=== PATIENT | female | born 1940 | race Caucasian/White ===

== ENCOUNTER 2022-10-11 21:13 | Emergency (ER) | payer MEDICARE, SELFPAY ==
[2022-10-11] VITALS (21 sets, daily range): BP systolic 150–190; BP diastolic 70–135; PULSE 79–97; RESP 13–37; TEMP 37.1; O2SAT 88–96; BMI 20.1
--- NOTE | 2022-10-11 21:24 | ECG_ITS ---
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
--- NOTE | 2022-10-11 21:36 | ED_ITS ---
HPI - Chest Pain General Chief Complaint: Chest Pain Stated Complaint: PALPITATIONS Time Seen by Provider: 10/11/22 21:24 History of Present Illness HPI narrative: 82-year-old female who has a pacemaker and sees Dr. Kapoor and Dr. Gomez (cardiology) presents for evaluation stating that she thinks she had a spell with her pacemaker. She states she felt some fluttering in her chest. She denies any rudolph chest pain. She denies any dizziness or syncope. She has no lower extremity swelling. The patient has had a cough since last Saturday. She was seen by Dr. Kapoor and started on Zithromax and given a shot of something in her left arm. She is not having any productive sputum. She does not smoke but has a history of smoking in the past. She denies any abdominal pain. She denies any nausea or vomiting. She does not think that she has had a fever. She has not been vaccinated against Covid 19. She did have a Covid [address] Kapoor's office that was negative. She is on Eliquis 2.5mg BID Related Data Home Medications Medication Instructions Recorded Confirmed apixaban 2.5 mg tablet (Eliquis) mg 10/11/22 carvedilol 25 mg tablet mg 10/11/22 colesevelam 625 mg tablet mg 10/11/22 diltiazem HCl 120 mg mg PO 10/11/22 capsule,extended release 24 hr memantine 10 mg tablet mg 10/11/22 montelukast 10 mg tablet mg 10/11/22 Allergies Allergy/AdvReac Type Severity Reaction Status Date / Time No Known Drug Allergies Allergy Verified 10/11/22 21:29 Review of Systems ROS Status of ROS 10 or more systems reviewed and unremarkable except as noted in history and below PFSH PFS Social History Smoking status: Former smoker Exam Narrative Exam Narrative: Nurses note and vital signs reviewed and patient is mildly hypoxic with pulse ox of 93 percent on room air General: The patient appears well and in no apparent distress. Patient is resting comfortably on cart. She has episodes of coughing. No rudolph respiratory distress Skin: Warm, dry, no pallor noted. There is no rash noted. Head: Normocephalic, atraumatic Eye: Normal conjunctiva, no drainage, EOMI. PERRL Ears, Nose, Mouth, and Throat: oral mucosa is sticky, Posterior pharynx is normal. Cardiovascular: Regular Rate and Rhythm, paced rhythm in the 70s and 80s. Respiratory: Patient is in no distress, no accessory muscle use, LLL rhonchi are appreciated, no wheezing or rales noted Back: non-tender, no CVA tenderness bilaterally to percussion. GI: Normal bowel sounds, no tenderness to palpation, no masses appreciated. No rebound, guarding, or rigidity noted. Musculoskeletal: The patient has no evidence of calf tenderness, no pitting edema, symmetrical pulses noted bilaterally Neurological: A&O x4, normal speech Psychiatric: Cooperative Constitutional Vital Signs, click to edit/add: Last Vital Signs Temp 98.7 F 10/11/22 21:17 Pulse 90 10/11/22 21:17 Resp 16 10/11/22 21:17 BP 150/70 H 10/11/22 21:17 Pulse Ox 94 L 10/11/22 23:05 O2 Del Method Room Air 10/11/22 23:05 O2 Flow Rate 2 10/11/22 21:50 Course Vital Signs Vital signs: Vital Signs Temperature 98.7 F 10/11/22 21:17 Pulse Rate 90 10/11/22 21:17 Respiratory Rate 16 10/11/22 21:17 Blood Pressure 150/70 H 10/11/22 21:17 Pulse Oximetry 93 L 10/11/22 21:17 Oxygen Delivery Method Room Air 10/11/22 21:17 Temperature 98.7 F 10/11/22 21:17 Pulse Rate 90 10/11/22 21:17 Respiratory Rate 16 10/11/22 21:17 Blood Pressure 150/70 H 10/11/22 21:17 Pulse Oximetry 94 L 10/11/22 23:05 Oxygen Delivery Method Room Air 10/11/22 23:05 Oxygen Delivery Flow Rate 2 10/11/22 21:50 MDM - Chest Pain MDM Narrative Medical decision making narrative: This 82-year-old female presents for evaluation of cough with clear sputum when she does have productive sputum and feeling like her pacemaker may not have been working. She presented stating she thought she was having a spell with her pacemaker . She was recently seen by her family physician and had a negative [address] test and given a shot and a prescription for Zithromax which she is currently taking. She denies any nausea or vomiting. She has not been vaccinated against Covid 19. On arrival she was noted to have a mildly decreased pulse ox at 93 percent. Her lungs were clear with some mild left lower lobe rhonchi. She is otherwise well appearing. An EKG done upon arrival was a paced rhythm at 86 bpm. Routine labs including troponin, respiratory panel and BNP as well as lactic acid, CBC and comprehensive metabolic profile was ordered. The patient tested positive for rhinorrhea enterovirus. She has a normal troponin. She has a normal white count and hemoglobin. Electrolytes are normal with the exception of a glucose of 150. Lactic acid is minimally elevated at 2.1. To have an elevated BNP but her chest x-ray is negative for peripheral vascular congestion or pleural effusion. She was medicated with gentle hydration and Tylenol. While being monitored it was noted that at times her pulse ox high 80s and low 90s and she was given a DuoNeb treatment. She is Comfortable after the DuoNeb treatment and states she can take deeper breaths and is feeling better and will be discharged home with a prescription for Bromfed-DM and albuterol MDI. Lab Data Labs: Lab Results 10/11/22 Range/Units 21:50 WBC 10.9 (4.0-11.0) 10^3/uL RBC 4.43 (4.20-5.40) 10^6/uL Hgb 14.4 (12.0-16.0) g/dL Hct 43.0 (36.0-48.0) % MCV 97.1 (81.0-99.0) fL MCH 32.5 (26.7-34.0) pg MCHC 33.5 (29.9-35.2) g/dL RDW 13.0 (11.0-15.0) % Plt Count 294 (150-450) 10^3/uL MPV 9.8 (9.5-13.5) fL Neut % (Auto) 89.0 H (43.0-75.0) % Lymph % (Auto) 7.2 L (20.5-60.0) % [place] % (Auto) 3.0 (1.7-12.0) % Eos % (Auto) 0.0 L (0.9-7.0) % Baso % (Auto) 0.1 L (0.2-2.0) % Neut # (Auto) 9.7 H (1.4-6.5) 10^3/uL Lymph # (Auto) 0.8 L (1.2-3.8) 10^3/uL [place] # (Auto) 0.3 (0.3-0.8) 10^3/uL Eos # (Auto) 0.0 (0.0-0.7) 10^3/uL Baso # (Auto) 0.0 (0.0-0.1) 10^3/uL Abs Immat Gran (auto) 0.08 H (0.00-0.03) 10^3/uL Imm/Tot Granulo (auto) 0.7 H (0.0-0.5) % Sodium 137 (136-145) mmol/L Potassium 4.4 (3.5-5.1) mmol/L Chloride 102 (98-107) mmol/L Carbon Dioxide 21.5 (21.0-32.0) mmol/L Anion Gap 17.9 BUN 20.0 H (7.0-18.0) mg/dL Creatinine 0.88 (0.55-1.02) mg/dL Est GFR ( Amer) >60 (>=60) Est GFR (Non-Af Amer) >60 (>=60) BUN/Creatinine Ratio 22.7 Glucose 150 H (74-106) mg/dL Lactate 2.1 H (0.4-2.0) mmol/L Calcium 9.5 (8.5-10.1) mg/dL Total Bilirubin 0.3 (0.2-1.0) mg/dL AST 14 L (15-37) U/L ALT 23 (14-59) U/L Alkaline Phosphatase 94 (46-116) U/L Troponin I High Sens 6.7 (4.0-51.3) pg/mL NT-Pro-B Natriuret Pep 2562.0 H* (<=1800.0) pg/mL Total Protein 8.0 (6.4-8.2) g/dL Albumin 4.3 (3.4-5.0) g/dL Globulin 3.7 g/dL Albumin/Globulin Ratio 1.2 Adenovirus (PCR) Not detected (NOT DETECTE) C. pneumoniae DNA (PCR) Not detected (NOT DETECTE) Coronavirus Type OC43 Not detected (NOT DETECTE) Coronavirus Type HKU1 Not detected (NOT DETECTE) Coronavirus Type 229E Not detected (NOT DETECTE) Coronavirus Type NL63 Not detected (NOT DETECTE) Human Metapneumovir PCR Not detected (NOT DETECTE) M. pneumoniae (PCR) Not detected (NOT DETECTE) Parainfluenza PCR Not detected (NOT DETECTE) Parainfluenza 2 (PCR) Not detected (NOT DETECTE) Parainfluenza 3 (PCR) Not detected (NOT DETECTE) Parainfluenza 4 (PCR) Not detected (NOT DETECTE) RSV (RT-PCR) Not detected (NOT DETECTE) Entero/Rhino (PCR) Detected A (NOT DETECTE) SARS-CoV-2 (PCR) Not detected (NOT DETECTE) Bordetella pertussis (PCR) Not detected (NOT DETECTE) B parapertussis DNA PCR Not detected (NOT DETECTE) Influenza Type A (PCR) Not detected (NOT DETECTE) Influenza Type B (PCR) Not detected (NOT DETECTE) ECG Data Attestation: I personally reviewed and interpreted this ECG as follows: (Paced rhythm at 86 beats for minute, otherwise normal EKG) Discharge Plan Discharge Chief Complaint: Chest Pain Clinical Impression: Viral upper respiratory tract infection with cough, Rhinovirus infection Prescriptions / Home Meds: No Action carvedilol 25 mg tablet colesevelam 625 mg tablet diltiazem HCl 120 mg capsule,extended release 24hr PO montelukast 10 mg tablet memantine 10 mg tablet Eliquis 2.5 mg tablet Referrals: [facility] [Other] - 1 week
--- NOTE | 2022-10-11 21:38 | XR_ITS ---
The [address] [address] Patient Name: ALAN SANCHEZ MRN: [id number] date: 1940 Sex: F Assigned Patient Location: ED.MAIN Current Patient Location: ER Accession/Order Number: [id number] Exam Date: 10/11/2022 22:05 Report Date: 10/11/2022 22:40 At the request of: BERTA MARKER Procedure: XR chest 2V EXAMINATION: XR chest 2V HISTORY: Shortness of breath COMPARISON: None. TECHNIQUE: PA and lateral chest x-rays FINDINGS: The lung parenchyma is free of consolidation or infiltrate. No pneumothorax or pleural effusion. Left-sided cardiac pacemaker The cardiac, mediastinal and hilar contours are normal. The visualized osseous structures exhibit no gross abnormality. XR/XR chest 2V IMPRESSION: No acute cardiopulmonary abnormality. Electronically authenticated by: RADHA CARDENAS Date: 10/11/2022 22:40
[2022-10-11 22:03] LABS: Adenovirus NOT DETECTED (NOT DETECTE); Bordetella parapertussis NOT DETECTED (NOT DETECTE); Coronavirus 229E NOT DETECTED (NOT DETECTE); Coronavirus HKU1 NOT DETECTED (NOT DETECTE); Coronavirus NL63 NOT DETECTED (NOT DETECTE); Coronavirus OC43 NOT DETECTED (NOT DETECTE); Human Metapneumovirus NOT DETECTED (NOT DETECTE); Influenza A NOT DETECTED (NOT DETECTE); Influenza B NOT DETECTED (NOT DETECTE); Mycoplasma pneumoniae NOT DETECTED (NOT DETECTE); Parainfluenza Virus 1 NOT DETECTED (NOT DETECTE); Parainfluenza Virus 2 NOT DETECTED (NOT DETECTE); Parainfluenza Virus 3 NOT DETECTED (NOT DETECTE); Parainfluenza Virus 4 NOT DETECTED (NOT DETECTE); Respiratory Syncytial Virus NOT DETECTED (NOT DETECTE); SARS-CoV-2 NOT DETECTED (NOT DETECTE)
[2022-10-11 22:09] LABS: Basophils Percent Auto 0.1 % (0.2-2.0); Hemoglobin 14.4 g/dL (12.0-16.0); Immature Granulocytes Abs Auto 0.08 10^3/uL (0.00-0.03); Immature Granulocytes Pct Auto 0.7 % (0.0-0.5); Lymphocytes Absolute Auto 0.8 10^3/uL (1.2-3.8); Lymphocytes Percent Auto 7.2 % (20.5-60.0); Mean Corpuscular HGB Conc 33.5 g/dL (29.9-35.2); Mean Corpuscular Hemoglobin 32.5 pg (26.7-34.0); Mean Corpuscular Volume 97.1 fL (81.0-99.0); Mean Platelet Volume 9.8 fL (9.5-13.5); Monocytes Absolute Auto 0.3 10^3/uL (0.3-0.8); Neutrophils Absolute Auto 9.7 10^3/uL (1.4-6.5); Platelet Count 294 10^3/uL (150-450); Red Blood Count 4.43 10^6/uL (4.20-5.40); White Blood Count 10.9 10^3/uL (4.0-11.0)
[2022-10-11] MEDS: 0.9 % SODIUM CHLORIDE 500 ML IV (22:27)
[2022-10-11] MEDS: ACETAMINOPHEN 325 MG TABLET 650 MG PO (22:27)
[2022-10-11 22:43] LABS: Lactate/Lactic Acid 2.1 mmol/L (0.4-2.0)
--- NOTE | 2022-10-11 22:48 | PC.NURSE ---
Patient states that she just doesn't feel well . states she was watching tv around 830 when she started to experience a weird feeling in her head and chest. states she was not having any pain but just felt off. unable to elaborate further. patient states she has a pacemaker that is supposed to have a lead replaced in october and was worried. patient saw dr. zurita on saturday for cold symptoms. she has had an ongoing productive cough. had negative chest xray, was tested for covid which was negative. and diagnosed with uti and given zpak. patient states she has been under increased stress with loss of her sun last month. ekg obtained and given to phsycian. respiratory and blood work taken to lab. 20g iv in left arm
[2022-10-11 23:04] LABS: Human Rhinovirus/Enterovirus DETECTED (NOT DETECTE)
[2022-10-11 23:08] LABS: Alanine Aminotransferase 23 U/L (14-59); Albumin Globulin Ratio 1.2; Albumin Level 4.3 g/dL (3.4-5.0); Alkaline Phosphatase 94 U/L (46-116); Anion Gap 17.9; Aspartate Amino Transferase 14 U/L (15-37); BUN Creatinine Ratio 22.7; Bilirubin Total 0.3 mg/dL (0.2-1.0); Calcium 9.5 mg/dL (8.5-10.1); Carbon Dioxide 21.5 mmol/L (21.0-32.0); Chloride 102 mmol/L (98-107); Estimated GFR (African America >60 (>=60); Estimated GFR (Non-African Ame >60 (>=60); Globulin 3.7 g/dL; Glucose 150 mg/dL (74-106); Potassium 4.4 mmol/L (3.5-5.1); Sodium 137 mmol/L (136-145); Troponin I High Sensitivity 6.7 pg/mL (4.0-51.3)
[2022-10-11] MEDS: IPRATROPIUM/ALBUTEROL SULFATE 3 ML AMPUL.NEB IH (23:47)
[2022-10-12 00:02] VITALS: PULSE 90; RESP 20; O2SAT 92
== END 2022-10-12 00:20 | disposition home or self-care (01) ==
PROVIDERS: Emergency Provider Emergency Medicine; PCP Internal Medicine
DX: J06.9 Acute upper respiratory infection, unspecified (principal); R05.9 Cough, unspecified; B97.89 Other viral agents as the cause of diseases classified elsewhere; Z20.822 Contact with and (suspected) exposure to COVID-19; R79.89 Other specified abnormal findings of blood chemistry; Z79.01 Long term (current) use of anticoagulants; Z95.0 Presence of cardiac pacemaker; Z79.899 Other long term (current) drug therapy; Z87.891 Personal history of nicotine dependence; Z28.310 Unvaccinated for COVID-19
CPT/HCPCS: 0202U; 36415; 71046; 80053; 83605; 83880; 84484; 85025; 93005; 94640; 99285

== ENCOUNTER 2022-10-27 15:36 | Emergency (ER) | payer MEDICARE, SELFPAY ==
[2022-10-27] VITALS (12 sets, daily range): BP systolic 172–180; BP diastolic 92–109; PULSE 80–97; RESP 13–27; TEMP 36.4; O2SAT 97–99; BMI 41.9
--- NOTE | 2022-10-27 15:38 | CT_ITS ---
The [address] [address] Patient Name: ALAN SANCHEZ MRN: [id number] date: 1940 Sex: F Assigned Patient Location: ER Current Patient Location: ER Accession/Order Number: [id number] Exam Date: 10/27/2022 15:40 Report Date: 10/27/2022 16:11 At the request of: MAHOGANY JENKINS Procedure: CT head/brain wo con EXAMINATION: CT head/brain wo con TECHNIQUE: Axial CT images were obtained through the brain. Sagittal and coronal reformatted images were also obtained. Dose reduction techniques were achieved by using automated exposure control and/or adjustment of mA and/or kV according to patient size and/or use of iterative reconstruction technique. HISTORY: fall COMPARISON: None. FINDINGS: Intracranial Bleed: No evidence for acute intracranial bleed. Intracranial Mass: No evidence for mass lesion. No mass effect or midline shift. Extra-axial spaces: There is mild cerebral atrophy and proportional ventricular enlargement. White/Ferrara Matter: No acute cortical infarct. Moderate patchy white matter chronic small vessel ischemic change. Skull/Scalp: No skull fracture. Moderate-sized scalp hematoma over the left parietal convexity. Orbits and sinuses: The orbits appear unremarkable. The visualized paranasal sinuses are clear. CT/CT head/brain wo con IMPRESSION: No acute intracranial pathology. Electronically authenticated by: MONICA CM Date: 10/27/2022 16:11
--- NOTE | 2022-10-27 15:45 | CT_ITS ---
[address] [address] Patient Name: ALAN SANCHEZ MRN: [id number] date: 1940 Sex: F Assigned Patient Location: ER Current Patient Location: [facility] Accession/Order Number: [id number] Exam Date: 10/27/2022 15:40 Report Date: 10/27/2022 16:05 At the request of: MAHOGANY JENKINS Procedure: CT cervical spine wo con EXAMINATION: CT cervical spine wo con TECHNIQUE: Axial CT images were obtained through the cervical spine. Sagittal and coronal reformatted images were also obtained. Dose reduction techniques were achieved by using automated exposure control and/or adjustment of mA and/or kV according to patient size and/or use of iterative reconstruction technique. HISTORY: trauma. COMPARISON: None. FINDINGS: Bones: No fracture Alignment: The alignment is anatomic. No acute subluxation. Arthritic changes: Mild spondylosis in the mid and lower cervical spine. Degenerative facet changes are most significant on the right at C2-C3 and C3-C4. Disc spaces: No gross disc herniation given limitation of CT scan. Soft tissues: No soft tissue mass or large hematoma. CT/CT cervical spine wo con IMPRESSION: No acute fracture or subluxation. Electronically authenticated by: MONICA CM Date: 10/27/2022 16:05
--- NOTE | 2022-10-27 15:56 | ECG_ITS ---
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
[2022-10-27 17:06] LABS: Bilirubin Urine NEGATIVE (NEGATIVE); Blood Urine NEGATIVE (NEGATIVE); Clarity Urine CLEAR (CLEAR); Color Urine LT. YELLOW (YELLOW); Glucose Urine UA NEGATIVE (NEGATIVE); Ketones Urine NEGATIVE (NEGATIVE); Leukocyte Esterase Urine SMALL (NEGATIVE); Nitrite Urine NEGATIVE (NEGATIVE); Protein Urine NEGATIVE (NEG/TRACE); Specific Gravity Urine 1.025 (1.005-1.025); Urobilinogen Urine 0.2 EU/dL (0.2-1.0); pH Urine 5.5 (5.0-9.0)
[2022-10-27 17:08] LABS: Urine Microscopic Indicated YES
[2022-10-27 17:19] LABS: Bacteria Urine SMALL #/HPF (NONE SEEN); Cast Seen? SEEN #/LPF (NONE SEEN); Crystals Seen? None Seen #/HPF (None Seen); Hyaline Casts Urine RARE; Mucus Urine NONE SEEN (NONE SEEN); RBC Urine 0-2 #/HPF (0-2); Squamous Epithelial Cell Urine MODERATE #/LPF (NONE/RARE); Urine Culture Indicated YES
[2022-10-27] MEDS: ACETAMINOPHEN 325 MG TABLET 650 MG PO (17:28)
--- NOTE | 2022-10-27 18:52 | ED_ITS ---
HPI - Head Injury General Chief complaint: Head Injury Stated complaint: fall Time Seen by Provider: 10/27/22 15:45 Source: patient Mode of arrival: ambulance Limitations: no limitations History of Present Illness HPI Narrative: The patient was standing trying to grab something in the upper shelf at home when she fell backward and hit the back of her head, there was no loss of consciousness she presented to us by the EMS She denies any dizziness Related Data Home Medications Medication Instructions Recorded Confirmed apixaban 2.5 mg tablet (Eliquis) mg 10/11/22 carvedilol 25 mg tablet mg 10/11/22 colesevelam 625 mg tablet mg 10/11/22 diltiazem HCl 120 mg mg PO 10/11/22 capsule,extended release 24 hr memantine 10 mg tablet mg 10/11/22 montelukast 10 mg tablet mg 10/11/22 Allergies Allergy/AdvReac Type Severity Reaction Status Date / Time No Known Drug Allergies Allergy Verified 10/11/22 21:29 Review of Systems ROS Status of ROS 10 or more systems reviewed and unremarkable except as noted in history and below [facility] Social History Smoking status: Former smoker Exam Narrative Exam Narrative: Nurses notes and vital signs reviewed and patient is not hypoxic. General: Well-appearing and in no apparent distress. Skin: Warm, dry, no pallor noted. No rash. Head: Normocephalic, 2 x 3 cm hematoma in the left occipital area no open wounds Neck: Supple, non-tender. Eye: Pupils are equal, round and EOMI. No scleral icterus. Ears, Nose, Mouth, and Throat: TM are clear, no nasal mucosal hypertrophy. Oral mucosa is moist, no posterior oropharynx erythema, uvula is mid-line Cardiovascular: Regular Rate and Rhythm without murmur, gallop or rub. Respiratory: No accessory muscle use or respiratory distress. Lungs are clear to auscultation, no wheezing, rales or rhonchi Chest Wall: no tenderness Back: No midline thoracic or lumbar vertebral tenderness. No CVA tenderness Musculoskeletal: normal ROM, no calf or popliteal tenderness, no lower extremity edema/swelling GI: Abdomen is soft, non-distended. Normal bowel sounds. No masses appreciated. No tenderness to palpation. No rebound, guarding, or rigidity noted. Neurological: A&O x4. No cranial nerve dysfunction observed. No truncal ataxia. Moves all extremities. Sensation intact. Psychiatric: Cooperative and interactive. Normal mood and affect. Constitutional Vital Signs, click to edit/add: Last Vital Signs Temp 97.6 F 10/27/22 15:37 Pulse 84 10/27/22 17:20 Resp 17 10/27/22 17:20 BP 172/92 H 10/27/22 17:10 Pulse Ox 97 10/27/22 16:40 O2 Del Method Room Air 10/27/22 15:37 Course Vital Signs Vital signs: Vital Signs Temperature 97.6 F 10/27/22 15:37 Pulse Rate 82 10/27/22 15:37 Respiratory Rate 16 10/27/22 15:37 Blood Pressure 180/109 H 10/27/22 15:37 Pulse Oximetry 97 10/27/22 15:37 Oxygen Delivery Method Room Air 10/27/22 15:37 Temperature 97.6 F 10/27/22 15:37 Pulse Rate 84 10/27/22 17:20 Respiratory Rate 17 10/27/22 17:20 Blood Pressure 172/92 H 10/27/22 17:10 Pulse Oximetry 97 10/27/22 16:40 Oxygen Delivery Method Room Air 10/27/22 15:37 MDM - Head Injury MDM Narrative Medical decision making narrative: CT of the head as well as CT of cervical spine showed no acute pathology except for the subcutaneous hematoma The patient also had a urinalysis because her daughter was worried about her history of UTI The patient had no urinary symptoms and her urine was normal The patient discharged home with her daughter and she was instructed about the monitoring for the next 10 to 12 hours at least for any nausea vomiting or any headache or any decrease level of consciousness she is to report back to the ER I did explain to the daughter multiple times that the fact that she take anticoagulation is the concern for this monitoring even for the next few days The patient is to follow up with primary care physician in next 2-3 days or to return to the emergency department should any of the signs or symptoms worsen or new symptoms develop. The patient agrees with the following Diagnosis and Treatment plan and the patient will be discharged home. Lab Data Labs: Lab Results 10/27/22 Range/Units 14:45 Urine Color Lt. yellow (YELLOW) Urine Clarity Clear (CLEAR) Urine pH 5.5 (5.0-9.0) Ur Specific [place] 1.025 (1.005-1.025) Urine Protein Negative (NEG/TRACE) mg/dL Urine Glucose (UA) Negative (NEGATIVE) mg/dL Urine Ketones Negative (NEGATIVE) mg/dL Urine Occult Blood Negative (NEGATIVE) Urine Nitrite Negative (NEGATIVE) Urine Bilirubin Negative (NEGATIVE) Urine Urobilinogen 0.2 (0.2-1.0) EU/dL Ur Leukocyte Esterase Small A (NEGATIVE) Urine RBC 0-2 (0-2) #/HPF Urine WBC 5-10 A (NONE SEEN) #/HPF Ur Squamous Epith Cells Moderate A (NONE/RARE) #/LPF Urine Crystals None seen (None Seen) #/HPF Urine Bacteria Small A (NONE SEEN) #/HPF Urine Casts Seen A (NONE SEEN) #/LPF Hyaline Casts Rare Urine Mucus None seen (NONE SEEN) Ur Culture Indicated? Yes Discharge Plan Discharge Chief Complaint: Head Injury Clinical Impression: Closed head injury Patient Disposition: Home, Self-Care Time of Disposition Decision: 17:19 Condition: Good Mode of Transportation: Private Vehicle Prescriptions / Home Meds: No Action carvedilol 25 mg tablet colesevelam 625 mg tablet diltiazem HCl 120 mg capsule,extended release 24hr PO montelukast 10 mg tablet memantine 10 mg tablet Eliquis 2.5 mg tablet Instructions: Head Injury (ED) Stand Alone Forms: Portal Instructions Referrals: [facility] [Other] - 1 week Discharge Date/Time: 10/27/22 17:38
== END 2022-10-27 17:38 | disposition home or self-care (01) ==
PROVIDERS: Emergency Provider Emergency Medicine; PCP Internal Medicine
DX: S09.8XXA Other specified injuries of head, initial encounter (principal); W19.XXXA Unspecified fall, initial encounter; Z79.899 Other long term (current) drug therapy; Z79.01 Long term (current) use of anticoagulants; Z87.891 Personal history of nicotine dependence; Z87.440 Personal history of urinary (tract) infections
CPT/HCPCS: 70450; 72125; 81001; 87086; 93005; 99284

== ENCOUNTER 2022-10-29 11:10 | Emergency (ER) | payer MEDICARE, SELFPAY ==
[2022-10-29 11:17] VITALS: BP 112/64; PULSE 87; RESP 18; TEMP 36.3; O2SAT 98; BMI 18.1
--- NOTE | 2022-10-29 11:56 | XR_ITS ---
The [place] [id number] Patient Name: ALAN SANCHEZ MRN: [id number] date: 1940 Sex: F Assigned Patient Location: ER Current Patient Location: ER Accession/Order Number: [id number] Exam Date: 10/29/2022 11:50 Report Date: 10/29/2022 12:23 At the request of: FAIZAN MARROQUIN Procedure: XR hip LT 2V w/ pelvis STUDY: XR hip LT 2V w/ pelvis, [id number] HISTORY: fall saturday COMPARISON: CT head 01/23/2022 FINDINGS: No acute fracture, dislocation, or suspicious osseous lesion. Bilateral hip arthroplasties are present. The left hip arthroplasty is intact and similar alignment. No evidence of loosening or infection. XR/XR hip LT 2V w/ pelvis IMPRESSION: No acute osseous abnormality. Electronically authenticated by: HOLGER CROWELL Date: 10/29/2022 12:23
--- NOTE | 2022-10-29 13:25 | XR_ITS ---
The [address] [address] Patient Name: ALAN SANCHEZ MRN: [id number] date: 1940 Sex: F Assigned Patient Location: ER Current Patient Location: ER Accession/Order Number: [id number] Exam Date: 10/29/2022 13:45 Report Date: 10/29/2022 14:18 At the request of: LAISHA BIRD Procedure: XR sacrum coccyx min 2V IMAGES REVIEWED: XR sacrum coccyx min 2V COMPARISON: 02/06/2021. CLINICAL INDICATION: Fall FINDINGS/IMPRESSION: 1. Due to patient's severe osteopenia and suboptimal 2 lateral views provided this is a very limited exam. No obvious fracture. Recommend follow-up MRI for more accurate evaluation. 2. Bilateral hip arthroplasties without evidence of acute complication. 3. Severe lower lumbar facet arthropathy with degenerative grade 1 anterolisthesis of L4 on L5 and L5 and S1. Electronically authenticated by: TERESA DE LA O Date: 10/29/2022 14:18
--- NOTE | 2022-10-29 13:25 | ED_ITS ---
Documented by User: SANGEETHA Pires 10/29/22 14:27 HPI - General Adult General Chief complaint: Extremity Injury, Lower Stated complaint: TAILBONE PAIN Time Seen by Provider: 10/29/22 13:21 Source: patient Mode of arrival: walk-in Limitations: no limitations History of Present Illness HPI narrative: patient is an 82-year-old female who returns to the emergency department after a fall two days ago. Patient states she tripped and fell 2 days ago, was seen in this emergency Department and had CT scans done for closed head injury. She states she is not sure if she landed on her bottom but no she fell backward and hit the back of her head. She states she is otherwise feeling okay but in the last two days has had an increase in pain to the tailbone. She is able to ambulate with her cane. She took Tylenol three hours ago with some improvement. She reports pain in the tailbone without significant radiation to the legs. No urinary or stool changes. she states she hhad minimal pain in the tailbone when she was seen here two days ago but has had an increase over the last two days. Related Data Home Medications Medication Instructions Recorded Confirmed apixaban 2.5 mg tablet (Eliquis) mg 10/11/22 carvedilol 25 mg tablet mg 10/11/22 colesevelam 625 mg tablet mg 10/11/22 diltiazem HCl 120 mg mg PO 10/11/22 capsule,extended release 24 hr memantine 10 mg tablet mg 10/11/22 montelukast 10 mg tablet mg 10/11/22 Previous Rx's Medication Instructions Recorded tramadol 50 mg tablet 50 mg PO Q6H PRN pain #12 tabs 10/29/22 Allergies Allergy/AdvReac Type Severity Reaction Status Date / Time No Known Drug Allergies Allergy Verified 10/11/22 21:29 Review of Systems ROS Constitutional Denies: fever or chills Cardiovascular Denies: chest pain Respiratory Denies: shortness of breath or cough Gastrointestinal Denies: nausea or vomiting Genitourinary Denies: painful urination Musculoskeletal Reports: back pain; Denies: neck pain or extremity pain Integumentary/Breast Denies: rash Hematologic/Lymphatic Denies: easy bruising PFSH PFSH Social History Smoking status: Former smoker Exam Narrative Exam Narrative: Gen.: Awake, alert, in no distress Head: Normocephalic, atraumatic ENT: Moist mucous membranes Respiratory: No respiratory distress Back: no bony point tenderness of the L-spine or coccyx, no obvious deformity or step-off Extremities: Moves extremities equally, no bony tenderness of the pelvis or hips, no bony tenderness of the lower extremities. Normal hip flexion bilaterally. Psych: Normal mood and affect Neuro: No focal neuro deficit Skin: Warm, dry, intact Constitutional Vital Signs, click to edit/add: Last Vital Signs Temp 97.4 F L 10/29/22 11:17 Pulse 87 10/29/22 11:17 Resp 18 10/29/22 11:17 BP 112/64 10/29/22 11:17 Pulse Ox 98 10/29/22 11:17 O2 Del Method Room Air 10/29/22 11:17 Course Vital Signs Vital signs: Vital Signs Temperature 97.4 F L 10/29/22 11:17 Pulse Rate 87 10/29/22 11:17 Respiratory Rate 18 10/29/22 11:17 Blood Pressure 112/64 10/29/22 11:17 Pulse Oximetry 98 10/29/22 11:17 Oxygen Delivery Method Room Air 10/29/22 11:17 Temperature 97.4 F L 10/29/22 11:17 Pulse Rate 87 10/29/22 11:17 Respiratory Rate 18 10/29/22 11:17 Blood Pressure 112/64 10/29/22 11:17 Pulse Oximetry 98 10/29/22 11:17 Oxygen Delivery Method Room Air 10/29/22 11:17 Medical Decision Making [facility] Narrative Medical decision making narrative: Patient initially was sent for hip and pelvis x-rays, these were unremarkable but after my examination and location of patient's pain, she was sent back for x-rays of the sacrum and coccyx which show osteopenia and degenerative changes but no evidence of fracture or dislocation. Patient discharged home with a short course of analgesics. She is given education and reassurance to apply ice to the area of injury and return to the Emergency Room if symptoms change or worsen. Follow-up with PCP for further evaluation and treatment. Medical Records Medical records reviewed: Yes I reviewed the patient's medical records Imaging Data XR hip/pelvis: Attestation: I have reviewed the pertinent imaging results. Radiologist's impression: Procedure: XR hip LT 2V w/ pelvis STUDY: XR hip LT 2V w/ pelvis, [id number] HISTORY: fall saturday COMPARISON: CT head 01/23/2022 FINDINGS: No acute fracture, dislocation, or suspicious osseous lesion. Bilateral hip arthroplasties are present. The left hip arthroplasty is intact and similar alignment. No evidence of loosening or infection. IMPRESSION: No acute osseous abnormality. Electronically authenticated by: HOLGER CROWELL Date: 10/29/2022 12:23 XR sacrum/coccyx: Attestation: I have reviewed the pertinent imaging results. Radiologist's impression: Procedure: XR sacrum coccyx min 2V IMAGES REVIEWED: XR sacrum coccyx min 2V COMPARISON: 02/06/2021. CLINICAL INDICATION: Fall FINDINGS/IMPRESSION: 1. Due to patient's severe osteopenia and suboptimal 2 lateral views provided this is a very limited exam. No obvious fracture. Recommend follow-up MRI for more accurate evaluation. 2. Bilateral hip arthroplasties without evidence of acute complication. 3. Severe lower lumbar facet arthropathy with degenerative grade 1 anterolisthesis of L4 on L5 and L5 and S1. Electronically authenticated by: TERESA DE LA O Date: 10/29/2022 14:18 Discharge Plan Discharge Chief Complaint: Extremity Injury, Lower Clinical Impression: Coccyx contusion Patient Disposition: Home, Self-Care Time of Disposition Decision: 14:22 Condition: Good Prescriptions / Home Meds: New tramadol 50 mg tablet 50 mg PO Q6H PRN (Reason: pain) Qty: 12 0RF Rx Instructions: DX: M54.5 No Action carvedilol 25 mg tablet colesevelam 625 mg tablet diltiazem HCl 120 mg capsule,extended release 24hr PO montelukast 10 mg tablet memantine 10 mg tablet Eliquis 2.5 mg tablet Instructions: Coccyx Injury (ED), Contusion in Adults (ED) Stand Alone Forms: Portal Instructions Referrals: Physician,Non-Staff, MD [Primary Care Provider] - 1 week Discharge Date/Time: 10/29/22 14:37 Documented by User: Pavan Mathew MD 10/29/22 19:35 HPI - General Adult General Chief complaint: Extremity Injury, Lower Stated complaint: TAILBONE PAIN Time Seen by Provider: 10/29/22 13:21 Related Data Home Medications Medication Instructions Recorded Confirmed apixaban 2.5 mg tablet (Eliquis) mg 10/11/22 carvedilol 25 mg tablet mg 10/11/22 colesevelam 625 mg tablet mg 10/11/22 diltiazem HCl 120 mg mg PO 10/11/22 capsule,extended release 24 hr memantine 10 mg tablet mg 10/11/22 montelukast 10 mg tablet mg 10/11/22 Previous Rx's Medication Instructions Recorded tramadol 50 mg tablet 50 mg PO Q6H PRN pain #12 tabs 10/29/22 Allergies Allergy/AdvReac Type Severity Reaction Status Date / Time No Known Drug Allergies Allergy Verified 10/11/22 21:29 PFSH PFS Social History Smoking status: Former smoker Exam Constitutional Vital Signs, click to edit/add: Last Vital Signs Temp 97.4 F L 10/29/22 11:17 Pulse 87 10/29/22 11:17 Resp 18 10/29/22 11:17 BP 112/64 10/29/22 11:17 Pulse Ox 98 10/29/22 11:17 O2 Del Method Room Air 10/29/22 11:17 Course Vital Signs Vital signs: Vital Signs Temperature 97.4 F L 10/29/22 11:17 Pulse Rate 87 10/29/22 11:17 Respiratory Rate 18 10/29/22 11:17 Blood Pressure 112/64 10/29/22 11:17 Pulse Oximetry 98 10/29/22 11:17 Oxygen Delivery Method Room Air 10/29/22 11:17 Temperature 97.4 F L 10/29/22 11:17 Pulse Rate 87 10/29/22 11:17 Respiratory Rate 18 10/29/22 11:17 Blood Pressure 112/64 10/29/22 11:17 Pulse Oximetry 98 10/29/22 11:17 Oxygen Delivery Method Room Air 10/29/22 11:17 Medical Decision Making [facility] Narrative Medical decision making narrative: Patient initially was sent for hip and pelvis x-rays, these were unremarkable but after my examination and location of patient's pain, she was sent back for x-rays of the sacrum and coccyx which show osteopenia and degenerative changes but no evidence of fracture or dislocation. Patient discharged home with a short course of analgesics. She is given education and reassurance to apply ice to the area of injury and return to the Emergency Room if symptoms change or worsen. Follow-up with PCP for further evaluation and treatment. I, Dr Mathew, have reviewed the above progress note and course of action in the ER; agree with the above. I have personally seen and evaluated this patient, gone over history and physical, and discussed disposition and treatment plan with the patient. Discharge Plan Discharge Chief Complaint: Extremity Injury, Lower Clinical Impression: Coccyx contusion Patient Disposition: Home, Self-Care Time of Disposition Decision: 14:22 Condition: Good Prescriptions / Home Meds: New tramadol 50 mg tablet 50 mg PO Q6H PRN (Reason: pain) Qty: 12 0RF Rx Instructions: DX: M54.5 No Action carvedilol 25 mg tablet colesevelam 625 mg tablet diltiazem HCl 120 mg capsule,extended release 24hr PO montelukast 10 mg tablet memantine 10 mg tablet Eliquis 2.5 mg tablet Instructions: Coccyx Injury (ED), Contusion in Adults (ED) Stand Alone Forms: Portal Instructions Referrals: Physician,Non-Staff, MD [Primary Care Provider] - 1 week Discharge Date/Time: 10/29/22 14:37
[2022-10-29] MEDS: TRAMADOL HCL 50 MG TABLET PO (13:31)
== END 2022-10-29 14:37 | disposition home or self-care (01) ==
PROVIDERS: Emergency Provider Emergency Medicine
DX: S30.0XXA Contusion of lower back and pelvis, initial encounter (principal); W19.XXXA Unspecified fall, initial encounter; M85.88 Other specified disorders of bone density and structure, other site; Z79.01 Long term (current) use of anticoagulants; Z79.899 Other long term (current) drug therapy; Z87.891 Personal history of nicotine dependence
CPT/HCPCS: 72220; 73502; 99284

== ENCOUNTER 2022-11-16 15:24 | Outpatient (OUT) | payer MEDICARE, SELFPAY ==
[2022-11-16 15:47] LABS: Basophils Percent Auto 0.2 % (0.2-2.0); Eosinophils Percent Auto 0.4 % (0.9-7.0); Hematocrit 45.6 % (36.0-48.0); Hemoglobin 15.1 g/dL (12.0-16.0); Immature Granulocytes Abs Auto 0.07 10^3/uL (0.00-0.03); Immature Granulocytes Pct Auto 0.9 % (0.0-0.5); Lymphocytes Absolute Auto 1.2 10^3/uL (1.2-3.8); Lymphocytes Percent Auto 14.6 % (20.5-60.0); Mean Corpuscular HGB Conc 33.1 g/dL (29.9-35.2); Mean Corpuscular Hemoglobin 33.6 pg (26.7-34.0); Mean Corpuscular Volume 101.3 fL (81.0-99.0); Mean Platelet Volume 9.7 fL (9.5-13.5); Monocytes Absolute Auto 0.8 10^3/uL (0.3-0.8); Monocytes Percent Auto 9.7 % (1.7-12.0); Neutrophils Percent Auto 74.2 % (43.0-75.0); Platelet Count 241 10^3/uL (150-450); Red Cell Distribution Width 13.7 % (11.0-15.0); White Blood Count 8.1 10^3/uL (4.0-11.0)
[2022-11-16 16:02] LABS: Anion Gap 12.9; BUN Creatinine Ratio 32.8; Calcium 9.3 mg/dL (8.5-10.1); Carbon Dioxide 24.5 mmol/L (21.0-32.0); Chloride 102 mmol/L (98-107); Estimated GFR (African America >60 (>=60); Estimated GFR (Non-African Ame >60 (>=60); Glucose 92 mg/dL (74-106); Potassium 4.4 mmol/L (3.5-5.1); Sodium 135 mmol/L (136-145)
== END 2022-11-16 15:25 | disposition home or self-care (01) ==
LOC: LAB 15:28
PROVIDERS: Visit Provider Internal Medicine Cardiovascular Disease
DX: T82.110A Breakdown (mechanical) of cardiac electrode, initial encounter (principal)
CPT/HCPCS: 36415; 80048; 85025

== ENCOUNTER 2023-07-22 14:51 | Outpatient (OUT) | payer MEDICARE, SELFPAY ==
--- NOTE | 2023-07-22 15:00 | CA_ITS ---
Patient Name: ALAN SANCHEZ MR#: [id number] : 1940 Exam Date: 07/22/2023 Ordering Doctor: HUSSEIN PARKER ECHOCARDIOGRAM REPORT PROCEDURE: CA ECHO DOPPLER COMPLETE INDICATIONS: Atrial fibrillation, pacemaker COMPARISON: None. DESCRIPTION: COMPLETE ECHOCARDIOGRAM Real-time transthoracic echocardiography with 2D, M-mode, spectral and color flow Doppler performed. QUALITY: Technical quality was good. 62 , 109#, BP 132/64 LEFT VENTRICLE: Normal chamber size. Proximal septal hypertrophy (sigmoid septum). LV EF: Global left ventricular systolic function is difficult to assess but appears low normal limits; visually estimated ejection fraction is 50 to 55%. Unable to assess regional wall motion abnormalities; consider contrast study for better delineation of endocardial borders. DIASTOLIC: Unable to assess diastolic function due to underlying rhythm. ATRIAL SEPTUM: Visually appears intact. LEFT ATRIUM: Severe dilatation. RIGHT ATRIUM: Moderate dilatation. RIGHT VENTRICLE: Mild dilatation. Systolic function appears reduced. Pacer wire present. TRICUSPID VALVE: Normal mobility and thickness. Mild regurgitation. No evidence of pulmonary hypertension. RVSP 21 mmHg MITRAL VALVE: Normal mobility and thickness. There is no mitral annular calcification. Trivial mitral regurgitation. AORTIC VALVE: Normal trileaflet appearance. Thickened aortic valve. Normal leaflet mobility. No evidence of aortic valve stenosis. Mild aortic regurgitation. AORTIC ROOT: Normal diameter and appearance. PULMONIC VALVE: Normal thickness and mobility. No stenosis. Trivial regurgitation. PERICARDIUM: Anterior free space; trivial effusion versus fat pad. IVC: Collapses with inspirations. CONCLUSION: 1. Global left ventricular systolic function is difficult to assess but appears lower normal limits; visually estimated ejection fraction is 50 to 55% 2. The right ventricle appears dilated with reduced systolic function 3. Biatrial enlargement 4. Mild tricuspid regurgitation 5. Mild aortic valve regurgitation 6. Anterior free space; trivial effusion versus fat pad Adult Echocardiography Procedure Report Left Ventricle LVEDD (3.7 - 5.6 cm): 4.47 cm LVESD (2.2 - 4.0 cm): 2.78 cm LVIVS thickness (0.6 - 1.2 cm): 1.40 cm LVPW thickness (0.5 - 1.0 cm): 0.64 cm e': 0.10 m/s E - e': 7.67 LVOT Max Gradient: 2.80 mm[Hg] LVOT Area (cm2): 0.84 m/s Peak Velocity (LVOT): 0.84 m/s Mean Velocity (LVOT): 0.53 m/s LVOT Diameter 1.82 cm Left Atrium LA Volume Index (2D A2C): 79.24 ml/m2 Left Atrium Systolic Dimension: 4.83 cm Mitral Valve MV E to A Ratio: 3.01, 3.76 Mitral Valve A-Wave Peak Velocity: 0.22 m/s Mitral Valve E-Wave Peak Velocity: 0.73 m/s Right Ventricle Aorta AO Root Diam: 3.38 cm Ascending Ao Diam: 3.34 cm Aortic Valve AoV Area (Peak Low): 2.31 cm2, 2.31 cm2 AoV Area (VTI): 2.55 cm2, 2.55 cm2 Peak Velocity(Antegrade Flow): 0.94 m/s Peak Gradient(Antegrade Flow): 3.54 mm[Hg] Mean Velocity(Antegrade Flow): 0.59 m/s Mean Gradient(Antegrade Flow): 1.63 mm[Hg] Velocity Time Integral: 17.75 cm Tricuspid Valve Peak Velocity (Regurgitant Flow): 2.49 m/s, 2.11 m/s Pulmonic Valve Peak Velocity: 0.87 m/s Peak Gradient: 3.03 mm[Hg], 3.03 mm[Hg] Right Atrium Right Atrium Systolic Pressure: 94.44 ml, 94.44 ml Dictated by: Man Hernandez M.D. on 07/24/2023 at 14:34 Approved by: Man Hernandez M.D. on 07/24/2023 at 14:39
== END 2023-07-22 14:52 | disposition home or self-care (01) ==
LOC: CARD 14:52
PROVIDERS: Visit Provider Nurse Practitioner
DX: I48.11 Longstanding persistent atrial fibrillation (principal)
CPT/HCPCS: 93306

== ENCOUNTER 2023-12-29 21:40 | Inpatient (IN) | payer MEDICARE, SELFPAY ==
[2023-12-29] VITALS (21 sets, daily range): BP systolic 84–106; BP diastolic 41–68; PULSE 70–85; TEMP 36.4; O2SAT 84–99; BMI 21.8
[2023-12-29] MEDS: NALOXONE HCL 2 MG/2 ML SYRINGE IV (21:43)
--- NOTE | 2023-12-29 21:43 | XR_ITS ---
The [address] [address] Patient Name: ALAN SANCHEZ MRN: [id number] date: 1940 Sex: F Assigned Patient Location: ER Current Patient Location: ER Accession/Order Number: [id number] Exam Date: 12/29/2023 22:15 Report Date: 12/29/2023 23:27 At the request of: GREY PAREDES Procedure: XR chest 1V PORTABLE CHEST X-RAY. INDICATION: Altered mental status. COMPARISON: None. TECHNIQUE: Single AP portable chest radiograph. FINDINGS: TUBES AND LINES: Intact cardiac leads. LUNGS: There are mild bilateral interstitial opacities. PLEURA: No effusions or pneumothorax. HEART AND MEDIASTINUM: Cardiomegaly. OSSEOUS STRUCTURES: No acute abnormality. XR/XR chest 1V IMPRESSION: Mild bilateral interstitial opacities which may represent interstitial edema. Electronically authenticated by: EULALIA MESSINA Date: 12/29/2023 23:27
--- NOTE | 2023-12-29 21:43 | ECG_ITS ---
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
--- NOTE | 2023-12-29 21:44 | CT_ITS ---
The [address] [address] Patient Name: ALAN SANCHEZ MRN: [id number] date: 1940 Sex: F Assigned Patient Location: ER Current Patient Location: ED.MAIN Accession/Order Number: [id number] Exam Date: 12/29/2023 22:15 Report Date: 12/29/2023 22:52 At the request of: GREY PAREDES Procedure: CT head/brain wo con EXAM: CT head/brain wo con INDICATION: 83 years old; Female. Change in mental status. TECHNIQUE: CT Head (ax/cor/sag reformats). Ionizing radiation dose reduced via iterative reconstruction/FBP blend and body size kV/mA adjustment. Comparison: Head CT dated 10/27/2022. FINDINGS: POSTOPERATIVE CHANGES: None. BRAIN PARENCHYMA: No intraparenchymal or extra-axial hemorrhage. No mass effect. No midline shift or herniation. Patchy low-density in the white matter without mass effect. VENTRICLES/EXTRA-AXIAL SPACES: Enlarged, consistent with atrophy. SINUSES/MASTOIDS: The visualized sinuses are clear although the maxillary sinuses are not completely included. Khalida bullosa bilaterally. Mastoids and middle ears are clear. MSK: No displaced or depressed calvarial fracture. OTHER: No hyperdense intraluminal thrombus. Vascular calcifications are present. CT/CT head/brain wo con IMPRESSION: 1. No acute intracranial abnormality. No hemorrhage or mass effect. 2. Nonspecific white matter changes. 3. Atrophy. 4. Vascular calcifications. Electronically authenticated by: MERCEDEZ ANTHONY Date: 12/29/2023 22:52
--- NOTE | 2023-12-29 21:50 | ED_ITS ---
HPI HPI - General Adult General Chief complaint: Weakness Stated complaint: GENERAL WEAKNESS Time Seen by Provider: 12/29/23 21:42 History of Present Illness HPI narrative: 83-year-old female who has DNR CCA status presents to the emergency department for altered mental status. Initially all of the history is obtained from the paramedics. They reported that the daughter with whom the patient lives is a poor historian. They reported that the patient was at an emergency department earlier today for back pain. Initially they were told that hospital was this 1 but this is not the case. They reported that she had altered mental status and they gave her Narcan but there was no change. They had not checked her blood sugar. They placed her on oxygen and had given her atropine because her heart rate was low. She has a pacemaker. Initially no further history is obtainable. Related Data Home Medications ?Medication ?Instructions ?Recorded ?Confirmed apixaban 2.5 mg tablet (Eliquis) mg 10/11/22 carvedilol 25 mg tablet mg 10/11/22 colesevelam 625 mg tablet mg 10/11/22 diltiazem HCl 120 mg mg PO 10/11/22 capsule,extended release 24 hr memantine 10 mg tablet mg 10/11/22 montelukast 10 mg tablet mg 10/11/22 Previous Rx's ?Medication ?Instructions ?Recorded tramadol 50 mg tablet 50 mg PO Q6H PRN pain #12 tabs 10/29/22 Allergies Allergy/AdvReac Type Severity Reaction Status Date / Time No Known Drug Allergies Allergy Verified 10/11/22 21:29 Opioid HPI Opioid Management Most Recent Opioid Data: Last Pain Scale 4 10/29/22 13:31 10/29/22 Ur Phencyclidine Scrn Negative (NEGATIVE) 12/29/23 22:05 12/19 Review of Systems ROS Narrative Not obtainable, nonverbal PFSH PFSH Social History Smoking status: Former smoker Exam Narrative Exam Narrative: Nurses note and vital signs reviewed and patient is not hypoxic. General: The patient is in need to have. She is on oxygen upon arrival and her eyes are open. Skin: Warm, dry, no pallor noted. There is no rash noted. Head: Normocephalic, atraumatic Eye: Normal conjunctiva, no drainage Ears, Nose, Mouth, and Throat: oral mucosa is moist. Nares patent. Cardiovascular: Regular Rate and Rhythm, not tachycardic Respiratory: Breath sounds are equal and she is moving air well GI: Soft and not apparently tender Musculoskeletal: No extremity palpable tenderness. No obvious deformities Neurological: Her eyes are open but she is nonverbal. She does wiggle her toes when asked to do so. Psychiatric: Cannot be assessed Constitutional Vital Signs, click to edit/add: Last Vital Signs Temp 97.6 F 12/29/23 21:47 Pulse 75 12/29/23 23:45 Resp 34 H 12/29/23 23:45 BP 95/66 12/29/23 23:45 Pulse Ox 97 12/29/23 23:45 O2 Del Method Nasal Cannula 12/29/23 22:07 O2 Flow Rate 4 12/29/23 22:07 Course Vital Signs Vital signs: Vital Signs Pulse Rate 70 12/29/23 21:42 Respiratory Rate 20 12/29/23 21:42 Pulse Oximetry 99 12/29/23 21:42 Temperature 97.6 F 12/29/23 21:47 Pulse Rate 75 12/29/23 23:45 Respiratory Rate 34 H 12/29/23 23:45 Blood Pressure 95/66 12/29/23 23:45 Pulse Oximetry 97 12/29/23 23:45 Oxygen Delivery Method Nasal Cannula 12/29/23 22:07 Oxygen Delivery Flow Rate 4 12/29/23 22:07 Medical Decision Making MDM Narrative Medical decision making narrative: The patient presented with altered mental status. During her stay here she seems to have improved. Family states that she is saying some words and she is moving her hands purposefully. She has had no localizing symptoms to suggest CVA that would result in motor deficit. She may need an MRI tomorrow. Blood work and urinalysis are negative, drug screen and alcohol level are negative as well. She has DNR CCA status. Findings are discussed thoroughly with the patient and she is being admitted for further care and workup. She had been seen earlier today at another emergency department for nonspecific symptoms which included chest pain. Her workup there was reportedly negative and she was discharged home with no new prescriptions. Differential Diagnosis Differential Diagnosis: Stroke, intracranial hemorrhage, UTI Lab Data Lab results reviewed: Yes I reviewed the patient's lab results Labs: Lab Results 12/29/23 12/29/23 12/29/23 Range/Units 21:42 21:50 22:05 WBC 2.1 L (4.0-11.0) 10^3/uL RBC 4.69 (4.20-5.40) 10^6/uL Hgb 14.4 (12.0-16.0) g/dL Hct 42.8 (36.0-48.0) % MCV 91.3 (81.0-99.0) fL MCH 30.7 (26.7-34.0) pg MCHC 33.6 (29.9-35.2) g/dL RDW 15.7 H (11.0-15.0) % Plt Count 174 (150-450) 10^3/uL MPV 12.9 (9.5-13.5) fL Seg Neuts % (Manual) 61.0 (43.0-75.0) Band Neutrophils % 10.0 H (0-5) % Lymphocytes % (Manual) 20.0 L (20.5-60.0) % Monocytes % (Manual) 8.0 (1.7-12.0) % Eosinophils % (Manual) 0.0 L (0.9-7.0) % Basophils % (Manual) 1.0 (0.2-2.0) % Neutrophils # (Manual) 1.28 L (1.4-6.5) 10^3/uL Band Neutrophils # 0.2 (0.0-0.3) 10^3/uL Lymphocytes # (Manual) 0.42 L (1.20-3.80) 10^3/uL Monocytes # (Manual) 0.16 L (0.30-0.80) 10^3/uL Eosinophils # (Manual) 0.00 (0.00-0.70) 10^3/uL Basophils # (Manual) 0.02 (0.00-0.10) 10^3/uL Sodium 141 (136-145) mmol/L Potassium 4.2 (3.5-5.1) mmol/L Chloride 108 H (98-107) mmol/L Carbon Dioxide 19.9 L (21.0-32.0) mmol/L Anion Gap 17.3 BUN 12.0 (7.0-18.0) mg/dL Creatinine 0.96 (0.55-1.02) mg/dL Est GFR ( Amer) >60 (>=60 mL/min/1.73m^2) Est GFR (Non-Af Amer) 55 L (>=60 mL/min/1.73m^2) BUN/Creatinine Ratio 12.5 Glucose 127 H (74-106) mg/dL Calcium 7.9 L (8.5-10.1) mg/dL Troponin I High Sens 9.0 (4.0-51.3) pg/mL Urine Color Yellow (YELLOW) Urine Clarity Clear (CLEAR) Urine pH 6.0 (5.0-9.0) Ur Specific [place] 1.020 (1.005-1.025) Urine Protein Negative (NEG/TRACE) mg/dL Urine Glucose (UA) Negative (NEGATIVE) mg/dL Urine Ketones Negative (NEGATIVE) mg/dL Urine Occult Blood Moderate A (NEGATIVE) Urine Nitrite Negative (NEGATIVE) Urine Bilirubin Negative (NEGATIVE) Urine Urobilinogen 0.2 (0.2-1.0) EU/dL Ur Leukocyte Esterase Negative (NEGATIVE) Urine RBC 10-20 A (0-2) #/HPF Urine WBC 2-5 A (NONE SEEN) #/HPF Ur Squamous Epith Cells Moderate A (NONE/RARE) #/LPF Urine Crystals None seen (None Seen) #/HPF Urine Bacteria Small A (NONE SEEN) #/HPF Urine Casts Seen A (NONE SEEN) #/LPF Hyaline Casts Few Urine Mucus Small A (NONE SEEN) Ur Culture Indicated? Yes Salicylates <2.8 (<=19.9) mg/dL Urine Opiates Screen Negative (NEGATIVE) Ur Buprenorphine Scrn Negative (NEGATIVE) Ur Oxycodone Screen Negative (NEGATIVE) Urine Methadone Screen Negative (NEGATIVE) Acetaminophen <2.0 L (10.0-30.0) ug/mL Ur Barbiturates Screen Negative (NEGATIVE) U Tricyclic Antidepress Negative (NEGATIVE) Ur Phencyclidine Scrn Negative (NEGATIVE) Ur Amphetamines Screen Negative (NEGATIVE) U Methamphetamines Scrn Negative (NEGATIVE) U Benzodiazepines Scrn Negative (NEGATIVE) Urine Cocaine Screen Negative (NEGATIVE) U Cannabinoids Screen Negative (NEGATIVE) Ethanol Quant <3 mg/dL POC Glucose 119 H (74-106) mg/dL Imaging Data CT scan - head: Radiologist's impression: ITS Impressions Chest X-Ray 12/29/23 21:43 IMPRESSION: Mild bilateral interstitial opacities which may represent interstitial edema. Electronically authenticated by: EULALIA MESSINA Date: 12/29/2023 23:[address] 12/29/23 21:44 IMPRESSION: 1. No acute intracranial abnormality. No hemorrhage or mass effect. 2. Nonspecific white matter changes. 3. Atrophy. 4. Vascular calcifications. Electronically authenticated by: MERCEDEZ ANTHONY Date: 12/29/2023 22:52 ECG Data Attestation: I personally reviewed and interpreted this ECG as follows: (EKG on my interpretation shows paced rhythm) Discharge Plan Discharge Chief Complaint: Weakness Clinical Impression: Altered mental status Patient Disposition: Admitted As Inpatient Time of Disposition Decision: 23:51 Condition: Fair
[2023-12-29 21:52] LABS: Glucometer 119 mg/dL (74-106)
--- OUTSIDE RECORDS SUMMARY | 2023-12-29 21:53 | XMS_ITS | CCD ---
Author Organization [facility] Care Team Providers Care Ultrasound Supervisor Name Role Phone NOBLE MONTGOMERY Admitting Unavailable NOBLE MONTGOMERY Attending Unavailable VALONE, ELIUD Referring Unavailable VALONE, ELIUD Primary Care Unavailable VALONE, DR FREEMAN Primary Care Unavailable SOHA LEDEZMA Attending Unavailable LISOHA Pat Admitting Unavailable VALONE, DR FREEMAN Primary Care Unavailable PAY ., DR GLORIA Attending Unavailable PAY ., DR GLORIA Admitting Unavailable PAY ., DR GLORIA Consulting Unavailable NICOLASMERCEDEZ HARPER Consulting Unavailable VALONE, DR FREEMAN Primary Care Unavailable HAY ., DR HINDS Attending Unavailable HAY ., DR HINDS Admitting Unavailable ZIEBER, DR CRUZITO Carrera Consulting Unavailable HAY ., DR HINDS Consulting Unavailable SOHA LEDEZMA Attending Unavailable LISOHA Pat Admitting Unavailable LI, SOHA Consulting Unavailable VALONE, DR FREEMAN Primary Care Unavailable CHARLY ESPINO Attending Unavailable SRINIVASCHARLY LI Admitting Unavailable WEST, DR RADHA Rader Consulting Unavailable VALONE, DR FREEMAN Primary Care Unavailable CHARLY ESPINO Consulting Unavailable VALONE, DR FREEMAN Primary Care Unavailable CHARLY ESPINO Attending Unavailable CHARLY ESPINO Admitting Unavailable ZIEBER, DR CRUZITO Carrera Consulting Unavailable CHARLY ESPINO Consulting Unavailable VALONE, DR FREEMAN Primary Care Unavailable CHARLY ESPINO Attending Unavailable CHARLY ESPINO Admitting Unavailable WEST, DR RADHA Rader Consulting Unavailable CHARLY ESPINO Consulting Unavailable VALONE, DR FREEMAN Primary Care Unavailable CHARLY ESPINO Attending Unavailable CHARLY ESPINO Admitting Unavailable WEST, DR RADHA Rader Consulting Unavailable CHARLY ESPINO Consulting Unavailable SOHA LEDEZMA Admitting Unavailable LISOHA Pat Consulting Unavailable SOHA LEDEZMA Attending Unavailable VALONE, DR FREEMAN Primary Care Unavailable VALONE, DR FREEMAN Attending Unavailable VALONE, DR FREEMAN Admitting Unavailable VALONE, DR FREEMAN Primary Care Unavailable VALONE, DR FREEMAN Primary Care Unavailable ROMMEL Saeed, REMI Admitting Unavailable ROMMEL Saeed, REMI Attending Unavailable Maile Smith Unavailable ROMMEL ., REMI Consulting Unavailable Valcamilla Milian, Eliud MARTINEZ Primary Care Provider Jaquelineone, Eliud L Primary Care Unavailable Hardy Leon Attending Unavailable Hardy Leon Admitting Unavailable RODRIGO SAMS Attending Unavailable BRANDEN REARDON, ELIUD Trujillo Referring Unavailable VALONE JR, ELIUD Cassandra Primary Care Unavailable MERCEDEZ LEO Attending Unavailable VALONE JR, ELIUD L Referring Unavailable VALONE JR, ELIUD L Primary Care Unavailable RODRIGO SAMS Attending Unavailable VALONE JR, ELIUD Cassandra Referring Unavailable VALONE JR, ELIUD Cassandra Primary Care Unavailable PALAK DUMONT Attending Unavailable VALONE JR, ELIUD L Referring Unavailable VALONE JR, ELIUD L Primary Care Unavailable MERCEDEZ LEO Referring Unavailable VALONE JR, ELIUD Casasndra Primary Care Unavailable VALONE JR, ELIUD Cassandra Primary Care Unavailable SIXTO PHELPS Attending Unavailable GENNARO BENNETT Attending Unavailable GENNARO BENNETT Referring Unavailable VALONE JR, ELIUD Cassandra Primary Care Unavailable GENNARO BENNETT Attending Unavailable GENNARO BENNETT Referring Unavailable VALONE JR, ELIUD Cassandra Primary Care Unavailable GENNARO BENNETT Attending Unavailable GENNARO BENNETT Referring Unavailable VALONE JR, ELIUD L Primary Care Unavailable ADRIA NAILS Attending Unavailable VALONEELIUD Referring Unavailable ROSANNA WHITTAKER Attending Unavailable VALONEELIUD Referring Unavailable ROSANNA WHITTAKER Attending Unavailable VALONEELIUD Referring Unavailable ROSANNA WHITTAKER Attending Unavailable VALONEELIUD Referring Unavailable DHARA HART Attending Unavailable VALONEELIUD Referring Unavailable APLINGXIOMARA Attending Unavailable APLING, XIOMARA Wheat Attending Unavailable APLINGXIOMARA Referring Unavailable APLING, XIOMARA Wheat Attending Unavailable APLINGXIOMARA Referring Unavailable SOHA LEDEZMA Referring Unavailable HUSSEIN PARKER Attending Unavailable FRANKIE CODY Attending Unavailable SOHA LEDEZMA Referring Unavailable VALONEELIUD Referring Unavailable Mercedez MAZARIEGOS Attending Unavailable Medications Current Medications Medication Drug Class(es) Dates Sig (Normalized) Sig (Original) acetaminophen 500 mg oral tablet (2 sources) Start: 08-10-2019 take 1 tablet by mouth every six hours as needed for pain acetaminophen (TYLENOL EXTRA STRENGTH) 500 mg tablet Take 1 tablet (500 mg total) by mouth every 6 (six) hours as needed for pain. 30 tablet 08/10/2019 Active apixaban 2.5 mg oral tablet (2 sources) Factor Xa Inhibitor apixaban (ELIQUIS) 2.5 mg tablet Take by mouth 2 (two) times a day. Active C,E,zinc,copper 11/sntsc1p/lut (OCUVITE ADULT 50 PLUS ORAL) (2 sources) take 1 tablet by mouth once daily C,E,zinc,copper 11/cvbii0h/lut (OCUVITE ADULT 50 PLUS ORAL) Take 1 tablet by mouth daily. Active take 1 tablet by mouth once stella y C,E,zinc,copper 11/giknd2c/lut (OCUVITE ADULT 50 PLUS ORAL) Take 1 tablet by mouth daily. 0 Active carvedilol 12.5 mg oral tablet (2 sources) alpha-Adrenergic Moises, beta-Adrenergic Moises take 1 tablet by mouth in the morning, then take 1 tablet by mouth at mealtime carvediloL (COREG) 12.5 mg tablet Take 1 tablet (12.5 mg total) by mouth in the morning and 1 tablet (12.5 mg total) in the evening. Take with meals. Active cholecalciferol 0.125 mg oral tablet (2 sources) Vitamin D take 1 tablet by mouth in the morning cholecalciferol, vitamin D3, 5,000 units tablet Take 1 tablet (5,000 Units total) by mouth in the morning. Active colesevelam hydrochloride 625 mg oral tablet (2 sources) Bile Acid Sequestrant take 3 tablets by mouth in the morning colesevelam (WELCHOL) 625 mg tablet Take 3 tablets (1,875 mg total) by mouth in the morning. Active memantine hydrochloride 10 mg oral tablet (2 sources) I-astxmh-N-aspartate Receptor Antagonist take 1 tablet by mouth in the morning memantine (NAMENDA) 10 mg tablet Take 1 tablet (10 mg total) by mouth in the morning. Active montelukast 10 mg oral tablet (2 sources) Leukotriene Receptor Antagonist take 1 tablet by mouth once daily montelukast (SINGULAIR) 10 mg tablet Take 1 tablet (10 mg total) by mouth nightly. Active karbyxfl-reqy-XR-calcium &mins (THERAGRAN-M) 9 mg iron-400 mcg tablet (2 sources) take 1 tablet by mouth once in the morning cewlocjj-ktvr-RV-ca lcium &mins (THERAGRAN-M) 9 mg iron-400 mcg tablet Take 1 tablet by mouth in the morning and 1 tablet before bedtime. Active take 1 tablet by jeevan th once in the morning rlyxntuq-ksya-SC-calcium &mins (THERAGRA N-M) 9 mg iron-400 mcg tablet Take 1 tablet by mouth in the morning and 1 tablet before bedtime. 0 Active omeprazole 20 mg delayed release oral capsule (2 sources) Proton Pump Inhibitor take 1 capsule by mouth in the morning omeprazole (PriLOSEC) 20 mg capsule Take 1 capsule (20 mg total) by mouth in the morning. Active UNABLE TO FIND (1 source) take 1 tablet by mouth once daily UNABLE TO FIND Take 1 tablet by mouth nightly. Unisom- sleep aid 0 Active Problems Active Problems Problem Classification Problem Date Documented Date Episodic/Chronic Blindness and vision defects (2 sources) Visual impairment; Translations: [Unspecified visual loss] Onset: 06-22-2022 06-22-2022 Chronic Cardiac dysrhythmias (3 sources) Unspecified atrial fibrillation; Translations: [Atrial fibrillation] Onset: 11-27-2021 06-22-2022 Chronic Conduction disorders (5 sources) Presence of cardiac pacemaker; Translations: [Cardiac pacemaker in situ] Onset: 02-18-2005 06-22-2022 Chronic Disorders of lipid metabolism (2 sources) Hyperlipidemia; Translations: [Hyperlipidemia, unspecified] Onset: 06-22-2022 06-22-2022 Chronic E Codes: Fall (2 sources) Fall Onset: 08-24-2023 Esophageal disorders (2 sources) Gastroesophageal reflux disease; Translations: [Gastro-esophageal reflux disease without esophagitis] Onset: 06-22-2022 06-22-2022 Chronic Essential hypertension (3 sources) Hypertensive disorder; Translations: [Essential (primary) hypertension] Onset: 06-22-2022 06-22-2022 Chronic Fracture of lower limb (11 sources) Fracture of unspecified metatarsal bone(s), left foot, initial encounter for closed fracture; Translations: [Fracture of unspecified metatarsal bone(s), left foot, subsequent encounter for fracture with routine healing] Onset: 12-07-2021 Episodic Hypertension with complications and secondary hypertension (2 sources) Hypertensive heart disease without heart failure; Translations: [Hypertensive heart disease without heart failure] Onset: 09-09-2022 Chronic Osteoarthritis (8 sources) Osteoarthritis of right hip joint; Translations: [Unilateral primary osteoarthritis, right hip] Onset: 07-17-2017 07-17-2017 Chronic Other connective tissue disease (1 source) Presence of artificial hip joint, bilateral; Translations: [PRESENCE ARTIFICIAL HIP JOINT BILAT] Onset: 01-25-2022 Chronic Other fractures (1 source) Unspecified fracture of right ischium, initial encounter for closed fracture; Translations: [Unspecified fracture of right ischium, initial encounter for closed fracture] Onset: 08-24-2023 Episodic Other nervous system disorders (4 sources) Ataxia, unspecified; Translations: [ATAXIA UNSPECIFIED] Onset: 03-12-2022 Episodic Other skin disorders (2 sources) Disorder of the skin and subcutaneous tissue, unspecified; Translations: [Disorder of the skin and subcutaneous tissue, unspecified] Onset: 07-17-2023 Episodic Unclassified (1 source) LOW BACK PAIN, UNSPECIFIED; Translations: [LOW BACK PAIN, UNSPECIFIED] Onset: 09-29-2021 Unclassified (1 source) Post-op Onset: 07-25-2023 Unclassified (1 source) Suspicious Skin Lesion Onset: 06-28-2023 Unclassified (1 source) Groin Pain Onset: 08-24-2023 Unclassified (2 sources) Longstanding persistent atrial fibrillation; Translations: [Longstanding persistent atrial fibrillation] Onset: 09-09-2022 Past or Other Problems Problem Classification Problem Date Documented Date Episodic/Chronic Complications of surgical procedures or medical care (2 sources) Delayed recovery from general anesthesia; Translations: [Other complications of anesthesia, initial encounter] Onset: 06-22-2022 06-22-2022 Episodic Disorders of teeth and jaw (2 sources) Tooth disorder; Translations: [Disorder of teeth and supporting structures, unspecified] Onset: 06-22-2022 06-22-2022 Episodic E Codes: Fall (2 sources) Unspecified fall, initial encounter; Translations: [Other fall on same level, initial encounter] Onset: 09-29-2021 Episodic Fracture of neck of femur (hip) (1 source) Fracture of unspecified part of neck of right femur, initial encounter for closed fracture; Translations: [FX UNS PRT NCK RT FEM INIT CLOS] Onset: 01-25-2022 Episodic Genitourinary symptoms and ill-defined conditions (1 source) Hematuria, unspecified; Translations: [HEMATURIA UNSPECIFIED] Onset: 01-25-2022 Episodic Immunizations and screening for infectious disease (1 source) Encounter for immunization; Translations: [ENCOUNTER FOR IMMUNIZATION] Onset: 09-29-2021 Episodic Nausea and vomiting (2 sources) Postoperative nausea and vomiting; Translations: [Nausea with vomiting, unspecified] Onset: 06-22-2022 06-22-2022 Episodic Open wounds of extremities (4 sources) Laceration without foreign body of left forearm, initial encounter; Translations: [LACERATION W/O FB LT FOREARM INIT] Onset: 09-27-2021 Episodic Other aftercare (1 source) shelter (current) use of aspirin; Translations: [SENIOR CARE CURRENT USE OF ASPIRIN] Onset: 01-25-2022 Episodic Other aftercare (1 source) Other intermission coordinator (current) drug therapy; Translations: [OTH SENIOR CARE CURRENT DRUG THERAPY] Onset: 01-25-2022 Episodic Other aftercare (1 source) terminal superintendent (current) use of anticoagulants; Translations: [SENIOR CARE CURRNT USE ANTICOAGULANTS] Onset: 09-29-2021 Episodic Other connective tissue disease (3 sources) Pain in left foot; Translations: [PAIN IN LEFT FOOT] Onset: 11-26-2021 Episodic Other connective tissue disease (2 sources) Recurrent falls ; Translations: [Repeated falls] Onset: 06-22-2022 06-22-2022 Episodic Other non-traumatic joint disorders (3 sources) Pain in right hip; Translations: [PAIN IN RIGHT HIP] Onset: 01-23-2022 Episodic Other skin disorders (1 source) Localized swelling, mass and lump, right upper limb; Translations: [LOC SWELL MASS LUMP RT UPPER LIMB] Onset: 09-29-2021 Episodic Screening and history of mental health and substance abuse codes (1 source) Personal history of nicotine dependence; Translations: [PERSONAL HISTORY OF NICOTINE DEPEND] Onset: 09-29-2021 Episodic Spondylosis; intervertebral disc disorders; other back problems (3 sources) Muscle spasm of back; Translations: [Pain in thoracic spine] Onset: 09-29-2021 Episodic Urinary tract infections (1 source) Urinary tract infection, site not specified; Translations: [UTI SITE NOT SPECIFIED] Onset: 01-25-2022 Episodic Results Test Name Value Interpretation Reference Range Facility 36on 12-11-2023 36 Please follow-up if patient had stress test done. Thanks! [facility] Telephoneon 10-28-2023 Telephone [id number] Susan Douglass 1940 F Date Provider Department Center 10/28/2023 FRANKIE MILLER [facility] No family history on file [facility] Office Visiton 09-04-2023 Follow-up visit [id number] Susan Douglass 1940 F Date Provider Department Center 09/04/2023 FRANKIE MILLER [facility] No family history on file Level of Service:63771 OK OFFICE/OUTPATIENT ESTABLISHED MOD MDM 30 MIN Reason for Visit and Comments: Follow-up [888912] - 6 month follow up [facility] CT BRAIN WO CONTon CT BRAIN WO CONT CT BRAIN WO CONT STUDY: CT BRAIN WO CONT INDICATION: Head trauma, moderate-severe; fall from standing struck head on eliquis. TECHNIQUE: * CT head was performed without intravenous contrast using the standard protocol. Automated exposure control was utilized. * All CT scans at this facility use dose modulation, iterative reconstruction, and/or weight based dosing when appropriate to reduce radiation dose to as low as reasonably achievable. FINDINGS: No evidence of acute intracranial hemorrhage, territorial infarct, mass effect, midline shift, or extra-axial fluid collection. Moderate diffuse parenchymal atrophy. Ventricles, sulci and cisterns are otherwise unremarkable. A few non-specific hypodense foci in the periventricular and subcortical white matter are non-specific but may represent chronic microangiopathic changes. Bilateral pseudophakia. Soft tissues are unremarkable. Intracranial atherosclerosis. Paranasal sinuses are broadly clear. Mastoid air cells are broadly clear. No evidence of acute fracture. IMPRESSION: * No acute intracranial abnormality, by CT. Finalized by Rinku León on 08/24/2023 1:24 PM Normal [facility] CT CERVICAL SPINE WO CONTon 08-24-2023 CT CERVICAL SPINE WO CONT CT CERVICAL SPINE WO CONT STUDY: CT CERVICAL SPINE WO CONT INDICATION: Neck trauma (Age >= 65y); fall from standing struck head on eliquis. TECHNIQUE: * CT of the cervical spine, was performed without intravenous contrast. Coronal & sagittal MPR images were generated and reviewed. * All CT scans at this facility use dose modulation, iterative reconstruction, and/or weight based dosing when appropriate to reduce radiation dose to as low as reasonably achievable. FINDINGS: No acute fracture or traumatic malalignment. Xkls-tm-dgpmkcii degenerative spondylotic changes, not significantly disproportionate for age. There is left greater than right bony neuroforaminal narrowing. No high-grade bony spinal canal narrowing. Prevertebral, epidural and paraspinal soft tissues are unremarkable. IMPRESSION: * No evidence of acute fracture or traumatic malalignment. Finalized by Rinku León on 08/24/2023 1:29 PM Normal [facility] CT HIP RT WO CONTon 08-24-19 CT HIP RT WO CONT CT HIP RT WO CONT History: [History of trauma. Fracture suspected. Negative x-ray. Needs CT. ] Procedure: Standard CT of the [hip without contrast] was performed. Automatic exposure control was utilized for dosage reduction technique. Appropriate two-dimensional reconstructions were obtained. All CT scans at this facility use dose modulation, iterative reconstruction, and/or weight based dosing when appropriate to reduce radiation dose to as low as reasonably achievable.All CT scans at this facility use dose modulation, iterative reconstruction, and/or weight based dosing when appropriate to reduce radiation dose to as low as reasonably achievable. Findings: [The patient has bilateral hip prostheses. The dense metal greatly limits evaluation of the bony structures, especially of the proximal femur and acetabulum. Nevertheless, there appears to be a fracture of the ischio with a few millimeter offset of the cortex and associated intramuscular hematoma.] There is minimal cortical irregularity of the right pubic bone and significant degenerative changes at the symphysis pubis. A minimally displaced fracture of this bone cannot be excluded. The acetabulum and proximal femur appear unremarkable. Heterotopic bone is again noted superior to the greater trochanter. Impression: [Minimally displaced fracture of osteopenic right ischium as described above. Minimal fracture of the right pubis cannot be excluded. Extensive artifact from the bilateral hip prostheses and osteopenia limit evaluation of the bones of the pelvis.] Finalized by Gerard Ken MD on 08/24/2023 3:26 PM Normal [facility] XR HIP RT 2-3 VIEWS W OR WO PELVISon 08-24-2023 XR HIP RT 2-3 VIEWS W OR WO PELVIS XR HIP RT 2-3 VIEWS W OR WO PELVIS XR HIP RT 2-3 VIEWS W OR WO PELVIS Clinical history:fall hip pain, prosthetic hip right hip pain Comparison: 06/25/2018 Findings: Degenerative changes of lumbar spine.] Device in place. Near anatomic alignment. No immediate hardware complication. Osteopenia. Left renal calculus is noted. If the patient is unable to bear weight or if there is concern for nondisplaced hip fracture, consider correlation with MRI. Impression: No evidence of acute ossific abnormality. Finalized by Mercedez Leblanc MD on 08/24/2023 1:42 PM Normal [facility] XR SPINE THORACIC 3 VWSon XR SPINE THORACIC 3 VWS XR SPINE THORACIC 3 VWS History: [Fall. Back pain] [Thoracic radiographs demonstrate pacemaker. The heart mediastinum cordelia are unremarkable other than for possible cardiomegaly. The thoracic vertebra are osteopenic. Multiple compression deformities of the thoracic spine were likely present on the 04/26/2019 lateral chest radiograph. The upper thoracic spine is not optimally evaluated on these radiographs. There is no definite new compression fracture or obvious malalignment. Degenerative changes of the shoulders, especially in the left, are present.] Impression: [Multiple mild compression deformities may have been present on the 04/26/2019 lateral chest radiographs. If there is still a high index of clinical suspicion of new compression fracture, recommend MR on an elective basis.] Finalized by Gerard Ken MD on 08/24/2023 1:30 PM Normal [facility] 36on 08-12-2023 36 Regarding echo performed on 07/22/2023: ZACK Funes MA Please let her know her ECHO showed some changes with her heart function on the right side that are different than her last ECHO. Would like to get a lexiscan stress test if she is agreeable or we can move up her appt and further discuss. Thanks Spoke with patient and she would like to see Lianet in the office to discuss her echo result and need for stress test. Scheduled apt for 09/04/2023. [facility] Surgical Pathologyon 024 Surgical Pathology Normal [facility] Comment on above: Result Comment: [facility] [address] [place] [address] Surgical Pathology Consultation Patient Name:SUSAN DOUGLASS:1940 (Age: 82)Gender:FTaken:4Reported:07/26/2023hysician(s):Mercedez Leo D.O. ([phone])Copy To: Rec. #:[id number]: #[id number] Final Pathologic Diagnosis Left forearm: Invasive well-differentiated squamous cell carcinoma, keratoacanthoma-type and adjacent scar. The deep and lateral margins appear free of involvement in the plane of sections examined. NOTE: The above diagnosis is from [facility]. The slides on this case were not reviewed by the signing pathologist. Please see the complete text of the report in the patient???s electronic medical record. Report Electronically Signed Out clf/07/26/2023Gene MD Albino Interpretation performed at [facility], [address] [place] [address], License number: [id number]. Clinical History Skin lesion of left arm L98.9. Abnormal skin lesion x3 months left upper extremity rule out skin cancer. Gross Description Received in formalin labeled LAURA left forearm lesion is an unoriented light harvey wrinkled ellipse of skin, one 3.4 x 1.9 cm excised to a depth of 0.6 cm. A centrally located pale smooth and crusted raised area is identified. The resection margin is inked green. The polar tips are amputated and entirely submitted in cassette A. The remainder of the specimen is serially sectioned and sequentially submitted in cassettes B-G. (7, ns, [id number]) DM. dm/07/18/2023EAK Specimen(s) Received Left forearm Fee Codes(s): 1; [address] CT cervical spine wo conon 0 04-25-2023 CT cervical spine wo con [facility] [place] [address] [place], [place] [id number] CT Scan Report Signed Patient: Susan Douglass MR#: [id number] : 1940 Acct:[id number] Age/Sex: 82 / F ADM Date: 04/25/23 Loc: ER Room: Type: [facility] ER Attending Dr: Copies to: Hardy Leon PA-C Ordering Provider: Hardy Leon PA-C Date of Service: 04/25/23 CT/CT cervical spine wo con: Fall ([id number]) CT/CT head/brain wo con: Fall on blood thinners CLINICAL DATA: Patient fell and hit head on sink. Blood thinners. CT BRAIN WITHOUT CONTRAST: COMPARISON: None TECHNIQUE: Contiguous axial unenhanced images were obtained through the brain. This CT exam was performed using one or more following dose reduction techniques: Automated exposure control, adjustment of the mA and/or kV according to patient size, or use of iterative reconstruction technique. FINDINGS: There is generalized atrophy. The ventricles are upper limits of normal for size and midline in position. Microvascular changes are noted. There are no additional areas of abnormal attenuation. There is no hemorrhage, mass effect or extra-axial collections. The calvarium is intact. The imaged paranasal sinuses and mastoid air cells are clear. There is carotid siphon plaque. CT/CT head/brain wo con IMPRESSION: ATROPHY AND SMALL VESSEL ISCHEMIC CHANGES. NO ACUTE INTRACRANIAL TRAUMA. CT CERVICAL SPINE WITHOUT CONTRAST WITH 3D RECONSTRUCTIONS: COMPARISON: None TECHNIQUE: Spiral axial unenhanced images were obtained through the cervical spine. Sagittal, coronal and 3D volume-rendered reconstructions were also reviewed. This CT exam was performed using one or more following dose reduction techniques: Automated exposure control, adjustment of the mA and/or kV according to patient size, or use of iterative reconstruction technique. FINDINGS: There is osteopenia. There is minor retrolisthesis of C5 on C6 and anterolisthesis of C6 on C7 and C7 on T1. No acute cervical compression fractures our seen. There is minimal wedge deformity at T2 and T3 which is probably chronic. No disproportionate disc space narrowing is noted. There is endplate spurring and facet disease. Mild thecal sac effacement is visualized. There is foraminal impingement, greatest on the left at C4-5 and C5-6 and on the right at C5-6. The atlantoaxial relationship is maintained. No prevertebral soft tissue swelling is seen. Carotid artery plaque is seen, greater on the left. The upper imaged lungs show apical scarring. IMPRESSION: OSTEOPENIA AND DEGENERATIVE CHANGES. NO ACUTE BONY INJURY. Impression dictated by: Brittany Garcia M.D.04/25/2023 4:23 PM Dictation Location: [place] [address] Transcribed By: LEONOR 04/25/23 1623 Dictated By: Brittany Garcia MD 04/25/23 1615 Signed By: 04/25/23 1623 Normal [facility] Comprehensive Metabolic Pane eunice 04-25-2023 Albumin [Mass/Vol] 4.4 g/dL Normal 3.5-5.7 [facility] Comment on above: Performed By: #### S CAN CBC, HS TROP, CMP, PTT, CK, PT #### [facility] [address] [place] [address] [place] Albumin/Globulin [Mass ratio] 1.5 {ratio} Normal [facility] Comment on above: Performed By: #### S CAN CBC, HS TROP, CMP, PTT, CK, PT #### [facility] [address] [place] [id number] [place] ALP [Catalytic activity/Vol] 84 U/L Normal 34-104 [facility] Comment on above: Performed By: #### S CAN CBC, HS TROP, CMP, PTT, CK, PT #### [facility] [address] [place] [address] [place] ALT [Catalytic activity/Vol] 22 U/L Normal 7-52 [facility] Comment on above: Performed By: #### S CAN CBC, HS TROP, CMP, PTT, CK, PT #### [facility] [address] [place] [id number] [place] Anion gap [Moles/Vol] 12.0 mmol/L Normal 6.0-15.0 [facility] Comment on above: Performed By: #### S CAN CBC, HS TROP, CMP, PTT, CK, PT #### [facility] [address] [place] [address] AST [Catalytic activity/Vol] 23 U/L Normal 13-39 [facility] Comment on above: Performed By: #### S CAN CBC, HS TROP, CMP, PTT, CK, PT #### [facility] [address] [place] [address] Bilirubin [Mass/Vol] 0.9 mg/dL Normal 0.3-1.0 [facility] Comment on above: Performed By: #### S CAN CBC, HS TROP, CMP, PTT, CK, PT #### [facility] [address] [place] [address] Calcium [Mass/Vol] 9.1 mg/dL Normal 8.6-10.3 [facility] Comment on above: Performed By: #### S CAN CBC, HS TROP, CMP, PTT, CK, PT #### [facility] [address] [place] [address] Chloride [Moles/Vol] 104 mmol/L Normal 98-107 [facility] Comment on above: Performed By: #### S CAN CBC, HS TROP, CMP, PTT, CK, PT #### [facility] [address] [place] [address] CO2 [Moles/Vol] 24.8 mmol/L Normal 21.0-31.0 [facility] Comment on above: Performed By: #### S CAN CBC, HS TROP, CMP, PTT, CK, PT #### [facility] [address] [place] [address] Creatinine [Mass/Vol] 0.79 mg/dL Normal 0.60-1.20 [facility] Comment on above: Performed By: #### S CAN CBC, HS TROP, CMP, PTT, CK, PT #### [facility] [address] [place] [address] Creatinine Clr Calc Pharmacy 41.40 Normal [facility] Comment on above: Result Comment: PERF ORMED BY: [place] [address] PATHOLOGIST IRRIGATION PUMP INSTALLER LOLLY MCDONNELL M.D. Performed By: #### S CAN CBC, HS TROP, CMP, PTT, CK, PT #### [address] GFR/1.73 sq M.predicted MDRD (S/P/Bld) [Vol rate/Area] mL/min/{1.73_m2} Normal [facility] Comment on above: Performed By: #### S CAN CBC, HS TROP, CMP, PTT, CK, PT #### [facility] [address] Globulin (S) [Mass/Vol] 3.0 g/dL Normal [facility] Comment on above: Performed By: #### S CAN CBC, HS TROP, CMP, PTT, CK, PT #### [address] Glucose [Mass/Vol] 104 mg/dL High 70-100 [facility] Comment on above: Result Comment: [facility] Glucose Reference Range is dependent on time and content of last meal. Glucose of more than 200 mg/dL in a nonstressed, ambulatory subject supports the diagnosis of Diabetes Mellitus. ADA recommended reference range Performed By: #### S CAN CBC, HS TROP, CMP, PTT, CK, PT #### [address] Potassium [Moles/Vol] 3.8 mmol/L Normal 3.5-5.1 [facility] Comment on above: Performed By: #### S CAN CBC, HS TROP, CMP, PTT, CK, PT #### [place] [address] [place] Protein [Mass/Vol] 7.4 g/dL Normal 6.4-8.9 [facility] Comment on above: Performed By: #### S CAN CBC, HS TROP, CMP, PTT, CK, PT #### [place] [address] [place] Sodium [Moles/Vol] 137 mmol/L Normal 136-145 [facility] Comment on above: Performed By: #### S CAN CBC, HS TROP, CMP, PTT, CK, PT #### [facility] [address] [place] [address] [place] Urea nitrogen [Mass/Vol] 14 mg/dL Normal 7-25 [facility] Comment on above: Performed By: #### S CAN CBC, HS TROP, CMP, PTT, CK, PT #### [facility] [address] [place] [id number] [place] Creatine Kinaseon 04-25-2023 CK [Catalytic activity/Vol] 135 U/L Normal 30-223 [facility] Comment on above: Performed By: #### S CAN CBC, HS TROP, CMP, PTT, CK, PT #### [facility] [address] [place] [address] [place] Dipstick and Microscopicon 0 04-25-2023 Appearance (U) Clear Normal Clear [facility] Comment on above: Order Comment: Name Collection Type:: Clean-Voided Midstream Performed By: #### C UU, ADDONUAPLUS #### [place] [address] [place] Bacteria,Urine 1+ High None Seen [facility] Comment on above: Order Comment: Name Collection Type:: Clean-Voided Midstream Performed By: #### C UU, ADDONUAPLUS #### [place] [address] [place] Bilirubin,Urine Negative Normal Negative [facility] Comment on above: Order Comment: Name Collection Type:: Clean-Voided Midstream Performed By: #### C UU, ADDONUAPLUS #### [facility] [address] [place] [address] [place] Color (U) Yellow Normal Yellow [facility] Comment on above: Order Comment: Name Collection Type:: Clean-Voided Midstream Performed By: #### C UU, ADDONUAPLUS #### [place] [address] [place] Glucose Ql (U) Normal Normal Normal [facility] Comment on above: Order Comment: Name Collection Type:: Clean-Voided Midstream Performed By: #### C UU, ADDONUAPLUS #### [facility] [address] [place] [address] Hyaline Casts,Urine 0-8 Normal 0-8 [facility] Comment on above: Order Comment: Name Collection Type:: Clean-Voided Midstream Result Comment: PERF ORMED BY: [place] [address] PATHOLOGIST IRR[employer]ATION PUMP INSTALLER LOLLY MCDONNELL M.D. Performed By: #### C UU, ADDONUAPLUS #### [facility] [address] [place] [address] Ketones Ql (U) Negative Normal Negative [facility] Comment on above: Order Comment: Name Collection Type:: Clean-Voided Midstream Performed By: #### C UU, ADDONUAPLUS #### [address] Leukocyte esterase Test strip Ql (U) 3+ High Negative [facility] Comment on above: Order Comment: Name Collection Type:: Clean-Voided Midstream Performed By: #### C UU, ADDONUAPLUS #### [facility] [address] [place] [address] Nitrite,Urine Negative Normal Negative [facility] Comment on above: Order Comment: Name Collection Type:: Clean-Voided Midstream Performed By: #### C UU, ADDONUAPLUS #### [address] Occult Blood,Urine Negative Normal Negative [facility] Comment on above: Order Comment: Name Collection Type:: Clean-Voided Midstream Result Comment: PERF ORMED BY: [place] [address] PATHOLOGIST IRRIGATION PUMP INSTALLER LOLLY MCDONNELL M.D. Performed By: #### C UU, ADDONUAPLUS #### [facility] [address] [place] [address] pH (U) 5.5 [pH] Normal 5.0-9.0 [facility] Comment on above: Order Comment: Name Collection Type:: Clean-Voided Midstream Performed By: #### C UU, ADDONUAPLUS #### [facility] [address] [place] [address] [place] Protein,Urine Trace High Negative [facility] Comment on above: Order Comment: Name Collection Type:: Clean-Voided Midstream Performed By: #### C UU, ADDONUAPLUS #### [facility] [address] [place] [address] [place] RBC,Urine 3-4 Normal 0-4 [facility] Comment on above: Order Comment: Name Collection Type:: Clean-Voided Midstream Performed By: #### C UU, ADDONUAPLUS #### [address] Specificy [place],Urine 1.013 Normal 1.001-1.030 [facility] Comment on above: Order Comment: Name Collection Type:: Clean-Voided Midstream Performed By: #### C UU, ADDONUAPLUS #### [place] [address] [place] Squamous Epithelial Cell,Urine 1-2 Normal 0-2 [facility] Comment on above: Order Comment: Name Collection Type:: Clean-Voided Midstream Performed By: #### C UU, ADDONUAPLUS #### [place] [address] [place] Urobilinogen,Urine Normal Normal Normal [facility] Comment on above: Order Comment: Name Collection Type:: Clean-Voided Midstream Performed By: #### C UU, ADDONUAPLUS #### [facility] [address] [place] [address] [place] WBC,Urine 50-100 High 0-4 [facility] Comment on above: Order Comment: Name Collection Type:: Clean-Voided Midstream Performed By: #### C UU, ADDONUAPLUS #### [place] [address] [place] ECG 12 lead ECGon 04-25-2023 ECG 12 lead ECG [facility] [address] [place] [address] Electrocardiograph Report Signed Patient: Susan Douglass MR#: [id number] 231 : 1940 Acct:[id number] Age/Sex: 82 / F ADM Date: 04/25/23 Loc: ER Room: Type: [facility] ER Attending Dr: Ordering Provider: Hardy Leon PA-C Date of Service: 04/25/2309/10/1534 ECG/ECG 12 lead ECG: Fall Copies to: Test Reason : Blood Pressure : 201/088 mmHG Vent. Rate : 072 BPM Atrial Rate : 069 BPM P-R Int : 000 ms QRS Dur : 152 ms QT Int : 436 ms P-R-T Axes : 000 033 170 degrees QTc Int : 477 ms Wide QRS rhythm Left bundle branch block Abnormal ECG No previous ECGs available Confirmed by MOISES DAWKINS DO ([id number]) on 04/25/2023 8:08:43 PM Referred By: Electronically Signed By:MOISES DAWKINS DO Transcribed By: MUS Signed By Moises Dawkins DO 04/24 Normal [facility] Partial Thromboplastin Timeo n 04-25-2023 aPTT Coag (Bld) [Time] 19.6 s Low 25.1-36.5 [facility] Comment on above: Result Comment: A he matocrit value greater than 55% may lead to inaccurate results in coagulation testing. Patients having hematocrit values >55% require a special collection tube for coagulation studies. Please contact the laboratory at [phone] for redraw instructions. PERFORMED BY: [place] [address] PATHOLOGIST IRRIGATION PUMP INSTALLER LOLLY MCDONNELL M.D. Performed By: #### S CAN CBC, HS TROP, CMP, PTT, CK, PT #### [facility] [address] [place] [address] [place] Prothrombin Time INRon 04-24 INR Coag (PPP) [Relative time] 1.0 {INR} Normal [facility] Comment on above: Result Comment: INR Therapeutic Range A) Pre- and Peroperative OAT started two weeks before surgery. NOT HIP SURGERY: 1.5 - 2.5 HIP SURGERY: 2 - 3 B) Primary and secondary prevention of venous THROMBOSIS: 2 - 3 C) Active venous thrombosis, pulmonary embolism and prevention of recurrent venous thrombosis: 2 - 3 D) Prevention of arterial thromboembolism including patients with mechanical heart valves: 3 - 4.5 Performed By: #### S CAN CBC, HS TROP, CMP, PTT, CK, PT #### [address] PT Coag (PPP) [Time] 11.6 s Normal 9.0-12.9 [facility] Comment on above: Result Comment: A he matocrit value greater than 55% may lead to inaccurate results in coagulation testing. Patients having hematocrit values >55% require a special collection tube for coagulation studies. Please contact the laboratory at [phone] for redraw instructions. Performed By: #### S CAN CBC, HS TROP, CMP, PTT, CK, PT #### [address] Scan and CBCon 04-25-2023 Basophils (Bld) [#/Vol] 0.0 10*3/uL Normal 0.0-0.2 [facility] Comment on above: Performed By: #### S CAN CBC, HS TROP, CMP, PTT, CK, PT #### [address] Basophils/100 WBC (Bld) 0.3 % Normal . [facility] Comment on above: Performed By: #### S CAN CBC, HS TROP, CMP, PTT, CK, PT #### [address] Eosinophils (Bld) [#/Vol] 0.0 10*3/uL Normal 0.0-0.45 [facility] Comment on above: Performed By: #### S CAN CBC, HS TROP, CMP, PTT, CK, PT #### [address] Eosinophils/100 WBC (Bld) 0.2 % Normal . [facility] Comment on above: Performed By: #### S CAN CBC, HS TROP, CMP, PTT, CK, PT #### [address] [address] [place] Erythrocyte distribution width (RBC) [Ratio] 13.9 % Normal 11.9-15.3 [facility] Comment on above: Performed By: #### S CAN CBC, HS TROP, CMP, PTT, CK, PT #### [address] Hematocrit (Bld) [Volume fraction] 53.1 % High 34.0-46.4 [facility] Comment on above: Performed By: #### S CAN CBC, HS TROP, CMP, PTT, CK, PT #### [address] Hemoglobin (Bld) [Mass/Vol] 17.9 g/dL High 11.8-15.4 [facility] Comment on above: Performed By: #### S CAN CBC, HS TROP, CMP, PTT, CK, PT #### [facility] [address] [place] [address] Lymphocytes (Bld) [#/Vol] 1.1 10*3/uL Normal 1.00-4.8 [facility] Comment on above: Performed By: #### S CAN CBC, HS TROP, CMP, PTT, CK, PT #### [address] Lymphocytes/100 WBC (Bld) 9.4 % Normal . [facility] Comment on above: Performed By: #### S CAN CBC, HS TROP, CMP, PTT, CK, PT #### [facility] [address] [place] [address] MCH (RBC) [Entitic mass] 33.1 pg Normal 24.7-34.3 [facility] Comment on above: Performed By: #### S CAN CBC, HS TROP, CMP, PTT, CK, PT #### [address] MCV (RBC) [Entitic vol] 98.3 fL Normal 80-100 [facility] Comment on above: Performed By: #### S CAN CBC, HS TROP, CMP, PTT, CK, PT #### [address] [place] [address] [place] Mean Corpuscular HGB Conc 33.7 g/dL Normal 32.0-35.0 [facility] Comment on above: Performed By: #### S CAN CBC, HS TROP, CMP, PTT, CK, PT #### [address] Monocytes (Bld) [#/Vol] 1.5 10*3/uL High 0.0-0.8 [facility] Comment on above: Performed By: #### S CAN CBC, HS TROP, CMP, PTT, CK, PT #### [address] Monocytes/100 WBC (Bld) 18.90 % Normal 0.00-20.00 [facility] Comment on above: Performed By: #### S CAN CBC, HS TROP, CMP, PTT, CK, PT #### [address] Monocytes/100 WBC (Bld) 12.0 % Normal . [facility] Comment on above: Performed By: #### S CAN CBC, HS TROP, CMP, PTT, CK, PT #### [facility] [address] [place] [address] Neutrophils (Bld) [#/Vol] 9.5 10*3/uL High 1.8-7.7 [facility] Comment on above: Performed By: #### S CAN CBC, HS TROP, CMP, PTT, CK, PT #### [address] Neutrophils/100 WBC (Bld) 78.1 % Normal . [facility] Comment on above: Performed By: #### S CAN CBC, HS TROP, CMP, PTT, CK, PT #### [address] NRBC% 0.2 /100{WBC} Normal 0-0.5 [facility] Comment on above: Performed By: #### S CAN CBC, HS TROP, CMP, PTT, CK, PT #### [address] Platelet Estimate Normal Normal Normal [facility] Comment on above: Performed By: #### S CAN CBC, HS TROP, CMP, PTT, CK, PT #### [address] Platelet mean volume (Bld) [Entitic vol] 9.2 fL Normal 6.3-10.7 [facility] Comment on above: Performed By: #### S CAN CBC, HS TROP, CMP, PTT, CK, PT #### [address] Platelet Morphology Normal Normal Normal [facility] Comment on above: Result Comment: PERF ORMED BY: [place] [address] PATHOLOGIST IRRIGATION PUMP INSTALLER LOLLY MCDONNELL M.D. Performed By: #### S CAN CBC, HS TROP, CMP, PTT, CK, PT #### [address] Platelets (Bld) [#/Vol] 248 10*3/uL Normal 150-450 [facility] Comment on above: Performed By: #### S CAN CBC, HS TROP, CMP, PTT, CK, PT #### [address] RBC (Bld) [#/Vol] 5.40 10*6/uL High 3.60-5.00 [facility] Comment on above: Performed By: #### S CAN CBC, HS TROP, CMP, PTT, CK, PT #### [address] RBC morphology finding Nom (Bld) Normal Normal Normal [facility] Comment on above: Performed By: #### S CAN CBC, HS TROP, CMP, PTT, CK, PT #### [address] WBC (Bld) [#/Vol] 12.1 10*3/uL High 3.8-11.6 [facility] Comment on above: Performed By: #### S CAN CBC, HS TROP, CMP, PTT, CK, PT #### [facility] [address] [place] [address] [place] Troponin I High Sensitivityo n 04-25-2023 Troponin I High Sensitivity 9.1 pg/mL Normal 0.0-15.0 [facility] Comment on above: Result Comment: PERF ORMED BY: [place] [address] PATHOLOGIST IRRIGATION PUMP INSTALLER LOLLY MCDONNELL M.D. Performed By: #### S CAN CBC, HS TROP, CMP, PTT, CK, PT #### [facility] [address] [place] [address] [facility] Urine Cultureon 04-25-2023 Bacteria identified Cx Nom (U) ORGANISM: Staphylococcus lugdunensis (O:STALUG) [place] Count >100,000 Organism Comments Pure Growth Aerobic CONNIE Charge (PCMIC38) ---- SUSCEPTIBILITY --- ORGANISM: O:STALUG ANTIBIOTIC INTERPRETATION CONNIE Ciprofloxacin S <1 Daptomycin S <0.5 Levofloxacin S <1 Linezolid S <1 Nitrofurantoin S <32 Oxacillin S 0.5 Penicillin JACKY >2 Tetracycline S <4 Trimethoprim/Sulfamet hoxazole S <0.5 Vancomycin S 1 S = SUSCEPTIBLE I = INTERMEDIATE R = RESISTANT BLANK = DATA NOT AVAILABLE, OR DRUG NOT ADVISABLE OR TESTED R* = RESISTANCE DUE TO EXTENDED SPECTRUM BETA-LACTAMASES ESBL = EXTENDED SPECTRUM BETA-LACTAMASE TFG = THYMIDINE-DEPENDENT STRAIN JACKY = BETA-LACTAMASE POSITIVE IB = INDUCIBLE BETA-LACTAMASE. APPEARS IN PLACE OF 'S' WITH SPECIES KNOWN TO POSSESS INDUCIBLE BETA-LACTAMASES. POTENTIALLY THEY MAY BECOME RESISTANT TO ALL B-LACTAM DRUGS. PERFORMED BY: [place] [address] PATHOLOGIST IRRIGATION PUMP INSTALLER LOLLY MCDONNELL M.D. Normal [facility] Comment on above: Performed By: #### S CAN CBC, HS TROP, CMP, PTT, CK, PT #### [facility] [address] [place] [address] [place] [address] [facility] XR lumbar spine 2-3V*on XR lumbar spine 2-3V* [facility] [address] [place] [address] XRay Report Signed Patient: Susan Douglass MR#: [id number] 231 : 1940 Acct:[id number] Age/Sex: 82 / F ADM Date: 04/25/23 Loc: ER Room: Type: [facility] ER Attending Dr: Copies to: Hardy Leon PA-C Ordering Provider: Hardy Leon PA-C Date of Service: 04/25/23 XR/XR chest 2V*: Fall ([id number]) XR/XR lumbar spine 2-3V*: Fall CLINICAL DATA: Patient fell today and has back pain radiating down the legs. Confusion. PA AND LATERAL CHEST: COMPARISON: None There is a left-sided pacemaker. There is no focal parenchymal consolidation, effusion or pneumothorax. The heart is slightly prominent. The hilar and mediastinal contours are within normal limits.. There is no vascular congestion. The bony structures are osteopenic. There is moderate degenerative change at the shoulders. There is endplate spurring at the spine. There are minor wedge deformities and endplate concavities, probably chronic. XR/XR chest 2V* IMPRESSION: NO ACUTE CARDIOPULMONARY ABNORMALITY. LUMBAR SPINE - 2 views COMPARISON: 09/21/2008 AP and lateral views were obtained. There is osteopenia. There is slight levoscoliotic curvature. There is minor wedge deformity at L1 and also at T11. T11 was seen previously though L1 is new since 2009. There is no significant displacement. There is disc space narrowing at L3-4 toward the right as well as at L4-5 and the lumbosacral junction. There is endplate spurring. Endplate sclerosis is seen at the inferior aspect of L3. There is diffuse facet disease. The SI joints are intact. There are bilateral hip prostheses. There is a potential chronic 12th rib fracture on the lateral view though not well demonstrated on the frontal image. There is atherosclerotic plaque at the aorta and its branches. IMPRESSION: OSTEOPENIA, SCOLIOSIS AND DEGENERATIVE CHANGES. T11 AND L1 COMPRESSION DEFORMITIES. T11 IS OLD HOWEVER L1 IS AGE INDETERMINATE. Impression dictated by: Brittany Garcia M.D.04/25/2023 5:59 PM Dictation Location: [place] [address] Transcribed By: [facility] 04/25/231758 Dictated By: Brittany Garcia MD 04/25/231751 Signed By: 04/25/231758 Normal [facility] Office Visiton 02-27-2023 Follow-up visit [id number] Susan Douglass 1940 F Date Provider Department Center 02/27/2023 Kathryn6-HUSSEIN P[facility]ER C[facility] No family history on file Level of Service:51893 OK OFFICE/OUTPATIENT ESTABLISHED MOD MDM 30 MIN Normal [facility] ECHOCARDIO M/2D COMPLETEon 0 06-01-2022 ECHOCARDIO M/2D COMPLETE Patient: SUSAN DOUGLASS Exam Date: 06/01/2022 : 1940 Gender:F Ordering : SOHA LEDEZMA Admission #: [id number] Family : DR ELIUD PATEL D.O. Order #: [id number] CLICK HERE TO VIEW EXAM ECHOCARDIOGRAM REPORT PROCEDURE: CARDIO PULMONARY ECHOCARDIO M/2D COMP INDICATIONS: Coronery artery disease, pacemaker COMPARISON: None. DESCRIPTION: COMPLETE ECHOCARDIOGRAM Real-time transthoracic echocardiography with 2D, M-mode, spectral and color flow Doppler performed. QUALITY: Technical quality was good. LEFT VENTRICLE: Normal chamber size. Proximal septal hypertrophy (sigmoid septum). Systolic function is normal. Abnormal septal motion, likely due to bundle branch block/pacing. LV EF: Normal left ventricular ejection fraction, (55%). DIASTOLIC: ATRIAL SEPTUM: Visually appears intact. LEFT ATRIUM: Severe dilatation. RIGHT ATRIUM: Severe dilatation. Pacer wire present. RIGHT VENTRICLE: Normal chamber size, normal systolic function. Pacer wire present. TRICUSPID VALVE: Normal mobility and thickness. No stenosis with moderate regurgitation. Doppler studies reveal normal right sided pressures. RVSP is 33 mmHg MITRAL VALVE: Mildly thickened with normal mobility. No evidence of mitral valve stenosis. Mild mitral annular calcification. Mild mitral regurgitation. AORTIC VALVE: Normal trileaflet appearance. No visible sclerosis. Normal leaflet mobility. No evidence of aortic valve stenosis. Mild aortic regurgitation. AORTIC ROOT: Normal diameter and appearance. PULMONIC VALVE: Normal thickness and mobility. No stenosis. Trivial regurgitation. PERICARDIUM: No evidence of pericardial effusion. IVC: Collapses with inspirations. Normal in size. PLEURA: CONCLUSION: 1. Left ventricular systolic function is normal. LVEF is 55%. 2. Right ventricle is normal in size with normal systolic function. 3. Severe biatrial dilatation. 4. Moderate tricuspid regurgitation. 5. Mild mitral regurgitation. 6. Mild aortic regurgitation. 7. Normal right-sided pressures. Adult Echocardiography Procedure Report Left Ventricle LVEDD (3.7 - 5.6 cm): 3.63 cm LVESD (2.2 - 4.0 cm): 2.32 cm LVIVS thickness (0.6 - 1.2 cm): 1.33 cm LVPW thickness (0.5 - 1.0 cm): 0.83 cm e': 0.11 m/s E - e': 7.04 LVOT Max Gradient: 2.24 mm[Hg] Peak Velocity (LVOT): 0.75 m/s LVOT Diameter 2.00 cm Left Ventricular Ejection Fraction: 55 % Left Atrium LA Volume Index (2D A2C): 74.14 ml, 74.14 ml Left Atrium Systolic Dimension: 3.51 cm Mitral Valve MV E to A Ratio: 2.65 Mitral Valve A-Wave Peak Velocity: 0.30 m/s Mitral Valve E-Wave Peak Velocity: 0.80 m/s Right Ventricle Aorta AO Root Diam: 3.09 cm Aortic Valve AoV Area (Peak Low): 2.91 cm2, 2.91 cm2 Peak Velocity(Antegrade Flow): 0.81 m/s Peak Gradient(Antegrade Flow): 2.62 mm[Hg] Tricuspid Valve Peak Velocity (Regurgitant Flow): 2.75 m/s, 2.69 m/s Peak Velocity: 0.49 m/s Pulmonic Valve Peak Velocity: 0.83 m/s, 0.89 m/s Peak Gradient: 2.73 mm[Hg], 3.20 mm[Hg] Right Atrium Dictated by: Jacinto Gregg M.D. on 06/01/2022 at 19:56 Approved by: Jacinto Gregg M.D. on 06/01/2022 at 20:03 Normal [facility] CBC AUTO DIFFon 01-23-2022 BASO # 0.0 103/ul Normal 0.0-0.1 [facility] Comment on above: Performed By: #### C BC ####[facility] S[address] [place], [place] [address]Dr. Arti Bryce Basophils/100 WBC (Bld) 0.4 % Normal 0.2-2.0 [facility] Comment on above: Performed By: #### C BC ####[facility] Vutsyvhml[address] [place], [place] [address]Dr. Arti Wu EO # 0.1 103/ul Normal 0.0-0.7 [facility] Comment on above: Performed By: #### C BC ####[facility] Jiqeyzyinb[address] [place], [place] [address]Dr. Slimejacinto Wu Eosinophils/100 WBC (Bld) 0.9 % Normal 0.9-7.0 [facility] Comment on above: Performed By: #### C BC ####[facility] Dqdmwthyfx[address] [place], [place] [address]Dr. Slimejacinto Wu Erythrocyte distribution width (RBC) [Ratio] 13.4 % Normal 11.0-15.0 [facility] Comment on above: Performed By: #### C BC ####[facility] Bjhcuirz[address] [place], [place] [address]Dr. Arti Bryce Hematocrit (Bld) [Volume fraction] 41.8 % Normal 36.0-48.0 [facility] Comment on above: Performed By: #### C BC ####[facility] Oewetvccni[address] [place], [place] [address]Dr. Arti Bryce Hemoglobin (Bld) [Mass/Vol] 14.4 g/dL Normal 12.0-16.0 [facility] Comment on above: Performed By: #### C BC ####[facility] Czpnvwzynx[address] [place], [place] [address]Dr. Arti Wu IG # 0.05 10e3/ul Critically high 0.00-0.03 [facility] Comment on above: Performed By: #### C BC ####[facility] Xx[address] [place], [place] [address]DrChristophe Wu IG % 0.5 % Normal 0.0-0.5 [facility] Comment on above: Performed By: #### C BC ####[facility] [address] [address]DrChristophe Wu LYMPH # 0.7 103/ul Critically low 1.2-3.8 [facility] Comment on above: Performed By: #### C BC ####[facility] [address] [address]DrChristophe Wu Lymphocytes/100 WBC (Bld) 6.6 % Critically low 20.5-60.0 [facility] Comment on above: Performed By: #### C BC ####[facility] E[address] [place], [place] [address]DrChristophe Wu MANUAL DIFF REQ NO Normal [facility] Comment on above: Performed By: #### C BC ####[facility] Obmb[address] [place], [place] [address]DrChristophe Wu MCH (RBC) [Entitic mass] 33.2 pg Normal 26.7-34.0 [facility] Comment on above: Performed By: #### C BC ####[facility] V[address]ks[address]qu[address] [place], [place] [address]DrChristophe Wu MCHC (RBC) [Mass/Vol] 34.4 g/dL Normal 29.9-35.2 [facility] Comment on above: Performed By: #### C BC ####[facility] Ebplts[address]is[address] [place], [place] [id number] Wu MCV (RBC) [Entitic vol] 96.3 fL Normal 81.0-99.0 [facility] Comment on above: Performed By: #### C BC ####[facility] Frtef[address] [place], [place] [id number] Wu MONO # 1.0 103/ul Critically high 0.3-0.8 [facility] Comment on above: Performed By: #### C BC ####[facility] Vasqmmcimb4[address] [place], [place] [id number] Wu Monocytes/100 WBC (Bld) 9.8 % Normal 1.7-12.0 [facility] Comment on above: Performed By: #### C BC ####[facility] [address] [address]Dr. Arti Wu NEUT # 8.7 103/ul Critically high 1.4-6.5 [facility] Comment on above: Performed By: #### C BC ####[facility] [address] [address]Dr. Arti Wu Neutrophils/100 WBC (Bld) 81.8 % Critically high 43.0-75.0 [facility] Comment on above: Performed By: #### C BC ####[facility] [address] [address]Dr. Arti Wu Platelet mean volume (Bld) [Entitic vol] 9.5 fL Normal 9.5-13.5 [facility] Comment on above: Performed By: #### C BC ####[facility] R[address]wt[address] [place], [place] [address]Dr. Arti Wu PLT 219 103/ul Normal 150-450 [facility] Comment on above: Performed By: #### C BC ####[facility] Xhuvrplxr[address] [place], [place] [address]Dr. Arti Wu RBC 4.34 106/ul Normal 4.20-5.40 [facility] Comment on above: Performed By: #### C BC ####[facility] Aw[address]fw[address] [place], [place] [address]Dr. Arti Wu WBC 10.6 103/ul Normal 4.0-11.0 [facility] Comment on above: Performed By: #### C BC ####[facility] F[address] [place], [place] [address]Dr. Arti Wu CT HIP RT WO CONon 2 CT HIP RT WO CON EXAMINATION: CT HIP RT WO CON HISTORY: PAIN IN RIGHT HIP after falling COMPARISON: No relevant comparison available. TECHNIQUE: Multi-planar CT images were created without IV contrast. Dose reduction techniques were achieved by using automated exposure control and/or adjustment of mA and/or kV according to patient size and/or use of iterative reconstruction technique. FINDINGS: BONES: Nondisplaced fracture along posterior margin at base of femoral neck; acute versus sequela of prior hip replacement. The prosthetic femoral component and acetabular cup appear intact. SOFT TISSUES: Negative. No visible soft tissue swelling. EFFUSION: None visible. OTHER: Negative. IMPRESSION: 1. Right hip replacement without evidence of hardware failure or hardware fracture. 2. Suspect small nondisplaced fracture at posterior medial margin of residual femoral neck, cephalad to a lesser trochanter. Electronically authenticated by: CRUZITO BRIDGES Date: 2022-01-23 13:34 Normal [facility] CULTURE URINEon 01-23-2022 CULTURE URINE Culture Observations : MODERATE GROWTH OF MIXED GENITAL BRIEN. NO POTENTIAL PATHOGENS SEEN. Normal [facility] Comment on above: Performed By: #### U RCX #### [facility] [address] [address] [address] Arti Wu ER URINE PROFILEon 2 Bilirubin Ql (U) SMALL Abnormal NEGATIVE [facility] Comment on above: Performed By: #### DELMY CHIN ####[facility] [address] [address]Dr. Arti Wu Clarity (U) SL CLOUDY Abnormal CLEAR [facility] Comment on above: Performed By: #### HONG CHINRO ####[facility] [address] [address]Dr. Arti Wu Color (U) YELLOW Normal YELLOW [facility] Comment on above: Performed By: #### DELMY CHIN ####[facility] [address] [address]Dr. Arti Wu ERUAHD A micrscopic examination will be performed if indicated. Normal [facility] Comment on above: Performed By: #### DELMY CHIN ####[facility] [address] [address]Dr. Arti Wu Glucose Ql (U) Negative Normal NEGATIVE [facility] Comment on above: Performed By: #### HONG CHINRO ####[facility] [address] [address]Dr. Arti Wu Hemoglobin Ql (U) LARGE Abnormal NEGATIVE [facility] Comment on above: Performed By: #### HONG CHINRO ####[facility] [address] [address]Dr. Arti Wu Ketones Ql (U) Negative Normal NEGATIVE [facility] Comment on above: Performed By: #### HONG CHINRO ####[facility] Iexdpuveso[address] [place], [place] [address]Dr. Arti Wu LEUKOCYTES MODERATE Abnormal NEGATIVE [facility] Comment on above: Performed By: #### HONG CHINRO ####[facility] Lfzrdxsijj[address] [place], [place] [address]Dr. Arti Wu Nitrite Ql (U) Positive Abnormal NEGATIVE [facility] Comment on above: Performed By: #### HONG CHINRO ####[facility] R[address]im[address] [place], [place] [address]Dr. Arti Wu pH (U) 6.5 [pH] Normal 5-9 [facility] Comment on above: Performed By: #### DELMY CHIN ####[facility] Ztshevd[address] [place], [place] [address]Dr. Arti Wu Protein (U) [Mass/Vol] 100 mg/dL Abnormal NEGATIVE/ TRACE [facility] Comment on above: Performed By: #### HONG CHINRO ####[facility] G[address]ix[address] [place], [place] [address]Dr. Arti Wu SPEC GRAVITY 1.025 Normal 1.005-<=1.025 [facility] Comment on above: Performed By: #### HONG CHINRO ####[facility] Ktny[address]oj[address] [place], [place] [address]Dr. Arti Wu UR MICRO IND INDICATED Normal [facility] Comment on above: Performed By: #### HONG CHINRO ####[facility] [address] [address]Dr. Arti Wu Urobilinogen Qn (U) 1.0 {Uriel'U}/dL Normal 0.2 - 1. 0 [facility] Comment on above: Performed By: #### E DELMY HENDRICKSON ####[facility] [address] [address]Dr. Arti Wu PROF CHEM 8 (BAS METB)on Anion gap [Moles/Vol] 11.7 mmol/L Normal [facility] Comment on above: Performed By: #### B MP #### [facility] [address] [address] [address] Arti Wu Calcium [Mass/Vol] 9.2 mg/dL Normal 8.5-10.1 [facility] Comment on above: Performed By: #### B MP #### [facility] [address] [address] [address] Arti Wu Chloride [Moles/Vol] 103 mmol/L Normal 98-107 [facility] Comment on above: Performed By: #### B MP #### [facility] [address] [address] [address] Arti Wu CO2 [Moles/Vol] 28.1 mmol/L Normal 21.0-32.0 [facility] Comment on above: Performed By: #### B MP #### [facility] [address] [address] [address] Arti Wu Creatinine [Mass/Vol] 0.73 mg/dL Normal 0.55-1.02 [facility] Comment on above: Performed By: #### B MP #### [facility] [address] [address] [address] Arti Wu EGFR-AF SWISS >60 Normal >=60 [facility] Comment on above: Performed By: #### B MP #### [facility] [address] [address] [address] Arti Wu EGFR-NON AF SWISS >60 Normal >=60 [facility] Comment on above: Performed By: #### B MP #### [facility] [address] [address] [address] Arti Wu Glucose [Mass/Vol] 111 mg/dL Critically high 74-106 [facility] Comment on above: Performed By: #### B MP #### [facility] [address] [address] [address] Arti uW Potassium [Moles/Vol] 3.8 mmol/L Normal 3.5-5.1 [facility] Comment on above: Performed By: #### B MP #### [facility] [address] [address] [address] Arti Wu Sodium [Moles/Vol] 139 mmol/L Normal 136-145 [facility] Comment on above: Performed By: #### B MP #### [facility] [address] [address] [address] Arti Wu Urea nitrogen [Mass/Vol] 12.0 mg/dL Normal 7.0-18.0 [facility] Comment on above: Performed By: #### B MP #### [facility] [address] [address] [address] Arti Wu Urea nitrogen/Creatinine [Mass ratio] 16.4 mg/mg Normal [facility] Comment on above: Performed By: #### B MP #### [facility] [address] [place] [address] Dr. Arti Wu URINE MICROSCOPIC ONLYon BACTERIA MODERATE Abnormal NONE SEEN [facility] Comment on above: Performed By: #### Susi HENDRICKSON UMICRO ####[facility] [address] [address]DrChristophe Wu Bacteria identified Cx Nom (U) INDICATED Normal [facility] Comment on above: Performed By: #### Susi HENDRICKSON UMICRO ####[facility] [address] [id number] Wu CAST NONE SEEN Normal NONE SEEN [facility] Comment on above: Performed By: #### Susi HENDRICKSON UMICRO ####[facility] [address] [id number] Wu Crystals LM Nom (Urine sed) NONE SEEN Normal NONE SEEN [facility] Comment on above: Performed By: #### E MADHAVI, HONGRO ####[facility] [address] [id number]. Arti Wu Epithelial cells LM Ql (Urine sed) RARE Normal NONE SEEN /RARE [facility] Comment on above: Performed By: #### HONG CHINRO ####[facility] [address] [place] [id number]. Arti Wu MUCOUS NONE SEEN Normal NONE SEEN [facility] Comment on above: Performed By: #### Susi HENDRICKSON UMICRO ####[facility] [address] [place] [id number]. Arti Wu RBC 75-100 Abnormal 0-2 [facility] Comment on above: Performed By: #### HONG CHINRO ####[facility] [address] [place] [id number]. Arti Wu WBC 20-50 Abnormal NONE SEEN [facility] Comment on above: Performed By: #### HONG CHINRO ####[facility] [address] [place] [id number]. Arti Wu CT FOOT LT WO CONon 12-08-[address] FOOT LT WO CON EXAMINATION: CT FOOT LT WO CON HISTORY: Closed fracture of metatarsal bone of left foot COMPARISON: 11/26/2021 TECHNIQUE: Multi-planar CT images were created without IV contrast. Dose reduction techniques were achieved by using automated exposure control and/or adjustment of mA and/or kV according to patient size and/or use of iterative reconstruction technique. FINDINGS: BONES: Again demonstrated are fractures involving the neck of the second third and fourth metatarsals with no significant displacement. Suspected fracture medial metatarsal sesamoid best seen on sagittal image 86. No dislocation. Mild degenerative changes with marginal osteophyte formation. Mild enthesopathic spurring of the calcaneus. SOFT TISSUES: Extensive soft tissue swelling and vascular calcifications EFFUSION: None visible. OTHER: Negative. IMPRESSION: Stable fractures neck of the second third and fourth metatarsals Suspected fracture medial sesamoid of the first metatarsal Electronically authenticated by: RADHA RAJPUT Date: 2021-12-07 17:38 Normal [facility] XR FOOT LT MIN 3 VIEWSon XR FOOT LT MIN 3 VIEWS EXAM: XR FOOT LT MIN 3 VIEWS 11/26/2021. FINDINGS: Frontal, oblique and lateral views for 3 views obtained. HISTORY: Unspecified fall COMPARISON: None. IMPRESSION: 1. Generalized osteopenia. 2. Acute mildly angulated extra articular fracture deformities associated with the necks of the second through fourth metacarpals with slight apex medial angulation. There is no dislocation. Overlapping soft tissue swelling noted. 3. 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 Mild arthritic changes involving articulations of the forefoot and midfoot, noted for example involving first MTP, multiple TMT and talonavicular articulations. 4. Atherosclerosis with peripheral vascular arterial disease. Electronically authenticated by: MAILE SMITH Date: 2021-11-26 16:39 Normal [facility] XR LSPINE 2_3 VIEWSon 2021 XR LSPINE 2_3 VIEWS EXAM: L-spine HISTORY: Acute back pain from a fall this morning. Comparison studies: None TECHNIQUE: 2 views of the lumbar spine were obtained. FINDINGS: There is no evidence of acute fracture or subluxation. No suspicious bone lesions are seen. Moderate degenerative changes are seen. The rest of the visualized structures are unremarkable. IMPRESSION: No acute findings. Electronically authenticated by: MERCEDEZ VALENZUELA Date: 2021-09-27 11:08 Normal [facility] XR TSPINE 2 VIEWSon 09-28-19 22 XR TSPINE 2 VIEWS EXAM: C-spine HISTORY: [Pain from a fall this morning. Comparison studies: None TECHNIQUE: 2 views of the thoracic spine were obtained. FINDINGS: There is no evidence of acute fracture or subluxation. No suspicious bone lesions are seen. At least moderate degenerative changes are seen. The heart is enlarged. There is a left-sided dual-lead pacemaker. The rest of the visualized structures are unremarkable. IMPRESSION: No acute findings. Electronically authenticated by: MERCEDEZ VALENZUELA Date: 2021-09-27 11:08 Normal [facility] Q - CULTURE,URINE,ROUTINEon 01-25-2021 CULTURE, URINE, ROUTINE SEE NOTE Normal [facility] Comment on above: Order Comment: [facility] [employer] [facility] performed at: QPT, [facility], [address] [place] [address], [address] [place] [address], [phone], Manager Physical: Bryan Kurtz MD [facility] Date/Time: [facility] Results Received Date/Time: [facility] Reported Date/Time: Result Comment: CULT URE, URINE, ROUTINE Micro Number: [id number] Test Status: Final Specimen Source: Urine Specimen Quality: Adequate Result: Growth of mixed brien was isolated, suggesting probable contamination. No further testing will be performed. If clinically indicated, recollection using a method to minimize contamination, with prompt transfer to Urine Culture Transport Tube, is recommended. Performed By: #### 3 020X, %SBCULI, 6304R #### [facility] Default [address] [place] [address] Q - UR CULT [id number] 2020 REFLEXIVE URINE CULTURE SEE NOTE Normal [facility] Comment on above: Order Comment: [facility] performed at: [facility], [facility], [address] [place] [address], [address] [place] [address], Manager Physical: Bryan Kurtz MD [facility] Date/Time: [facility] Results Received Date/Time: [facility] Reported Date/Time: Result Comment: CULT URE INDICATED - RESULTS TO FOLLOW Performed By: #### 3 020X, %SBCULI, 6304R #### [facility] Default [address] [place] [address] Q - URINALYSIS,COMPLETE,WITH REFLEX TO CULTUREon 01-25-2021 Appearance (U) CLOUDY Abnormal CLEAR [facility] Comment on above: Order Comment: [facility] performed at: [employer], [address], [address] [place] [address], [phone], Manager Physical: Bryan Kurtz MD [facility] Date/Time: [facility] Results Received Date/Time: [facility] Reported Date/Time: Performed By: #### 3 020X, %SBCULI, 6304R #### [facility] [address] [place] [address] BACTERIA FEW Abnormal NONE SEEN [facility] Comment on above: Order Comment: [facility] performed at: [employer], [facility], [address] , [address] [place] [address], [address] [place] [address], Manager Physical: Bryan Kurtz MD [facility] Date/Time: [facility] Results Received Date/Time: [facility] Reported Date/Time: Performed By: #### 3 020X, %SBCULI, 6304R #### [facility] [address] [place] [address] Bilirubin Ql (U) Negative Normal NEGATIVE [facility] Comment on above: Order Comment: [facility] performed at: [employer], [address] , [address] [place] [address], [address] [place] [address], Manager Physical: Bryan Kurtz MD [facility] Date/Time: [facility] Results Received Date/Time: [facility] Reported Date/Time: Performed By: #### 3 020X, %SBCULI, 6304R #### [facility] [address] [place] [address] CALCIUM OXALATE CRYSTALS MANY Abnormal NONE OR FEW [facility] Comment on above: Order Comment: [facility] performed at: [employer], [facility], [address] , [address] [place] [address], [address] [place] [address], Manager Physical: Bryan Kurtz MD [facility] Date/Time: [facility] Results Received Date/Time: [facility] Reported Date/Time: Performed By: #### 3 020X, %SBCULI, 6304R #### [facility] [address] [place] [address] Color (U) YELLOW Normal YELLOW [facility] Comment on above: Order Comment: [facility] performed at: [employer], [facility], [address] , [address] [place] [address], [address] [place] [address], Manager Physical: Bryan Kurtz MD [facility] Date/Time: [facility] Results Received Date/Time: [facility] Reported Date/Time: Performed By: #### 3 020X, %SBCULI, 6304R #### [facility] Default [address] [place] [address] Glucose Ql (U) Negative Normal NEGATIVE [facility] Comment on above: Order Comment: [facility] performed at: [employer], [facility], [address] , [address] [place] [address], [address] [place] [address], Manager Physical: Bryan Kurtz MD [facility] Date/Time: [facility] Results Received Date/Time: [facility] Reported Date/Time: Performed By: #### 3 020X, %SBCULI, 6304R #### [facility] [address] [place] [address] HYALINE CAST NONE SEEN Normal NONE SEEN [facility] Comment on above: Order Comment: [facility] performed at: [employer], [facility], [address] , [address] [place] [address], [address] [place] [address], Manager Physical: Bryan Kurtz MD [facility] Date/Time: [facility] Results Received Date/Time: [facility] Reported Date/Time: Performed By: #### 3 020X, %SBCULI, 6304R #### [facility] [address] [place] [address] Ketones Ql (U) Negative Normal NEGATIVE [facility] Comment on above: Order Comment: [facility] performed at: [employer], [address] , [address] [place] [address], [address] [place] [address], Manager Physical: Bryan Kurtz MD [facility] Date/Time: [facility] Results Received Date/Time: [facility] Reported Date/Time: Performed By: #### 3 020X, %SBCULI, 6304R #### [facility] Default [address] [place] [address] Leukocyte esterase Test strip Ql (U) 1+ Abnormal NEGATIVE [place] [facility] Comment on above: Order Comment: [facility] performed at: [facility], [facility], [address], [address] [place] [address], [address] [place] [address], Manager Physical: Bryan Kurtz MD [facility] Collection Date/Time: [facility] Results Received Date/Time: [facility] Reported Date/Time: Performed By: #### 3 020X, %SBCULI, 6304R #### [facility] Default [address] [place] [address] Nitrite Ql (U) Negative Normal NEGATIVE [facility] Mud Jack Nozzleman Comment on above: Order Comment: [facility] Testing performed at: [employer], [facility], [address] , [address] [place] [address], [address] [place] [address], Manager Physical: Bryan Kurtz MD [facility] Collection Date/Time: [facility] Results Received Date/Time: [facility] Reported Date/Time: Performed By: #### 3 020X, %SBCULI, 6304R #### [facility] Default [address] [place] [address] OCCULT BLOOD Negative Normal NEGATIVE [facility] Mud Jack Nozzleman Comment on above: Order Comment: [facility] Testing performed at: [employer], [facility], [address], [address] [place] [address], [address] [place] [address], Manager Physical: Bryan Kurtz MD [facility] Date/Time: [facility] Results Received Date/Time: [facility] Reported Date/Time: Performed By: #### 3 020X, %SBCULI, 6304R #### [facility] Default [address] [place] [address] pH (U) 5.5 [pH] Normal 5.0-8.0 [facility] Mud Jack Nozzleman Comment on above: Order Comment: [facility] Testing performed at: [employer], [facility], [address], [address] [place] [address], [id number], Manager Physical: Bryan Kurtz MD [facility] Collection Date/Time: [facility] Results Received Date/Time: [facility] Reported Date/Time: Performed By: #### 3 020X, %SBCULI, 6304R #### [facility] Default [address] [place] [address] Protein Ql (U) Negative Normal NEGATIVE [facility] Specialist Comment on above: Order Comment: [facility] Testing performed at: [employer], [facility], [address] [facility], [address] [place] [address], [address] [place] [address], Manager Physical: Bryan Kurtz MD [facility] Collection Date/Time: [facility] Results Received Date/Time: [facility] Reported Date/Time: Performed By: #### 3 020X, %SBCULI, 6304R #### [facility] Default [address] [place] [address] RBC 0-2 Normal < OR = 2 [facility] Mud Jack Nozzleman Comment on above: Order Comment: [facility] Testing performed at: [employer], [facility], [address] [place] [address], [address] [place] [address], [address] [place] [address], Manager Physical: Bryan Kurtz MD [facility] Collection Date/Time: [facility] Results Received Date/Time: [facility] Reported Date/Time: Performed By: #### 3 020X, %SBCULI, 6304R #### [facility] Default [address] [place] [address] Specific gravity (U) [Rel density] 1.018 Normal 1.001-1.035 [facility] Mud Jack Nozzleman Comment on above: Order Comment: [facility] Testing performed at: [employer], [facility], [address] [place] [address], [address] [place] [address], [address] [place] [address], Manager Physical: Bryan Kurtz MD [facility] Collection Date/Time: [facility] Results Received Date/Time: [facility] Reported Date/Time: Performed By: #### 3 020X, %SBCULI, 6304R #### [facility] Default [address] [place] [address] SQUAMOUS EPITHELIAL CELLS 20-40 Abnormal < OR = 5 [facility] Mud Jack Nozzleman Comment on above: Order Comment: [facility] Testing performed at: [facility], [facility], [address] [facility], [address] [place] [place], [address] [place] [address], Manager Physical: Bryan Kurtz MD [facility] Collection Date/Time: [facility] Results Received Date/Time: [facility] Reported Date/Time: Performed By: #### 3 020X, %SBCULI, 6304R #### [facility] Default [address] [place] [address] WBC 6-10 Abnormal < OR = 5 [facility] Specialist Comment on above: Order Comment: [facility] Testing performed at: [facility], [facility], [address] [facility], [address] [place], [address] [place] [address], Manager Physical: Bryan Kurtz MD [facility] Collection Date/Time: [facility] Results Received Date/Time: [facility] Reported Date/Time: Performed By: #### 3 020X, %SBCULI, 6304R #### [facility] Default [address] [place] [address] Cardiovascular Lab Reporton 10-08-2017 Cardiovascular Lab Report [facility] Patient Name: Susan Douglass [facility] MR #: [id number] Physician: Noble Balbuena Department of Andreea Montgomery Medicine Service Date: 10/07/2017 Division of Birthdate: 1940 Cardiology Room #: 3CD [id number] Adult Cardiovascular Services [place] [address] Cardiovascular Laboratory Report The patient is a patient of mine from [place]. She has chronic atrial fibrillation. She has a dual-chamber pacemaker that is set VVI. She has had very sujcahplq-qs-myqecby atrial fibrillation despite high doses of beta-moises and calcium channel moises. Her pacemaker was functioning fine. She has a normal ejection fraction. I spoke to her about AV node ablation. She is on Xarelto, which was held for 2 doses. She was consented, brought to the EP suite, sterile prepped and draped, given conscious sedation. Local anesthesia provided by lidocaine. Pacemaker was interrogated, was functioning satisfactory. The right groin was anesthetized with lidocaine. 8-Vietnamese and 6-Vietnamese introducer sheaths were placed in the right common femoral vein. Catheter was placed at the His position. The Carto system was used for noncontact mapping. The His bundle area and atrial septum were mapped thoroughly with Carto and satisfactory position was determined. Three lesions were delivered, which resulted in complete heart block. The patient was allowed a period of time to be observed. Complete heart block persisted. Pacemaker was reinterrogated. It was reprogrammed. The pacemaker was set to VVIR at 90 beats per minute. Threshold was 0.9 V at 0.5 milliseconds in the ventricle, so she was set at 3 V and 0.5 milliseconds. Sensitivity was set at 2.5. At the termination of procedure, sheaths and wires were pulled, pressure was held, and hemostasis was achieved. She left the lab in stable condition. There was no blood loss. Fluoroscopy time was 11 minutes. There was no contrast utilized. ASSESSMENT: 1. Catheter mapping. 2. Three dimensional non-contact mapping. 3. His bundle recording. 4. Conscious sedation. 5. Ablation of the AV node. Electronically Signed by: Noble Montgomery M.D. 10/08/2017 08:31 A Noble Montgomery M.D. Date Dict: 10/07/2017/03:11 P/Noble Montgomery M.D. Date Trans: 10/08/2017 04:44 A/panda [id number] cc: Eliud Patel D.O. [address] [place] [address] [place] [address] [facility] Encounters Encounter Date Encounter Type Care Provider Facility Start: 01-07-2024 ambulatory ELIUD PATEL Facility :[facility] Start: 12-17-2023 End: 12-19-2023 Telephone encounter Mercedez Leo DO Work Phone: [facility] General Surgery Start: 12-13-2023 ambulatory ELIUD PATEL Facility :[facility] Start: 10-23-2023 End: 10-23-2023 ambulatory XIOMARA Wheat [facility]PLING Not Available Start: 10-01-2023 End: 10-01-2023 ambulatory [facility] Start: 09-25-2023 End: 09-25-2023 ambulatory XIOMARA [facility] [employer] Not Available Start: 09-04-2023 End: 09-04-2023 ambulatory FRANKIE [facility] Start: 08-28-2023 End: 08-28-2023 ambulatory XIOMARA [facility] [employer] Not Available Start: 08-24-2023 End: 08-25-2023 Emergency department patient visit BLANDING Aye [facility] Start: 08-24-2023 End: 08-25-2023 Emergency department patient visit BLANDING Aye [facility] Start: 07-25-2023 End: 07-25-2023 ambulatory [facility] Start: 07-17-2023 End: 07-17-2023 ambulatory [facility] Start: 07-17-2023 End: 07-17-2023 ambulatory [facility] Start: 06-28-2023 End: 06-28-2023 ambulatory [facility] Start: 06-13-2023 End: 06-13-2023 ambulatory DHARA HART Not Available Start: 06-06-2023 End: 06-06-2023 ambulatory ROSANNA TATTERSALL Not Available Start: 05-28-2023 End: 05-28-2023 ambulatory ROSANNA TATTERSALL Not Available Start: 05-23-2023 End: 05-23-2023 ambulatory ROSANNA TATTERSALL Not Available Start: 05-20-2023 End: 05-20-2023 ambulatory ADRIA NAILS Not Available Start: 05-08-2023 Telephone encounter Suzanne Zamorano [facility] Start: 05-08-2023 End: 05-20-2023 ambulatory PALAK DUMONT [facility] Start: 04-25-2023 End: 04-25-2023 Emergency department patient visit Eliud Patel Facility:[facility] Start: 02-27-2023 End: 02-27-2023 ambulatory HUSSEIN PARKER [facility] Start: 01-22-2023 End: 01-22-2023 ambulatory SOHA LEDEZMA [facility] Start: 06-01-2022 End: 06-02-2022 ambulatory SOHA LEDEZMA Facility:[facility] Start: 05-08-2022 End: 05-09-2022 ambulatory CHARLY ESPINO Facility:[facility] Start: 03-12-2022 End: 03-24-[address] ELIUD PATEL Facility:[facility] Start: 02-08-2022 End: 02-09-[address] ELIUD PATEL Facility:[facility] Start: 01-23-2022 End: 01-23-[address] ELIUD PATEL Facility:[facility] Start: 01-02-2022 End: 01-03-[address] ELIUD PATEL Facility:[facility] Start: 12-07-2021 End: 12-08-[address] ELIUD PATEL Facility:[facility] Start: 11-26-2021 End: 11-26-[address] ELIUD PATEL Facility:[facility] Start: 09-27-2021 End: 09-27-[address] ELIUD PATEL Facility:[facility] Start: 07-26-2021 ambulatory SOHA LEDEZMA Facility:[facility] Start: 10-07-2017 End: 10-08-2017 Patient encounter procedure NOBLE MONTGOMERY Facility:[facility] Procedures Date Procedure Procedure Detail Performing Clinician Start: 09-04-2023 Follow-up visit Follow-up FRANKIE CODY Start: 09-21-2021 Colonoscopy Suzanne Medrano Plan of Treatment Date Care Activity Detail Author Start: 09-28-2031 DTaP,Tdap and Td Vaccines (2 - Tdap) DTaP,Tdap and Td Vaccines (2 - Tdap) [facility] Start: 09-21-2026 Screening for malignant neoplasm of colon Colonoscopy [facility] Start: 08-23-2024 Adult BMI Screening Adult BMI Screening [facility] Start: 08-23-2024 Tobacco Screening Tobacco Screening [facility] Start: 12-25-2023 End: 12-25-2023 Patient encounter procedure 12/25/2023 2:15 PM EST Office Visit [facility] [address] [place] [id number] Mercedez Leo DO [address] [place] [address] [facility] Start: 10-20-2023 Influenza vaccination Influenza Vaccine [facility] Start: 06-23-2023 Adult BMI Screening Adult BMI Screening [facility] Start: 06-23-2023 Tobacco Screening Tobacco Screening [facility] Start: 10-19-2022 Influenza vaccination Influenza Vaccine [facility] Start: 08-04-2003 Fall Risk Screening Fall Risk Screening [facility] Start: 1988 Administration of varicella zoster vaccine Zoster (Shingles) Vaccine (1 of 2) [facility] Start: 1950 Depression Screening Depression Screening [facility] Start: 1940 Medicare Annual Wellness Visit Medicare Annual Wellness Visit [facility] Immunizations Immunization Date Immunization Notes Care Provider Fa cililucy 12-12-2016 influenza virus vacc ine, unspecified formulation Suzanne Zamorano [facility] Payers Date Payer Category Payer Medicare HMO [facility] MEDICARE [id number] 2023 [facility] [id number] 2021 Medicare AETNA MEDICARE A ETNA MEDICARE PLAN (PPO) [id number] 2021-Present [phone] [address] [place] [address] [id number] 1959 Medicare [id number] 1959 Self-pay 1940 Unknown [id number] 2.16.840.1.425594.3.579.2. 647 1940 Unknown [id number] 2.16.840.1.686483.3.579.2. 593 1938 Unknown [id number] 2.16.840.1.228349.3.579.2. 593 1938 Unknown [id number] 2.16.840.1.500579.3.579.2. 593 1938 Unknown [id number] 2.16.840.1.680579.3.579.2. 593 1938 Unknown [id number] 2.16.840.1.917572.3.579.2. 593 1938 Unknown [id number] 2.16.840.1.102911.3.579.2. 593 1938 Unknown [id number] 2.16.840.1.231568.3.579.2. 593 1938 Unknown [id number] 2.16.840.1.218281.3.579.2. 593 1938 Unknown [id number] 2.16.840.1.898368.3.579.2. 593 1938 Unknown [id number] 2.16.840.1.454657.3.579.2. 593 1938 Unknown [id number] 2.16.840.1.081810.3.579.2. 593 1938 Unknown [id number] 2.16.840.1.551038.3.579.2. 1285 1938 Unknown [id number] 2.16.840.1.033808.3.579.2. 1285 1938 Unknown [id number] 2.16.840.1.644111.3.579.2. 1285 1938 Unknown [id number] 2.16.840.1.542440.3.579.2. 1285 1938 Unknown [id number] 2..840.1.455721.3.579.2. 1285 1938 Unknown [id number] 2.840.1.382750.3.579.2. 1285 1938 Unknown [id number] 2.840.1.049042.3.579.2. 1285 1938 Unknown [id number] 2.840.1.564115.3.579.2. 1285 1938 Unknown [id number] 2.840.1.034304.3.579.2. 1285 1938 Unknown [id number] 2.840.1.713056.3.579.2. 1285 1938 Unknown [id number] 2.840.1.022574.3.579.2. 1285 1938 Unknown [id number] 2.840.1.160346.3.579.2. 1258 1938 Unknown [id number] 2.840.1.506362.3.579.2. 1258 1938 Unknown [id number] 2.840.1.467974.3.579.2. 1258 1938 Unknown [id number] 2.840.1.092506.3.579.2. 1258 1938 Unknown [id number] 2.840.1.607854.3.579.2. 1259 1938 Unknown [id number] 2.16.840.1.637512.3.579.2. 1258 1938 Unknown [id number] 2.16.840.1.859159.3.579.2. 1258 1938 Unknown [id number] 2.16.840.1.912504.3.579.2. 1258 1938 Unknown [id number] 2.16.840.1.022989.3.579.2. 1258 1938 Unknown [id number] 2.16.840.1.204949.3.579.2. 1258 1938 Unknown [id number] 2.16.840.1.026106.3.579.2. 727 Unknown [id number] 2.16.840.1.054845.3.579.2. 531 Social History Date Type Detail Facility Start: 05-28-2022 End: 06-28-2023 Tobacco smoking status NHIS Ex-smoker [facility] Start: 02-19-1952 End: 02-18-1989 History of tobacco use Current smoker [facility] Start: 02-19-1952 End: 02-18-1989 History of tobacco use Cigarette Smoker [facility] Start: 03-31-2020 End: 05-28-2022 Cigarettes smoked current (pack per day) - Reported 1 [facility] Start: 05-28-2022 End: 06-28-2023 Tobacco use and exposure Smokeless tobacco non-user [facility] Start: 06-22-2022 Alcohol intake Current drinke r of alcohol (finding) [facility] Start: 03-31-2020 End: 06-22-2022 Tobacco use panel [facility] Childcare Unknown [facility] Start: 05-28-2022 Alcohol Comment SOCIALLY [facility] Start: 1940 Sex Assigned At Not on file P [facility] Start: 08-24-2023 Alcoholic beverage intake Ex-drinker (finding) [facility] Start: 09-23-2014 Sex Female (finding) [facility] Medical Equipment Procedure Code Equipment Code Equipment Origin al Text Equipment Identifier Dates Stm Fem 137d 5 39mm 12/14 B - Sna - [id number]$$ [id number] , [id number] FDA Start: 07-17-2017 Hd Fem 36mm +0mm 12/14 Vrsy Rpl [id number] - Sna - [id number] Start: 06-25-[address] Hip [address] 25mm 6.5mm Rpl [id number] + [id number] + 828325 - [id number]/$ $[id number], [id number] FDA Start: 07-17-2017 Scr Bn Anshul 20mm 6.5mm Hip St Rpl 385038 + [id number] + [id number] - Sna - [id number] Start: 06-25-2018 Pacemaker- 17 113685_[facility] Start: 12-05-2016 Comment on above: Description: info in media Hd Fem 32mm -3.5 mm 12/14 Vrsy Rpl [id number] + [id number] - [id number]/$ $[id number], [id number] FDA Start: 07-17-2017 Shl Actb 48mm Hi p Prm Mdlr Ch Rpl [id number] - Sna - [id number] Start: 07-17-2017 Linr Actb 48mm 32mm Std Ntrl Rpl [id number] - Sna - [id number]/$ $[id number]/S NA, [id number] FDA Start: 07-17-2017 Shl Actb 50mm Hi p Prm Mdlr Ch Rpl [id number] - Sna - [id number] Start: 06-25-2018 Linr Actb 50/52/54mm 36mm Std Rpl [id number] - Sna - [id number] Start: 06-25-2018 Stm Fem 137d 8 40.88mm 12/14 B - Sna - [id number] Start: 06-25-[address] Hip [address] 25mm 6.5mm Rpl [id number] + [id number] + [id number] - [id number]/$ $[id number], [id number] [facility] Start: 07-17-2017 Scr Bn Anshul 20mm 6.5mm Hip St Rpl [id number] + [id number] + [id number] - [facility] - [id number]_[facility] Start: 06-25-2018 Clinical Notes 01-02-2022 to 12-17-2023 Telephone Encounter - Lashae Jarquin - 12/17/2023 1:45 PM EDTTelephone Encounter - Lashae Jarquin - 12/17/2023 1:45 PM EDTTelephone Encounter - Lashae Jarquin - 12/17/2023 1:45 PM EDT Note Date & Type Note Facility 12-17-2023 Miscellaneous Notes Called Jacqueline regarding the acute cholecystitis referral that our office received from Dr Patel on her mother/Judr, I left a message for her to call the office back to schedule an appointment. Arlene called the office back and we scheduled her an appointment on 12/25/2023. documented in this encounter [facility] 12-17-2023 Telephone encounter Note Called Jacqueline regarding the acute cholecystitis referral that our office received from Dr Patel on her mother/Judr, I left a message for her to call the office back to schedule an appointment. [facility] 12-17-2023 Telephone encounter Note Arlene called the office back and we scheduled her an appointment on 12/25/2023. [facility] 09-04-2023 Note [facility] Progress Note Reason for visit: s/p lead revision 11/21/2022 HPI: Susan Douglass is a 83 y.o. year old with past medical history of hypertension, chronic atrial fibrillations/p AVN ablation done by Dr. Montgomery on 10/07/2017 for A. fib with rapid ventricular rate. She also has a dual-chamber pacemaker who had undergone a generator replacement on 12/05/[address] Montgomery. She had underwent dual-chamber pacemaker for sick sinus syndrome by Dr. Barcenas on 02/20/2005 she has a history of CAD with a chronically occluded RCA. 09/04/2023 She feel about 1 month ago. She felt something pop in her hip. She had a CT scan. She was found to have a fractured pelvis. She will be seeing ortho soon. She has been having a lot of falls as of recent. Currently walking with a walker. Denies c/o CP, dyspnea, orthopnea, PND, LE edema, dizziness/LH, palpitations, syncope. Per dr. Loya 06/2021 c; Afib HPI: 79-year-old female with past medical history of hypertension, chronic atrial fibrillations/p AVN ablation done by Dr. Montgomery on 10/07/2017 for A. fib with rapid ventricular rate. She also has a dual-chamber pacemaker who had undergone a generator replacement on 12/05/[address] Montgmoery. She had underwent dual-chamber pacemaker for sick sinus syndrome by Dr. Barcenas on 02/20/2005 she has a history of CAD with a chronic clinic occluded RCA. Denies lightheadedness, dizziness, syncope. Overall states she feels well. Denies chest pain, fever chills, nausea vomiting diarrhea. She does have very limited functional capacity and that she states that she gets up from the bed and walks around a little bit. No regular exercise due to her underlying hip pain following prior hip surgeries. Test Echocardiogram at [place] on 09/09/2017 shows EF of 65% with normal RV function the RV was mildly enlarged with a left atrium that is severely enlarged and the right atrium is moderately enlarged with mild MR mild AR and mild TR Device check that was performed on 04/17/2021 shows the presence of dual-chamber pacemaker with the patient in what appeared to be atrial fibrillation with a VVIR mode being programmed at the low rate limit of 80 bpm based on the study the ventricular rate is reasonably well controlled and she is paced on the percent of the time. Her last threshold shows 1.6 V 8.4 ms pulse width -------- Allergies: No Known Allergies Weight: 49.4kg Visit Vitals BP 120/70 (BP Location: Left arm, Patient Position: Sitting, BP Cuff Size: Adult) Pulse 81 Resp 12 Ht 1.6 m (5' 3 ) Wt 49.4 kg (109 lb) SpO2 94% BMI 19.31 kg/m??? OB Status Postmenopausal Smoking Status Never BSA 1.48 m??? Meds: Current Outpatient Medications on File Prior to Visit Medication Sig Dispense Refill apixaban (Eliquis) 2.5 mg tablet Take 1 tablet (2.5 mg) by mouth in the morning and at bedtime. 180 tablet 2 atorvastatin (Lipitor) 40 mg tablet Take 1 tablet by mouth at bedtime. carvedilol (Coreg) 25 mg tablet Take 0.5 tablets twice a day by oral route for 90 days. cholecalciferol (D3-5) 5,000 Units tablet Take 5,000 Units by mouth in the morning. colesevelam (Welchol) 625 mg tablet Take 2 tablets by mouth in the morning. dilTIAZem CD (Cardizem CD) 120 mg 24 hr capsule Take 1 capsule by mouth in the morning 90 capsule 3 famotidine (Pepcid) 20 mg tablet Take by mouth in the morning and at bedtime. memantine (Namenda) 10 mg tablet Take 1 tablet by mouth in the morning and at bedtime. montelukast (Singulair) 10 mg tablet Take 10 mg by mouth in the morning. omeprazole (PriLOSEC) [address] capsule Take 20 mg by mouth in the morning. [DISCONTINUED] mirtazapine (Remeron) 15 mg tablet Take 15 mg by mouth at bedtime. [DISCONTINUED] budesonide-formoteroL (Symbicort) 160-4.5 mcg/actuation inhaler No current facility-administered medications on file prior to visit. ROS: Cardio Basic Cardiovascular Symptoms: no lightheadedness, no leg edema, no syncope, no orthopnea, no PND, no claudication, +falls Constitutional Constitutional: no fever, no night sweats, no significant weight gain, no significant weight loss, no exercise intolerance Eyes Eyes: no dry eyes, no irritation, no vision change ENMT Ears: no difficulty hearing, no ear pain Nose: no frequent nosebleeds, Mouth/Throat: no sore throat, no bleeding gums, no snoring, no dry mouth, no mouth ulcers, no oral abnormalities, no teeth problems Respiratory Respiratory: no cough, no wheezing, no coughing up blood, no sleep apnea Musculoskeletal Musculoskeletal: no muscle aches, no muscle weakness, joint pain+, no back pain, no swelling in the extremities Integumentary Skin no rash, no ulcer, no varicosities, no discoloration, no pruritus Neurologic Neurologic: no loss of consciousness, no weakness, no numbness, no seizures, no dizziness, no headaches Psychiatric Ps (more content not included)... [facility] 05-08-2023 Miscellaneous Notes Engineering Project Designer called preferred patient number in chart and one stated it was out of service and the other one said that the voicemail box was not set up. documented in this encounter [facility] 05-08-2023 Telephone encounter Note Engineering Project Designer called preferred patient number in chart and one stated it was out of service and the other one said that the voicemail box was not set up. [facility] 02-27-2023 Note Patient here for 3 m o follow up SSS, persistent afib, and CAD. He daughter recently. She denies chest pain, palpitations, lightheadedness/syncope, and bleeding on Eliquis. Says she stopped her atorvastatin because she thought it was making her nauseous. This did not help the nausea she says. Her device was interrogated in the office last month s/p ventricular lead revision in Nov 2022. Review of Systems Cardiovascular: Positive for leg swelling. Respiratory: Positive for cough. Musculoskeletal: Positive for arthritis, back pain, joint pain and muscle weakness. Gastrointestinal: Positive for nausea. All other systems reviewed and are negative. [facility] 02-27-2023 Note [place] Electrophysiology Consult Note Reason for visit: s/p RV lead revision 11/2022 HPI: Susan Douglass is a 82 y.o. year old with past medical history of hypertension, chronic atrial fibrillations/p AVN ablation done by Dr. Montgomery on 10/07/2017 for A. fib with rapid ventricular rate. She also had undergone a generator replacement on 12/05/[address] Montgomery and RV lead revision with gen change 11/21/[address] Ledezma . She had underwent dual-chamber pacemaker for sick sinus syndrome by Dr. Barcenas on 02/20/2005 she has a history of CAD with a chronic clinic occluded RCA. She has been doing without complaints of CP, SOB, SUAREZ, le edema She has URI and is being treated currently Per dr. Loya 06/2021 c; Afib HPI: 79-year-old female with past medical history of hypertension, chronic atrial fibrillations/p AVN ablation done by Dr. Montgomery on 10/07/2017 for A. fib with rapid ventricular rate. She also has a dual-chamber pacemaker who had undergone a generator replacement on 12/05/[address] Montgomery. She had underwent dual-chamber pacemaker for sick sinus syndrome by Dr. Barcenas on 02/20/2005 she has a history of CAD with a chronic clinic occluded RCA. Denies lightheadedness, dizziness, syncope. Overall states she feels well. Denies chest pain, fever chills, nausea vomiting diarrhea. She does have very limited functional capacity and that she states that she gets up from the bed and walks around a little bit. No regular exercise due to her underlying hip pain following prior hip surgeries. Test Echocardiogram at [place] [facility] on 09/09/2017 shows EF of 65% with normal RV function the RV was mildly enlarged with a left atrium that is severely enlarged and the right atrium is moderately enlarged with mild MR mild AR and mild TR Device check that was performed on 04/17/2021 shows the presence of dual-chamber pacemaker with the patient in what appeared to be atrial fibrillation with a VVIR mode being programmed at the low rate limit of 80 bpm based on the study the ventricular rate is reasonably well controlled and she is paced on the percent of the time. Her last threshold shows 1.6 V 8.4 ms pulse width PMH: No past medical history on file. PSH: No past surgical history on file. SH: Social Determinants of Health Tobacco Use: Not on file Alcohol Use: Not on file Financial Resource Strain: Not on file Food Insecurity: Not on file Transportation Needs: Not on file Physical Activity: Not on file Stress: Not on file Social Connections: Not on file Intimate Partner Violence: Not on file Depression: Not on file Housing Stability: Not on file Utilities: Not on file Allergies: No Known Allergies Weight: 49.4kg Visit Vitals BP 157/83 (BP Location: Left arm, Patient Position: Sitting) Pulse 84 Ht 1.6 m (5' 3 ) Wt 49.4 kg (109 lb) SpO2 95% BMI 19.31 kg/m??? OB Status Postmenopausal BSA 1.48 m??? Meds: Current Outpatient Medications on File Prior to Visit Medication Sig Dispense Refill apixaban (Eliquis) 2.5 mg tablet Take 1 tablet (2.5 mg) by mouth in the morning and at bedtime. 180 tablet 2 budesonide-formoteroL (Symbicort) 160-4.5 mcg/actuation inhaler carvedilol (Coreg) 25 mg tablet Take 0.5 tablets twice a day by oral route for 90 days. cholecalciferol (D3-5) 5,000 Units tablet Take 5,000 Units by mouth in the morning. colesevelam (Welchol) 625 mg tablet Take 2 tablets by mouth in the morning. dilTIAZem CD (Cardizem CD) 120 mg 24 hr capsule Take 1 capsule by mouth once daily 90 capsule 0 famotidine (Pepcid) 20 mg tablet Take by mouth in the morning and at bedtime. memantine (Namenda) 10 mg tablet Take 1 tablet by mouth in the morning and at bedtime. montelukast (Singulair) 10 mg tablet Take 10 mg by mouth in the morning. omeprazole (PriLOSEC) [address] capsule Take 20 mg by mouth in the morning. atorvastatin (Lipitor) 40 mg tablet Take 1 tablet by mouth at bedtime. No current facility-administered medications on file prior to visit. ROS: Cardio Basic Cardiovascular Symptoms: no lightheadedness, no leg edema, no syncope, no orthopnea, no PND, no claudication, Constitutional Constitutional: no fever, no night sweats, no significant weight gain, no significant weight loss, no exercise intolerance Eyes Eyes: no dry eyes, no irritation, no vision change ENMT Ears: no difficulty hearing, no ear pain Nose: no frequent nosebleeds, Mouth/Throat: no sore throat, no bleeding gums, no snoring, no dry mouth, no mouth ulcers, no oral abnormalities, no teeth problems Respiratory Respiratory: no cough, no wheezing, no coughing up blood, no sleep apnea Musculoskeletal Musculoskeletal: no muscle aches, no muscle weakness, joint pain+, no back pain, no swelling in the extremities Integumentary Skin no rash, no ulcer, no varicosities, no (more content not included)... [facility] 05-08-2022 Note PROCEDURE: XR FOOT L T MIN 3 VIEWS COMPARISON: 02/08/2022 HISTORY: Pain in left foot FINDINGS: BONES:Stable healing angulated fractures involving the second third and fourth metatarsal head/neck. No new fracture or dislocation. Mild stable degenerative changes SOFT TISSUES:Negative. No visible soft tissue swelling. EFFUSION:None visible. OTHER: Intensive vascular calcifications IMPRESSION: Stable healing fractures of the second third and fourth metatarsals Electronically authenticated by: RADHA RAJPUT Date: 2022-05-08 14:40 [facility] 02-09-2022 Note PROCEDURE: XR FOOT L T MIN 3 VIEWS HISTORY: Pain in left foot ; follow-up left forefoot fractures COMPARISON: XR foot left 01/02/2022 FINDINGS: BONES:Slightly angulated fractures at the neck of the second, third, and fourth metatarsals with increasing sclerosis. SOFT TISSUES:Mild distal dorsal soft tissue swelling. Marked atherosclerotic disease. EFFUSION:None visible. OTHER: Negative. IMPRESSION: 1. Ongoing bone healing of the moderately angulated fractures of the distal second, third, and fourth metatarsals. Electronically authenticated by: CRUZITO BRIDGES Date: 2022-02-09 10:42 [facility] 01-02-2022 Note PROCEDURE: XR FOOT L T MIN 3 VIEWS COMPARISON: 11/22/2021 HISTORY: Pain in left foot FINDINGS: BONES:Stable healing angulated fractures involving the neck of the second third and fourth metatarsals. Interval callus formation. SOFT TISSUES:Negative. No visible soft tissue swelling. EFFUSION:None visible. OTHER: Negative. IMPRESSION: Stable healing angulated fractures neck of the second, third and fourth metatarsals Electronically authenticated by: RADHA RAJPUT Date: 2022-01-02 15:52 [facility] Instructions Not on filedocumente d in this encounter [facility] Summary Purpose Family History No Family History Records FoundNo Family History Records FoundNo Family History Records FoundNo Family History Records FoundNo Family History Records FoundNo Family History Records FoundNo Family History Records FoundNo Family History Records FoundNo Family History Records Found Advance Directives Latest Code Status on File Code Status Date Activated Date Inactivated Comments Full Code 06/25/2018 2:42 PM 06/27/2018 3:14 PM Code Status History Code Status Date Activated Date Inactivated Comments Full Code 07/17/2017 10:46 AM 07/19/2017 7:43 PM Date Activated Date Inactivated Comments 06/25/2018 2:42 PM 06/27/2018 3:14 PM Date Activated Date Inactivated Comments 07/17/2017 10:46 AM 07/19/2017 7:43 PM Additional Source Comments INFORMATION SOURCE (unrecogn ized section and content) DATE CREATED AUTHOR 10/04/2018 [facility] DATE CREATED AUTHOR AUTHOR'S ORGANIZ ATION 01/28/2021 [facility] DATE CREATED AUTHOR AUTHOR'S ORGANIZ ATION 06/02/2022 [facility] DATE CREATED AUTHOR AUTHOR'S ORGANIZ ATION 05/14/2023 [facility] DATE CREATED AUTHOR AUTHOR'S ORGANIZ ATION 07/27/2023 [facility] DATE CREATED AUTHOR AUTHOR'S ORGANIZ ATION 08/25/2023 [facility] DATE CREATED AUTHOR AUTHOR'S ORGANIZ ATION 10/28/2023 [facility] DATE CREATED AUTHOR AUTHOR'S ORGANIZ ATION 12/13/2023 [facility] DATE CREATED AUTHOR AUTHOR'S ORGANIZ ATION 12/14/2023 Trae Castellano [facility] Care Teams (unrecognized sec tion and content) Ultrasound Supervisor Relationship Specialty Start Date End Date JaquelinecamillaEliud Jr., DO [address] [place] [address] PCP - General Internal Medicine 03/28/17 FOR RECORDS PERTAINING TO PATIENTS WHO ARE OR HAVE BEEN ENROLLED IN A CHEMICAL DEPENDENCY/SUBSTANCEABUSE PROGRAM, SOME INFORMATION MAY BE OMITTED. This clinical summary was aggregated from multiple sources. Caution should be exercised in using it in the provision of clinical care. This summary normalizes information from multiple sources, and as a consequence, information in this document may materially change the coding, format and clinical context of patient data. In addition, data may be omitted in some cases. CLINICAL DECISIONS SHOULD BE BASED ON THE PRIMARY CLINICAL RECORDS. [employer] provides no warranty or guarantee of the accuracy or completeness of information in this document.
[2023-12-29] MEDS: 0.9 % SODIUM CHLORIDE 1,000 ML 1000 ML IV (22:04)
[2023-12-29 22:08] LABS: Hematocrit 42.8 % (36.0-48.0); Hemoglobin 14.4 g/dL (12.0-16.0); Mean Corpuscular HGB Conc 33.6 g/dL (29.9-35.2); Mean Corpuscular Hemoglobin 30.7 pg (26.7-34.0); Mean Corpuscular Volume 91.3 fL (81.0-99.0); Mean Platelet Volume 12.9 fL (9.5-13.5); Platelet Count 174 10^3/uL (150-450); Red Blood Count 4.69 10^6/uL (4.20-5.40); Red Cell Distribution Width 15.7 % (11.0-15.0); White Blood Count 2.1 10^3/uL (4.0-11.0)
[2023-12-29 22:19] LABS: Anion Gap 17.3; BUN Creatinine Ratio 12.5; Calcium 7.9 mg/dL (8.5-10.1); Carbon Dioxide 19.9 mmol/L (21.0-32.0); Chloride 108 mmol/L (98-107); Estimated GFR (African America >60 (>=60 mL/min/1.73m^2); Estimated GFR (Non-African Ame 55 (>=60 mL/min/1.73m^2); Glucose 127 mg/dL (74-106); Potassium 4.2 mmol/L (3.5-5.1); Sodium 141 mmol/L (136-145)
[2023-12-29 22:33] LABS: Salicylate <2.8 mg/dL (<=19.9)
[2023-12-29 22:34] LABS: Acetaminophen <2.0 ug/mL (10.0-30.0); Ethanol <3 mg/dL
[2023-12-29 23:05] LABS: Band Neutrophils Absolute 0.2 10^3/uL (0.0-0.3); Basophils Abs Manual 0.02 10^3/uL (0.00-0.10); Lymphocytes Absolute Manual 0.42 10^3/uL (1.20-3.80); Monocytes Absolute Manual 0.16 10^3/uL (0.30-0.80); Segmented Neut Absolute Manual 1.28 10^3/uL (1.4-6.5)
[2023-12-29 23:21] LABS: Bilirubin Urine NEGATIVE (NEGATIVE); Blood Urine MODERATE (NEGATIVE); Clarity Urine CLEAR (CLEAR); Color Urine YELLOW (YELLOW); Glucose Urine UA NEGATIVE (NEGATIVE); Ketones Urine NEGATIVE (NEGATIVE); Leukocyte Esterase Urine NEGATIVE (NEGATIVE); Nitrite Urine NEGATIVE (NEGATIVE); Protein Urine NEGATIVE (NEG/TRACE); Urobilinogen Urine 0.2 EU/dL (0.2-1.0)
[2023-12-29 23:31] LABS: Cast Seen? SEEN #/LPF (NONE SEEN); Crystals Seen? None Seen #/HPF (None Seen); Hyaline Casts Urine FEW; Mucus Urine SMALL (NONE SEEN); Squamous Epithelial Cell Urine MODERATE #/LPF (NONE/RARE)
[2023-12-29 23:32] LABS: Bacteria Urine SMALL #/HPF (NONE SEEN); Urine Culture Indicated YES
[2023-12-29 23:33] LABS: Amphetamine Screen Urine NEGATIVE (NEGATIVE); Barbiturates Screen Urine NEGATIVE (NEGATIVE); Benzodiazepines Screen Urine NEGATIVE (NEGATIVE); Buprenorphine Screen Urine NEGATIVE (NEGATIVE); Cannabinoid Screen Urine NEGATIVE (NEGATIVE); Cocaine Screen Urine NEGATIVE (NEGATIVE); Methadone Screen Urine NEGATIVE (NEGATIVE); Methamphetamines Screen Urine NEGATIVE (NEGATIVE); Opiate Screen Urine NEGATIVE (NEGATIVE); Oxycodone Screen Urine NEGATIVE (NEGATIVE); Phencyclidine Screen Urine NEGATIVE (NEGATIVE); Tricyclic Antidepressant Urine NEGATIVE (NEGATIVE)
[2023-12-30] VITALS (84 sets, daily range): BP systolic 72–127; BP diastolic 37–77; PULSE 57–84; TEMP 36.3–36.8; O2SAT 82–99; BMI 21.5
[2023-12-30 01:19] LABS: Ammonia 17 umol/L (11-32)
[2023-12-30] MEDS: 0.9 % SODIUM CHLORIDE 1,000 ML 500 ML IV (03:10)
[2023-12-30 05:44] LABS: Hematocrit 43.1 % (36.0-48.0); Hemoglobin 14.1 g/dL (12.0-16.0); Mean Corpuscular HGB Conc 32.7 g/dL (29.9-35.2); Mean Corpuscular Hemoglobin 30.4 pg (26.7-34.0); Mean Corpuscular Volume 92.9 fL (81.0-99.0); Mean Platelet Volume 12.1 fL (9.5-13.5); Platelet Count 193 10^3/uL (150-450); Red Blood Count 4.64 10^6/uL (4.20-5.40); Red Cell Distribution Width 15.9 % (11.0-15.0); White Blood Count 4.7 10^3/uL (4.0-11.0)
[2023-12-30 06:04] LABS: Alanine Aminotransferase 11 U/L (14-59); Albumin Globulin Ratio 0.7; Albumin Level 2.2 g/dL (3.4-5.0); Alkaline Phosphatase 93 U/L (46-116); Anion Gap 16.2; Aspartate Amino Transferase 13 U/L (15-37); BUN Creatinine Ratio 12.4; Bilirubin Total 1.6 mg/dL (0.2-1.0); Calcium 7.7 mg/dL (8.5-10.1); Chloride 111 mmol/L (98-107); Estimated GFR (African America 55 (>=60 mL/min/1.73m^2); Estimated GFR (Non-African Ame 46 (>=60 mL/min/1.73m^2); Globulin 3.3 g/dL; Glucose 97 mg/dL (74-106); Magnesium 1.6 mg/dL (1.8-2.4); Potassium 4.2 mmol/L (3.5-5.1); Sodium 143 mmol/L (136-145); Total Protein 5.5 g/dL (6.4-8.2)
[2023-12-30] MEDS: ONDANSETRON PF 4 MG/2 ML VIAL IV ×3 (06:12→16:17)
[2023-12-30 06:38] LABS: Alanine Aminotransferase 11 U/L (14-59); Albumin Globulin Ratio 0.7; Albumin Level 2.2 g/dL (3.4-5.0); Alkaline Phosphatase 90 U/L (46-116); Aspartate Amino Transferase 15 U/L (15-37); Bilirubin Direct 0.5 mg/dL (0.0-0.2); Bilirubin Total 1.6 mg/dL (0.2-1.0); Globulin 3.1 g/dL; Total Protein 5.3 g/dL (6.4-8.2)
[2023-12-30 06:39] LABS: Thyroid Stimulating Hormone 3.152 uIU/mL (0.358-3.740)
[2023-12-30] MEDS: CEFTRIAXONE 1,000 MG in 0.9 % SODIUM CHLORIDE 50 ML 100 MG IV (06:49)
[2023-12-30] MEDS: 0.9 % SODIUM CHLORIDE 1,000 ML 75 ML IV (06:50)
[2023-12-30 07:15] LABS: Lactate/Lactic Acid 2.9 mmol/L (0.4-2.0)
[2023-12-30 07:45] LABS: Influenza Virus A Antigen Negative; Influenza Virus B Antigen Negative; Internal Control Within Normal Limits; SARS-CoV-2 Ag NEGATIVE (NEGATIVE)
[2023-12-30] MEDS: AZITHROMYCIN 500 MG in 0.9 % SODIUM CHLORIDE 250 ML 250 MG IV (07:51)
--- NOTE | 2023-12-30 08:13 | P.HP_ITS ---
HPI H&P: HPI History of Present Illness Chief complaint: GENERAL WEAKNESS/AMS Narrative: Patient presented to the emergency room with about a 12-hour history of altered mental status. Was seen in a different emergency room earlier for some chest pain. Per family member, that workup was unremarkable and she was discharged to home the previous day. Patient tried to have increasing altered mental status the following day and presented to the emergency room. At 1 point in time she was nonverbal, no focal neurological deficits although her right arm was drawn up. Did not attempt to move have her move it to see if it was functional or not. Since that time the per the family member no other focal neurological deficits. Still fatigued. When I saw patient in the emergency room, resting comfortably in bed, somewhat conversational, fell back to sleep pretty easily, no focal neurological deficits her only complaint really was abdominal pain. She does have a history of Leia lithiasis and there is been some discussion about surgical intervention Opioid HPI Opioid Management Most Recent Pain and Opioid Data: Last Pain Scale 4 10/29/22 13:31 10/29/22 Ur Phencyclidine Scrn Negative (NEGATIVE) 12/29/23 22:05 12/19 Review of Systems ROS Status of ROS 10 or more systems reviewed and unremark able except as noted in history and below [facility] Medical History (Updated 12/30/23 @ 07:28 by Na Peacokc RN) Cholelithiasis ?K80.20 - Calculus of gallbladder without cholecystitis without obstruction (ICD-10) Dementia ?F03.90 - Unspecified dementia, unspecified severity, without behavioral disturbance, psychotic disturbance, mood disturbance, and anxiety (ICD-10) Constipation ?K59.00 - Constipation, unspecified (ICD-10) Hypertension ?I10 - Essential (primary) hypertension (ICD-10) Gastric reflux ?K21.9 - Gastro-esophageal reflux disease without esophagitis (ICD-10) Pacemaker ?Z95.0 - Presence of cardiac pacemaker (ICD-10) Social History Smoking status: Former smoker Meds Home Medications and Allergies Home Medications ?Medication ?Instructions ?Recorded ?Confirmed ?Type apixaban 2.5 mg tablet (Eliquis) 2.5 mg PO Q12H 10/11/22 12/30/23 History diltiazem HCl 120 mg 120 mg PO Q24H 10/11/22 12/30/23 History capsule,extended release 24 hr memantine 10 mg tablet 10 mg PO DAILY 10/11/22 12/30/23 History montelukast 10 mg tablet 10 mg PO DAILY 10/11/22 12/30/23 History acetaminophen 500 mg tablet 500 mg PO Q6H PRN fever or pain 12/30/23 12/30/23 History (Tylenol Extra Strength) atorvastatin 40 mg tablet 40 mg PO .qd@17 12/30/23 12/30/23 History atorvastatin 40 mg tablet 40 mg PO DAILY 12/30/23 12/30/23 History carvedilol 12.5 mg tablet 12.5 mg PO Q12H 12/30/23 12/30/23 History cholecalciferol (vitamin D3) 125 5,000 unit PO DAILY 12/30/23 12/30/23 History mcg (5,000 unit) capsule colesevelam 625 mg tablet (WelChol) 1,875 mg PO DAILY 12/30/23 12/30/23 History famotidine 40 mg tablet 40 mg PO .QHS 12/30/23 12/30/23 History famotidine 40 mg tablet 40 mg PO .QHS 12/30/23 12/30/23 History latanoprost 0.005 % eye drops 1 drp ophthalmic (eye) .QHS 12/30/23 12/30/23 History latanoprost 0.005 % eye drops 1 drp ophthalmic (eye) .QHS 12/30/23 12/30/23 History polyethylene glycol 3350 17 17 g PO BID 12/30/23 12/30/23 History gram/dose oral powder (ClearLax) spironolactone 25 mg tablet 25 mg PO .QD 12/30/23 12/30/23 History spironolactone 25 mg tablet 25 mg PO QAM 12/30/23 12/30/23 History Allergies Allergy/AdvReac Type Severity Reaction Status Date / Time No Known Drug Allergies Allergy Verified 10/11/22 21:29 Exam Constitutional Vital Signs, click to edit/add: Last Vital Signs Temp 97.6 F 12/29/23 21:47 Pulse 77 12/30/23 07:10 Resp 21 H 12/30/23 05:45 BP 99/55 12/30/23 07:00 Pulse Ox 95 12/30/23 07:14 O2 Del Method Nasal Cannula 12/30/23 07:14 O2 Flow Rate 2 12/30/23 07:14 Documenting provider has reviewed patient's vital signs: yes Common normals: no apparent distress HENSC Common normals: normocephalic Chest Common normals: inspection of chest normal Respiratory Common normals: normal respiratory effort (Somewhat shallow respirations) Auscultation: no rhonchi Cardio Common normals: regular rate and regular rhythm GI Common normals: Normal to inspection, nondistended, normoactive bowel sounds present and soft to palpation; tender Palpation: tender (Diffusely tender, may be more prominent in the right side) Extremity Common normals: abnormal to inspection (2+ edema) Results Labs Labs: Short CBC 12/29/23 12/30/23 Range/Units 21:50 05:26 WBC 2.1 L 4.7 (4.0-11.0) 10^3/uL Hgb 14.4 14.1 (12.0-16.0) g/dL Hct 42.8 43.1 (36.0-48.0) % Plt Count 174 193 (150-450) 10^3/uL BMP 12/29/23 12/30/23 21:50 05:26 Sodium 141 143 Potassium 4.2 4.2 Chloride 108 H 111 H Carbon Dioxide 19.9 L 20.0 L BUN 12.0 14.0 Creatinine 0.96 1.13 H Glucose 127 H 97 Calcium 7.9 L 7.7 L Liver Function 12/30/23 12/30/23 12/30/23 Range/Units 05:26 05:26 05:26 Total Bilirubin 1.6 H 1.6 H (0.2-1.0) mg/dL Direct Bilirubin 0.5 H (0.0-0.2) mg/dL AST 13 L 15 (15-37) U/L ALT 11 L (14-59) U/L Alkaline Phosphatase (46-116) U/L Albumin (3.4-5.0) g/dL 12/30/23 12/30/23 12/30/23 Range/Units 05:26 05:26 05:26 Total Bilirubin (0.2-1.0) mg/dL Direct Bilirubin (0.0-0.2) mg/dL AST (15-37) U/L ALT 11 L (14-59) U/L Alkaline Phosphatase 93 90 (46-116) U/L Albumin 2.2 L 2.2 L (3.4-5.0) g/dL Urine 12/29/23 Range/Units 22:05 Urine Color Yellow (YELLOW) Urine Clarity Clear (CLEAR) Urine pH 6.0 (5.0-9.0) Ur Specific [place] 1.020 (1.005-1.025) Urine Protein Negative (NEG/TRACE) mg/dL Urine Glucose (UA) Negative (NEGATIVE) mg/dL Assessment and Plan Assessment and Plan (1) Altered mental status: (2) Closed head injury: (3) Cholelithiasis: (4) Dementia: (5) Hypertension: (6) Gastric reflux: Plan Admission findings: Respiratory distress, hypotension, acute hypoxia with O2 sat of 84%, neutropenia with bandemia, hyperglycemia and lactic acidosis. Resulting in sepsis with possible infectious source urine versus abdomen Sepsis with bandemia, neutropenia, respiratory distress, hypotension and lactic acidosis-with elevated BNP and edema will hold off on aggressive hydration.- Start IV antibiotics infectious sources possibility would be urine or abdomen if she has significant abdominal tenderness and a history of cholelithiasis, CT pending Abdominal pain with elevated liver function tests and hyperbilirubinemia-right upper quadrant-CT scan pending. History of cholelithiasis, possible acute cholecystitis, with bandemia concern for ascending cholangitis Acute UTI-culture pending Elevated BNP-track daily, hold off on echocardiogram as she had one done fairly recently. Good ejection fraction on previous. BNP likely elevated from sepsis as outlined above high-sensitivity troponin negative Hyperglycemia-insulin sliding scale Severe protein calorie malnutrition-diet supplement GERD-continue with home medications History of atrial fibrillation-currently anticoagulated Hypertension-hold medications for hypotension Dementia-continue with home medications Hypercholesterolemia-continue with home medications Admission status: Patient with acute altered mental status and sepsis, likely intra-abdominal source, CT scan is pending, medically necessary treatment will span 2 midnights. Inpatient status. Urinary Catheter Management Urinary Catheter Management 2-way Urethral: Cath placed during this visit: yes Urethral indwelling: No Insertion date: 12/29/23 Insertion time: 22:13
--- NOTE | 2023-12-30 08:17 | CT_ITS ---
[address] [address] Patient Name: ALAN SANCHEZ MRN: [id number] date: 1940 Sex: F Assigned Patient Location: ER Current Patient Location: [place] Accession/Order Number: [id number] Exam Date: 12/30/2023 08:47 Report Date: 12/30/2023 09:41 At the request of: GAVI NEWMAN Procedure: CT abdomen pelvis w con EXAMINATION: CT abdomen pelvis w con HISTORY: Elevated BIli, Abd pain COMPARISON: No relevant comparison available. TECHNIQUE: CT images were created with IV contrast. Axial, Coronal, and Sagittal images. Dose reduction techniques were achieved by using automated exposure control and/or adjustment of mA and/or kV according to patient size and/or use of iterative reconstruction technique. FINDINGS: LUNG BASES: 1.5 and 1.3 similar left pleural effusions with basilar atelectasis. Global cardiomegaly with pacemaker wires and coronary atherosclerosis LIVER: Diffuse hypoattenuation suggesting hepatic steatosis BILIARY: Gallbladder wall thickening measuring up to 4 mm with pericholecystic fluid and mesenteric stranding PANCREAS: Moderate diffuse atrophy SPLEEN: No enlargement or focal lesion. ADRENALS: No mass or enlargement. KIDNEYS: Moderate to severe diffuse atrophy. No hydronephrosis. 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 Small hiatal hernia. The appendix is not visualized. Inflammatory changes along the hepatic flexure AORTA/VASCULAR: No aortic aneurysm or dissection. Extensive calcific atherosclerosis RETROPERITONEUM: No mass or adenopathy. LYMPH NODES: No adenopathy. URINARY BLADDER: No visible focal wall thickening, lesion, or calculus. PELVIC ORGANS: Enlarged lobular heterogeneous uterus. Prominent ovaries for age ABDOMINAL WALL: No mass or hernia. BONES: Bilateral total hip arthroplasty streak artifact limiting the exam OTHER: Mild to moderate ascites CT/CT abdomen pelvis w con IMPRESSION: Right upper quadrant inflammatory changes, I favor acute cholecystitis with secondary inflammatory changes of the hepatic flexure Enlarged heterogeneous uterus and ovaries. Nonemergent pelvic ultrasound recommended for further characterization Electronically authenticated by: RADHA RAJPUT Date: 12/30/2023 09:41
[2023-12-30 08:40] LABS: Band Neutrophils Absolute 0.6 10^3/uL (0.0-0.3); Lymphocytes Absolute Manual 0.61 10^3/uL (1.20-3.80); Metamyelocytes Absolute Manual 0.04; Monocytes Absolute Manual 0.37 10^3/uL (0.30-0.80); Segmented Neut Absolute Manual 2.58 10^3/uL (1.4-6.5)
--- OUTSIDE RECORDS SUMMARY | 2023-12-30 09:38 | XMS_ITS | CCD ---
Author Organization [facility] Care Team Providers Care Tankage Grinder Name Role Phone NOBLE MONTGOMERY Admitting Unavailable [...] ., DR HINDS Admitting Unavailable ZIEBER, DR CURZITO Carrera Consulting Unavailable HAY ., DR HINDS [...] MERCEDEZ LEO Referring Unavailable VALONE JR, ELIUD Cassandra Primary Care Unavailable VALONE JR, ELIUD Cassandra [...] 2 (two) times a day. Active C,E,zinc,copper 11/hbvve0s/lut (OCUVITE ADULT 50 PLUS ORAL) (2 sources) take 1 tablet by mouth once daily C,E,zinc,copper 11/lcqsv4d/lut (OCUVITE ADULT 50 PLUS ORAL) Take 1 tablet by mouth daily. Active take 1 tablet by mouth once stella y C,E,zinc,copper 11/yhhuz3b/lut (OCUVITE ADULT 50 PLUS ORAL) Take 1 [...] hydrochloride 10 mg oral tablet (2 sources) K-gxbgru-A-aspartate Receptor Antagonist take 1 tablet by mouth in the morning memantine (NAMENDA) 10 mg tablet Take 1 tablet (10 mg total) by mouth in the morning. Active montelukast 10 mg oral tablet (2 sources) Leukotriene Receptor Antagonist take 1 tablet by mouth once daily montelukast (SINGULAIR) 10 mg tablet Take 1 tablet (10 mg total) by mouth nightly. Active sqfhuwfz-mawj-JA-calcium &mins (THERAGRAN-M) 9 mg iron-400 mcg tablet (2 sources) take 1 tablet by mouth once in the morning ypoeyfqq-suuy-OC-ca lcium &mins (THERAGRAN-M) 9 mg iron-400 mcg tablet Take 1 tablet by mouth in the morning and 1 tablet before bedtime. Active take 1 tablet by jeevan th once in the morning knaovayh-kcpn-XI-calcium &mins (THERAGRA N-M) 9 mg iron-400 mcg [...] Onset: 09-27-2021 Episodic Other aftercare (1 source) alf (current) use of aspirin; Translations: [[facility] CURRENT USE OF ASPIRIN] Onset: 01-25-2022 Episodic Other aftercare (1 source) Other rodent exterminator (current) drug therapy; Translations: [[facility] CURRENT DRUG THERAPY] Onset: 01-25-2022 Episodic Other aftercare (1 source) intermediate project manager (current) use of anticoagulants; Translations: [[facility] CURRNT USE ANTICOAGULANTS] Onset: 09-29-2021 Episodic Other [...] patient had stress test done. Thanks! [facility] Telephoneon 10-28-2023 Telephone [phone] Susan Douglass 1940 F Date Provider Department Center 10/28/2023 FRANKIE MILLER [facility] No family history on file Normal [facility] Office Visiton 09-04-2023 Follow-up visit [id number] Ssuan Douglass 1940 F Date Provider Department Center 09/04/2023 FRANKIE MILLER [facility] No family history on file Level of Service:22521 [place] OFFICE/OUTPATIENT ESTABLISHED MOD MDM 30 MIN Reason for Visit and Comments: Follow-up [271113] - 6 month follow up Normal [facility] CT BRAIN WO CONTon CT BRAIN [...] Rinku León on 08/24/2023 1:24 PM Normal [facility] CT CERVICAL SPINE WO CONTon 08-24-2023 CT [...] FINDINGS: No acute fracture or traumatic malalignment. Iiga-yn-kaaueihr degenerative spondylotic changes, not significantly disproportionate for age. There is left greater than right bony neuroforaminal narrowing. No high-grade bony spinal canal narrowing. Prevertebral, epidural and paraspinal soft tissues are unremarkable. IMPRESSION: * No evidence of acute fracture or traumatic malalignment. Finalized by Rinku León on 08/24/2023 1:[address] [facility] [address] HIP RT WO CONTon 08-24-19 CT [...] Ken MD on 08/24/2023 3:26 PM Normal [facility] XR HIP RT 2-3 VIEWS W OR [...] Leblanc MD on 08/24/2023 1:42 PM Normal [facility] XR SPINE THORACIC 3 VWSon XR SPINE [...] Ken MD on 08/24/2023 1:30 PM Normal [facility] 36on 08-12-2023 36 Regarding echo performed on [...] stress test. Scheduled apt for 09/04/2023. Normal [facility] Surgical Pathologyon [address] [facility] Comment on above: Result Comment: [facility] [employer] [facility] [address] [place] [address] Surgical Pathology Consultation Patient Name:SUSAN DOUGLASS:1940 (Age: 82)Gender:FTaken:4Reported:07/26/2023hysician(s):Mercedez Leo D.O. ([phone])Copy To: Rec. #:[id number]: #[id number] Final Pathologic Diagnosis Left forearm: Invasive well-differentiated squamous cell carcinoma, keratoacanthoma-type and adjacent scar. The deep and lateral margins appear free of involvement in the plane of sections examined. NOTE: The above diagnosis is from [facility]. The slides on this case were not reviewed by the signing pathologist. Please see the complete text of the report in the patient???s electronic medical record. Report Electronically Signed Out clf/07/26/2023Gene MD Albino Interpretation performed at [facility], [address] [place] [address], License number: [id number]. Clinical History Skin lesion of left arm [...] sequentially submitted in cassettes B-G. (7, ns, [id number],m1) DM. dm/07/18/2023EAK Specimen(s) Received Left forearm Fee Codes(s): 1; 265[address] CT cervical spine wo conon 0 04-25-2023 CT cervical spine wo con [facility] [place] [address] [place], [place] [id number] CT Scan Report Signed Patient: Susan Douglass MR#: [id number] 231 : 1940 Acct:[id number] Age/Sex: 82 / F ADM Date: 04/25/23 Loc: ER Room: Type: [facility] ER Attending Dr: Copies to: Hardy Leon PA-C Ordering Provider: Hardy Leon PA-C Date of Service: 04/25/23 CT/CT cervical spine wo con: Fall ([id number]) CT/CT head/brain wo con: Fall on blood [...] Brittany Garcia M.D.04/25/2023 4:23 PM Dictation Location: [place] [address] Transcribed By: LEONOR 04/25/23 1623 Dictated By: Brittany Garcia MD 04/25/23 1615 Signed By: 04/25/23 1623 Normal [facility] Comprehensive Metabolic Pane eunice 04-25-2023 Albumin [Mass/Vol] 4.4 g/dL Normal 3.5-5.7 [facility] Comment on above: Performed By: #### S CAN CBC, HS TROP, CMP, PTT, CK, PT #### [facility] [address] [place] [address] [place] Albumin/Globulin [Mass ratio] 1.5 {ratio} Normal [facility] Comment on above: Performed By: #### S CAN CBC, HS TROP, CMP, PTT, CK, PT #### [facility] [address] [place] [id number] [place] ALP [Catalytic activity/Vol] 84 U/L Normal 34-104 [facility] Comment on above: Performed By: #### S CAN CBC, HS TROP, CMP, PTT, CK, PT #### [facility] [address] [place] [address] [place] ALT [Catalytic activity/Vol] 22 U/L Normal 7-52 [facility] Comment on above: Performed By: #### S CAN CBC, HS TROP, CMP, PTT, CK, PT #### [facility] [address] [place] [id number] [place] Anion gap [Moles/Vol] 12.0 mmol/L Normal 6.0-15.0 [facility] Comment on above: Performed By: #### S CAN CBC, HS TROP, CMP, PTT, CK, PT #### [facility] [address] [place] [address] AST [Catalytic activity/Vol] 23 U/L Normal 13-39 [facility] Comment on above: Performed By: #### S CAN CBC, HS TROP, CMP, PTT, CK, PT #### [facility] [address] [place] [address] Bilirubin [Mass/Vol] 0.9 mg/dL Normal 0.3-1.0 [facility] Comment on above: Performed By: #### S CAN CBC, HS TROP, CMP, PTT, CK, PT #### [facility] [address] [place] [address] Calcium [Mass/Vol] 9.1 mg/dL Normal 8.6-10.3 [facility] Comment on above: Performed By: #### S CAN CBC, HS TROP, CMP, PTT, CK, PT #### [facility] [address] [place] [address] Chloride [Moles/Vol] 104 mmol/L Normal 98-107 [facility] Comment on above: Performed By: #### S CAN CBC, HS TROP, CMP, PTT, CK, PT #### [facility] [address] [place] [address] CO2 [Moles/Vol] 24.8 mmol/L Normal 21.0-31.0 [facility] Comment on above: Performed By: #### S CAN CBC, HS TROP, CMP, PTT, CK, PT #### [facility] [address] [place] [address] Creatinine [Mass/Vol] 0.79 mg/dL Normal 0.60-1.20 [facility] Comment on above: Performed By: #### S CAN CBC, HS TROP, CMP, PTT, CK, PT #### [facility] [address] [place] [address] Creatinine Clr Calc Pharmacy 41.40 Normal [facility] Comment on above: Result Comment: PERF ORMED BY: [place] [address] PATHOLOGIST PROJECT COACH LOLLY MCDONNELL M.D. Performed By: #### S CAN CBC, HS TROP, CMP, PTT, CK, PT #### [address] GFR/1.73 sq M.predicted MDRD (S/P/Bld) [Vol rate/Area] mL/min/{1.73_m2} Normal [facility] Comment on above: Performed By: #### S CAN CBC, HS TROP, CMP, PTT, CK, PT #### [facility] [address] Globulin (S) [Mass/Vol] 3.0 g/dL Normal [facility] Comment on above: Performed By: #### S CAN CBC, HS TROP, CMP, PTT, CK, PT #### [address] Glucose [Mass/Vol] 104 mg/dL High 70-100 [facility] Comment on above: Result Comment: [facility] Glucose Reference Range is dependent on time and content of last meal. Glucose of more than 200 mg/dL in a nonstressed, ambulatory subject supports the diagnosis of Diabetes Mellitus. ADA recommended reference range Performed By: #### S CAN CBC, HS TROP, CMP, PTT, CK, PT #### [address] Potassium [Moles/Vol] 3.8 mmol/L Normal 3.5-5.1 [facility] Comment on above: Performed By: #### S CAN CBC, HS TROP, CMP, PTT, CK, PT #### [place] [address] [place] Protein [Mass/Vol] 7.4 g/dL Normal 6.4-8.9 [facility] Comment on above: Performed By: #### S CAN CBC, HS TROP, CMP, PTT, CK, PT #### [place] [address] [place] Sodium [Moles/Vol] 137 mmol/L Normal 136-145 [facility] Comment on above: Performed By: #### S CAN CBC, HS TROP, CMP, PTT, CK, PT #### [facility] [address] [place] [address] [place] Urea nitrogen [Mass/Vol] 14 mg/dL Normal 7-25 [facility] Comment on above: Performed By: #### S CAN CBC, HS TROP, CMP, PTT, CK, PT #### [facility] [address] [place] [id number] [place] Creatine Kinaseon 04-25-2023 CK [Catalytic activity/Vol] 135 U/L Normal 30-223 [facility] Comment on above: Performed By: #### S CAN CBC, HS TROP, CMP, PTT, CK, PT #### [facility] [address] [place] [address] [place] Dipstick and Microscopicon 0 04-25-2023 Appearance (U) Clear Normal Clear [facility] Comment on above: Order Comment: Name Collection Type:: Clean-Voided Midstream Performed By: #### C UU, ADDONUAPLUS #### [place] [address] [place] Bacteria,Urine 1+ High None Seen [facility] Comment on above: Order Comment: Name Collection Type:: Clean-Voided Midstream Performed By: #### C UU, ADDONUAPLUS #### [place] [address] [place] Bilirubin,Urine Negative Normal Negative [facility] Comment on above: Order Comment: Name Collection Type:: Clean-Voided Midstream Performed By: #### C UU, ADDONUAPLUS #### [facility] [address] [place] [address] [place] Color (U) Yellow Normal Yellow [facility] Comment on above: Order Comment: Name Collection Type:: Clean-Voided Midstream Performed By: #### C UU, ADDONUAPLUS #### [place] [address] [place] Glucose Ql (U) Normal Normal Normal [facility] Comment on above: Order Comment: Name Collection Type:: Clean-Voided Midstream Performed By: #### C UU, ADDONUAPLUS #### [facility] [address] [place] [address] Hyaline Casts,Urine 0-8 Normal 0-8 [facility] Comment on above: Order Comment: Name Collection Type:: Clean-Voided Midstream Result Comment: PERF ORMED BY: [place] [address] PATHOLOGIST PROJECT COACH LOLLY MCDONNELL M.D. Performed By: #### C UU, ADDONUAPLUS #### [facility] [address] [place] [address] Ketones Ql (U) Negative Normal Negative [facility] Comment on above: Order Comment: Name Collection Type:: Clean-Voided Midstream Performed By: #### C UU, ADDONUAPLUS #### [address] Leukocyte esterase Test strip Ql (U) 3+ High Negative [facility] Comment on above: Order Comment: Name Collection Type:: Clean-Voided Midstream Performed By: #### C UU, ADDONUAPLUS #### [facility] [address] [place] [address] Nitrite,Urine Negative Normal Negative [facility] Comment on above: Order Comment: Name Collection Type:: Clean-Voided Midstream Performed By: #### C UU, ADDONUAPLUS #### [address] Occult Blood,Urine Negative Normal Negative [facility] Comment on above: Order Comment: Name Collection Type:: Clean-Voided Midstream Result Comment: PERF ORMED BY: [place] [address] PATHOLOGIST PROJECT COACH LOLLY MCDONNELL M.D. Performed By: #### C UU, ADDONUAPLUS #### [facility] [address] [place] [address] pH (U) 5.5 [pH] Normal 5.0-9.0 [facility] Comment on above: Order Comment: Name Collection Type:: Clean-Voided Midstream Performed By: #### C UU, ADDONUAPLUS #### [facility] [address] [place] [address] [place] Protein,Urine Trace High Negative [facility] Comment on above: Order Comment: Name Collection Type:: Clean-Voided Midstream Performed By: #### C UU, ADDONUAPLUS #### [facility] [address] [place] [address] [place] RBC,Urine 3-4 Normal 0-4 [facility] Comment on above: Order Comment: Name Collection Type:: Clean-Voided Midstream Performed By: #### C UU, ADDONUAPLUS #### [address] [employer],Urine 1.013 Normal 1.001-1.030 [facility] Comment on above: Order Comment: Name Collection Type:: Clean-Voided Midstream Performed By: #### C UU, ADDONUAPLUS #### [place] [address] [place] Squamous Epithelial Cell,Urine 1-2 Normal 0-2 [facility] Comment on above: Order Comment: Name Collection Type:: Clean-Voided Midstream Performed By: #### C UU, ADDONUAPLUS #### [place] [address] [place] Urobilinogen,Urine Normal Normal Normal [facility] Comment on above: Order Comment: Name Collection Type:: Clean-Voided Midstream Performed By: #### C UU, ADDONUAPLUS #### [facility] [address] [place] [address] [place] WBC,Urine 50-100 High 0-4 [facility] Comment on above: Order Comment: Name Collection Type:: Clean-Voided Midstream Performed By: #### C UU, ADDONUAPLUS #### [place] [address] [place] ECG 12 lead ECGon 04-25-2023 ECG 12 lead ECG [facility] [place] [address] [place] [address] Electrocardiograph Report Signed Patient: Susan Douglass MR#: [id number] 231 : 1940 Acct:[id number] Age/Sex: 82 / F ADM Date: 04/25/23 Loc: ER Room: Type: [facility] ER Attending Dr: Ordering Provider: Hardy Leon [...] ECGs available Confirmed by MOISES DAWKINS DO ([id number]) on 04/25/2023 8:08:43 PM Referred By: Electronically Signed By:MOISES DAWKINS DO Transcribed By: MUS Signed By Moises Dawkins DO 04/24 Normal [facility] Partial Thromboplastin Timeo n 04-25-2023 aPTT Coag (Bld) [Time] 19.6 s Low 25.1-36.5 [facility] Comment on above: Result Comment: A he matocrit value greater than 55% may lead to inaccurate results in coagulation testing. Patients having hematocrit values >55% require a special collection tube for coagulation studies. Please contact the laboratory at [phone] for redraw instructions. PERFORMED BY: [place] [address] PATHOLOGIST PROJECT COACH LOLLY MCDONNELL M.D. Performed By: #### S CAN CBC, HS TROP, CMP, PTT, CK, PT #### [facility] [address] [place] [address] [place] Prothrombin Time INRon 04-24 INR Coag (PPP) [Relative time] 1.0 {INR} Normal [facility] Comment on above: Result Comment: INR Therapeutic [...] HS TROP, CMP, PTT, CK, PT #### [address] PT Coag (PPP) [Time] 11.6 s Normal 9.0-12.9 [facility] Comment on above: Result Comment: A he matocrit value greater than 55% may lead to inaccurate results in coagulation testing. Patients having hematocrit values >55% require a special collection tube for coagulation studies. Please contact the laboratory at [phone] for redraw instructions. Performed By: #### S CAN CBC, HS TROP, CMP, PTT, CK, PT #### [address] Scan and CBCon 04-25-2023 Basophils (Bld) [#/Vol] 0.0 10*3/uL Normal 0.0-0.2 [facility] Comment on above: Performed By: #### S CAN CBC, HS TROP, CMP, PTT, CK, PT #### [address] Basophils/100 WBC (Bld) 0.3 % Normal . [facility] Comment on above: Performed By: #### S CAN CBC, HS TROP, CMP, PTT, CK, PT #### [address] Eosinophils (Bld) [#/Vol] 0.0 10*3/uL Normal 0.0-0.45 [facility] Comment on above: Performed By: #### S CAN CBC, HS TROP, CMP, PTT, CK, PT #### [address] Eosinophils/100 WBC (Bld) 0.2 % Normal . [facility] Comment on above: Performed By: #### S CAN CBC, HS TROP, CMP, PTT, CK, PT #### [address] [address] [place] Erythrocyte distribution width (RBC) [Ratio] 13.9 % Normal 11.9-15.3 [facility] Comment on above: Performed By: #### S CAN CBC, HS TROP, CMP, PTT, CK, PT #### [address] Hematocrit (Bld) [Volume fraction] 53.1 % High 34.0-46.4 [facility] Comment on above: Performed By: #### S CAN CBC, HS TROP, CMP, PTT, CK, PT #### [address] Hemoglobin (Bld) [Mass/Vol] 17.9 g/dL High 11.8-15.4 [facility] Comment on above: Performed By: #### S CAN CBC, HS TROP, CMP, PTT, CK, PT #### [facility] [address] [place] [address] Lymphocytes (Bld) [#/Vol] 1.1 10*3/uL Normal 1.00-4.8 [facility] Comment on above: Performed By: #### S CAN CBC, HS TROP, CMP, PTT, CK, PT #### [address] Lymphocytes/100 WBC (Bld) 9.4 % Normal . [facility] Comment on above: Performed By: #### S CAN CBC, HS TROP, CMP, PTT, CK, PT #### [facility] [address] [place] [address] MCH (RBC) [Entitic mass] 33.1 pg Normal 24.7-34.3 [facility] Comment on above: Performed By: #### S CAN CBC, HS TROP, CMP, PTT, CK, PT #### [address] MCV (RBC) [Entitic vol] 98.3 fL Normal 80-100 [facility] Comment on above: Performed By: #### S CAN CBC, HS TROP, CMP, PTT, CK, PT #### [address] [place] [address] [place] Mean Corpuscular HGB Conc 33.7 g/dL Normal 32.0-35.0 [facility] Comment on above: Performed By: #### S CAN CBC, HS TROP, CMP, PTT, CK, PT #### [address] Monocytes (Bld) [#/Vol] 1.5 10*3/uL High 0.0-0.8 [facility] Comment on above: Performed By: #### S CAN CBC, HS TROP, CMP, PTT, CK, PT #### [address] Monocytes/100 WBC (Bld) 18.90 % Normal 0.00-20.00 [facility] Comment on above: Performed By: #### S CAN CBC, HS TROP, CMP, PTT, CK, PT #### [address] Monocytes/100 WBC (Bld) 12.0 % Normal . [facility] Comment on above: Performed By: #### S CAN CBC, HS TROP, CMP, PTT, CK, PT #### [facility] [address] [place] [address] Neutrophils (Bld) [#/Vol] 9.5 10*3/uL High 1.8-7.7 [facility] Comment on above: Performed By: #### S CAN CBC, HS TROP, CMP, PTT, CK, PT #### [address] Neutrophils/100 WBC (Bld) 78.1 % Normal . [facility] Comment on above: Performed By: #### S CAN CBC, HS TROP, CMP, PTT, CK, PT #### [address] NRBC% 0.2 /100{WBC} Normal 0-0.5 [facility] Comment on above: Performed By: #### S CAN CBC, HS TROP, CMP, PTT, CK, PT #### [address] Platelet Estimate Normal Normal Normal [facility] Comment on above: Performed By: #### S CAN CBC, HS TROP, CMP, PTT, CK, PT #### [address] Platelet mean volume (Bld) [Entitic vol] 9.2 fL Normal 6.3-10.7 [facility] Comment on above: Performed By: #### S CAN CBC, HS TROP, CMP, PTT, CK, PT #### [address] Platelet Morphology Normal Normal Normal [facility] Comment on above: Result Comment: PERF ORMED BY: [place] [address] PATHOLOGIST PROJECT COACH LOLLY MCDONNELL M.D. Performed By: #### S CAN CBC, HS TROP, CMP, PTT, CK, PT #### [address] Platelets (Bld) [#/Vol] 248 10*3/uL Normal 150-450 [facility] Comment on above: Performed By: #### S CAN CBC, HS TROP, CMP, PTT, CK, PT #### [address] RBC (Bld) [#/Vol] 5.40 10*6/uL High 3.60-5.00 [facility] Comment on above: Performed By: #### S CAN CBC, HS TROP, CMP, PTT, CK, PT #### [address] RBC morphology finding Nom (Bld) Normal Normal Normal [facility] Comment on above: Performed By: #### S CAN CBC, HS TROP, CMP, PTT, CK, PT #### [address] WBC (Bld) [#/Vol] 12.1 10*3/uL High 3.8-11.6 [facility] Comment on above: Performed By: #### S CAN CBC, HS TROP, CMP, PTT, CK, PT #### [facility] [address] [place] [address] [place] Troponin I High Sensitivityo n 04-25-2023 Troponin I High Sensitivity 9.1 pg/mL Normal 0.0-15.0 [facility] Comment on above: Result Comment: PERF ORMED BY: [place] [address] PATHOLOGIST PROJECT COACH LOLLY MCDONNELL M.D. Performed By: #### S CAN CBC, HS TROP, CMP, PTT, CK, PT #### [facility] [address] [place] [address] [facility] Urine Cultureon 04-25-2023 Bacteria identified Cx Nom (U) ORGANISM: Staphylococcus lugdunensis (O:STALUG) [place] Count >100,000 Organism Comments Pure Growth Aerobic [...] RESISTANT TO ALL B-LACTAM DRUGS. PERFORMED BY: [place] [address] PATHOLOGIST PROJECT COACH LOLLY MCDONNELL M.D. Normal [facility] Comment on above: Performed By: #### S CAN CBC, HS TROP, CMP, PTT, CK, PT #### [facility] [address] [place] [address] [place] [address] [facility] XR lumbar spine 2-3V*on XR lumbar spine 2-3V* [facility] [address] [place] [address] [place] [address] XRay Report Signed Patient: Susan Douglass MR#: [id number] 231 : 1940 Acct:[id number] Age/Sex: 82 / F ADM Date: 04/25/23 Loc: ER Room: Type: [facility] ER Attending Dr: Copies to: Hardy Leon PA-C Ordering Provider: Hardy Leon PA-C Date of Service: 04/25/23 XR/XR chest 2V*: Fall ([id number]) XR/XR lumbar spine 2-3V*: Fall CLINICAL DATA: [...] Brittany Garcia M.D.04/25/2023 5:59 PM Dictation Location: [place] [address] Transcribed By: [facility] 04/25/231758 Dictated By: Brittany Garcia MD 04/25/231751 Signed By: 04/25/231758 Normal [facility] Office Visiton 02-27-2023 Follow-up visit [id number] Susan Douglass 1940 F Date Provider Department Center 02/27/2023 Kathryn6-HUSSEIN [facility] No family history on file Level of Service:89863 [place] OFFICE/OUTPATIENT ESTABLISHED MOD MDM 30 MIN Normal [facility] ECHOCARDIO M/2D COMPLETEon 0 06-01-2022 ECHOCARDIO M/2D COMPLETE Patient: SUSAN DOUGLASS Exam Date: 06/01/2022 : 1940 Gender:F Ordering : SOHA LEDEZMA Admission #: [id number] Family : DR ELIUD PATEL D.O. Order #: [id number] CLICK HERE TO VIEW EXAM ECHOCARDIOGRAM REPORT [...] Gregg M.D. on 06/01/2022 at 20:03 Normal [facility] CBC AUTO DIFFon 01-23-2022 BASO # 0.0 103/ul Normal 0.0-0.1 [facility] Comment on above: Performed By: #### C BC ####[facility] [address] [place], [place] [address]Dr. Arti Bryce Basophils/100 WBC (Bld) 0.4 % Normal 0.2-2.0 [facility] Comment on above: Performed By: #### C BC ####[facility] [address] [place], [place] [address]Dr. Arti Wu EO # 0.1 103/ul Normal 0.0-0.7 [facility] Comment on above: Performed By: #### C BC ####[facility] [address] [place], [place] [address]Dr. Slimejacinto Wu Eosinophils/100 WBC (Bld) 0.9 % Normal 0.9-7.0 [facility] Comment on above: Performed By: #### C BC ####[facility] [address] [place], [place] [address]Dr. Slimejacinto Wu Erythrocyte distribution width (RBC) [Ratio] 13.4 % Normal 11.0-15.0 [facility] Comment on above: Performed By: #### C BC ####[facility] [address]www[address] [place], [place] [address]Dr. Arti Bryce Hematocrit (Bld) [Volume fraction] 41.8 % Normal 36.0-48.0 [facility] Comment on above: Performed By: #### C BC ####[facility] Wwgruxqyfo[address] [place], [place] [address]Dr. Arti Bryce Hemoglobin (Bld) [Mass/Vol] 14.4 g/dL Normal 12.0-16.0 [facility] Comment on above: Performed By: #### C BC ####[facility] Ygtgdklpap[address] [place], [place] [address]Dr. Arti Wu IG # 0.05 10e3/ul Critically high 0.00-0.03 [facility] Comment on above: Performed By: #### C BC ####[facility] Qpqgmvycru[address] [place], [place] [address]DrChristophe Wu IG % 0.5 % Normal 0.0-0.5 [facility] Comment on above: Performed By: #### C BC ####[facility] [address] [place] [address]DrChristophe Wu LYMPH # 0.7 103/ul Critically low 1.2-3.8 [facility] Comment on above: Performed By: #### C BC ####[facility] Gtteyasvov[address] [place] [address]DrChristophe Wu Lymphocytes/100 WBC (Bld) 6.6 % Critically low 20.5-60.0 [facility] Comment on above: Performed By: #### C BC ####[facility] Cjcwrtefgf6[address] [place], [place] [address]DrChristophe Wu MANUAL DIFF REQ NO Normal [facility] Comment on above: Performed By: #### C BC ####[facility] Esnbuffwpb[address] [place], [place] [address]DrChristophe Wu MCH (RBC) [Entitic mass] 33.2 pg Normal 26.7-34.0 [facility] Comment on above: Performed By: #### C BC ####[facility] Mlnxvijzkt[address] [place], [place] [address]DrChristophe Wu MCHC (RBC) [Mass/Vol] 34.4 g/dL Normal 29.9-35.2 [facility] Comment on above: Performed By: #### C BC ####[facility] Qsv[address]bn[address] [place], [place] [address]DrChristophe Wu MCV (RBC) [Entitic vol] 96.3 fL Normal 81.0-99.0 [facility] Comment on above: Performed By: #### C BC ####[facility] X[address]im[address]swha[address] [place], [place] [address]DrChristophe Wu MONO # 1.0 103/ul Critically high 0.3-0.8 [facility] Comment on above: Performed By: #### C BC ####[facility] Phgjmphgpp[address] [place], [place] [address]DrChristophe Wu Monocytes/100 WBC (Bld) 9.8 % Normal 1.7-12.0 [facility] Comment on above: Performed By: #### C BC ####[facility] [address] [place] [address]Dr. Arti Wu NEUT # 8.7 103/ul Critically high 1.4-6.5 The [facility] Comment on above: Performed By: #### C BC ####[facility] Qxord[address]myzk[address] [place] [address]Dr. Arti Wu Neutrophils/100 WBC (Bld) 81.8 % Critically high 43.0-75.0 [facility] Comment on above: Performed By: #### C BC ####[facility] Wyhmgqjfnv[address] [place] [address]Dr. Arti Wu Platelet mean volume (Bld) [Entitic vol] 9.5 fL Normal 9.5-13.5 [facility] Comment on above: Performed By: #### C BC ####[facility] Ucjdwopgsf64[address] [place], [place] [address]Dr. Arti Wu PLT 219 103/ul Normal 150-450 [facility] Comment on above: Performed By: #### C BC ####[facility] Vgvvinxhgj[address] [place], [place] [address]Dr. Arti Wu RBC 4.34 106/ul Normal 4.20-5.40 [facility] Comment on above: Performed By: #### C BC ####[facility] Ywujnqgtnf5[address] [place], [place] [address]Dr. Atri Wu WBC 10.6 103/ul Normal 4.0-11.0 [facility] Comment on above: Performed By: #### C BC ####[facility] Mqmvkhoxct68[address] [place], [place] [address]Dr. Arti Wu CT HIP RT WO CONon [...] CRUZITO BRIDGES Date: 2022-01-23 13:34 Normal [facility] CULTURE URINEon 01-23-2022 CULTURE URINE Culture Observations : MODERATE GROWTH OF MIXED GENITAL BRIEN. NO POTENTIAL PATHOGENS SEEN. Normal [facility] Comment on above: Performed By: #### U RCX #### [facility] [address] [place] [address] [address] Arit Wu ER URINE PROFILEon 2 Bilirubin Ql (U) SMALL Abnormal NEGATIVE [facility] Comment on above: Performed By: #### DELMY CHIN ####[facility] [address]mp[address] [place] [address]Dr. Arti Wu Clarity (U) SL CLOUDY Abnormal CLEAR [facility] Comment on above: Performed By: #### HONG CHINRO ####[facility] [address]towhf[address] [place] [address]Dr. Arti Wu Color (U) YELLOW Normal YELLOW [facility] Comment on above: Performed By: #### DELMY CHIN ####[facility] [address]ujv[address] [place] [address]Dr. Arti Wu ERUAHD A micrscopic examination will be performed if indicated. Normal [facility] Comment on above: Performed By: #### DELMY CHIN ####[facility] E[address]eijj[address] [place] [address]Dr. Arti Wu Glucose Ql (U) Negative Normal NEGATIVE [facility] Comment on above: Performed By: #### HONG CHINRO ####[facility] R[address]rgfxlm[address] [place] [address]Dr. Arti Wu Hemoglobin Ql (U) LARGE Abnormal NEGATIVE [facility] Comment on above: Performed By: #### HONG CHINRO ####[facility] Gl[address]tdpjlm[address] [place] [address]Dr. Arti Wu Ketones Ql (U) Negative Normal NEGATIVE [facility] Comment on above: Performed By: #### HONG CHINRO ####[facility] Qjqpbvzrkx[address] [place], [place] [address]Dr. Arti Wu LEUKOCYTES MODERATE Abnormal NEGATIVE [facility] Comment on above: Performed By: #### HONG CHINRO ####[facility] Travzczdhc[address] [place], [place] [address]Dr. Arti Wu Nitrite Ql (U) Positive Abnormal NEGATIVE [facility] Comment on above: Performed By: #### HONG CHINRO ####[facility] Xvow[address]lnlfs[address] [place], [place] [address]Dr. Arti Wu pH (U) 6.5 [pH] Normal 5-9 [facility] Comment on above: Performed By: #### DELMY CHIN ####[facility] Sahsqtogcv[address] [place], [place] [address]Dr. Arti Wu Protein (U) [Mass/Vol] 100 mg/dL Abnormal NEGATIVE/ TRACE [facility] Comment on above: Performed By: #### HONG CHINRO ####[facility] Vdmttobucm[address] [place], [place] [address]Dr. Arti Wu SPEC GRAVITY 1.025 Normal 1.005-<=1.025 The [facility] Comment on above: Performed By: #### HONG CHINRO ####[facility] B[address]cdjtftm[address] [place], [place] [address]Dr. Arti Wu UR MICRO IND INDICATED Normal [facility] Comment on above: Performed By: #### HONG CHINRO ####[facility] [address]okvdc[address] [place] [address]Dr. Arti uW Urobilinogen Qn (U) 1.0 {Uriel'U}/dL Normal 0.2 - 1. 0 [facility] Comment on above: Performed By: #### E DELMY HENDRICKSON ####[facility] Emags[address]scfp[address] [place] [address]Dr. Arti Wu PROF CHEM 8 (BAS METB)on Anion gap [Moles/Vol] 11.7 mmol/L Normal [facility] Comment on above: Performed By: #### B MP #### [facility] [address] [address] [address] Arti Wu Calcium [Mass/Vol] 9.2 mg/dL Normal 8.5-10.1 [facility] Comment on above: Performed By: #### B MP #### [facility] [address] [address] [address] Arti Wu Chloride [Moles/Vol] 103 mmol/L Normal 98-107 [facility] Comment on above: Performed By: #### B MP #### [facility] [address] [address] [address] Arti Wu CO2 [Moles/Vol] 28.1 mmol/L Normal 21.0-32.0 [facility] Comment on above: Performed By: #### B MP #### [facility] [address] [address] [address] Arti Wu Creatinine [Mass/Vol] 0.73 mg/dL Normal 0.55-1.02 [facility] Comment on above: Performed By: #### B MP #### [facility] [address] [address] [address] Arti Wu EGFR-AF CITIZEN OF [place] >60 Normal >=60 [facility] Comment on above: Performed By: #### B MP #### [facility] [address] [address] [address] Arti Wu EGFR-NON AF CITIZEN OF [place] >60 Normal >=60 [facility] Comment on above: Performed By: #### B MP #### [facility] [address] [address] [address] Arti Wu Glucose [Mass/Vol] 111 mg/dL Critically high 74-106 T [facility] Comment on above: Performed By: #### B MP #### [facility] [address] [address] [address] Arti Wu Potassium [Moles/Vol] 3.8 mmol/L Normal 3.5-5.1 [facility] Comment on above: Performed By: #### B MP #### [facility] [address] [address] [address] Arti Wu Sodium [Moles/Vol] 139 mmol/L Normal 136-145 [facility] Comment on above: Performed By: #### B MP #### [facility] [address] [address] [address] Arti Wu Urea nitrogen [Mass/Vol] 12.0 mg/dL Normal 7.0-18.0 [facility] Comment on above: Performed By: #### B MP #### [facility] [address] [address] [address] Arti Wu Urea nitrogen/Creatinine [Mass ratio] 16.4 mg/mg Normal [facility] Comment on above: Performed By: #### B MP #### [facility] [address] [place] [address] Dr. Arti Wu URINE MICROSCOPIC ONLYon BACTERIA MODERATE Abnormal NONE SEEN [facility] Comment on above: Performed By: #### Susi HENDRICKSON UMICRO ####[facility] [address] [place] [address]DrChristophe Wu Bacteria identified Cx Nom (U) INDICATED Normal [facility] Comment on above: Performed By: #### Susi HENDRICKSON UMICRO ####[facility] [address] [place] [phone] Wu CAST NONE SEEN Normal NONE SEEN [facility] Comment on above: Performed By: #### Susi HENDRICKSON UMICRO ####[facility] [address] [place] [phone] Wu Crystals LM Nom (Urine sed) NONE SEEN Normal NONE SEEN [facility] Comment on above: Performed By: #### E MADHAVI, HONGRO ####[facility] [address] [place] [phone]. Arti Wu Epithelial cells LM Ql (Urine sed) RARE Normal NONE SEEN /RARE [facility] Comment on above: Performed By: #### HONG CHINRO ####[facility] [address] [place] [phone]. Arti Wu MUCOUS NONE SEEN Normal NONE SEEN [facility] Comment on above: Performed By: #### Susi HENDRICKSON UMICRO ####[facility] [address] [place] [phone]. Arti Wu RBC 75-100 Abnormal 0-2 [facility] Comment on above: Performed By: #### HONG CHINRO ####[facility] [address]bhq[address] [place] [phone]. Arti Wu WBC 20-50 Abnormal NONE SEEN [facility] Comment on above: Performed By: #### HONG CHINRO ####[facility] [address] [place] [phone]. Arti Wu CT FOOT LT WO CONon [...] RADHA RAJPUT Date: 2021-12-07 17:38 Normal [facility] XR FOOT LT MIN 3 VIEWSon XR [...] by: MAILE SMITH Date: 2021-11-26 16:39 Normal [facility] XR LSPINE 2_3 VIEWSon 2021 XR [...] by: MERCEDEZ VALENZUELA Date: 2021-09-27 11:08 Normal [facility] XR TSPINE 2 VIEWSon 09-28-19 22 [...] IMPRESSION: No acute findings. Electronically authenticated by: MERCEDZE VALENZUELA Date: 2021-09-27 11:08 Normal [facility] Q - CULTURE,URINE,ROUTINEon 01-25-2021 CULTURE, URINE, ROUTINE SEE NOTE Normal [facility] [employer] Comment on above: Order Comment: [facility] performed at: [facility], [facility], [address] [place] [address], [address] [place] [address], [phone], Staffing Assistant: Bryan Kurtz MD [facility] Date/Time: [facility] Results Received Date/Time: [facility] Reported Date/Time: Result Comment: CULT URE, URINE, ROUTINE Micro Number: [id number] Test Status: Final Specimen Source: Urine Specimen Quality: Adequate Result: Growth of mixed brien was isolated, suggesting probable contamination. No further testing will be performed. If clinically indicated, recollection using a method to minimize contamination, with prompt transfer to Urine Culture Transport Tube, is recommended. Performed By: #### 3 020X, %SBCULI, 6304R #### [facility] Default [address] [place] [address] Q - UR CULT [id number] 2020 REFLEXIVE URINE CULTURE SEE NOTE Normal [facility] [employer] Comment on above: Order Comment: [facility] performed at: [employer], [employer] [facility], [facility], [address] [place] [address], [address] [place] [address], Staffing Assistant: Bryan Kurtz MD [facility] Date/Time: [facility] Results Received Date/Time: [facility] Reported Date/Time: Result Comment: CULT URE INDICATED - RESULTS TO FOLLOW Performed By: #### 3 020X, %SBCULI, 6304R #### [facility] Default [address] [place] [address] Q - URINALYSIS,COMPLETE,WITH REFLEX TO CULTUREon 01-25-2021 Appearance (U) CLOUDY Abnormal CLEAR [facility] [employer] Comment on above: Order Comment: [facility] performed at: [employer], [employer] [facility], [address], [address] [place] [address], [phone], Staffing Assistant: Bryan Kurtz MD [facility] Date/Time: [facility] Results Received Date/Time: [facility] Reported Date/Time: Performed By: #### 3 020X, %SBCULI, 6304R #### [facility] [address] [place] [address] BACTERIA FEW Abnormal NONE SEEN [facility] [employer] Comment on above: Order Comment: [facility] performed at: [employer], [facility], [address] , [address] [place] [address], [address] [place] [address], Staffing Assistant: Bryan Kurtz MD [facility] Date/Time: [facility] Received Date/Time: [facility] Reported Date/Time: Performed By: #### 3 020X, %SBCULI, 6304R #### [facility] Default [address] [place] [address] Bilirubin Ql (U) Negative Normal NEGATIVE [facility] [employer] Comment on above: Order Comment: [facility] performed at: [employer], [employer] [facility], [address] , [address] [place] [address], [address] [place] [address], Staffing Assistant: Bryan Kurtz MD [facility] Date/Time: [facility] Results Received Date/Time: [facility] Reported Date/Time: Performed By: #### 3 020X, %SBCULI, 6304R #### [facility] [address] [place] [address] CALCIUM OXALATE CRYSTALS MANY Abnormal NONE OR FEW [facility] [employer] Comment on above: Order Comment: [facility] performed at: [employer], [employer] [facility], [address] , [address] [place] [address], [address] [place] [address], Staffing Assistant: Bryan Kurtz MD [facility] Date/Time: [facility] Results Received Date/Time: [facility] Reported Date/Time: Performed By: #### 3 020X, %SBCULI, 6304R #### [facility] [address] [place] [address] Color (U) YELLOW Normal YELLOW [facility] [employer] Comment on above: Order Comment: [facility] performed at: [employer], [facility], [address] , [address] [place] [address], [address] [place] [address], Staffing Assistant: Bryan Kurtz MD [facility] Date/Time: [facility] Received Date/Time: [facility] Reported Date/Time: Performed By: #### 3 020X, %SBCULI, 6304R #### [facility] [address] [place] [address] Glucose Ql (U) Negative Normal NEGATIVE [facility] Specialist Comment on above: Order Comment: [facility] performed at: [employer], [employer] [facility], [address] , [address] [place] [address], [address] [place] [address], Staffing Assistant: Bryan Kurtz MD [facility] Date/Time: [facility] Received Date/Time: [facility] Reported Date/Time: Performed By: #### 3 020X, %SBCULI, 6304R #### [facility] [address] [place] [address] HYALINE CAST NONE SEEN Normal NONE SEEN [facility] [employer] Comment on above: Order Comment: [facility] performed at: [employer], [employer] [facility], [address] , [address] [place] [address], [address] [place] [address], Staffing Assistant: Bryan Kurtz MD [facility] Date/Time: [facility] Results Received Date/Time: [facility] Reported Date/Time: Performed By: #### 3 020X, %SBCULI, 6304R #### [facility] [address] [place] [address] Ketones Ql (U) Negative Normal NEGATIVE [facility] [employer] Comment on above: Order Comment: [facility] performed at: [employer], [employer] [facility], [address] , [address] [place] [address], [address] [place] [address], Staffing Assistant: Bryan Kurtz MD [facility] Date/Time: [facility] Results Received Date/Time: [facility] Reported Date/Time: Performed By: #### 3 020X, %SBCULI, 6304R #### [facility] Default [address] [place] [address] Leukocyte esterase Test strip Ql (U) 1+ Abnormal NEGATIVE [place] [employer] Comment on above: Order Comment: [facility] performed at: [employer], [employer] [facility], [address], [address] [place] [address], [address] [place] [address], Staffing Assistant: Bryan Kurtz MD [facility] Date/Time: [facility] Results Received Date/Time: [facility] Reported Date/Time: Performed By: #### 3 020X, %SBCULI, 6304R #### [facility] [address] [place] [address] Nitrite Ql (U) Negative Normal NEGATIVE [facility] [employer] Comment on above: Order Comment: [facility] performed at: [employer], [employer] [facility], [address] , [address] [place] [address], [address] [place] [address], Staffing Assistant: Bryan Kurtz MD [facility] Date/Time: [facility] Results Received Date/Time: [facility] Reported Date/Time: Performed By: #### 3 020X, %SBCULI, 6304R #### [facility] [address] [place] [address] OCCULT BLOOD Negative Normal NEGATIVE [facility] [employer] Comment on above: Order Comment: [facility] performed at: [employer], [employer] [facility], [address], [address] [place] [address], [address] [place] [address], Staffing Assistant: Bryan Kurtz MD [facility] Date/Time: [facility] Results Received Date/Time: [facility] Reported Date/Time: Performed By: #### 3 020X, %SBCULI, 6304R #### [facility] [address] [place] [address] pH (U) 5.5 [pH] Normal 5.0-8.0 [facility] [employer] Comment on above: Order Comment: [facility] performed at: [employer], [employer] [facility], [address], [address] [place] [address], [phone], Staffing Assistant: Bryan Kurtz MD [facility] Date/Time: [facility] Results Received Date/Time: [facility] Reported Date/Time: Performed By: #### 3 020X, %SBCULI, 6304R #### [facility] [address] [place] [address] Protein Ql (U) Negative Normal NEGATIVE [facility] Specialist Comment on above: Order Comment: [facility] performed at: [employer], [employer] [facility], [facility], [address] [place] [address], [address] [place] [address], Staffing Assistant: Bryan Kurtz MD [facility] Date/Time: [facility] Results Received Date/Time: [facility] Reported Date/Time: Performed By: #### 3 020X, %SBCULI, 6304R #### [facility] Default [address] [place] [address] RBC 0-2 Normal < OR = 2 [facility] [employer] Comment on above: Order Comment: [facility] performed at: [employer], [employer] [facility], [address] [place] [address], [address] [place] [address], [address] [place] [address], Staffing Assistant: Bryan Kurtz MD [facility] Date/Time: [facility] Results Received Date/Time: [facility] Reported Date/Time: Performed By: #### 3 020X, %SBCULI, 6304R #### [facility] Default [address] [place] [address] Specific gravity (U) [Rel density] 1.018 Normal 1.001-1.035 [facility] [employer] Comment on above: Order Comment: [facility] performed at: [employer], [employer] [facility], [address] [place] [address], [address] [place] [address], [address] [place] [address], Staffing Assistant: Bryan Kurtz MD [facility] Date/Time: [facility] Results Received Date/Time: [facility] Reported Date/Time: Performed By: #### 3 020X, %SBCULI, 6304R #### [facility] Default [address] [place] [address] SQUAMOUS EPITHELIAL CELLS 20-40 Abnormal < OR = 5 [facility] [employer] Comment on above: Order Comment: [facility] performed at: [facility], [employer] [facility], [address] [facility], [address] [place], [address] [place] [address], Staffing Assistant: Bryan Kurtz MD [facility] Date/Time: [facility] Results Received Date/Time: [facility] Reported Date/Time: Performed By: #### 3 020X, %SBCULI, 6304R #### [facility] [address] [place] [address] WBC 6-10 Abnormal < OR = 5 [facility] Specialist Comment on above: Order Comment: [facility] performed at: [facility], [employer] [facility], [address] [facility], [address] [place], [address] [place] [address], Staffing Assistant: Bryan Kurtz MD [facility] Date/Time: [facility] Results Received Date/Time: [facility] Reported Date/Time: Performed By: #### 3 020X, %SBCULI, 6304R #### [facility] Default [address] [place] [address] Cardiovascular Lab Reporton 10-08-2017 Cardiovascular Lab Report [facility] Patient Name: [facility] MR #: [id number] Physician: Noble Balbuena Department of [facility] Medicine Service Date: 10/07/2017 Division of Birthdate: 1940 Cardiology Room #: [id number] Adult Cardiovascular Services [place] [address] Cardiovascular Laboratory Report The patient is a patient of mine from [place]. She has chronic atrial fibrillation. She has a dual-chamber pacemaker that is set VVI. She has had very cmnscfimb-vu-lcsdfgc atrial fibrillation despite high doses of beta-moises [...] The right groin was anesthetized with lidocaine. 8-Bermudian and 6-Bermudian introducer sheaths were placed in the right [...] Montgomery M.D. Date Trans: 10/08/2017 04:44 A/panda DN_JN:[id number] cc: Eliud Patel D.O. [address] [place] [address] [place] [address] [facility] Encounters Encounter Date Encounter Type Care Provider Facility Start: 01-07-2024 ambulatory ELIUD PATEL Facility :[facility] Start: 12-17-2023 End: 12-19-2023 Telephone encounter Mercedez Leo DO Work Phone: [facility] General Surgery Start: 12-13-2023 ambulatory ELIUD PATEL Facility :[facility] Start: 10-23-2023 End: 10-23-2023 ambulatory XIOMARA Wheat APLING Not Available Start: 10-01-2023 End: 10-01-2023 ambulatory [facility] Start: 09-25-2023 End: 09-25-2023 ambulatory XIOMARA Wheat APLING Not Available Start: 09-04-2023 End: 09-04-2023 ambulatory FRANKIE [facility] Start: 08-28-2023 End: 08-28-2023 ambulatory XIOMARA Wheat APLING Not Available Start: 08-24-2023 End: 08-25-2023 Emergency department patient visit BEAUFORT Aye [facility] Start: 08-24-2023 End: 08-25-2023 Emergency department patient visit BEAUFORT Aye [facility] Start: 07-25-2023 End: 07-25-2023 ambulatory [facility] Start: 07-17-2023 End: 07-17-2023 ambulatory [facility] Start: 07-17-2023 End: 07-17-2023 ambulatory [facility] Start: 06-28-2023 End: 06-28-2023 ambulatory [facility] Start: 06-13-2023 End: 06-13-2023 ambulatory DHARA HART Not Available Start: 06-06-2023 End: 06-06-2023 ambulatory ROSANNA TATTERSALL Not Available Start: 05-28-2023 End: 05-28-2023 ambulatory ROSANNA TATTERSALL Not Available Start: 05-23-2023 End: 05-23-2023 ambulatory ROSANNA TATTERSALL Not Available Start: 05-20-2023 End: 05-20-2023 ambulatory ADRIA NAILS Not Available Start: 05-08-2023 Telephone encounter Suzanne Zamorano [facility] Start: 05-08-2023 End: 05-20-2023 ambulatory PALAK DUMONT [facility] Start: 04-25-2023 End: 04-25-2023 Emergency department patient visit Eliud Patel Facility:[facility] Start: 02-27-2023 End: 02-27-2023 ambulatory HUSSEIN PARKER [facility] Start: 01-22-2023 End: 01-22-2023 ambulatory SOHA LEDEZMA [facility] Start: 06-01-2022 End: 06-02-2022 ambulatory SOHA [...] End: 10-08-2017 Patient encounter procedure NOBLE MONTGOMERY Facility:[facility] Procedures Date Procedure Procedure Detail Performing Clinician Start: 09-04-2023 Follow-up visit Follow-up FRANKIE CODY Start: 09-21-2021 Colonoscopy Suzanne Medrano Plan of Treatment Date Care Activity Detail Author Start: 09-28-2031 DTaP,Tdap and Td Vaccines (2 - Tdap) DTaP,Tdap and Td Vaccines (2 - Tdap) [facility] Start: 09-21-2026 Screening for malignant neoplasm of colon Colonoscopy [facility] Start: 08-23-2024 Adult BMI Screening Adult BMI Screening [facility] Start: 08-23-2024 Tobacco Screening Tobacco Screening [facility] Start: 12-25-2023 End: 12-25-2023 Patient encounter procedure 12/25/2023 2:15 PM EST Office Visit [facility] [address] [place] [id number] Mercedez Leo DO [address] [place] [address] [facility] Start: 10-20-2023 Influenza vaccination Influenza Vaccine [facility] Start: 06-23-2023 Adult BMI Screening Adult BMI Screening [facility] Start: 06-23-2023 Tobacco Screening Tobacco Screening [facility] Start: 10-19-2022 Influenza vaccination Influenza Vaccine [facility] Start: 08-04-2003 Fall Risk Screening Fall Risk Screening [facility] Start: 1988 Administration of varicella zoster vaccine Zoster (Shingles) Vaccine (1 of 2) [facility] Start: 1950 Depression Screening Depression Screening [facility] Start: 1940 Medicare Annual Wellness Visit Medicare Annual Wellness Visit [facility] Immunizations Immunization Date Immunization Notes Care Provider Fa cililucy 12-12-2016 influenza virus vacc ine, unspecified formulation Suzanne Zamorano [facility] Payers Date Payer Category Payer Medicare [facility] [id number] 2023 [facility] [id number] 2021 Medicare AETNA MEDICARE A ETNA MEDICARE PLAN (PPO) [id number] 2021-Present [phone] [address] [place] [address] [id number] 1959 Medicare [id number] 1959 Self-pay 1940 Unknown [id number] 2.16.840.1.923795.3.579.2. 647 1938 Unknown [id number] 2.16.840.1.813769.3.579.2. 593 1938 Unknown [id number] 2.16.840.1.391745.3.579.2. 593 1938 Unknown [id number] 2.16.840.1.317834.3.579.2. 593 1938 Unknown [id number] 2.16.840.1.451919.3.579.2. 593 1938 Unknown [id number] 2.16.840.1.060304.3.579.2. 593 1938 Unknown [id number] 2.16.840.1.927183.3.579.2. 593 1938 Unknown [id number] 2.16.840.1.536160.3.579.2. 593 1938 Unknown [id number] 2.16.840.1.682287.3.579.2. 593 1938 Unknown [id number] 2.16.840.1.921708.3.579.2. 593 1938 Unknown [id number] 2.16.840.1.857469.3.579.2. 593 1938 Unknown [id number] 2.16.840.1.675560.3.579.2. 593 1938 Unknown [id number] 2.16.840.1.165652.3.579.2. 1285 1938 Unknown [id number] 2.16.840.1.413959.3.579.2. 1285 1938 Unknown [id number] 2.16.840.1.247605.3.579.2. 1285 1938 Unknown [id number] 2.16.840.1.499991.3.579.2. 1285 1938 Unknown [id number] 2..840.1.242204.3.579.2. 1285 1938 Unknown [id number] 2.840.1.356658.3.579.2. 1285 1938 Unknown [id number] 2.840.1.379516.3.579.2. 1285 1938 Unknown [id number] 2.840.1.540978.3.579.2. 1285 1938 Unknown [id number] 2.840.1.175355.3.579.2. 1285 1938 Unknown [id number] 2.840.1.474807.3.579.2. 1285 1938 Unknown [id number] 2.840.1.635622.3.579.2. 1285 1938 Unknown [id number] 2.840.1.253079.3.579.2. 1258 1938 Unknown [id number] 2.840.1.171659.3.579.2. 1258 1938 Unknown [id number] 2.840.1.448079.3.579.2. 1258 1938 Unknown [id number] 2.840.1.633606.3.579.2. 1258 1938 Unknown [id number] 2.840.1.048008.3.579.2. 1259 1938 Unknown [id number] 2.16.840.1.529382.3.579.2. 1258 1938 Unknown [id number] 2.16.840.1.833126.3.579.2. 1258 1938 Unknown [id number] 2.16.840.1.193973.3.579.2. 1258 1938 Unknown [id number] 2.16.840.1.198545.3.579.2. 1258 1938 Unknown [id number] 2.16.840.1.332142.3.579.2. 1258 1938 Unknown [id number] 2.16.840.1.026222.3.579.2. 727 Unknown [id number] 2.16.840.1.231450.3.579.2. 531 Social History Date Type Detail Facility Start: 05-28-2022 End: 06-28-2023 Tobacco smoking status NHIS Ex-smoker [facility] Start: 02-19-1952 End: 02-18-1989 History of tobacco use Current smoker [facility] Start: 02-19-1952 End: 02-18-1989 History of tobacco use Cigarette Smoker [facility] Start: 03-31-2020 End: 05-28-2022 Cigarettes smoked current (pack per day) - Reported 1 [facility] Start: 05-28-2022 End: 06-28-2023 Tobacco use and exposure Smokeless tobacco non-user [facility] Start: 06-22-2022 Alcohol intake Current drinke r of alcohol (finding) [facility] Start: 03-31-2020 End: 06-22-2022 Tobacco use panel [facility] Childcare Unknown [facility] Start: 05-28-2022 Alcohol Comment SOCIALLY [facility] Start: 1940 Sex Assigned At Not on file P [facility] Start: 08-24-2023 Alcoholic beverage intake Ex-drinker (finding) [facility] Start: 09-23-2014 Sex Female (finding) [facility] Medical Equipment Procedure Code Equipment Code Equipment Origin al Text Equipment Identifier Dates Stm Fem 137d 5 39mm 12/14 B - Sna - [id number]$$ [id number] , [id number] FDA Start: 07-17-2017 Hd Fem 36mm +0mm 12/14 Vrsy Rpl [id number] - Sna - [id number] Start: 06-25-2018 Scr Bn Hip Anshul St 25mm 6.5mm Rpl [id number] + [id number] + 595025 - [id number]/$ $[id number], [id number] FDA Start: 07-17-2017 Scr Bn Anshul 20mm 6.5mm Hip St Rpl 842241 + [id number] + [id number] - Sna - [id number] Start: 06-25-2018 Pacemaker- 17 113685_[facility] Start: 12-05-2016 Comment on above: Description: info in media Hd Fem 32mm -3.5 mm 12/14 Vrsy Rpl 068069 + 871173 - [id number]/$ $[id number], [id number] FDA Start: 07-17-2017 Shl Actb 48mm Hi p Prm Mdlr Ch Rpl [id number] - Sna - [id number] Start: 07-17-2017 Linr Actb 48mm 32mm Std Ntrl Rpl 832358 - Sna - [id number]/$ $[id number] NA, [id number] FDA Start: 07-17-2017 Shl Actb 50mm Hi p Prm Mdlr Ch Rpl [id number] - Sna - [id number] Start: 06-25-2018 Linr Actb 50/52/54mm 36mm Std Rpl [id number] - Sna - [id number] Start: 06-25-2018 Stm Fem 137d 8 40.88mm 12/14 B - Sna - [id number] Start: 06-25-[address] Hip [address] 25mm 6.5mm Rpl [id number] + 291190 + [id number] - [id number]/$ $[id number], [id number]_imp [facility] Start: 07-17-2017 Scr Bn Anshul 20mm 6.5mm Hip St Rpl 884687 + [id number] + [id number] - [facility] - [id number]_[facility] Start: 06-25-2018 Clinical Notes 01-02-2022 to [...] appointment on 12/25/2023. documented in this encounter [facility] 12-17-2023 Telephone encounter Note Called Jacqueline regarding the acute cholecystitis referral that our office received from Dr Patel on her mother/Judr, I left a message for her to call the office back to schedule an appointment. [facility] 12-17-2023 Telephone encounter Note Arlene called the office back and we scheduled her an appointment on 12/25/2023. [facility] 09-04-2023 Note [facility] Electrophysiology Progress Note [...] following prior hip surgeries. Test Echocardiogram at [facility] on 09/09/2017 shows EF of 65% with [...] headaches Psychiatric Ps (more content not included)... [facility] 05-08-2023 Miscellaneous Notes Fire Control Mechanic called preferred patient number in chart and one stated it was out of service and the other one said that the voicemail box was not set up. documented in this encounter [facility] 05-08-2023 Telephone encounter Note Fire Control Mechanic called preferred patient number in chart and one stated it was out of service and the other one said that the voicemail box was not set up. [facility] 02-27-2023 Note Patient here for 3 [...] All other systems reviewed and are negative. [facility] 02-27-2023 Note [place] Electrophysiology Consult Note Reason for visit: s/p [...] following prior hip surgeries. Test Echocardiogram at [facility] on 09/09/2017 shows EF of 65% with [...] no varicosities, no (more content not included)... [facility] 05-08-2022 Note PROCEDURE: XR FOOT L [...] authenticated by: RADHA RAJPUT Date: 2022-05-08 14:40 [facility] 02-09-2022 Note PROCEDURE: XR FOOT L [...] by: CRUZITO BRIDGES Date: 2022-02-09 10:42 [facility] 01-02-2022 Note PROCEDURE: XR FOOT L T [...] by: RADHA RAJPUT Date: 2022-01-02 15:52 [facility] Instructions Not on filedocumente d in this encounter [facility] Summary Purpose Family History No [...] and content) DATE CREATED AUTHOR 10/04/2018 [facility] DATE CREATED AUTHOR AUTHOR'S ORGANIZ ATION 01/28/2021 [facility] DATE CREATED AUTHOR AUTHOR'S ORGANIZ ATION 06/02/2022 [facility] DATE CREATED AUTHOR AUTHOR'S ORGANIZ ATION 05/14/2023 [facility] DATE CREATED AUTHOR AUTHOR'S ORGANIZ ATION 07/27/2023 [facility] DATE CREATED AUTHOR AUTHOR'S ORGANIZ ATION 08/25/2023 [facility] DATE CREATED AUTHOR AUTHOR'S ORGANIZ ATION 10/28/2023 [facility] DATE CREATED AUTHOR AUTHOR'S ORGANIZ ATION 12/13/2023 [facility] DATE CREATED AUTHOR AUTHOR'S ORGANIZ ATION 12/14/2023 Trae Castellano [facility] Care Teams (unrecognized sec tion and content) 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 [employer] provides no warranty or guarantee of the accuracy or completeness of information in this document.
[2023-12-30 10:13] LABS: Lactate/Lactic Acid 2.9 mmol/L (0.4-2.0)
[2023-12-30 10:41] LABS: Amylase 22 U/L (25-115); Lipase <10.0 U/L (16.0-77.0)
[2023-12-30] MEDS: 0.9 % SODIUM CHLORIDE 250 ML 10 ML IV (12:24)
[2023-12-30] MEDS: PIPERACILLIN SODIUM/TAZOBACTAM 3.375 GM in 0.9 % SODIUM CHLORIDE 50 ML IV ×2 (12:24→21:37)
--- NOTE | 2023-12-30 13:12 | SWNOTE1 ---
Pt and daugher in room, both sleeping. SW to stop back in later today.
--- NOTE | 2023-12-30 14:34 | CM.NOTE ---
Important Message From Medicare discussed with pt and daughter, daughter verbalizes understanding and signs paper. Original given to pt and copy placed in pt's chart. Talked with pt and daughter also regarding recommendations from OT for HH services, both are in agreement to HH services and would like to go with [facility]. Daughter's had used [facility] in the past and they were happy with the care they provided.
[2023-12-30 14:56] LABS: Lactate/Lactic Acid 2.7 mmol/L (0.4-2.0)
--- NOTE | 2023-12-30 14:56 | SWNOTE1 ---
SW spoke to case management and pt lives at home with daughter. They would like to use [facility] at discharge. Referral sent to [facility]. Referral included face sheet, ED note, H&P, provider notes, case management report, and PT/OT notes.
--- NOTE | 2023-12-30 15:59 | SWNOTE1 ---
[facility] is reviewing referral and checking insurance.
--- NOTE | 2023-12-30 16:57 | XR_ITS ---
The [address] [address] Patient Name: ALAN SANCHEZ MRN: [id number] date: 1940 Sex: F Assigned Patient Location: Current Patient Location: Accession/Order Number: [id number] Exam Date: 12/30/2023 18:35 Report Date: 12/30/2023 21:46 At the request of: GAVI NEWMAN Procedure: XR acute abdomen series EXAM: ACUTE ABDOMINAL SERIES HISTORY: Emesis and 83-year-old female TECHNIQUE: A single view of the chest and 2 views of the abdomen and pelvis are submitted for review. COMPARISON: None. FINDINGS: CHEST X-RAY: Lungs are hyperexpanded. There is minimal blunting of costophrenic angles. Prominence of pulmonary vascularity. Heart is enlarged. Cardiac pacer is present. Osseous structures are grossly stable. ABDOMEN: Non obstructive bowel gas pattern. There is a central loop of air-filled bowel which is incompletely imaged. There is also some layering of bowel seen in the left upper quadrant which is incompletely imaged. Question of a lucency overlying the right upper quadrant. However, evaluation for free air is limited given the supine positioning. No free air seen on the upright imaging. There are no abnormal calcifications. However, evaluation of the renal shadows is limited due to overlying bowel gas. No portal venous air. Osseous structures demonstrate postoperative changes of bilateral hips. XR/XR acute abdomen series IMPRESSION: CHEST X-RAY: 1. COPD with prominence of interstitial lung markings. Please correlate for fluid overload versus viral etiology. 2. Cardiomegaly with pulmonary edema. ABDOMEN: 1. Air-filled bowel seen within the central abdomen and in the left upper quadrant. CT scan recommended for further evaluation. 2. Contrast seen within the left kidney. This appears asymmetrical to the contralateral right. Electronically authenticated by: KHOA WALLER Date: 12/30/2023 21:46
--- NOTE | 2023-12-30 17:12 | US_ITS ---
The [address] [address] Patient Name: ALAN SANCHEZ MRN: [id number] date: 1940 Sex: F Assigned Patient Location: Current Patient Location: Accession/Order Number: [id number] Exam Date: 12/30/2023 19:33 Report Date: 12/30/2023 22:59 At the request of: GAVI NEWMAN Procedure: US right upper quadrant EXAM: ULTRASOUND ABDOMEN LIMITED HISTORY: Right upper quadrant pain in a 83-year-old female RUQ pain TECHNIQUE: Multiple sonographic images are performed of the using both grayscale and color Doppler. COMPARISON: None available. FINDINGS: Limited evaluation due to overlying bowel gas. Pancreas: Portions of the pancreas seen is within normal. However, the pancreas is not well visualized due to overlying bowel gas. Vessels: IVC: Portions of IVC visualized within the field of view are patent allowing for overlying bowel gas which can obscure midline structures. Aorta: Portions of aorta visualized within the field of view are patent allowing for overlying bowel gas which can obscure midline structures. Portal vein: Portal vein is patent with hepatopedal blood flow. Liver: Measures normal at 17 cm. Trace free fluid around the liver. There is biliary prominence accounting for the hypoechoic areas within the liver. Parenchyma demonstrates normal echogenicity. No sonographic evidence of a mass. Gallbladder: Wall measures within normal 5.2 mm. The gallbladder lumen contains sludge with thickened gallbladder wall There is no pericholecystic free fluid. There is no sonographic Cottrell sign. Common Bile Duct: Measures within normal. At 3.1 mm. Kidneys: Right kidney: Right kidney measures 8.7 cm x 4.4 x 4.9 cm. Cortex measures 7.1 mm. Blood flow to the right kidney is within normal limits. There is no hydronephrosis or obstructive stone. Free fluid: None. US/US right upper quadrant IMPRESSION: 1. Hepatomegaly with hepatic steatosis with perihepatic free fluid and prominent echogenic bile ducts. Please correlate for intrahepatic biliary edema. 2. Gallbladder sludge with thickened gallbladder wall. Please correlate for acute cholecystitis 3. Otherwise unremarkable for acute pathology. Electronically authenticated by: KHOA WALLER Date: 12/30/2023 22:59
[2023-12-30 18:25] LABS: Lactate/Lactic Acid 3.1 mmol/L (0.4-2.0)
--- NOTE | 2023-12-30 18:28 | CA_ITS ---
Patient Name: ALAN SANCHEZ MR#: [id number] : 1940 Exam Date: 12/31/2023 Ordering Doctor: DR Gonzales Berrios . ECHOCARDIOGRAM REPORT PROCEDURE: CA ECHO DOPPLER COMPLETE INDICATIONS: chf, elevated BNP, pacemaker, hypertension COMPARISON: None. DESCRIPTION: COMPLETE ECHOCARDIOGRAM Real-time transthoracic echocardiography with 2D, M-mode, spectral and color flow Doppler performed. QUALITY: Technical quality was good. LEFT VENTRICLE: Normal chamber size. Proximal septal hypertrophy (sigmoid septum). LV EF: Lower limits of normal left ventricular ejection fraction, (50-55%). DIASTOLIC: Grade II diastolic dysfunction. ATRIAL SEPTUM: Visually appears intact. LEFT ATRIUM: Severe dilatation. RIGHT ATRIUM: Severe dilatation. RIGHT VENTRICLE: Severe dilatation. Systolic function appears normal. Pacer wire present. TRICUSPID VALVE: Normal mobility and thickness. No stenosis with severe regurgitation. Doppler studies reveal mildly (35-45) elevated right sided pressures. RVSP 41 mmHg MITRAL VALVE: Normal mobility and thickness. No evidence of mitral valve stenosis. There is no mitral annular calcification. Moderate mitral regurgitation. AORTIC VALVE: Normal trileaflet appearance. No visible sclerosis. Normal leaflet mobility. No evidence of aortic valve stenosis. Mild aortic regurgitation. AORTIC ROOT: Normal diameter and appearance. PULMONIC VALVE: Normal thickness and mobility. No stenosis. Trivial regurgitation. PERICARDIUM: No evidence of pericardial effusion. IVC: IVC is dilated (2.2 cm), does not collapse. PLEURA: CONCLUSION: 1. The left ventricle is normal in size and exhibits low normal systolic function. LVEF is estimated at 50 to 55%. 2. Right ventricle is severely dilated and exhibits normal systolic function. 3. Severe biatrial dilatation. 4. Severe tricuspid regurgitation. 5. Moderate mitral regurgitation. 6. Mildly elevated right-sided pressures. Adult Echocardiography Procedure Report Left Ventricle LVEDD (3.7 - 5.6 cm): 4.08 cm LVESD (2.2 - 4.0 cm): 2.91 cm LVIVS thickness (0.6 - 1.2 cm): 1.07 cm LVPW thickness (0.5 - 1.0 cm): 0.88 cm e': 0.11 m/s E - e': 9.09 LVOT Max Gradient: 1.82 mm[Hg] LVOT Area (cm2): 0.67 m/s Peak Velocity (LVOT): 0.67 m/s Mean Velocity (LVOT): 0.47 m/s LVOT Diameter 2.11 cm Left Atrium LA Volume Index (2D A2C): 60.12 ml/m2 Left Atrium Systolic Dimension: 3.86 cm Mitral Valve MV E to A Ratio: 1.61 Mitral Valve A-Wave Peak Velocity: 0.64 m/s Mitral Valve E-Wave Peak Velocity: 1.02 m/s Right Ventricle Aorta AO Root Diam: 3.48 cm Aortic Valve AoV Area (Peak Low): 2.37 cm2, 2.37 cm2 AoV Area (VTI): 2.79 cm2, 2.79 cm2 Peak Velocity(Antegrade Flow): 0.99 m/s Peak Gradient(Antegrade Flow): 3.93 mm[Hg] Mean Velocity(Antegrade Flow): 0.63 m/s Mean Gradient(Antegrade Flow): 1.80 mm[Hg] Velocity Time Integral: 15.95 cm Tricuspid Valve Peak Velocity (Regurgitant Flow): 1.96 m/s, 2.16 m/s, 2.57 m/s Pulmonic Valve Mean Gradient: 1.20 mm[Hg] Mean Velocity: 0.51 m/s Peak Velocity: 0.82 m/s, 0.70 m/s Peak Gradient: 1.95 mm[Hg], 2.66 mm[Hg] Right Atrium Right Atrium Systolic Pressure: 125.42 ml, 125.42 ml Dictated by: Jacinto Gregg M.D. on 12/31/2023 at 12:45 Approved by: Jacinto Gregg M.D. on 12/31/2023 at 12:49
[2023-12-30 18:44] LABS: Hematocrit 40.1 % (36.0-48.0); Hemoglobin 13.2 g/dL (12.0-16.0); Mean Corpuscular HGB Conc 32.9 g/dL (29.9-35.2); Mean Corpuscular Volume 94.1 fL (81.0-99.0); Platelet Count 84 10^3/uL (150-450); Red Blood Count 4.26 10^6/uL (4.20-5.40); Red Cell Distribution Width 16.3 % (11.0-15.0); White Blood Count 9.1 10^3/uL (4.0-11.0)
[2023-12-30 18:54] LABS: Alanine Aminotransferase 13 U/L (14-59); Albumin Globulin Ratio 0.6; Albumin Level 2.1 g/dL (3.4-5.0); Alkaline Phosphatase 82 U/L (46-116); Amylase 19 U/L (25-115); Anion Gap 15.4; Aspartate Amino Transferase 20 U/L (15-37); BUN Creatinine Ratio 16.1; Bilirubin Total 1.1 mg/dL (0.2-1.0); Calcium 7.7 mg/dL (8.5-10.1); Carbon Dioxide 22.8 mmol/L (21.0-32.0); Chloride 109 mmol/L (98-107); Estimated GFR (African America 53 (>=60 mL/min/1.73m^2); Estimated GFR (Non-African Ame 44 (>=60 mL/min/1.73m^2); Globulin 3.5 g/dL; Glucose 95 mg/dL (74-106); Lipase <10.0 U/L (16.0-77.0); Potassium 4.2 mmol/L (3.5-5.1); Sodium 143 mmol/L (136-145); Total Protein 5.6 g/dL (6.4-8.2)
[2023-12-30 19:06] LABS: Band Neutrophils Absolute 0.5 10^3/uL (0.0-0.3); Lymphocytes Absolute Manual 0.36 10^3/uL (1.20-3.80); Monocytes Absolute Manual 0.72 10^3/uL (0.30-0.80); Segmented Neut Absolute Manual 7.46 10^3/uL (1.4-6.5)
[2023-12-30 19:07] LABS: Toxic Granulation 3+
[2023-12-30] MEDS: HYOSCYAMINE SULFATE 0.125 MG TAB.SUBL 0.25 MG SL (21:37)
[2023-12-30] MEDS: PROSTAT 15 GM PROTEIN/100 CAL 30 ML LIQUID PACKET PO (21:38)
[2023-12-30] MEDS: LATANOPROST 0.005% 2.5 ML BOTTLE 1 DROP OP (21:38)
[2023-12-30] MEDS: APIXABAN 5 MG TABLET 2.5 MG PO (21:38)
[2023-12-30] MEDS: FAMOTIDINE 20 MG TABLET 40 MG PO (21:38)
[2023-12-30] MEDS: POLYETHYLENE GLYCOL 3350 17 GM POWDER PACKET PO (21:38)
[2023-12-30] MEDS: ENSURE HP 237 ML LIQUID PO (21:39)
[2023-12-30 22:46] LABS: Lactate/Lactic Acid 3.3 mmol/L (0.4-2.0)
[2023-12-31] VITALS (20 sets, daily range): BP systolic 101–124; BP diastolic 63–68; PULSE 61–90; TEMP 36.5–36.7; O2SAT 90–92
[2023-12-31] MEDS: PIPERACILLIN SODIUM/TAZOBACTAM 3.375 GM in 0.9 % SODIUM CHLORIDE 50 ML IV ×3 (03:02→20:47)
[2023-12-31] MEDS: ONDANSETRON PF 4 MG/2 ML VIAL IV ×3 (03:35→20:46)
[2023-12-31] MEDS: HYOSCYAMINE SULFATE 0.125 MG TAB.SUBL 0.25 MG SL ×3 (05:06→20:47)
--- NOTE | 2023-12-31 05:43 | P.PN_ITS ---
Progress Note: Subjective Subjective Interval history: Had a fairly restful night. Still describes some abdominal pain and nausea persisting. Exam Constitutional Vital Signs, click to edit/add: Last Vital Signs Temp 98.0 F 12/31/23 00:00 Pulse 82 12/31/23 03:57 Resp 16 12/31/23 00:00 BP 103/68 12/31/23 00:00 Pulse Ox 90 L 12/31/23 00:00 O2 Del Method Room Air 12/31/23 00:00 O2 Flow Rate 2 12/30/23 07:14 Documenting provider has reviewed patient's vital signs: yes Common normals: no apparent distress HENMT Common normals: normocephalic Chest Common normals: inspection of chest normal Respiratory Common normals: normal respiratory effort (Somewhat shallow respirations) Auscultation: no rhonchi Cardio Common normals: regular rate and regular rhythm GI Common normals: Normal to inspection, nondistended, normoactive bowel sounds present and soft to palpation; tender Palpation: tender (Diffusely tender, maybe still more prominent right-sided overall stable) Extremity Common normals: abnormal to inspection (2+ edema) Progress Note: Objective Labs Labs: Short CBC 12/30/23 12/30/23 Range/Units 05:26 17:30 WBC 4.7 9.1 (4.0-11.0) 10^3/uL Hgb 14.1 13.2 (12.0-16.0) g/dL Hct 43.1 40.1 (36.0-48.0) % Plt Count 193 84 L (150-450) 10^3/uL BMP 12/30/23 12/30/23 05:26 17:30 Sodium 143 143 Potassium 4.2 4.2 Chloride 111 H 109 H Carbon Dioxide 20.0 L 22.8 BUN 14.0 19.0 H Creatinine 1.13 H 1.18 H Glucose 97 95 Calcium 7.7 L 7.7 L Liver Function 12/30/23 12/30/23 12/30/23 Range/Units 05:26 05:26 05:26 Total Bilirubin 1.6 H 1.6 H (0.2-1.0) mg/dL Direct Bilirubin 0.5 H (0.0-0.2) mg/dL AST 13 L 15 (15-37) U/L ALT 11 L (14-59) U/L Alkaline Phosphatase (46-116) U/L Albumin (3.4-5.0) g/dL 12/30/23 12/30/23 12/30/23 Range/Units 05:26 05:26 05:26 Total Bilirubin (0.2-1.0) mg/dL Direct Bilirubin (0.0-0.2) mg/dL AST (15-37) U/L ALT 11 L (14-59) U/L Alkaline Phosphatase 93 90 (46-116) U/L Albumin 2.2 L 2.2 L (3.4-5.0) g/dL 12/30/23 Range/Units 17:30 Total Bilirubin 1.1 H (0.2-1.0) mg/dL Direct Bilirubin (0.0-0.2) mg/dL AST 20 (15-37) U/L ALT 13 L (14-59) U/L Alkaline Phosphatase 82 (46-116) U/L Albumin 2.1 L (3.4-5.0) g/dL Progress Note: A&P Assessment and Plan (1) Altered mental status: (2) Closed head injury: (3) Cholelithiasis: (4) Dementia: (5) Hypertension: (6) Gastric reflux: Plan Admission findings: Respiratory distress, hypotension, acute hypoxia with O2 sat of 84%, neutropenia with bandemia, hyperglycemia and lactic acidosis. Resulting in sepsis with possible infectious source urine versus abdomen Sepsis with bandemia, neutropenia, respiratory distress, hypotension and lactic acidosis-with elevated BNP and edema will hold off on aggressive hydration.- Start IV antibiotics infectious sources possibility would be urine or abdomen if she has significant abdominal tenderness and a history of cholelithiasis,-see CT and ultrasound reports. Appreciate input provided by Dr. Umana. Abdominal pain with elevated liver function tests and hyperbilirubinemia-right upper quadrant-labs are improving. Acute UTI-culture pending-maintain current antibiotics Elevated BNP-improved today. Hyperglycemia-insulin sliding scale Severe protein calorie malnutrition-diet supplement GERD-continue with home medications History of atrial fibrillation-currently anticoagulated Hypertension-hold medications for hypotension Dementia-continue with home medications Hypercholesterolemia-continue with home medications Admission status: Patient with acute altered mental status and sepsis, likely intra-abdominal source, CT scan is pending, medically necessary treatment will span 2 midnights. Inpatient status.Admission findings: Respiratory distress, hypotension, acute hypoxia with O2 sat of 84%, neutropenia with bandemia, hyperglycemia and lactic acidosis. Resulting in sepsis with possible infectious source urine versus abdomen Sepsis with bandemia, neutropenia, respiratory distress, hypotension and lactic acidosis-with elevated BNP and edema will hold off on aggressive hydration.-St art IV antibiotics infectious sources possibility would be urine or abdomen if she has significant abdominal tenderness and a history of cholelithiasis, CT pending, advance diet if improving tomorrow possible discharge but more likely day after with the need for IV antibiotics and slow healing process Abdominal pain with elevated liver function tests and hyperbilirubinemia-right upper quadrant-CT scan pending. History of cholelithiasis, possible acute cholecystitis, with bandemia concern for ascending cholangitis Acute UTI-culture pending Elevated BNP-track daily, hold off on echocardiogram as she had one done fairly recently. Good ejection fraction on previous. BNP likely elevated from sepsis as outlined above high-sensitivity troponin negative Hyperglycemia-insulin sliding scale Severe protein calorie malnutrition-diet supplement GERD-continue with home medications History of atrial fibrillation-currently anticoagulated Hypertension-hold medications for hypotension Dementia-continue with home medications Hypercholesterolemia-continue with home medications Admission status: Patient with acute altered mental status and sepsis, likely intra-abdominal source, CT scan is pending, medically necessary treatment will span 2 midnights. Inpatient status. Urinary Catheter Management Urinary Catheter Management 2-way Urethral: Cath placed during this visit: yes Urethral indwelling: No Insertion date: 12/29/23 Insertion time: 22:13
[2023-12-31 06:01] LABS: Basophils Percent Auto 0.2 % (0.2-2.0); Hematocrit 36.8 % (36.0-48.0); Hemoglobin 12.1 g/dL (12.0-16.0); Immature Granulocytes Abs Auto 0.11 10^3/uL (0.00-0.03); Immature Granulocytes Pct Auto 1.2 % (0.0-0.5); Lymphocytes Absolute Auto 0.4 10^3/uL (1.2-3.8); Lymphocytes Percent Auto 4.8 % (20.5-60.0); Mean Corpuscular HGB Conc 32.9 g/dL (29.9-35.2); Mean Corpuscular Hemoglobin 30.1 pg (26.7-34.0); Mean Corpuscular Volume 91.5 fL (81.0-99.0); Monocytes Absolute Auto 0.9 10^3/uL (0.3-0.8); Monocytes Percent Auto 10.2 % (1.7-12.0); Neutrophils Absolute Auto 7.6 10^3/uL (1.4-6.5); Neutrophils Percent Auto 83.6 % (43.0-75.0); Platelet Count 104 10^3/uL (150-450); Red Blood Count 4.02 10^6/uL (4.20-5.40); Red Cell Distribution Width 16.2 % (11.0-15.0); White Blood Count 9.1 10^3/uL (4.0-11.0)
[2023-12-31 06:27] LABS: Alanine Aminotransferase 10 U/L (14-59); Albumin Globulin Ratio 0.6; Alkaline Phosphatase 79 U/L (46-116); Anion Gap 17.4; Aspartate Amino Transferase 16 U/L (15-37); BUN Creatinine Ratio 19.7; Bilirubin Total 0.9 mg/dL (0.2-1.0); Calcium 7.2 mg/dL (8.5-10.1); Carbon Dioxide 20.5 mmol/L (21.0-32.0); Chloride 112 mmol/L (98-107); Estimated GFR (African America 53 (>=60 mL/min/1.73m^2); Estimated GFR (Non-African Ame 44 (>=60 mL/min/1.73m^2); Globulin 3.6 g/dL; Glucose 115 mg/dL (74-106); Potassium 3.9 mmol/L (3.5-5.1); Sodium 146 mmol/L (136-145); Total Protein 5.6 g/dL (6.4-8.2)
--- NOTE | 2023-12-31 07:40 | CM.NOTE ---
Rounds made with Dr. Berrios, consulting Dr. Umana for further recommendations. Pt continues with abdominal pain. No discharge.
--- NOTE | 2023-12-31 07:51 | P.GSCN_ITS ---
History of Present Illness Consult details Reason for consult: abdominal pain Narrative: 83 yo F with Hx of AMS and + enterovirus on admission. Complaining of diffuse abdominal pain/ aches along with emesis and loose stools. No blood reported in the emesis or stool per patient, family caregiver and RN. Pt has had issues with AMS for a day or so now and was originally seen in a ED 2 days ago for chest pain but d/c. She subsequently came to [facility] and was admitted. After discussing with the patient and a family member in the room she has had some anorexia and nausea for a couple days and the patient thinks shes been throwing up for at least 2-3. Originally was suppose to see Dr. Ambrose for what sounds like symptomatic cholelithiasis. On eliquis, has a pacemaker, CHF, dementia. Discussed with patient and daughter given her indeterminate US, labs, electrolyte abnormalities and her + viral panel would be better to allow patient to recover from this current condition prior to discussing gallbladder removal. If there were concerns for acute cholecystitis and or worsening of condition with concerns of cholangitis then a cholecystostomy tube would be the safest option. Review of Systems ROS Status of ROS 10 or more systems reviewed and unremark able except as noted in history and below [facility] Medical History (Updated 12/31/23 @ 07:52 by Louie Umana DO) Congestive heart failure ?I50.9 - Heart failure, unspecified (ICD-10) Cholelithiasis ?K80.20 - Calculus of gallbladder without cholecystitis without obstruction (ICD-10) Dementia ?F03.90 - Unspecified dementia, unspecified severity, without behavioral disturbance, psychotic disturbance, mood disturbance, and anxiety (ICD-10) Constipation ?K59.00 - Constipation, unspecified (ICD-10) Hypertension ?I10 - Essential (primary) hypertension (ICD-10) Gastric reflux ?K21.9 - Gastro-esophageal reflux disease without esophagitis (ICD-10) Pacemaker ?Z95.0 - Presence of cardiac pacemaker (ICD-10) Surgical History (Updated 12/30/23 @ 10:33 by Tiffanie Cline) S/P placement of cardiac pacemaker ?Z95.0 - Presence of cardiac pacemaker (ICD-10) Hx of appendectomy ?Z90.49 - Acquired absence of other specified parts of digestive tract (ICD- 10) H/O left wrist surgery ?Z98.890 - Other specified postprocedural states (ICD-10) Family History (Updated 12/30/23 @ 10:35 by Tiffanie Cline) Son Family history of CHF (congestive heart failure) Family history of cancer Family history of hypertension Family history of myocardial infarction Father Family history of CHF (congestive heart failure) Family history of cancer Daughter Family history of COPD (chronic obstructive pulmonary disease) Family history of cancer Family history of hypertension Family history of myocardial infarction Social History (Updated 12/30/23 @ 10:36 by Tiffanie Cline) Within the past year, how often did you have a drink containing alcohol: never Within the past year, how often did you have six or more drinks on one occasion: never Score interpretation: A score less than 3 is consistent with normal alcohol consumption. Smoking status: Former smoker Non-prescribed substance use: denies use Previous occupational history: retired Highest level of school completed/degree received: high school graduate Are you now , , , , never or living with a partner: In a typical week, how many times do you talk on the telephone with family, friends, or neighbors: 3 or more times per week How often do you get together with friends or relatives: 3 or more times per week How often do you attend zoroastrianism or mandaeism services: never Little interest or pleasure in doing things: not at all Feeling down, depressed, or hopeless: not at all Feel stressed/tense/nervous/anxious/difficulty sleeping: to some extent Do you think of yourself as: straight/heterosexual Gender Identity: female Meds Home Medications and Allergies Home Medications ?Medication ?Instructions ?Recorded ?Confirmed ?Type apixaban 2.5 mg tablet (Eliquis) 2.5 mg PO Q12H 10/11/22 12/30/23 History diltiazem HCl 120 mg 120 mg PO Q24H 10/11/22 12/30/23 History capsule,extended release 24 hr memantine 10 mg tablet 10 mg PO BID 10/11/22 12/30/23 History montelukast 10 mg tablet 10 mg PO DAILY 10/11/22 12/30/23 History acetaminophen 500 mg tablet 500 mg PO Q6H PRN fever or pain 12/30/23 12/30/23 History (Tylenol Extra Strength) atorvastatin 40 mg tablet 40 mg PO .qd@17 12/30/23 12/30/23 History atorvastatin 40 mg tablet 40 mg PO DAILY 12/30/23 12/30/23 History carvedilol 12.5 mg tablet 12.5 mg PO Q12H 12/30/23 12/30/23 History cholecalciferol (vitamin D3) 125 5,000 unit PO DAILY 12/30/23 12/30/23 History mcg (5,000 unit) capsule colesevelam 625 mg tablet (WelChol) 1,875 mg PO DAILY 12/30/23 12/30/23 History famotidine 40 mg tablet 40 mg PO .QHS 12/30/23 12/30/23 History famotidine 40 mg tablet 40 mg PO .QHS 12/30/23 12/30/23 History latanoprost 0.005 % eye drops 1 drp ophthalmic (eye) .QHS 12/30/23 12/30/23 History polyethylene glycol 3350 17 17 g PO BID 12/30/23 12/30/23 History gram/dose oral powder (ClearLax) spironolactone 25 mg tablet 25 mg PO .QD 12/30/23 12/30/23 History spironolactone 25 mg tablet 25 mg PO QAM 12/30/23 12/30/23 History Allergies Allergy/AdvReac Type Severity Reaction Status Date / Time No Known Drug Allergies Allergy Verified 10/11/22 21:29 Exam Narrative Exam Narrative: General: awake, alert, no distress Head: normocephalic Neck: supple, no tracheal deviation Heart: RRR Lungs: equal chest rise and fall, non labored breathing Abdomen: soft, mild tenderness throughout entire abdomen, no rebound or guarding, non peritoneal Extremities: no lesions, grossly normal Skin: intact, no cyanosis Psychological: no apparent speech or mood disorder, appropriate for encounter Constitutional Vital Signs, click to edit/add: Last Vital Signs Temp 98.0 F 12/31/23 07:43 Pulse 76 12/31/23 07:43 Resp 16 12/31/23 07:43 BP 124/64 12/31/23 07:43 Pulse Ox 91 L 12/31/23 07:43 O2 Del Method Room Air 12/31/23 07:43 O2 Flow Rate 2 12/31/23 04:00 Results Labs Labs: Abnormal lab results 12/30/23 12/30/23 12/30/23 Range/Units 05:26 09:36 14:11 RBC (4.20-5.40) 10^6/uL RDW (11.0-15.0) % Plt Count (150-450) 10^3/uL MPV (9.5-13.5) fL Neut % (Auto) (43.0-75.0) % Lymph % (Auto) (20.5-60.0) % Eos % (Auto) (0.9-7.0) % Neut # (Auto) (1.4-6.5) 10^3/uL Lymph # (Auto) (1.2-3.8) 10^3/uL [place] # (Auto) (0.3-0.8) 10^3/uL Abs Immat Gran (auto) (0.00-0.03) 10^3/uL Seg Neuts % (Manual) (43.0-75.0) Band Neutrophils % 12.0 H (0-5) % Lymphocytes % (Manual) 13.0 L (20.5-60.0) % Eosinophils % (Manual) 0.0 L (0.9-7.0) % Basophils % (Manual) 0.0 L (0.2-2.0) % Imm/Tot Granulo (auto) (0.0-0.5) % Neutrophils # (Manual) (1.4-6.5) 10^3/uL Band Neutrophils # 0.6 H (0.0-0.3) 10^3/uL Lymphocytes # (Manual) 0.61 L (1.20-3.80) 10^3/uL Sodium (136-145) mmol/L Chloride (98-107) mmol/L Carbon Dioxide (21.0-32.0) mmol/L BUN (7.0-18.0) mg/dL Creatinine (0.55-1.02) mg/dL Est GFR ( Amer) (>=60 mL/min/1.73m^2) Est GFR (Non-Af Amer) (>=60 mL/min/1.73m^2) Glucose (74-106) mg/dL Lactate 2.9 H* 2.7 H* (0.4-2.0) mmol/L Calcium (8.5-10.1) mg/dL Total Bilirubin (0.2-1.0) mg/dL ALT (14-59) U/L NT-Pro-B Natriuret Pep (<=1800.0) pg/mL Total Protein (6.4-8.2) g/dL Albumin (3.4-5.0) g/dL Amylase 22 L (25-115) U/L Lipase <10.0 L (16.0-77.0) U/L 12/30/23 12/30/23 12/31/23 Range/Units 17:30 21:45 05:09 RBC 4.02 L (4.20-5.40) 10^6/uL RDW 16.3 H 16.2 H (11.0-15.0) % Plt Count 84 L 104 L (150-450) 10^3/uL MPV 0.0 L 0.0 L (9.5-13.5) fL Neut % (Auto) 83.6 H (43.0-75.0) % Lymph % (Auto) 4.8 L (20.5-60.0) % Eos % (Auto) 0.0 L (0.9-7.0) % Neut # (Auto) 7.6 H (1.4-6.5) 10^3/uL Lymph # (Auto) 0.4 L (1.2-3.8) 10^3/uL [place] # (Auto) 0.9 H (0.3-0.8) 10^3/uL Abs Immat Gran (auto) 0.11 H (0.00-0.03) 10^3/uL Seg Neuts % (Manual) 82.0 H (43.0-75.0) Band Neutrophils % 6.0 H (0-5) % Lymphocytes % (Manual) 4.0 L (20.5-60.0) % Eosinophils % (Manual) 0.0 L (0.9-7.0) % Basophils % (Manual) 0.0 L (0.2-2.0) % Imm/Tot Granulo (auto) 1.2 H (0.0-0.5) % Neutrophils # (Manual) 7.46 H (1.4-6.5) 10^3/uL Band Neutrophils # 0.5 H (0.0-0.3) 10^3/uL Lymphocytes # (Manual) 0.36 L (1.20-3.80) 10^3/uL Sodium 146 H (136-145) mmol/L Chloride 109 H 112 H (98-107) mmol/L Carbon Dioxide 20.5 L (21.0-32.0) mmol/L BUN 19.0 H 23.0 H (7.0-18.0) mg/dL Creatinine 1.18 H 1.17 H (0.55-1.02) mg/dL Est GFR ( Amer) 53 L 53 L (>=60 mL/min/1.73m^2) Est GFR (Non-Af Amer) 44 L 44 L (>=60 mL/min/1.73m^2) Glucose 115 H (74-106) mg/dL Lactate 3.1 H* 3.3 H* (0.4-2.0) mmol/L Calcium 7.7 L 7.2 L (8.5-10.1) mg/dL Total Bilirubin 1.1 H (0.2-1.0) mg/dL ALT 13 L 10 L (14-59) U/L NT-Pro-B Natriuret Pep 3717.0 H* (<=1800.0) pg/mL Total Protein 5.6 L 5.6 L (6.4-8.2) g/dL Albumin 2.1 L 2.0 L (3.4-5.0) g/dL Amylase 19 L (25-115) U/L Lipase <10.0 L (16.0-77.0) U/L Diabetes panel 12/30/23 12/31/23 Range/Units 17:30 05:09 Sodium 143 146 H (136-145) mmol/L Potassium 4.2 3.9 (3.5-5.1) mmol/L Chloride 109 H 112 H (98-107) mmol/L Carbon Dioxide 22.8 20.5 L (21.0-32.0) mmol/L BUN 19.0 H 23.0 H (7.0-18.0) mg/dL Creatinine 1.18 H 1.17 H (0.55-1.02) mg/dL Glucose 95 115 H (74-106) mg/dL Calcium 7.7 L 7.2 L (8.5-10.1) mg/dL AST 20 16 (15-37) U/L ALT 13 L 10 L (14-59) U/L Alkaline Phosphatase 82 79 (46-116) U/L Total Protein 5.6 L 5.6 L (6.4-8.2) g/dL Albumin 2.1 L 2.0 L (3.4-5.0) g/dL Calcium panel 12/30/23 12/31/23 Range/Units 17:30 05:09 Calcium 7.7 L 7.2 L (8.5-10.1) mg/dL Albumin 2.1 L 2.0 L (3.4-5.0) g/dL Pituitary panel 12/30/23 12/31/23 Range/Units 17:30 05:09 Sodium 143 146 H (136-145) mmol/L Potassium 4.2 3.9 (3.5-5.1) mmol/L Chloride 109 H 112 H (98-107) mmol/L Carbon Dioxide 22.8 20.5 L (21.0-32.0) mmol/L BUN 19.0 H 23.0 H (7.0-18.0) mg/dL Creatinine 1.18 H 1.17 H (0.55-1.02) mg/dL Glucose 95 115 H (74-106) mg/dL Calcium 7.7 L 7.2 L (8.5-10.1) mg/dL Adrenal panel 12/30/23 12/31/23 Range/Units 17:30 05:09 Sodium 143 146 H (136-145) mmol/L Potassium 4.2 3.9 (3.5-5.1) mmol/L Chloride 109 H 112 H (98-107) mmol/L Carbon Dioxide 22.8 20.5 L (21.0-32.0) mmol/L BUN 19.0 H 23.0 H (7.0-18.0) mg/dL Creatinine 1.18 H 1.17 H (0.55-1.02) mg/dL Glucose 95 115 H (74-106) mg/dL Calcium 7.7 L 7.2 L (8.5-10.1) mg/dL Total Bilirubin 1.1 H 0.9 (0.2-1.0) mg/dL AST 20 16 (15-37) U/L ALT 13 L 10 L (14-59) U/L Alkaline Phosphatase 82 79 (46-116) U/L Total Protein 5.6 L 5.6 L (6.4-8.2) g/dL Albumin 2.1 L 2.0 L (3.4-5.0) g/dL All other labs normal. Assessment and Plan Assessment and Plan (1) Altered mental status: (2) Closed head injury: (3) Enterovirus enteritis: Assessment and Plan: 1. Continue supportive care for acute enterovirus symptoms, emesis, loose stools, generalized abdominal discomfort 2. RUQ US indeterminant, no pericholecystic fluid, negative Cottrell's sign and only slightly thickened GB wall, at this time patient's symptoms are more characteristic with acute viral illness (2-3 days emesis with anorexia and loose stools). Ok for Abx coverage given possibility of a chronic cholecystitis picture. Given age, oral AC use and comorbidities if high concern for GB driving the pathology then patient would be recommended for a percutaneous cholecystostomy tube over a surgery at this time. 3. Patient can follow up with Dr. Ambrose as an out patient as she has established care with him 4. Ok for diet to be advanced as tolerated. Recommend patient be on a low/no fat diet and avoid greasy foods. Even on discharge patient should adopt a bland diet. 5. Total bilirubin .9 (normal), no elevated AST/ALT, severe electrolyte deficiencies, continue replacement, MG, Phos, K+ 6. Contact general surgery with any questions or concerns
[2023-12-31 08:03] LABS: A. calcoaceticus-baumannii Cpx NOT DETECTED (NOT DETECTE); Candida albicans NOT DETECTED (NOT DETECTE); Candida auris NOT DETECTED (NOT DETECTE); Candida glabrata NOT DETECTED (NOT DETECTE); Candida krusei NOT DETECTED (NOT DETECTE); Candida parapsilosis NOT DETECTED (NOT DETECTE); Candida tropicalis NOT DETECTED (NOT DETECTE); Cryptococcus neoformans/gattii NOT DETECTED (NOT DETECTE); Enterobacter cloacae complex NOT DETECTED (NOT DETECTE); Enterobacterales NOT DETECTED (NOT DETECTE); Enterococcus faecalis NOT DETECTED (NOT DETECTE); Enterococcus faecium NOT DETECTED (NOT DETECTE); Haemophilus influenzae NOT DETECTED (NOT DETECTE); Klebsiella aerogenes NOT DETECTED (NOT DETECTE); Klebsiella pneumoniae group NOT DETECTED (NOT DETECTE); Listeria monocytogenes NOT DETECTED (NOT DETECTE); Neisseria meningitidis NOT DETECTED (NOT DETECTE); Proteus spp. NOT DETECTED (NOT DETECTE); Pseudomonas aeruginosa NOT DETECTED (NOT DETECTE); Salmonella spp. NOT DETECTED (NOT DETECTE); Serratia marcescens NOT DETECTED (NOT DETECTE); Staphylococcus epidermidis NOT DETECTED (NOT DETECTE); Staphylococcus lugdunensis NOT DETECTED (NOT DETECTE); Staphylococcus spp. NOT DETECTED (NOT DETECTE); Stenotrophomonas maltophilia NOT DETECTED (NOT DETECTE); Streptococcus agalactiae NOT DETECTED (NOT DETECTE); Streptococcus pneumoniae NOT DETECTED (NOT DETECTE); Streptococcus pyogenes NOT DETECTED (NOT DETECTE)
[2023-12-31] MEDS: AZITHROMYCIN 500 MG in 0.9 % SODIUM CHLORIDE 250 ML 250 MG IV (08:43)
[2023-12-31] MEDS: MONTELUKAST SODIUM 10 MG TABLET PO (08:46)
[2023-12-31] MEDS: APIXABAN 5 MG TABLET 2.5 MG PO ×2 (08:46→20:47)
[2023-12-31] MEDS: CARVEDILOL 12.5 MG TABLET PO ×2 (08:46→20:46)
[2023-12-31] MEDS: PROSTAT 15 GM PROTEIN/100 CAL 30 ML LIQUID PACKET PO ×2 (08:46→20:44)
[2023-12-31] MEDS: CHOLECALCIFEROL (VITAMIN D3) 125 MCG/5,000 UNIT TABLET PO (08:46)
[2023-12-31] MEDS: POLYETHYLENE GLYCOL 3350 17 GM POWDER PACKET PO ×2 (08:46→20:45)
[2023-12-31 09:18] LABS: Source BLOOD
[2023-12-31 09:20] LABS: Streptococcus spp. DETECTED (NOT DETECTE)
[2023-12-31 09:21] LABS: Bacteroides fragilis DETECTED (NOT DETECTE)
--- NOTE | 2023-12-31 09:42 | PT.DAILY ---
Physical Therapy Daily Note PT Daily Note/Assess Start: 12/31/23 09:39 Freq: Status: Active Protocol: Document 12/31/23 09:08 LETITIA (Rec: 12/31/23 09:42 LETITIA [id number]) Physical Therapy Daily Note/Assessment Time In/Time Out Time In 09:08 Time Out 09:23 Subjective Subjective Patient reports pain levels are still high, but moving better today. Up in chair when PT presents. Therapeutic Exercise Time Therapeutic Exercise Minutes (minutes) 5 Therapeutic Exercise Units 0 Therapeutic Exercise Treatment Therapeutic Exercise Treatment Seated exercises B LE in all planes with AROM and isometrics to promote improved strength to improve transfers and gait. Therapeutic Activity Time Therapeutic Activity Minutes (minutes) 10 Therapeutic Activity Units 1 Therapeutic Activity Treatment Chair Transfer Ability Contact Guard Assist Therapeutic Activity Comments Sit to stand CGA/SBA. Static standing at RW 3 min with weight shifting to promote WB to R LE. Gait 5-10' with RW CGA. (fwd./retro) Total Physical Therapy Time Total Therapy Minutes 15 Total Physical Therapy Units 1 Summary Daily Note Summary Patient continues to complain of high pain levels but demonstrates improved function with transfers and gait today . Patient would benefit from additional PT post DC, most likely HHPT vs OPPT. Patient was up in chair with all needs met and call light in reach post RX.
[2023-12-31] MEDS: MEMANTINE HCL 28 MG CAP XR PO (11:16)
[2023-12-31] MEDS: ACETAMINOPHEN 500 MG TABLET 1000 MG PO (20:46)
[2023-12-31] MEDS: FAMOTIDINE 20 MG TABLET 40 MG PO (20:46)
[2023-12-31] MEDS: ENSURE HP 237 ML LIQUID PO (20:47)
[2023-12-31] MEDS: 0.9 % SODIUM CHLORIDE 250 ML 30 ML IV (20:48)
[2023-12-31] MEDS: LATANOPROST 0.005% 2.5 ML BOTTLE 1 DROP OP (23:28)
[2024-01-01] VITALS (13 sets, daily range): BP systolic 106–132; BP diastolic 53–77; PULSE 45–85; TEMP 36.3–36.7; O2SAT 90–94
[2024-01-01] MEDS: PIPERACILLIN SODIUM/TAZOBACTAM 3.375 GM in 0.9 % SODIUM CHLORIDE 50 ML IV (04:05)
[2024-01-01 05:29] LABS: Basophils Percent Auto 0.3 % (0.2-2.0); Eosinophils Percent Auto 0.2 % (0.9-7.0); Hematocrit 35.4 % (36.0-48.0); Hemoglobin 11.5 g/dL (12.0-16.0); Immature Granulocytes Abs Auto 0.08 10^3/uL (0.00-0.03); Immature Granulocytes Pct Auto 0.7 % (0.0-0.5); Lymphocytes Absolute Auto 0.7 10^3/uL (1.2-3.8); Lymphocytes Percent Auto 6.1 % (20.5-60.0); Mean Corpuscular HGB Conc 32.5 g/dL (29.9-35.2); Mean Corpuscular Hemoglobin 29.9 pg (26.7-34.0); Mean Corpuscular Volume 92.2 fL (81.0-99.0); Monocytes Absolute Auto 0.9 10^3/uL (0.3-0.8); Monocytes Percent Auto 7.7 % (1.7-12.0); Neutrophils Absolute Auto 9.5 10^3/uL (1.4-6.5); Platelet Count 146 10^3/uL (150-450); Red Blood Count 3.84 10^6/uL (4.20-5.40); Red Cell Distribution Width 16.2 % (11.0-15.0); White Blood Count 11.1 10^3/uL (4.0-11.0)
[2024-01-01 05:44] LABS: Magnesium 2.2 mg/dL (1.8-2.4)
[2024-01-01] MEDS: HYOSCYAMINE SULFATE 0.125 MG TAB.SUBL 0.25 MG SL ×2 (05:53→11:19)
[2024-01-01 05:56] LABS: Alanine Aminotransferase 11 U/L (14-59); Albumin Globulin Ratio 0.5; Alkaline Phosphatase 86 U/L (46-116); Anion Gap 14.7; Aspartate Amino Transferase 15 U/L (15-37); BUN Creatinine Ratio 27.9; Bilirubin Total 0.8 mg/dL (0.2-1.0); Calcium 7.9 mg/dL (8.5-10.1); Chloride 110 mmol/L (98-107); Estimated GFR (African America >60 (>=60 mL/min/1.73m^2); Estimated GFR (Non-African Ame 50 (>=60 mL/min/1.73m^2); Globulin 3.9 g/dL; Glucose 98 mg/dL (74-106); Potassium 3.7 mmol/L (3.5-5.1); Sodium 141 mmol/L (136-145); Total Protein 5.9 g/dL (6.4-8.2)
--- NOTE | 2024-01-01 08:30 | CM.NOTE ---
2nd Notice of Important Message From Medicare discussed with pt, denies questions or concerns.
--- NOTE | 2024-01-01 08:35 | P.DS_ITS ---
DS: Providers Provider Date of admission: 12/30/23 09:09 Primary care physician: Non-Staff Physician, Consults: 12/30/23 02:00 Consult to TeleNeurology Routine Reason for consultation: Altered mental status 12/30/23 05:58 Consult to Pharmacy Routine Consulting Provider: Reason for consultation: Please Zullinger me when Med Rec is Updated Has provider been notified: No Occupational Therapy Eval and Treat Routine Reason for consultation: Only if needed for Rehab Has provider been notified: No Physical Therapy Eval and Treat Routine Reason for consultation: Eval and Treat Has provider been notified: No 12/30/23 16:57 Consult to General Surgeon Routine Consulting Provider: Louie Umana Reason for consultation: acute cholecystitis Has provider been notified: No DS: Diagnosis Discharge Diagnosis (1) Altered mental status: (2) Closed head injury: (3) Cholelithiasis: (4) Dementia: (5) Hypertension: (6) Gastric reflux: Plan Admission findings: Respiratory distress, hypotension, acute hypoxia with O2 sat of 84%, neutropenia with bandemia, hyperglycemia and lactic acidosis. Resulting in sepsis with possible infectious source urine versus abdomen Sepsis with bandemia, neutropenia, respiratory distress, hypotension and lactic acidosis-with elevated BNP and edema will hold off on aggressive hydration.- Start IV antibiotics infectious sources possibility would be urine or abdomen if she has significant abdominal tenderness and a history of cholelithiasis,--proving at the time of discharge Abdominal pain with elevated liver function tests and hyperbilirubinemia- improving at the time of discharge Acute UTI-culture pending-check and culture after discharge Elevated BNP-improved today. Egzrwakzkfhgl-[id number] as an outpatient Severe protein calorie malnutrition-diet supplement GERD-continue with home medications History of atrial fibrillation-currently anticoagulated Hypertension-hold medications for hypotension Dementia-continue with home medications Hypercholesterolemia-continue with home medications Admission status: Patient with acute altered mental status and sepsis, likely intra-abdominal source, CT scan is pending, medically necessary treatment will span 2 midnights. Inpatient status. Urinary Catheter Management Urinary Catheter Management 2-way Urethral: Cath placed during this visit: yes Urethral indwelling: No Insertion date: 12/29/23 Insertion time: 22:13 DS: Summary Hospital Course Hospital Course: Patient was seen and evaluated in the emergency room with increasing altered mental status. Found to have acute UTI but also increasing abdominal pain. She has a history of cholelithiasis. She was placed on clear liquids, treated with IV antibiotics and fluids for the UTI. Not significantly better from an abdominal tenderness standpoint the following dates of surgery was consulted. Ultrasound obtained which showed based on surgical impression no acute cholecystitis. He is suspecting more acute gastroenteritis. Patient is improved today. She did eat well breakfast and lunch. Labs are improving. Cultures are still pending but responding to antibiotics. At this point should be discharged to home in improving condition. Medications see list. Follow-up with PCP within the next week. Status at Discharge Overall status at discharge: patient is not back to baseline Time Spent with Patient Time attestation: Total time spent providing and/or coordinating discharge services: Time spent: greater than 30 minutes Quality: Stroke Onset of Symptoms Date: 12/29/23 Symptom Onset Unknown: Yes Exam Constitutional Vital Signs, click to edit/add: Last Vital Signs Temp 97.4 F L 01/01/24 07:43 Pulse 84 01/01/24 08:00 Resp 18 01/01/24 07:53 BP 119/53 01/01/24 07:43 Pulse Ox 90 L 01/01/24 07:50 O2 Del Method Room Air 01/01/24 07:50 O2 Flow Rate 2 12/31/23 04:00 Documenting provider has reviewed patient's vital signs: yes Common normals: no apparent distress HENMT Common normals: normocephalic Chest Common normals: inspection of chest normal Respiratory Common normals: normal respiratory effort (Somewhat shallow respirations) Auscultation: no rhonchi Cardio Common normals: regular rate and regular rhythm GI Common normals: Normal to inspection, nondistended, normoactive bowel sounds present and soft to palpation; tender (Minimal newness) Palpation: tender (Minimal diffuse tenderness) Extremity Common normals: abnormal to inspection (2+ edema) DS: Data Data Completed and Pending Labs on day of discharge: Labs from last 24 hours 01/01/24 12/29/23 04:44 21:50 WBC 11.1 H RBC 3.84 L Hgb 11.5 L Hct 35.4 L MCV 92.2 MCH 29.9 MCHC 32.5 RDW 16.2 H Plt Count 146 L MPV 13.0 Neut % (Auto) 85.0 H Lymph % (Auto) 6.1 L [place] % (Auto) 7.7 Eos % (Auto) 0.2 L Baso % (Auto) 0.3 Neut # (Auto) 9.5 H Lymph # (Auto) 0.7 L [place] # (Auto) 0.9 H Eos # (Auto) 0.0 Baso # (Auto) 0.0 Abs Immat Gran (auto) 0.08 H Imm/Tot Granulo (auto) 0.7 H Sodium 141 Potassium 3.7 Chloride 110 H Carbon Dioxide 20.0 L Anion Gap 14.7 BUN 29.0 H Creatinine 1.04 H Est GFR ( Amer) >60 Est GFR (Non-Af Amer) 50 L BUN/Creatinine Ratio 27.9 Glucose 98 Calcium 7.9 L Magnesium 2.2 Total Bilirubin 0.8 AST 15 ALT 11 L Alkaline Phosphatase 86 NT-Pro-B Natriuret Pep 3919.0 H* Total Protein 5.9 L Albumin 2.0 L Globulin 3.9 Albumin/Globulin Ratio 0.5 Specimen Source Blood A.calcoaceticus-baumannii cmplx PCR Not detected Bacteroides fragilis Detected A* Catherine albicans (PCR) Not detected Catherine auris (PCR) Not detected C. glabrata (PCR) Not detected C. krusei (PCR) Not detected C. parapsilosis (PCR) Not detected C. tropicalis (PCR) Not detected C. neoform/gattii (PCR) Not detected Enterobacterales (PCR) Not detected E. cloacae complex PCR Not detected Enterococc faecalis PCR Not detected Enterococc faecium PCR Not detected E. coli (PCR) Not detected H. influenzae (PCR) Not detected Klebsiella aerogenes (PCR) Not detected Klebsiella oxytoca PCR Not detected K. pneumoniae group (PCR) Not detected List. monocytogenes PCR Not detected N. meningitidis (PCR) Not detected Proteus spp. (copies/mL) Not detected Salmonella spp. (PCR) Not detected Serratia marcescens PCR Not detected Staphylococcus sp PCR Not detected Staph aureus (PCR) Not detected mecA/C & MREJ Resist Gene Not applicable mecA/C-Methicil Resis Gene Not applicable mcr-1 Colistin Res Gene PCR Not applicable Staph epidermidis (PCR) Not detected Staph lugdunensis (TEM-PCR) Not detected S. maltophilia (PCR) Not detected Streptococcus sp PCR Detected A* Strep agalactiae (PCR) Not detected Strep pneumoniae (PCR) Not detected S. pyogenes (PCR) Not detected P. aeruginosa (PCR) Not detected Ruiz/B-Vanco Res Genes Not applicable blaIMP Car res Gene PCR Not applicable KPC (blaKPC) Detect PCR Not applicable NDM (blaNDM) Detect PCR Not applicable OXA-48 Carbapenem Resis Gene (PCR) Not applicable blaVIM Car Res Gene PCR Not applicable CTX-M ESBL (PCR) Not applicable Preliminary micro results at discharge 12/29/23 21:50 Blood Culture Result 2 - Preliminary Blood 12/29/23 20:52 Blood Culture Result 1 - Preliminary Blood Discharge Plan Discharge Disposition: Home Health Service Condition: Fair Discharge Medications: New hyoscyamine sulfate 0.125 mg Tablet, Sublingual 0.25 mg sublingual QID Qty: 20 0RF cefdinir 300 mg capsule 600 mg PO DAILY Qty: 20 0RF Continued atorvastatin 40 mg tablet 40 mg PO .qd@17 carvedilol 12.5 mg tablet 12.5 mg PO Q12H Rx Instructions: LESS THAN 1110 HOLD spironolactone 25 mg tablet 25 mg PO .QD famotidine 40 mg tablet 40 mg PO .QHS latanoprost 0.005 % drops 1 drp OPHTHALMIC (EYE) .QHS polyethylene glycol 3350 [ClearLax] 17 gram/dose powder 17 g PO BID cholecalciferol (vitamin D3) 125 mcg (5,000 unit) capsule 5,000 unit PO DAILY colesevelam [WelChol] 625 mg tablet 1,875 mg PO DAILY acetaminophen [Tylenol Extra Strength] 500 mg tablet 500 mg PO Q6H PRN (Reason: fever or pain) montelukast 10 mg tablet 10 mg PO DAILY memantine 10 mg tablet 10 mg PO BID Eliquis 2.5 mg tablet 2.5 mg PO Q12H Discontinued famotidine 40 mg tablet 40 mg PO .QHS atorvastatin 40 mg tablet 40 mg PO DAILY spironolactone 25 mg tablet 25 mg PO QAM diltiazem HCl 120 mg capsule,extended release 24hr 120 mg PO Q24H Activity: resume usual activities as tolerated Diet: other Diet Detail: bland Print Language: Swedish Patient Instructions: Hyoscyamine (By mouth), Cefdinir (By mouth), Acute Nausea and Vomiting (DC), Abdominal Pain (DC), Altered Mental Status (ED) Hose Finisher/Hand Lacer Instructions: Discharge home with [facility]. Phone number is [phone]. They should reach out within 48 hours of discharge. Forms: Portal Instructions Follow Up Appointments: @ 2:45pm with Dr. Patel [phone] Discharge Date/Time: 01/01/24 12:57
--- NOTE | 2024-01-01 08:37 | CM.NOTE ---
Rounds made with Dr. Berrios, pt up in chair this AM. Pt still having some abdominal tenderness but voices it is much better. Pt will discharge to home today with [facility]. Pt to f/u with PCP in one week.
--- NOTE | 2024-01-01 09:46 | REH.PTDLY ---
Physical Therapy Daily Note PT Daily Note/Assess Start: 12/31/23 09:39 Freq: Status: Active Protocol: Document 01/01/24 09:36 JAYCOB (Rec: 01/01/24 09:46 HAROONARMANI [id number]) Physical Therapy Daily Note/Assessment Time In 09:10 Time Out 09:25 Subjective Pt up in chair upon arrival, agreeable to therapy. Reports she is feeling better today. Therapeutic Exercise Minutes (minutes) 7 Therapeutic Exercise Units 0 Therapeutic Exercise Treatment Instructed in B LE seated exs 10x ea for improved strength with AP, marching, hip add, LAQ, and hip abd step outs. Standing with UE support of RW marching and mini squats 10x ea with fatigue noted. Therapeutic Activity Minutes (minutes) 8 Therapeutic Activity Units 1 Therapeutic Activity Comments Sit to stand from chair 4x in a row with pt pushing off from arms SBA. Gait training with RW 100 feet with no LOB noted, SBA from therapist. Pt reports some fatigue with this upon sitting back in chair. Total Therapy Minutes 15 Total Physical Therapy Units 1 Daily Note Summary Progressed gait distance today with no complaints of pain, mild fatigue. Progressed with exs today as well with good ROM noted, pt again fatigues with standing exs. Overall pt is much improved since initial eval. Possible DC to home with HH today.
[2024-01-01] MEDS: APIXABAN 5 MG TABLET 2.5 MG PO (10:08)
[2024-01-01] MEDS: CARVEDILOL 12.5 MG TABLET PO (10:08)
[2024-01-01] MEDS: MEMANTINE HCL 28 MG CAP XR PO (10:08)
[2024-01-01] MEDS: CHOLECALCIFEROL (VITAMIN D3) 125 MCG/5,000 UNIT TABLET PO (10:09)
[2024-01-01] MEDS: MONTELUKAST SODIUM 10 MG TABLET PO (10:09)
[2024-01-01] MEDS: PROSTAT 15 GM PROTEIN/100 CAL 30 ML LIQUID PACKET PO (10:09)
[2024-01-01] MEDS: AZITHROMYCIN 500 MG in 0.9 % SODIUM CHLORIDE 250 ML 250 MG IV (10:09)
--- NOTE | 2024-01-01 13:43 | SWNOTE1 ---
[facility] accepted pt. SW sent dc med rec, CRF, dc summary, and PT note from today to [facility]. Pt is discharging today.
--- NOTE | 2024-01-03 12:52 | CM.DCFOLLOWU ---
01/02- Fast busy signal tried twice.
== END 2024-01-01 12:57 | disposition home health service (06) | DRG 871 ==
LOC: ER 23:52 → MS 12-30 09:12
PROVIDERS: Registered Nurse; Admitting Provider Family Medicine; Emergency Provider Emergency Medicine; Visit Provider Family Medicine
DX: A41.9 Sepsis, unspecified organism (principal); E43 Unspecified severe protein-calorie malnutrition; E87.20 Acidosis, unspecified; N39.0 Urinary tract infection, site not specified; A08.39 Other viral enteritis; D70.9 Neutropenia, unspecified; R06.03 Acute respiratory distress; R10.9 Unspecified abdominal pain; E80.6 Other disorders of bilirubin metabolism; I11.0 Hypertensive heart disease with heart failure; I50.9 Heart failure, unspecified; R79.89 Other specified abnormal findings of blood chemistry; R60.9 Edema, unspecified; R73.9 Hyperglycemia, unspecified; K21.9 Gastro-esophageal reflux disease without esophagitis; I48.91 Unspecified atrial fibrillation; E78.00 Pure hypercholesterolemia, unspecified; F03.90 Unspecified dementia, unspecified severity, without behavioral disturbance, psychotic disturbance, mood disturbance, and anxiety; Z68.21 Body mass index [BMI] 21.0-21.9, adult; Z79.01 Long term (current) use of anticoagulants; Z95.0 Presence of cardiac pacemaker; Z90.49 Acquired absence of other specified parts of digestive tract; Z87.891 Personal history of nicotine dependence; Z66 Do not resuscitate; Z20.822 Contact with and (suspected) exposure to COVID-19; Z87.19 Personal history of other diseases of the digestive system
CPT/HCPCS: 36415; 70450; 71045; 74022; 74177; 76705; 80048; 80053; 80076; 80179; 80307; 80320; 80329; 81001; 82140; 82150; 82948; 83605; 83690; 83735; 83880; 84436; 84443; 84484; 85007; 85025; 85027; 87040; 87086; 87150; 87186; 87804; 87811; 93005; 93306; 94667; 94761; 96361; 96365; 96367; 96375; 96376; 97162; 97165; 97530; 97535; 99285; J0456; J0696; J1230; J2405; J2543; Q9967

== ENCOUNTER 2024-04-21 09:55 | Outpatient (OUT) | payer MEDICARE, SELFPAY ==
--- NOTE | 2024-04-21 | PCN_ITS ---
CARDIAC STRESS TEST Requesting Physician: Procedure Date: 04/21/2024 DIAGNOSIS: Abnormal echocardiogram, coronary artery disease, weakness. METHODS: The patient was brought to the stress lab in a resting and fasting state. She underwent a pharmacological stress test using 0.4 mg of intravenous Lexiscan. She was monitored for the standard duration and transferred to the Radiology Department for nuclear imaging. Technetium Cardiolite was injected per protocol. FINDINGS: HEMODYNAMICS: Resting heart rate was 70 beats per minute, increasing to a maximum of 80 beats per minute. Resting blood pressure was 151/95, decreasing to a minimum of 130/60. SYMPTOMS: None reported. ARRHYTHMIAS: Patient had premature ventricular contractions, couplets. ELECTROCARDIOGRAPHY: Rest EKG: This shows a paced rhythm with probable underlying atrial fibrillation. Abnormal resting EKG. During infusion and recovery: Premature ventricular contractions/fusion beats were noted, no significant change in rhythm was seen. FINAL IMPRESSIONS: 1. Uninterpretable Lexiscan stress test due to the presence of a paced rhythm. 2. Nuclear images are to be read, interpreted and reported in a separate dictation. [facility]Aye
--- OUTSIDE RECORDS SUMMARY | 2024-04-21 10:00 | XMS_ITS | CCD ---
Author Organization [facility] Care Team Providers Care Starter Mechanic Name Role Phone NOBLE MONTGOMERY Admitting Unavailable NOBLE MONTGOMERY Attending Unavailable VALONEELIUD Referring Unavailable VALONE, ELIUD Primary Care Unavailable VALONE, DR FREEMAN Primary Care Unavailable SOHA JEFFERSON Attending Unavailable SHOA JEFFERSON Admitting Unavailable VALONE, DR FREEMAN Primary Care Unavailable PAY ., DR GLORIA Attending Unavailable PAY ., DR GLORIA Admitting Unavailable PAY ., DR GLORIA Consulting Unavailable NICOLASMERCEDEZ Consulting Unavailable VALONE, DR FREEMAN Primary Care Unavailable HAY ., DR HINDS Attending Unavailable HAY ., DR HINDS Admitting Unavailable ZIEBER, DR CRUZITO Carrera Consulting Unavailable HAY ., DR HINDS Consulting Unavailable SOHA JEFFERSON Attending Unavailable SOHA JEFFERSON Admitting Unavailable LISOHA Pat Consulting Unavailable VALONE, DR FREEMAN Primary Care Unavailable CHARLY ESPINO Attending Unavailable CHARLY ESPINO Admitting Unavailable WEST, DR RADHA Rader Consulting Unavailable VALONE, DR FREEMAN Primary Care Unavailable CHARLY ESPINO Consulting Unavailable VALONE, DR FREEMAN Primary Care Unavailable CHARLY ESPINO Attending Unavailable SRINIVASCHARLY LI Admitting Unavailable ZIEBER, DR CRUZITO Carrera Consulting Unavailable CHARLY ESPINO Consulting Unavailable VALONE, DR FREEMAN Primary Care Unavailable CHARLY ESPINO Attending Unavailable CHARLY ESPINO Admitting Unavailable WEST, DR RADHA Rader Consulting Unavailable CHARLY ESPINO Consulting Unavailable VALONE, DR FREEMAN Primary Care Unavailable CHARLY ESPINO Attending Unavailable CHARLY ESPINO Admitting Unavailable WEST, DR RADHA Rader Consulting Unavailable CHARLY ESPINO Consulting Unavailable SOHA JEFFERSON Admitting Unavailable LISOHA Pat Consulting Unavailable SOHA JEFFERSON Attending Unavailable VALONE, DR FREEMAN Primary Care Unavailable VALONE, DR FREEMAN Attending Unavailable VALONE, DR FREEMAN Admitting Unavailable VALONE, DR FREEMAN Primary Care Unavailable VALONE, DR FREEMAN Primary Care Unavailable ROMMEL ., REMI Admitting Unavailable ROMMEL ., REMI Attending Unavailable Maile Daniels Consulting Unavailable ROMMEL Saeed, REMI Consulting Unavailable ADRIA NAILS Attending Unavailable VALONE, ELIUD Trujillo Referring Unavailable TATTERSALLROSANNA Attending Unavailable VALONE, ELIUD Trujillo Referring Unavailable TATTERSALL, ROSANNA Attending Unavailable VALONE, ELIUD L Referring Unavailable TATTERSALLROSANNA Attending Unavailable VALONE, ELIUD Trujillo Referring Unavailable DHARA HART Attending Unavailable VALONE, ELIUD Trujillo Referring Unavailable APLING, YENIFER Wheat Attending Unavailable APLING, YENIFER Wheat Attending Unavailable APLING, YENIFER Wheat Referring Unavailable APLING, YENIFER Wheat Attending Unavailable APLING, YENIFER Wheat Referring Unavailable VALONE, ELIUD Referring Unavailable NILLMercedez Attending Unavailable Hardy Leon Admitting Unavailable Hardy Leon Attending Unavailable Valone, Eliud Cassandra Primary Care Unavailable Valone, Eliud Cassandra Admitting Unavailable Valone, Eliud Trujillo Attending Unavailable Valone Eliud TEJEDA Primary Care Provider PALAK DUMONT Attending Unavailable VALONE JR, ELIUD L Referring Unavailable VALONE JR, ELIUD L Primary Care Unavailable MERCEDEZ LOE Referring Unavailable VALONE JR, ELIUD L Primary Care Unavailable VALONE JR, ELIUD L Primary Care Unavailable SIXTO PHELPS Attending Unavailable GENNARO BENNETT Attending Unavailable GENNARO BENNETT Referring Unavailable VALONE JR, ELIUD L Primary Care Unavailable GENNARO BENNETT Attending Unavailable GENNARO BENNETT Referring Unavailable VALONE JR, ELIUD L Primary Care Unavailable GENNARO BENNETT Attending Unavailable GENNARO BENNETT Referring Unavailable VALONE JR, ELIUD L Primary Care Unavailable VALONE JR, ELIUD L Primary Care Unavailable DEMIAN ALVAREZ Attending Unavailable MERCEDEZ LEO Attending Unavailable MERCEDEZ LEO Referring Unavailable VALONE JR, ELIUD L Primary Care Unavailable MERCEDEZ LEO Attending Unavailable MERCEDEZ LEO Referring Unavailable VALONE JR, ELIUD L Primary Care Unavailable Valone Jr.DO Charles L Primary Care Provider OLIVIA NIETO Attending Unavailable VALONE JR ELIUD L Referring Unavailable VALONE JR, ELIUD L Primary Care Unavailable MERCEDEZ LEO Attending Unavailable VALONE JR, ELIUD Cassandra Referring Unavailable BRANDEN JR ELIUD Cassandra Primary Care Unavailable OLIVIA NIETO Attending Unavailable BRANDEN JR ELIUD Cassandra Referring Unavailable BRANDEN JR ELIUD Cassandra Primary Care Unavailable BRANDEN JR ELIUD Cassandra Primary Care Unavailable CHELSEA, CARITO Consulting Unavailable MERCEDEZ LEO Attending Unavailable BRANDEN REARDON ELIUD Cassandra Referring Unavailable BRANDEN JR ELIUD Cassandra Primary Care Unavailable MERCEDEZ LEO Attending Unavailable JOECAMILLA REARDON ELIUD Cassandra Referring Unavailable JOECAMILAL REARDON ELIUD Cassandra Primary Care Unavailable SOHA JEFFERSON Referring Unavailable SOHA JEFFERSON Referring Unavailable FRANKIE CODY Attending Unavailable Medications Current Medications Medication Drug Class(es) Dates Sig (Normalized) Sig (Original) acetaminophen 500 mg oral tablet (16 sources) Start: 08-10-2019 take 1 tablet by mouth every six hours as needed for pain acetaminophen (TYLENOL EXTRA STRENGTH) 500 mg tablet Take 1 tablet (500 mg total) by mouth every 6 (six) hours as needed for pain. 30 tablet 08/10/2019 Active apixaban 2.5 mg oral tablet (19 sources) Factor Xa Inhibitor apixaban (ELIQUIS) 2.5 mg tablet Take by mouth 2 (two) times a day. Active take 1 tablet by mouth every twe lve hours Eliquis 2.5 MG tablet Take 2.5 mg by mouth every 12 (twelve) hours Active atorvastatin 40 mg oral tablet (6 sources) HMG-CoA Reductase Inhibitor Start: 08-16-2023 take 1 tablet by mouth at bedtime atorvastatin (Lipitor) 40 MG tablet Take 40 mg by mouth at bedtime 08/16/2023 Active C,E,zinc,copper 11/rbmcw4s/lut (OCUVITE ADULT 50 PLUS ORAL) (16 sources) take 1 tablet by mouth once daily C,E,zinc,copper 11/jpmxz6a/lut (OCUVITE ADULT 50 PLUS ORAL) Take 1 tablet by mouth daily. Active take 1 tablet by mouth once stella y C,E,zinc,copper 11/ljjte5c/lut (OCUVITE ADULT 50 PLUS ORAL) Take 1 tablet by mouth daily. 0 Active carvedilol 12.5 mg oral tablet (20 sources) alpha-Adrenergic Moises, beta-Adrenergic Moises Start: 06-30-2023 take 1 tablet by mouth twice daily carvedilol (Coreg) 12.5 MG tablet TAKE 1 TABLET BY MOUTH TWICE DAILY (HOLD IF BP IS LESS THAN 110) 06/30/2023 Active take 0.5 tablet by mouth twice d aily carvedilol (Coreg) 25 MG tablet Take 0.5 tablets twice a day by oral route for 90 days. Active cholecalciferol 0.125 mg oral tablet (20 sources) Vitamin D take 1 tablet by mouth in the morning cholecalciferol, vitamin D3, 5,000 units tablet Take 1 tablet (5,000 Units total) by mouth in the morning. Active cholecalciferol (Vitamin D-3) 125 MCG (5000 UT) tablet 1 (one) time each day at the same time Active colesevelam hydrochloride 625 mg oral tablet (16 sources) Bile Acid Sequestrant take 3 tablets by mouth in the morning colesevelam (WELCHOL) 625 mg tablet Take 3 tablets (1,875 mg total) by mouth in the morning. Active 24 hr dilTIAZem hydrochloride 120 mg extended release oral capsule (6 sources) Calcium Channel Moises Start: 4 take 1 capsule by mouth once daily in the morning dilTIAZem CD (Cardizem CD) 120 MG 24 hr capsule TAKE 1 CAPSULE BY MOUTH ONCE DAILY IN THE MORNING 08/08/2023 Active famotidine 40 mg oral tablet (9 sources) Histamine-2 Receptor Antagonist Start: 4 take 1 tablet by mouth at bedtime famotidine (Pepcid) 40 MG tablet Take 40 mg by mouth at bedtime 08/12/2023 Active famotidine (Pepc id) 20 MG tablet Take by mouth twice a day Active ferrous sulfate (3 sources) take 1 tablet by mouth in the morning Ferrous Sulfate (IRON PO) Take 1 tablet by mouth in the morning and 1 tablet in the evening. Active latanoprost 0.05 mg/ml ophthalmic solution (3 sources) Prostaglandin Analog Start: 08-07-19 24 take 1 drop(s) into the eye(s) at bedtime latanoprost (Xalatan) 0.005 % ophthalmic solution INSTILL 1 DROP INTO EACH EYE AT BEDTIME 08/07/2023 Active memantine hydrochloride 10 mg oral tablet (20 sources) S-qfyxyh-Z-aspartate Receptor Antagonist Start: 08-11-19 24 take 1 tablet by mouth in the morning memantine (Namenda) 10 MG tablet Take 10 mg by mouth in the morning and 10 mg before bedtime. 08/11/2023 Active montelukast 10 mg oral tablet (20 sources) Leukotriene Receptor Antagonist Start: 06-23-19 24 take 1 tablet by mouth once daily montelukast (Singulair) 10 MG tablet Take 10 mg by mouth Daily 06/23/2023 Active tqaoagsm-yelz-UH-calci um &mins (THERAGRAN-M) 9 mg iron-400 mcg tablet (16 sources) take 1 tablet by mouth once in the morning gerupmlb-dflj-IK-ca lcium &mins (THERAGRAN-M) 9 mg iron-400 mcg tablet Take 1 tablet by mouth in the morning and 1 tablet before bedtime. Active take 1 tablet by jeevan th once in the morning jridsqtb-msan-UB-calcium &mins (THERAGRA N-M) 9 mg iron-400 mcg tablet Take 1 tablet by mouth in the morning and 1 tablet before bedtime. 0 Active omeprazole 20 mg delayed release oral capsule (19 sources) Proton Pump Inhibitor take 1 capsule by mouth in the morning omeprazole (PriLOSEC) 20 mg capsule Take 1 capsule (20 mg total) by mouth in the morning. Active peg 3350-sod sulf,zfqe-aie-nfj 178.7-7.3-0.5 gram recon soln (1 source) Start: 4 End: 4 peg 3350-sod sulf,flad-kjd-ole 178.7-7.3-0.5 gram recon soln Take 1 kit by mouth in the morning for 1 dose. Please see instructional sheet given by Physicians office. 1 each 01/15/2024 01/16/2024 Active sod sulf-pot chloride-mag sulf 1.479-0.188- 0.225 gram tablet (5 sources) Start: 4 sod sulf-pot chloride-mag sulf 1.479-0.188- 0.225 gram tablet Indications: Melena , Hematemesis, unspecified whether nausea present PLEASE FOLLOW INSTRUCTIONS FROM SURGEONS OFFICE 24 tablet 01/22/2024 Active Completed/Discontinued Medications Medication Drug Class(es) Dates Sig (Normalized) Sig (Original) UNABLE TO FIND (3 sources) End: 07-17-2023 take 1 tablet by mouth once daily UNABLE TO FIND Take 1 tablet by mouth nightly. Unisom- sleep aid 07/17/2023 Discontinued take 1 tablet by mouth once stella y UNABLE TO FIND Take 1 tablet by mouth nightly. Unisom- sleep aid Active take 1 tablet by mouth once stella y UNABLE TO FIND Take 1 tablet by mouth nightly. Unisom- sleep aid 0 Active Problems Active Problems Problem Classification Problem Date Documented Da te Episodic/Chronic Biliary tract disease (10 sources) Calculus of gallbladder without cholecystitis without obstruction; Translations: [Biliary calculus] Onset: 4 02-26-2024 Episodic Blindness and vision defects (16 sources) Visual impairment; Translations: [Unspecified visual loss] Onset: 3 06-22-2022 Chronic Cardiac dysrhythmias (17 sources) Unspecified atrial fibrillation; Translations: [Atrial fibrillation] Onset: 2 06-22-2022 Chronic Conduction disorders (19 sources) Presence of cardiac pacemaker; Translations: [Cardiac pacemaker in situ] Onset: 6 06-22-2022 Chronic Disorders of lipid metabolism (16 sources) Hyperlipidemia; Translations: [Hyperlipidemia, unspecified] Onset: 3 06-22-2022 Chronic E Codes: Fall (2 sources) Fall Onset: 4 Esophageal disorders (16 sources) Gastroesophageal reflux disease; Translations: [Gastro-esophageal reflux disease without esophagitis] Onset: 3 06-22-2022 Chronic Essential hypertension (17 sources) Essential (primary) hypertension; Translations: [Hypertensive disorder] Onset: 3 06-22-2022 Chronic Fracture of lower limb (11 sources) Fracture of unspecified metatarsal bone(s), left foot, initial encounter for closed fracture; Translations: [Fracture of unspecified metatarsal bone(s), left foot, subsequent encounter for fracture with routine healing] Onset: 2 Episodic Gastrointestinal hemorrhage (8 sources) Melena; Translations: [Hematemesis] Onset: 4 01-15-2024 Episodic Malaise and fatigue (1 source) Other fatigue; Translations: [Other fatigue] Onset: 4 Episodic Osteoarthritis (20 sources) Osteoarthritis of right hip joint; Translations: [Unilateral primary osteoarthritis, right hip] Onset: 8 07-17-2017 Chronic Other connective tissue disease (1 source) Presence of artificial hip joint, bilateral; Translations: [PRESENCE ARTIFICIAL HIP JOINT BILAT] Onset: 2 Chronic Other liver diseases (4 sources) Elevated liver enzymes level; Translations: [Abnormal levels of other serum enzymes] 02-26-2024 Episodic Other liver diseases (1 source) Abnormal levels of other serum enzymes; Translations: [Abnormal levels of other serum enzymes] Onset: 5 Episodic Other nervous system disorders (4 sources) Ataxia, unspecified; Translations: [ATAXIA UNSPECIFIED] Onset: 3 Episodic Other screening for suspected conditions (not mental disorders or infectious disease) (2 sources) Other specified abnormal findings of blood chemistry; Translations: [Other abnormal blood chemistry] 01-22-2024 Episodic Sprains and strains (1 source) Strain of muscle, fascia and tendon of lower back, initial encounter; Translations: [Strain of muscle, fascia and tendon of lower back, initial encounter] Onset: 4 Episodic Unclassified (1 source) LOW BACK PAIN, UNSPECIFIED; Translations: [LOW BACK PAIN, UNSPECIFIED] Onset: 2 Unclassified (1 source) Acute cough; Translations: [Acute cough] Onset: 4 Unclassified (1 source) Cold Like Symptoms Onset: 4 Unclassified (1 source) Groin Pain Onset: 4 Unclassified (1 source) Tele neurology consult [facility] Onset: 4 Unclassified (1 source) Post-op Onset: 4 Unclassified (1 source) Suspicious Skin Lesion Onset: 4 Past or Other Problems Problem Classification Problem Date Documented Date Episodic/Chronic Complications of surgical procedures or medical care (16 sources) Delayed recovery from general anesthesia; Translations: [Other complications of anesthesia, initial encounter] Onset: 06-22-2022 06-22-2022 Episodic Disorders of teeth and jaw (16 sources) Tooth disorder; Translations: [Disorder of teeth [...] IMMUNIZATION] Onset: 09-29-2021 Episodic Nausea and vomiting (16 sources) Postoperative nausea and vomiting; Translations: [Nausea with vomiting, unspecified] Onset: 06-22-2022 06-22-2022 Episodic Open wounds of extremities (4 sources) Laceration without foreign body of left forearm, initial encounter; Translations: [LACERATION W/O FB LT FOREARM INIT] Onset: 09-27-2021 Episodic Other aftercare (1 source) 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; Translations: [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 CURRENT USE OF ASPIRIN] Onset: 01-25-2022 Episodic Other aftercare (1 source) Other rn long term care (current) drug therapy; Translations: [OTH SKILLED NURSING CURRENT DRUG THERAPY] Onset: 01-25-2022 Episodic Other aftercare (1 source) long-term (current) use of anticoagulants; Translations: [SKILLED NURSING CURRNT USE ANTICOAGULANTS] Onset: 09-29-2021 Episodic Other connective tissue disease (3 sources) Pain in left foot; Translations: [PAIN IN LEFT FOOT] Onset: 11-26-2021 Episodic Other connective tissue disease (16 sources) Recurrent falls ; Translations: [Repeated falls] Onset: 06-22-2022 06-22-2022 Episodic Other fractures (2 sources) Closed fracture of ischium; Translations: [Unspecified fracture of right ischium, subsequent encounter for fracture with routine healing] 10-21-2023 Episodic Other fractures (1 source) Unspecified fracture of right ischium, initial encounter for closed fracture; Translations: [Unspecified fracture of right ischium, initial encounter for closed fracture] Onset: 08-24-2023 Episodic Other non-traumatic joint disorders (3 sources) Pain in right hip; Translations: [PAIN IN RIGHT HIP] Onset: 01-23-2022 Episodic Other skin disorders (1 source) Localized swelling, mass and lump, right upper limb; Translations: [LOC SWELL MASS LUMP RT UPPER LIMB] Onset: 09-29-2021 Episodic Other skin disorders (2 sources) Disorder of the skin and subcutaneous tissue, unspecified; Translations: [Disorder of the skin and subcutaneous tissue, unspecified] Onset: 07-17-2023 Episodic Other skin disorders (3 sources) Disorder of skin of upper limb; Translations: [Disorder of the skin and subcutaneous tissue, unspecified] 07-25-2023 Episodic Screening and history of mental health and substance abuse codes (1 source) Personal history of nicotine dependence; Translations: [PERSONAL HISTORY OF NICOTINE DEPEND] Onset: 09-29-2021 Episodic Spondylosis; intervertebral disc disorders; other back problems (3 sources) Muscle spasm of back; Translations: [Pain in thoracic spine] Onset: 09-29-2021 Episodic Unclassified (2 sources) Elevated LFTs 01-22-2024 Urinary tract infections (1 source) Urinary tract infection, site not specified; Translations: [UTI SITE NOT SPECIFIED] Onset: 01-25-2022 Episodic Results Test Name Value Interpretation Reference Range Facility US ABDOMEN LMTDon 02-04-2024 US ABDOMEN LMTD US ABDOMEN LMTD US ABDOMEN LMTD: 02/03/2024 6:56 AM Clinical: Right upper quadrant pain. Procedure: Real-time sonography liver and gallbladder performed. Comparison: None Findings: Liver measures 12.9 cm in length without focal lesions. Mildly distended gallbladder with irregularly thickened wall measuring up to 4.6 mm. No shadowing stones are seen. Some gallbladder sludge is noted. There are a few hypoechoic foci along the gallbladder wall measuring up to 4 mm, likely small polyps. Common duct dilated to 6.8 mm. Technologist reports negative sonographic Cottrell sign. No right upper quadrant fluid collections. Normal directional flow in main portal vein. Impression: * Distended gallbladder with polyps and nonspecific irregular wall thickening. No shadowing stones. * Sonographically unremarkable liver. Finalized by Reid Gonzalez MD on 02/04/2024 8:32 AM Normal [facility] HEPATOBILIARY SYS IMAGING W PHARMACOLOGIC AGENTon 02-03-2024 NM HEPATOBILIARY SYS IMAGING W PHARMACOLOGIC AGENT NM HEPATOBILIARY SYS IMAGING W PHARMACOLOGIC AGENT NM HEPATOBILIARY SYS IMAGING W PHARMACOLOGIC AGENT HISTORY: Cholelithiasis COMPARISON: Abdominal ultrasound 02/03/2024 TECHNIQUE: Hepatobiliary scan performed after intravenous administration of 5 mCi Tc-99m mebrofenin. 0.9 mcg of sincalide administered intravenously after 45 minutes. Static and dynamic images obtained. Ejection fraction calculated based on generated time/activity curve. FINDINGS: Prompt homogenous uptake seen in the liver with appropriate clearance on subsequent images. No enterogastric reflux. Visualization of radiotracer activity: Gallbladder: 20 minutes Small bowel: 15 minutes Gallbladder ejection fraction: 27% IMPRESSION: * Gallbladder ejection fraction: 27%. This is suggestive of, but not specific for, chronic cholecystitis or biliary dyskinesia. Approved by Resident Korey Whitlock DO on 02/03/2024 9:41 AM I, Dawson Davenport MD have personally reviewed the image(s) and agree with and/or edited the report Finalized by Dawson Davenport MD on 02/03/2024 12:12 PM [facility] 36on 01-23-2024 36 Okay, thanks. Please have her scheduled for a follow-up with next year. Thanks! [facility] 36 Tried to contact patient again and she has no VM. FYI [facility] Blood Urea Nitrogenon 2023 Urea nitrogen [Mass/Vol] 17 mg/dL Normal 7-25 [facility] Comment on above: Performed By: #### C MP, PTT, CK, PT, SCAN CBC, HS TROP #### [facility] [address] [id number] [place] Creatinineon 01-23-2024 Creatinine [Mass/Vol] 0.66 mg/dL Normal 0.60-1.20 [facility] Comment on above: Performed By: #### C MP, PTT, CK, PT, SCAN CBC, HS TROP #### [facility] [address] [id number] [place] GFR/1.73 sq M.predicted MDRD (S/P/Bld) [Vol rate/Area] mL/min/{1.73_m2} Normal [facility] Comment on above: Result Comment: PERF ORMED BY: [place] [address] PATHOLOGIST HELPDESK ANALYST MARKO HAYES M.D. Performed By: #### C MP, PTT, CK, PT, SCAN CBC, HS TROP #### [address] Electrolyteson 01-23-2024 Anion gap [Moles/Vol] 14.1 mmol/L Normal 6.0-15.0 [facility] Comment on above: Performed By: #### C MP, PTT, CK, PT, SCAN CBC, HS TROP #### [address] Chloride [Moles/Vol] 97 mmol/L Low 98-107 [facility] Comment on above: Performed By: #### C MP, PTT, CK, PT, SCAN CBC, HS TROP #### [address] CO2 [Moles/Vol] 30.4 mmol/L Normal 21.0-31.0 The [facility] Comment on above: Performed By: #### C MP, PTT, CK, PT, SCAN CBC, HS TROP #### [address] Potassium [Moles/Vol] 4.5 mmol/L Normal 3.5-5.1 [facility] Comment on above: Performed By: #### C MP, PTT, CK, PT, SCAN CBC, HS TROP #### [address] Sodium [Moles/Vol] 137 mmol/L Normal 136-145 [facility] Comment on above: Performed By: #### C MP, PTT, CK, PT, SCAN CBC, HS TROP #### [address] Erythrocyte Sedimentation Ra juan carlos 01-23-2024 ESR (Bld) [Velocity] 92 mm/h High 0-29 [facility] Comment on above: Result Comment: PERF ORMED BY: [place] [address] PATHOLOGIST HELPDESK ANALYST MARKO HAYES M.D. Performed By: #### C MP, PTT, CK, PT, SCAN CBC, HS TROP #### [address] Hepatic Panelon 01-23-2024 Albumin [Mass/Vol] 3.2 g/dL Low 3.5-5.7 [facility] Comment on above: Performed By: #### B UN, LYTES, CREAT, SCAN CBC, HEPATIC, ESR #### [address] #### NT-PROBNP #### [facility] , Albumin/Globulin [Mass ratio] 0.8 {ratio} Normal [facility] Comment on above: Performed By: #### B UN, LYTES, CREAT, SCAN CBC, HEPATIC, ESR #### [address] #### NT-PROBNP #### [facility] , ALP [Catalytic activity/Vol] 130 U/L High 34-104 [facility] Comment on above: Performed By: #### B UN, LYTES, CREAT, SCAN CBC, HEPATIC, ESR #### [address] #### NT-PROBNP #### [facility] , ALT [Catalytic activity/Vol] 21 U/L Normal 7-52 [facility] Comment on above: Performed By: #### B UN, LYTES, CREAT, SCAN CBC, HEPATIC, ESR #### [facility] [address] [place] [address] #### NT-PROBNP #### [facility] , AST [Catalytic activity/Vol] 22 U/L Normal 13-39 [facility] Comment on above: Performed By: #### B UN, LYTES, CREAT, SCAN CBC, HEPATIC, ESR #### [address] #### NT-PROBNP #### [facility] , Bilirubin [Mass/Vol] 0.8 mg/dL Normal 0.3-1.0 [facility] Comment on above: Performed By: #### B UN, LYTES, CREAT, SCAN CBC, HEPATIC, ESR #### [address] #### NT-PROBNP #### [facility] , Bilirubin,Indirect 0.6 mg/dL Normal [facility] Comment on above: Performed By: #### B UN, LYTES, CREAT, SCAN CBC, HEPATIC, ESR #### [address] #### NT-PROBNP #### [facility] , Bilirubin.indirect [Mass/Vol] 0.20 mg/dL High 0.03-0.18 [facility] Comment on above: Performed By: #### B UN, LYTES, CREAT, SCAN CBC, HEPATIC, ESR #### [address] #### NT-PROBNP #### [facility] , Globulin (S) [Mass/Vol] 3.9 g/dL Normal [facility] Comment on above: Performed By: #### B UN, LYTES, CREAT, SCAN CBC, HEPATIC, ESR #### [address] #### NT-PROBNP #### [facility] , Protein [Mass/Vol] 7.1 g/dL Normal 6.4-8.9 [facility] Comment on above: Performed By: #### B UN, LYTES, CREAT, SCAN CBC, HEPATIC, ESR #### [address] #### NT-PROBNP #### [facility] , Multiple labsOrdered By: Gricelda Amado on 01-23-2024 [facility] NT-proBNPon 01-23-2024 Natriuretic peptide B (Bld) [Mass/Vol] 1383 pg/mL High 0-738 [facility] Comment on above: Result Comment: The following cut-points have been suggested for the use of proBNP for the diagnostic evaluation of heart failure (HF) in patients with acute dyspnea: Modality Age Optimal Cut (years) Point Diagnosis (rule in HF) <50 450 pg/mL 50 - 75 900 pg/mL >75 1800 pg/mL Exclusion (rule out HF) Age independent 300 pg/mL Performed at: [facility] [id number] Beer Runner: Orion Negro PhD, Phone: [phone] PERFORMED BY: [place] [address] PATHOLOGIST HELPDESK ANALYST MARKO HAYES M.D. Performed By: #### C MP, PTT, CK, PT, SCAN CBC, HS TROP #### [address] Scan and CBCon 01-23-2024 Basophils (Bld) [#/Vol] 0.1 10*3/uL Normal 0.0-0.2 [facility] Comment on above: Performed By: #### C MP, PTT, CK, PT, SCAN CBC, HS TROP #### [address] Basophils/100 WBC (Bld) 1.3 % Normal . [facility] Comment on above: Performed By: #### C MP, PTT, CK, PT, SCAN CBC, HS TROP #### [address] Eosinophils (Bld) [#/Vol] 0.1 10*3/uL Normal 0.0-0.45 [facility] Comment on above: Performed By: #### C MP, PTT, CK, PT, SCAN CBC, HS TROP #### [address] Eosinophils/100 WBC (Bld) 1.2 % Normal . [facility] Comment on above: Performed By: #### C MP, PTT, CK, PT, SCAN CBC, HS TROP #### [address] Erythrocyte distribution width (RBC) [Ratio] 16.1 % High 11.9-15.3 [facility] Comment on above: Performed By: #### C MP, PTT, CK, PT, SCAN CBC, HS TROP #### [address] Hematocrit (Bld) [Volume fraction] 39.6 % Normal 34.0-46.4 [facility] Comment on above: Performed By: #### C MP, PTT, CK, PT, SCAN CBC, HS TROP #### [address] Hemoglobin (Bld) [Mass/Vol] 13.2 g/dL Normal 11.8-15.4 [facility] Comment on above: Performed By: #### C MP, PTT, CK, PT, SCAN CBC, HS TROP #### [address] Lymphocytes (Bld) [#/Vol] 0.9 10*3/uL Low 1.00-4.8 [facility] Comment on above: Performed By: #### C MP, PTT, CK, PT, SCAN CBC, HS TROP #### [address] Lymphocytes/100 WBC (Bld) 9.4 % Normal . [facility] Comment on above: Performed By: #### C MP, PTT, CK, PT, SCAN CBC, HS TROP #### [address] MCH (RBC) [Entitic mass] 29.8 pg Normal 24.7-34.3 [facility] Comment on above: Performed By: #### C MP, PTT, CK, PT, SCAN CBC, HS TROP #### [address] MCV (RBC) [Entitic vol] 89.3 fL Normal 80-100 [facility] Comment on above: Performed By: #### C MP, PTT, CK, PT, SCAN CBC, HS TROP #### [address] Mean Corpuscular HGB Conc 33.4 g/dL Normal 32.0-35.0 [facility] Comment on above: Performed By: #### C MP, PTT, CK, PT, SCAN CBC, HS TROP #### [address] Monocytes (Bld) [#/Vol] 0.8 10*3/uL Normal 0.0-0.8 [facility] Comment on above: Performed By: #### C MP, PTT, CK, PT, SCAN CBC, HS TROP #### [address] Monocytes/100 WBC (Bld) 8.3 % Normal . [facility] Comment on above: Performed By: #### C MP, PTT, CK, PT, SCAN CBC, HS TROP #### [address] Neutrophils (Bld) [#/Vol] 7.7 10*3/uL Normal 1.8-7.7 [facility] Comment on above: Performed By: #### C MP, PTT, CK, PT, SCAN CBC, HS TROP #### [address] Neutrophils/100 WBC (Bld) 79.8 % Normal . [facility] Comment on above: Performed By: #### C MP, PTT, CK, PT, SCAN CBC, HS TROP #### [address] NRBC% 0.1 /100{WBC} Normal 0-0.5 The [facility] Comment on above: Performed By: #### C MP, PTT, CK, PT, SCAN CBC, HS TROP #### [facility] [address] Ovalocytes Slight Normal [facility] Comment on above: Performed By: #### C MP, PTT, CK, PT, SCAN CBC, HS TROP #### [facility] [address] [place] [id number] [facility] Platelet Estimate Increased High Normal [facility] Comment on above: Performed By: #### C MP, PTT, CK, PT, SCAN CBC, HS TROP #### [facility] [address] Platelet mean volume (Bld) [Entitic vol] 8.7 fL Normal 6.3-10.7 [facility] Comment on above: Performed By: #### C MP, PTT, CK, PT, SCAN CBC, HS TROP #### [facility] [address] Platelet Morphology Normal Normal Normal The [facility] Comment on above: Performed By: #### C MP, PTT, CK, PT, SCAN CBC, HS TROP #### [facility] [address] [place] [address] [place] Platelets (Bld) [#/Vol] 512 10*3/uL High 150-450 [facility] Comment on above: Performed By: #### C MP, PTT, CK, PT, SCAN CBC, HS TROP #### [facility] [address] Poikilocytosis Slight Normal The [facility] Comment on above: Performed By: #### C MP, PTT, CK, PT, SCAN CBC, HS TROP #### [facility] [address] [place] [address] [place] RBC (Bld) [#/Vol] 4.43 10*6/uL Normal 3.60-5.00 [facility] Comment on above: Performed By: #### C MP, PTT, CK, PT, SCAN CBC, HS TROP #### [facility] [address] [place] [address] [place] WBC (Bld) [#/Vol] 9.7 10*3/uL Normal 3.8-11.6 [facility] Comment on above: Performed By: #### C MP, PTT, CK, PT, SCAN CBC, HS TROP #### [facility] [address] Multiple labsOrdered By: Gricelda Amado on 01-09-2024 [facility] CBC AND AUTO DIFFon 12-29-19 ABSOLUTE BASOPHIL 0.1 X10E9/L Normal 0.0-0.2 [facility] Comment on above: Performed By: #### C BCA, 19540-2, CMP, 3040-3 #### [facility] ([id number]) [address] [place] [address] ABSOLUTE NEUTROPHIL 7.8 X10E9/L High 1.5-6.6 [facility] Comment on above: Performed By: #### C BCA, 22004-8, CMP, 3040-3 #### [facility] ([id number]) [address] [place] [address] 06077 Basophils/100 WBC (Bld) 0.5 % Normal [facility] Comment on above: Performed By: #### C BCA, 12491-4, CMP, 3040-3 #### [facility] ([id number]) [address] [place] [address]14 Eosinophils (Bld) [#/Vol] 0.1 10*3/uL Normal 0.0-0.4 [facility] Comment on above: Performed By: #### C BCA, 78214-4, CMP, 3040-3 #### [facility] ([id number]) [address] [place] [address] 06277 Eosinophils/100 WBC (Bld) 1.1 % Normal [facility] Comment on above: Performed By: #### C BCA, 78566-7, CMP, 3040-3 #### [facility] ([id number]) [address] [place] [address] 35632 Erythrocyte distribution width (RBC) [Ratio] 16.5 % High 11.5-15.0 [facility] Comment on above: Performed By: #### C BCA, 49320-2, CMP, 3040-3 #### [facility] ([id number]) [address] [place] [address]197 Hematocrit (Bld) [Volume fraction] 39.3 % Normal 35-47 [facility] Comment on above: Performed By: #### Dorothy BCA, 31528-4, CMP, 3040-3 #### [facility] ([id number]) [address] [place] [address]40 Hemoglobin (Bld) [Mass/Vol] 13.0 g/dL Normal 11.7-15.5 [facility] Comment on above: Performed By: #### Dorothy BCA, 44365-5, CMP, 3040-3 #### [facility] ([id number]) [address] [place] [address] 11344 Lymphocytes (Bld) [#/Vol] 1.0 10*3/uL Normal 1.0-3.5 [facility] Comment on above: Performed By: #### Dorothy BCA, 80378-1, CMP, 3040-3 #### [facility] ([id number]) [address] [place] [address] 56673 Lymphocytes/100 WBC (Bld) 9.7 % Normal [facility] Comment on above: Performed By: #### Dorothy BCA, 79396-1, CMP, 3040-3 #### [facility] ([id number]) [address] [place] [address] 61306 MCH (RBC) [Entitic mass] 30.4 pg Normal 27-34 [facility] Comment on above: Performed By: #### Dorothy BCA, 94034-8, CMP, 3040-3 #### [facility] ([id number]) [address] [place] [address] 68575 MCHC (RBC) [Mass/Vol] 33.2 g/dL Normal 32-36 [facility] Comment on above: Performed By: #### Dorothy BYRD, 81995-9, CMP, 3040-3 #### [facility] ([id number]) [address] [place] [address] 02510 MCV (RBC) [Entitic vol] 92 fL Normal 80-100 [facility] Comment on above: Performed By: #### Dorothy BYRD, 35227-7, CMP, 3040-3 #### [facility] ([id number]) [address] [place] [address] 06073 Monocytes (Bld) [#/Vol] 1.3 10*3/uL High 0-0.9 [facility] Comment on above: Performed By: #### Dorothy BYRD, 98558-7, CMP, 3040-3 #### [facility] ([id number]) [address] [place] [address] 43573 Monocytes/100 WBC (Bld) 12.6 % Normal [facility] Comment on above: Performed By: #### Dorothy BCA, 61488-5, CMP, 3040-3 #### [facility] ([id number]) [address] [place] [address] 47644 Neutrophils/100 WBC (Bld) 76.1 % Normal [facility] Comment on above: Performed By: #### Dorothy BCA, 89096-2, CMP, 3040-3 #### [facility] ([id number]) [address] [place] [address] 39802 Platelet mean volume (Bld) [Entitic vol] 7.7 fL Normal 7-12 [facility] Comment on above: Performed By: #### Dorothy BYRD, 85968-9, CMP, 3040-3 #### [facility] ([id number]) [address] [place] [address] 64971 Platelets (Bld) [#/Vol] 284 10*3/uL Normal 150-450 [facility] Comment on above: Performed By: #### C BCA, 67482-0, CMP, 3040-3 #### [facility] ([id number]) [address] [place] [address] 89255 RBC COUNT 4.28 X10E12/L Normal 3.80-5.20 [facility] Comment on above: Performed By: #### C BCA, 96669-9, CMP, 3040-3 #### [facility] ([id number]) [address] [place] [address] 55061 WBC (Bld) [#/Vol] 10.2 10*3/uL Normal 4.0-11.0 [facility] Comment on above: Performed By: #### Dorothy BCA, 73327-2, CMP, 3040-3 #### [facility] ([id number]) [address] [place] [address] 42533 COMPREHENSIVE METABOLIC PANE Timoteo 12-29-2023 Albumin [Mass/Vol] 3.5 g/dL Normal 3.2-5.3 [facility] Comment on above: Performed By: #### C BCA, 26841-8, CMP, 3040-3 #### [facility] ([id number]) [address] [place] [address] 49221 ALP [Catalytic activity/Vol] 120 U/L Normal 39-130 [facility] Comment on above: Performed By: #### C BCA, 36705-6, CMP, 3040-3 #### [facility] ([id number]) [address] [place] [address] 19549 ALT [Catalytic activity/Vol] 16 U/L Normal 0-31 [facility] Comment on above: Performed By: #### Dorothy BCA, 75831-5, CMP, 3040-3 #### [facility] ([id number]) [address] [place] [address] 85431 Anion gap [Moles/Vol] 10 mmol/L Normal 5-15 [facility] Comment on above: Performed By: #### C BCA, 18540-1, CMP, 3040-3 #### [facility] ([id number]) [address] [place] [address] [place] [address] AST [Catalytic activity/Vol] 16 U/L Normal 0-41 [facility] Comment on above: Performed By: #### C BCA, 77900-7, CMP, 3040-3 #### [facility] ([id number]) [address] [place] [address] 30200 Bilirubin [Mass/Vol] 0.8 mg/dL Normal 0.3-1.2 [facility] Comment on above: Performed By: #### C BCA, 60864-4, CMP, 3040-3 #### [facility] ([id number]) [address] [place] [address] 71670 Calcium [Mass/Vol] 8.8 mg/dL Normal 8.5-10.5 [facility] Comment on above: Performed By: #### Dorothy BCA, 07476-9, CMP, 3040-3 #### [facility] ([id number]) [address] [place] [address] [place] [address] Chloride [Moles/Vol] 104 mmol/L Normal 98-109 [facility] Comment on above: Performed By: #### C BCA, 43960-2, CMP, 3040-3 #### [facility] ([id number]) [address] [place] [address] [place] [address] CO2 [Moles/Vol] 23 mmol/L Normal 22-32 [facility] Comment on above: Performed By: #### Dorothy BCA, 38594-1, CMP, 3040-3 #### [facility] ([id number]) [address] [place] [address] 20070 Creatinine [Mass/Vol] 0.75 mg/dL Normal 0.40-1.00 [facility] Comment on above: Result Comment: METH OD TRACEABLE TO IDMS STANDARD Performed By: #### C BCA, 44885-1, CMP, 3040-3 #### [facility] ([id number]) [address] [place] [address] 81832 GFR/1.73 sq M.predicted among non-blacks MDRD (S/P/Bld) [Vol rate/Area] 78 mL/min/{1.73_m2} Normal >59 [facility] Comment on above: Result Comment: Reported eGFR is based on the CKD-EPI 2020 equation that does not use a race coefficient. Performed By: #### C BCA, 07788-7, CMP, 3040-3 #### [facility] ([id number]) [address] [place] [address] 58138 Glucose [Mass/Vol] 107 mg/dL High 65-99 [facility] Comment on above: Performed By: #### C BCA, 97034-7, CMP, 3040-3 #### [facility] ([id number]) [address] [place] [address] 21612 Potassium [Moles/Vol] 3.8 mmol/L Normal 3.5-5.0 [facility] Comment on above: Performed By: #### C BCA, 73601-2, CMP, 3040-3 #### [facility] ([id number]) [address] [place] [address] 22684 Protein [Mass/Vol] 6.6 g/dL Normal 6.0-8.0 [facility] Comment on above: Performed By: #### C BCA, 01412-3, CMP, 3040-3 #### [facility] ([id number]) [address] [place] [address] 69938 Sodium [Moles/Vol] 137 mmol/L Normal 134-146 [facility] Comment on above: Performed By: #### C CARSON, 57647-7, CMP, 3040-3 #### [facility] ([id number]) [address] [place] [address] 60550 Urea nitrogen [Mass/Vol] 13 mg/dL Normal 5-27 [facility] Comment on above: Performed By: #### C BCA, 79944-2, CMP, 3040-3 #### [facility] ([id number]) [address] [place] [address] 83617 Fibrin D-dimer DDU (PPP) [Ma ss/Vol]on 12-29-2023 D DIMER 248 ng/mL DDU Normal <255 [facility] Comment on above: Result Comment: Results <255 ng/mL DDU: The presence of a VTE can safely be excluded with a negative D-Dimer result and Wells score. A negative result doesn't exclude the possibility of DIC. The test be repeated along with other diagnostic tests if the patient's symptoms persist or worsen. [email or web address] Performed By: #### C CARSON, 94446-7, CMP, 3040-3 #### [facility] ([id number]) [address] [place] [address] 92045 LIPASEon 12-29-2023 Lipase [Catalytic activity/Vol] 34 U/L Normal 17-40 [facility] Comment on above: Performed By: #### C CARSON, 71351-7, CMP, 3040-3 #### [facility] ([id number]) [address] [place] [address] 37541 XR CHEST 2 VWSon 12-29-2023 XR CHEST 2 VWS XR CHEST 2 VWS XR CHEST 2 VWS Chest 2 views History: cough and back pain Comparison: April 26, 2019 Impression: * No focal consolidation or pleural fluid. Grossly I cannot identify any mediastinal or hilar mass. No acute findings. Cardiomegaly and pacing leads stable Finalized by Haresh López MD on 12/29/2023 9:11 AM Normal [facility] 36on 12-11-2023 36 Please follow-up if patient had stress test done. Thanks! Normal [facility] Telephoneon 10-28-2023 Telephone [id number] Susan Douglass 1940 F Date Provider Department Center 10/28/2023 FRANKIE MILLER [facility] No family history on file Normal [facility] XR Pelvis 1 or 2 [facility] Result: October 23, 2023 x-rays AP pelvis demonstrate Press-Fit hip replacements bilaterally. No signs of loosening fracture or failure. Osteopenic appearing bone. Nondisplaced fracture of the right pubic rami Impression: Stable appearing hip replacements and healing fracture of the pubic rami Umang Perry D.O. [facility] XR Pelvis 1 or 2 ViewsOrdere d By: Korey Perry on 10-24-2023 [facility] [employer] Work Phone: XR Pelvis 1 or 2 [facility] Study observation (narrative) [facility] Healthcare Office Visiton 09-04-2023 Follow-up visit [id number] DouglassSusan 1940 F Date Provider Department Center 09/04/2023 FRANKIE MILLER [facility] No family history on file Level of Service:27352 MO OFFICE/OUTPATIENT ESTABLISHED MOD MDM 30 MIN Reason for Visit and Comments: Follow-up [621101] - 6 month follow up Normal [facility] CT BRAIN WO CONTon CT BRAIN [...] acute intracranial abnormality, by CT. Finalized by [employer] on 08/24/2023 1:24 PM Normal [facility] CT CERVICAL SPINE WO CONTon 08-24-2023 [...] FINDINGS: No acute fracture or traumatic malalignment. Ckdk-fd-[id number] degenerative spondylotic changes, not significantly disproportionate for age. There is left greater than right bony neuroforaminal narrowing. No high-grade bony spinal canal narrowing. Prevertebral, epidural and paraspinal soft tissues are unremarkable. IMPRESSION: * No evidence of acute fracture or traumatic malalignment. Finalized by Bumble [employer] on 08/24/2023 1:29 PM Normal [facility] CT HIP RT WO CONTon 08-24-19 [...] Ken MD on 08/24/2023 3:26 PM Normal [facility] XR HIP RT 2-3 VIEWS W [...] Leblanc MD on 08/24/2023 1:42 PM Normal [facility] XR SPINE THORACIC 3 VWSon XR [...] Ken MD on 08/24/2023 1:30 PM Normal [facility] 36on 08-12-2023 36 Regarding echo performed [...] stress test. Scheduled apt for 09/04/2023. Normal [facility] Surgical Pathologyon 024 Surgical Pathology Normal [facility] Comment on above: Result Comment: [facility] [address] [place] [address] Surgical Pathology Consultation Patient Name:SUSAN DOUGLASS:1940 (Age: 82)Gender:FTaken:4Reported:07/26/2023hysician(s):Mercedez Leo D.O. ([phone])Copy To: Rec. #:[id number]: #[id number] Final Pathologic Diagnosis Left forearm: Invasive well-differentiated squamous cell carcinoma, keratoacanthoma-type and adjacent scar. The deep and lateral margins appear free of involvement in the plane of sections examined. NOTE: The above diagnosis is from [facility]. The slides on this case were not reviewed by the signing pathologist. Please see the complete text of the report in the patient???s electronic medical record. Report Electronically Signed Out clf/07/26/2023Anthony Posada MD Interpretation performed at [employer], [address] [place] [address], License number: [id number]. Clinical History Skin lesion of left arm L98.9. Abnormal skin lesion x3 months left upper extremity rule out skin cancer. Gross Description Received in formalin labeled EVONNE left forearm lesion is an unoriented light [...] sequentially submitted in cassettes B-G. (7, ns, [id number],m1) DM. dm/07/18/2023EAK Specimen(s) Received Left forearm Fee Codes(s): 1; [address]45[address] CT cervical spine wo conon 0 04-25-2023 CT cervical spine wo con [facility] [address] CT Scan Report Signed Patient: Susan Douglass MR#: [id number] : 1940 Acct:[id number] Age/Sex: 82 / F ADM Date: 04/25/23 Loc: ER Room: Type: [facility] ER Attending Dr: Copies to: Hardy Leon PA-C Ordering Provider: Hardy Leon PA-C Date of Service: 04/25/23 CT/CT cervical spine wo con: Fall ([id number]) CT/CT head/brain wo con: Fall on blood [...] Brittany Garcia M.D.04/25/2023 4:23 PM Dictation Location: [place] [address] Transcribed By: [facility] 04/25/23 1623 Dictated By: Brittany Garcia MD 04/25/23 1615 Signed By: 04/25/23 1623 Normal [facility] Comprehensive Metabolic Pane timoteo 04-25-2023 Albumin [Mass/Vol] 4.4 g/dL Normal 3.5-5.7 [facility] Comment on above: Performed By: #### C MP, PTT, CK, PT, SCAN CBC, HS TROP #### [facility] [address] Albumin/Globulin [Mass ratio] 1.5 {ratio} Normal [facility] Comment on above: Performed By: #### C MP, PTT, CK, PT, SCAN CBC, HS TROP #### [facility] [address] ALP [Catalytic activity/Vol] 84 U/L Normal 34-104 [facility] Comment on above: Performed By: #### C MP, PTT, CK, PT, SCAN CBC, HS TROP #### [address] ALT [Catalytic activity/Vol] 22 U/L Normal 7-52 [facility] Comment on above: Performed By: #### C MP, PTT, CK, PT, SCAN CBC, HS TROP #### [address] Anion gap [Moles/Vol] 12.0 mmol/L Normal 6.0-15.0 [facility] Comment on above: Performed By: #### C MP, PTT, CK, PT, SCAN CBC, HS TROP #### [address] AST [Catalytic activity/Vol] 23 U/L Normal 13-39 [facility] Comment on above: Performed By: #### C MP, PTT, CK, PT, SCAN CBC, HS TROP #### [address] Bilirubin [Mass/Vol] 0.9 mg/dL Normal 0.3-1.0 [facility] Comment on above: Performed By: #### C MP, PTT, CK, PT, SCAN CBC, HS TROP #### [address] Calcium [Mass/Vol] 9.1 mg/dL Normal 8.6-10.3 [facility] Comment on above: Performed By: #### C MP, PTT, CK, PT, SCAN CBC, HS TROP #### [place] [address] [place] Chloride [Moles/Vol] 104 mmol/L Normal 98-107 [facility] Comment on above: Performed By: #### C MP, PTT, CK, PT, SCAN CBC, HS TROP #### [place] [address] [place] CO2 [Moles/Vol] 24.8 mmol/L Normal 21.0-31.0 [facility] Comment on above: Performed By: #### C MP, PTT, CK, PT, SCAN CBC, HS TROP #### [address] Creatinine [Mass/Vol] 0.79 mg/dL Normal 0.60-1.20 [facility] Comment on above: Performed By: #### C MP, PTT, CK, PT, SCAN CBC, HS TROP #### [address] Creatinine Clr [facility] 41.40 Normal [facility] Comment on above: Result Comment: PERF ORMED BY: [place] [address] PATHOLOGIST HELPDESK ANALYST LOLLY MCDONNELL M.D. Performed By: #### C MP, PTT, CK, PT, SCAN CBC, HS TROP #### [address] GFR/1.73 sq M.predicted MDRD (S/P/Bld) [Vol rate/Area] mL/min/{1.73_m2} Normal [facility] Comment on above: Performed By: #### C MP, PTT, CK, PT, SCAN CBC, HS TROP #### [address] Globulin (S) [Mass/Vol] 3.0 g/dL Normal [facility] Comment on above: Performed By: #### C MP, PTT, CK, PT, SCAN CBC, HS TROP #### [address] Glucose [Mass/Vol] 104 mg/dL High 70-100 [facility] Comment on above: Result Comment: [place] Glucose Reference Range is dependent on time and content of last meal. Glucose of more than 200 mg/dL in a nonstressed, ambulatory subject supports the diagnosis of Diabetes Mellitus. ADA recommended reference range Performed By: #### C MP, PTT, CK, PT, SCAN CBC, HS TROP #### [address] Potassium [Moles/Vol] 3.8 mmol/L Normal 3.5-5.1 [facility] Comment on above: Performed By: #### C MP, PTT, CK, PT, SCAN CBC, HS TROP #### [address] Protein [Mass/Vol] 7.4 g/dL Normal 6.4-8.9 [facility] Comment on above: Performed By: #### C MP, PTT, CK, PT, SCAN CBC, HS TROP #### [address] Sodium [Moles/Vol] 137 mmol/L Normal 136-145 [facility] Comment on above: Performed By: #### C MP, PTT, CK, PT, SCAN CBC, HS TROP #### [address] Urea nitrogen [Mass/Vol] 14 mg/dL Normal 7-25 [facility] Comment on above: Performed By: #### C MP, PTT, CK, PT, SCAN CBC, HS TROP #### [address] Creatine Kinaseon 04-25-2023 CK [Catalytic activity/Vol] 135 U/L Normal 30-223 [facility] Comment on above: Performed By: #### C MP, PTT, CK, PT, SCAN CBC, HS TROP #### [address] Dipstick and Microscopicon 0 04-25-2023 Appearance (U) Clear Normal Clear [facility] Comment on above: Order Comment: Name Collection Type:: Clean-Voided Midstream Performed By: #### C MP, PTT, CK, PT, SCAN CBC, HS TROP #### [address] Bacteria,Urine 1+ High None Seen [facility] Comment on above: Order Comment: Name Collection Type:: Clean-Voided Midstream Performed By: #### C MP, PTT, CK, PT, SCAN CBC, HS TROP #### [address] Bilirubin,Urine Negative Normal Negative The [facility] Comment on above: Order Comment: Name Collection Type:: Clean-Voided Midstream Performed By: #### C MP, PTT, CK, PT, SCAN CBC, HS TROP #### [address] Color (U) Yellow Normal Yellow [facility] Comment on above: Order Comment: Name Collection Type:: Clean-Voided Midstream Performed By: #### C MP, PTT, CK, PT, SCAN CBC, HS TROP #### [address] Glucose Ql (U) Normal Normal Normal [facility] Comment on above: Order Comment: Name Collection Type:: Clean-Voided Midstream Performed By: #### C MP, PTT, CK, PT, SCAN CBC, HS TROP #### [address] Hyaline Casts,Urine 0-8 Normal 0-8 [facility] Comment on above: Order Comment: Name Collection Type:: Clean-Voided Midstream Result Comment: PERF ORMED BY: [place] [address] PATHOLOGIST HELPDESK ANALYST LOLLY MCDONNELL M.D. Performed By: #### C MP, PTT, CK, PT, SCAN CBC, HS TROP #### [address] Ketones Ql (U) Negative Normal Negative [facility] Comment on above: Order Comment: Name Collection Type:: Clean-Voided Midstream Performed By: #### C MP, PTT, CK, PT, SCAN CBC, HS TROP #### [address] Leukocyte esterase Test strip Ql (U) 3+ High Negative [facility] Comment on above: Order Comment: Name Collection Type:: Clean-Voided Midstream Performed By: #### C MP, PTT, CK, PT, SCAN CBC, HS TROP #### [place] [address] [place] Nitrite,Urine Negative Normal Negative The [facility] Comment on above: Order Comment: Name Collection Type:: Clean-Voided Midstream Performed By: #### C MP, PTT, CK, PT, SCAN CBC, HS TROP #### [address] Occult Blood,Urine Negative Normal Negative The [facility] Comment on above: Order Comment: Name Collection Type:: Clean-Voided Midstream Result Comment: PERF ORMED BY: [place] [address] PATHOLOGIST HELPDESK ANALYST LOLLY MCDONNELL M.D. Performed By: #### C MP, PTT, CK, PT, SCAN CBC, HS TROP #### [address] pH (U) 5.5 [pH] Normal 5.0-9.0 [facility] Comment on above: Order Comment: Name Collection Type:: Clean-Voided Midstream Performed By: #### C MP, PTT, CK, PT, SCAN CBC, HS TROP #### [place] [address] [place] Protein,Urine Trace High Negative The [facility] Comment on above: Order Comment: Name Collection Type:: Clean-Voided Midstream Performed By: #### C MP, PTT, CK, PT, SCAN CBC, HS TROP #### [place] [address] [place] RBC,Urine 3-4 Normal 0-4 [facility] Comment on above: Order Comment: Name Collection Type:: Clean-Voided Midstream Performed By: #### C MP, PTT, CK, PT, SCAN CBC, HS TROP #### [place] [address] [place] Specificy [place],Urine 1.013 Normal 1.001-1.030 [facility] Comment on above: Order Comment: Name Collection Type:: Clean-Voided Midstream Performed By: #### C MP, PTT, CK, PT, SCAN CBC, HS TROP #### [facility] [address] Squamous Epithelial Cell,Urine 1-2 Normal 0-2 [facility] Comment on above: Order Comment: Name Collection Type:: Clean-Voided Midstream Performed By: #### C MP, PTT, CK, PT, SCAN CBC, HS TROP #### [facility] [address] Urobilinogen,Urine Normal Normal Normal [facility] Comment on above: Order Comment: Name Collection Type:: Clean-Voided Midstream Performed By: #### C MP, PTT, CK, PT, SCAN CBC, HS TROP #### [facility] [address] WBC,Urine 50-100 High 0-4 [facility] Comment on above: Order Comment: Name Collection Type:: Clean-Voided Midstream Performed By: #### C MP, PTT, CK, PT, SCAN CBC, HS TROP #### [facility] [address] ECG 12 lead ECGon 04-25-2023 ECG 12 lead ECG [facility] Main [place] [address] [place] [address] Electrocardiograph Report Signed Patient: Susan Douglass MR#: [id number] 231 : 1940 Acct:[id number] Age/Sex: 82 / F ADM Date: 04/25/23 Loc: ER Room: Type: [facility] ER Attending Dr: Ordering Provider: Hardy [...] ECGs available Confirmed by MOISES DAWKINS DO ([id number]) on 04/25/2023 8:08:43 PM Referred By: Electronically Signed By:MOISES DAWKINS DO Transcribed By: MUS Signed By Moises Dawkins DO 04/24 Normal [facility] Partial Thromboplastin Timeo n 04-25-2023 aPTT Coag (Bld) [Time] 19.6 s Low 25.1-36.5 [facility] Comment on above: Result Comment: A he matocrit value greater than 55% may lead to inaccurate results in coagulation testing. Patients having hematocrit values >55% require a special collection tube for coagulation studies. Please contact the laboratory at [phone] for redraw instructions. PERFORMED BY: [place] [id number] PATHOLOGIST HELPDESK ANALYST LOLLY MCDONNELL M.D. Performed By: #### C MP, PTT, CK, PT, SCAN CBC, HS TROP #### [address] Prothrombin Time INRon 04-24 INR Coag (PPP) [Relative time] 1.0 {INR} Normal [facility] Comment on above: Result Comment: INR Therapeutic [...] valves: 3 - 4.5 Performed By: #### C MP, PTT, CK, PT, SCAN CBC, HS TROP #### [address] PT Coag (PPP) [Time] 11.6 s Normal 9.0-12.9 [facility] Comment on above: Result Comment: A he matocrit value greater than 55% may lead to inaccurate results in coagulation testing. Patients having hematocrit values >55% require a special collection tube for coagulation studies. Please contact the laboratory at [phone] for redraw instructions. Performed By: #### C MP, PTT, CK, PT, SCAN CBC, HS TROP #### [address] Scan and CBCon 04-25-2023 Basophils (Bld) [#/Vol] 0.0 10*3/uL Normal 0.0-0.2 [facility] Comment on above: Performed By: #### C MP, PTT, CK, PT, SCAN CBC, HS TROP #### [address] Basophils/100 WBC (Bld) 0.3 % Normal . [facility] Comment on above: Performed By: #### C MP, PTT, CK, PT, SCAN CBC, HS TROP #### [address] Eosinophils (Bld) [#/Vol] 0.0 10*3/uL Normal 0.0-0.45 [facility] Comment on above: Performed By: #### C MP, PTT, CK, PT, SCAN CBC, HS TROP #### [address] Eosinophils/100 WBC (Bld) 0.2 % Normal . [facility] Comment on above: Performed By: #### C MP, PTT, CK, PT, SCAN CBC, HS TROP #### [address] Erythrocyte distribution width (RBC) [Ratio] 13.9 % Normal 11.9-15.3 [facility] Comment on above: Performed By: #### C MP, PTT, CK, PT, SCAN CBC, HS TROP #### [address] Hematocrit (Bld) [Volume fraction] 53.1 % High 34.0-46.4 [facility] Comment on above: Performed By: #### C MP, PTT, CK, PT, SCAN CBC, HS TROP #### [address] Hemoglobin (Bld) [Mass/Vol] 17.9 g/dL High 11.8-15.4 [facility] Comment on above: Performed By: #### C MP, PTT, CK, PT, SCAN CBC, HS TROP #### [address] Lymphocytes (Bld) [#/Vol] 1.1 10*3/uL Normal 1.00-4.8 [facility] Comment on above: Performed By: #### C MP, PTT, CK, PT, SCAN CBC, HS TROP #### [address] Lymphocytes/100 WBC (Bld) 9.4 % Normal . [facility] Comment on above: Performed By: #### C MP, PTT, CK, PT, SCAN CBC, HS TROP #### [address] MCH (RBC) [Entitic mass] 33.1 pg Normal 24.7-34.3 [facility] Comment on above: Performed By: #### C MP, PTT, CK, PT, SCAN CBC, HS TROP #### [address] MCV (RBC) [Entitic vol] 98.3 fL Normal 80-100 [facility] Comment on above: Performed By: #### C MP, PTT, CK, PT, SCAN CBC, HS TROP #### [address] Mean Corpuscular HGB Conc 33.7 g/dL Normal 32.0-35.0 [facility] Comment on above: Performed By: #### C MP, PTT, CK, PT, SCAN CBC, HS TROP #### [address] Monocytes (Bld) [#/Vol] 1.5 10*3/uL High 0.0-0.8 [facility] Comment on above: Performed By: #### C MP, PTT, CK, PT, SCAN CBC, HS TROP #### [address] Monocytes/100 WBC (Bld) 18.90 % Normal 0.00-20.00 [facility] Comment on above: Performed By: #### C MP, PTT, CK, PT, SCAN CBC, HS TROP #### [place] [address] [place] Monocytes/100 WBC (Bld) 12.0 % Normal . [facility] Comment on above: Performed By: #### C MP, PTT, CK, PT, SCAN CBC, HS TROP #### [facility] [address] Neutrophils (Bld) [#/Vol] 9.5 10*3/uL High 1.8-7.7 [facility] Comment on above: Performed By: #### C MP, PTT, CK, PT, SCAN CBC, HS TROP #### [facility] [address] Neutrophils/100 WBC (Bld) 78.1 % Normal . [facility] Comment on above: Performed By: #### C MP, PTT, CK, PT, SCAN CBC, HS TROP #### [facility] [address] NRBC% 0.2 /100{WBC} Normal 0-0.5 The [facility] Comment on above: Performed By: #### C MP, PTT, CK, PT, SCAN CBC, HS TROP #### [facility] [address] Platelet Estimate Normal Normal Normal The [facility] Comment on above: Performed By: #### C MP, PTT, CK, PT, SCAN CBC, HS TROP #### [facility] [address] Platelet mean volume (Bld) [Entitic vol] 9.2 fL Normal 6.3-10.7 [facility] Comment on above: Performed By: #### C MP, PTT, CK, PT, SCAN CBC, HS TROP #### [facility] [address] Platelet Morphology Normal Normal Normal The [facility] Comment on above: Result Comment: PERF ORMED BY: [place] [address] PATHOLOGIST HELPDESK ANALYST LOLLY MCDONNELL M.D. Performed By: #### C MP, PTT, CK, PT, SCAN CBC, HS TROP #### [address] [place] [address] [place] Platelets (Bld) [#/Vol] 248 10*3/uL Normal 150-450 [facility] Comment on above: Performed By: #### C MP, PTT, CK, PT, SCAN CBC, HS TROP #### [address] RBC (Bld) [#/Vol] 5.40 10*6/uL High 3.60-5.00 [facility] Comment on above: Performed By: #### C MP, PTT, CK, PT, SCAN CBC, HS TROP #### [address] RBC morphology finding Nom (Bld) Normal Normal Normal [facility] Comment on above: Performed By: #### C MP, PTT, CK, PT, SCAN CBC, HS TROP #### [address] WBC (Bld) [#/Vol] 12.1 10*3/uL High 3.8-11.6 [facility] Comment on above: Performed By: #### C MP, PTT, CK, PT, SCAN CBC, HS TROP #### [address] Troponin I High Sensitivityo n 04-25-2023 Troponin I High Sensitivity 9.1 pg/mL Normal 0.0-15.0 [facility] Comment on above: Result Comment: PERF ORMED BY: [place] [address] PATHOLOGIST HELPDESK ANALYST LOLLY MCDONNELL M.D. Performed By: #### C MP, PTT, CK, PT, SCAN CBC, HS TROP #### [address] Urine Cultureon 04-25-2023 Bacteria identified Cx Nom (U) ORGANISM: Staphylococcus lugdunensis (O:STALUG) [place]in Count >100,000 Organism Comments Pure Growth Aerobic [...] RESISTANT TO ALL B-LACTAM DRUGS. PERFORMED BY: [place] [address] PATHOLOGIST HELPDESK ANALYST LOLLY MCDONNELL M.D. Normal [facility] Comment on above: Performed By: #### C MP, PTT, CK, PT, SCAN CBC, HS TROP #### [address] XR lumbar spine 2-3V*on XR lumbar spine 2-3V* [facility] Main [place] [address] [place] [address] XRay Report Signed Patient: Susan Douglass MR#: [id number] 231 : 1940 Acct:[id number] Age/Sex: 82 / F ADM Date: 04/25/23 Loc: ER Room: Type: [facility] ER Attending Dr: Copies to: Hardy Leon PA-C Ordering Provider: Hardy Leon PA-C Date of Service: 04/25/23 XR/XR chest 2V*: Fall ([id number]) XR/XR lumbar spine 2-3V*: Fall CLINICAL DATA: [...] Brittany Garcia M.D.04/25/2023 5:59 PM Dictation Location: [place] [address] Transcribed By: [facility] 04/25/231758 Dictated By: Brittany Garcia MD 04/25/231751 Signed By: 04/25/231758 Normal [facility] ECHOCARDIO M/2D COMPLETEon 0 06-01-2022 ECHOCARDIO M/2D COMPLETE Patient: SUSAN DOUGLASS Exam Date: 06/01/2022 : 1940 Gender:F Ordering : SOHA JEFFERSON Admission #: [id number] Family : DR ELIUD OTERO D.O. Order #: [id number] CLICK HERE TO VIEW EXAM ECHOCARDIOGRAM REPORT [...] Gregg M.D. on 06/01/2022 at 20:03 Normal [facility] CBC AUTO DIFFon 01-23-2022 BASO # 0.0 103/ul Normal 0.0-0.1 [facility] Comment on above: Performed By: #### C BC ####[facility] U[address] [place], [place] [address]DrChristophe Wu Basophils/100 WBC (Bld) 0.4 % Normal 0.2-2.0 [facility] Comment on above: Performed By: #### C BC ####[facility] Cy[address] [place], [place] [address]DrChristophe Wu EO # 0.1 103/ul Normal 0.0-0.7 [facility] Comment on above: Performed By: #### C BC ####[facility] [address] [place], [place] [address]DrChristophe Wu Eosinophils/100 WBC (Bld) 0.9 % Normal 0.9-7.0 [facility] Comment on above: Performed By: #### C BC ####[facility] [address] [place], [place] [address]DrChristophe Wu Erythrocyte distribution width (RBC) [Ratio] 13.4 % Normal 11.0-15.0 [facility] Comment on above: Performed By: #### C BC ####[facility] L[address] [place], [place] [address]DrChristophe Wu Hematocrit (Bld) [Volume fraction] 41.8 % Normal 36.0-48.0 [facility] Comment on above: Performed By: #### C BC ####[facility] [address] [place] [address]DrChristophe Wu Hemoglobin (Bld) [Mass/Vol] 14.4 g/dL Normal 12.0-16.0 [facility] Comment on above: Performed By: #### C BC ####[facility] [address] [place] [address]DrChristophe Wu IG # 0.05 10e3/ul Critically high 0.00-0.03 [facility] Comment on above: Performed By: #### C BC ####[facility] [address] [place], [place] [address]DrChristophe Wu IG % 0.5 % Normal 0.0-0.5 [facility] Comment on above: Performed By: #### C BC ####[facility] [address] [place], [place] [address]DrChristophe Wu LYMPH # 0.7 103/ul Critically low 1.2-3.8 [facility] Comment on above: Performed By: #### C BC ####[facility] Q[address]pjoyx[address] [place], [place] [address]DrChristophe Wu Lymphocytes/100 WBC (Bld) 6.6 % Critically low 20.5-60.0 [facility] Comment on above: Performed By: #### C BC ####[facility] Qeotry[address] [place], [place] [address]DrChristophe Wu MANUAL DIFF REQ NO Normal [facility] Comment on above: Performed By: #### C BC ####[facility] [address] [place], [place] [address]DrChristophe Wu MCH (RBC) [Entitic mass] 33.2 pg Normal 26.7-34.0 [facility] Comment on above: Performed By: #### C BC ####[facility] F[address]pet[address] [place], [place] [address]DrChristophe Wu MCHC (RBC) [Mass/Vol] 34.4 g/dL Normal 29.9-35.2 [facility] Comment on above: Performed By: #### C BC ####[facility] [address]dpqwhwi[address] [place] [address]DrChristophe Wu MCV (RBC) [Entitic vol] 96.3 fL Normal 81.0-99.0 [facility] Comment on above: Performed By: #### C BC ####[facility] M[address]imfqs[address] [place], [place] [address]DrChristophe Wu MONO # 1.0 103/ul Critically high 0.3-0.8 [facility] Comment on above: Performed By: #### C BC ####[facility] I[address] [place], [place] [address]DrChristophe Wu Monocytes/100 WBC (Bld) 9.8 % Normal 1.7-12.0 [facility] Comment on above: Performed By: #### C BC ####[facility] [address] [place], [place] [address]DrChristophe Wu NEUT # 8.7 103/ul Critically high 1.4-6.5 [facility] Comment on above: Performed By: #### C BC ####[facility] [address] [place], [place] [address]DrChristophe Wu Neutrophils/100 WBC (Bld) 81.8 % Critically high 43.0-75.0 [facility] Comment on above: Performed By: #### C BC ####[facility] [address] [place], [place] [address]DrChristophe Wu Platelet mean volume (Bld) [Entitic vol] 9.5 fL Normal 9.5-13.5 [facility] Comment on above: Performed By: #### C BC ####[facility] [address] [place], [place] [address]DrChristophe Wu PLT 219 103/ul Normal 150-450 [facility] Comment on above: Performed By: #### C BC ####[facility] [address] [place], [place] [address]Dr. Arti Wu RBC 4.34 106/ul Normal 4.20-5.40 [facility] Comment on above: Performed By: #### C BC ####[facility] [address]nzaxpkrz[address] [place] [address]Dr. Arti Wu WBC 10.6 103/ul Normal 4.0-11.0 [facility] Comment on above: Performed By: #### C BC ####[facility] H[address]of[address]fe[address] [place] [id number]. Arti Wu CT HIP RT WO CONon [...] CRUZITO BRIDGES Date: 2022-01-23 13:34 Normal [facility] CULTURE URINEon 01-23-2022 CULTURE URINE Culture Observations : MODERATE GROWTH OF MIXED GENITAL BRIEN. NO POTENTIAL PATHOGENS SEEN. Normal [facility] Comment on above: Performed By: #### U RCX #### [facility] [address] [place], [place] [address] Dr. Arti Wu ER URINE PROFILEon 2 Bilirubin Ql (U) SMALL Abnormal NEGATIVE [facility] Comment on above: Performed By: #### DELMY CHIN ####[facility] [address] [place] [id number]. Arti Wu Clarity (U) SL CLOUDY Abnormal CLEAR [facility] Comment on above: Performed By: #### DELMY CHIN ####[facility] [address] [place] [address]Dr. Arti Wu Color (U) YELLOW Normal YELLOW [facility] Comment on above: Performed By: #### HONG CHINRO ####[facility] [address] [place] [address]Dr. Arti Wu ERUAHD A micrscopic examination will be performed if indicated. Normal [facility] Comment on above: Performed By: #### HONG CHINRO ####[facility] [address] [place], [place] [address]Dr. Arti Wu Glucose Ql (U) Negative Normal NEGATIVE The [facility] Comment on above: Performed By: #### HONG CHINRO ####[facility] [address] [place], [place] [address]Dr. Arti Wu Hemoglobin Ql (U) LARGE Abnormal NEGATIVE The [facility] Comment on above: Performed By: #### HONG CHINRO ####[facility] [address] [place], [place] [address]Dr. Arti Wu Ketones Ql (U) Negative Normal NEGATIVE The [facility] Comment on above: Performed By: #### HONG CHINRO ####[facility] [address] [place], [place] [address]Dr. Arti Wu LEUKOCYTES MODERATE Abnormal NEGATIVE [facility] Comment on above: Performed By: #### HONG CHINRO ####[facility] [address] [place], [place] [address]Dr. Arti Wu Nitrite Ql (U) Positive Abnormal NEGATIVE [facility] Comment on above: Performed By: #### HONG CHINRO ####[facility] [address] [place], [place] [address]Dr. Arti Wu pH (U) 6.5 [pH] Normal 5-9 [facility] Comment on above: Performed By: #### HONG CHINRO ####[facility] B[address] [place], [place] [address]Dr. Arti Wu Protein (U) [Mass/Vol] 100 mg/dL Abnormal NEGATIVE/ TRACE [facility] Comment on above: Performed By: #### DELMY CHIN ####[facility] [address] [place] [address]DrChristophe Wu SPEC GRAVITY 1.025 Normal 1.005-<=1.025 [facility] Comment on above: Performed By: #### DELMY CHIN ####[facility] [address] [place] [address]Dr. Arti Wu UR MICRO IND INDICATED Normal [facility] Comment on above: Performed By: #### DELMY CHIN ####[facility] [address] [place] [address]Dr. Arti Wu Urobilinogen Qn (U) 1.0 {Uriel'U}/dL Normal 0.2 - 1. 0 [facility] Comment on above: Performed By: #### DELMY CHIN ####[facility] [address] [place] [address]DrChristophe Wu PROF CHEM 8 (BAS METB)on Anion gap [Moles/Vol] 11.7 mmol/L Normal [facility] Comment on above: Performed By: #### B MP #### [facility] [address] [address] [address] Arti Wu Calcium [Mass/Vol] 9.2 mg/dL Normal 8.5-10.1 [facility] Comment on above: Performed By: #### B MP #### [facility] [address] [address] [address] Arti Wu Chloride [Moles/Vol] 103 mmol/L Normal 98-107 [facility] Comment on above: Performed By: #### B MP #### [facility] [address] [address] [address] Arti Wu CO2 [Moles/Vol] 28.1 mmol/L Normal 21.0-32.0 [facility] Comment on above: Performed By: #### B MP #### [facility] [address] [address] [address] Arti Wu Creatinine [Mass/Vol] 0.73 mg/dL Normal 0.55-1.02 [facility] Comment on above: Performed By: #### B MP #### [facility] [address] [place] [address] Dr. Arti Wu EGFR-AF CAMBODIAN >60 Normal >=60 [facility] Comment on above: Performed By: #### B MP #### [facility] [address] [address] [address] Arti Wu EGFR-NON AF CAMBODIAN >60 Normal >=60 [facility] Comment on above: Performed By: #### B MP #### [facility] [address] [place] [address] Dr. Arti Wu Glucose [Mass/Vol] 111 mg/dL Critically high 74-106 [facility] Comment on above: Performed By: #### B MP #### [facility] [address] [place] [address] Dr. Arti Wu Potassium [Moles/Vol] 3.8 mmol/L Normal 3.5-5.1 [facility] Comment on above: Performed By: #### B MP #### [facility] [address] [place] [address] Dr. Arti Wu Sodium [Moles/Vol] 139 mmol/L Normal 136-145 [facility] Comment on above: Performed By: #### B MP #### [facility] [address] [place] [address] Dr. Arti Wu Urea nitrogen [Mass/Vol] 12.0 mg/dL Normal 7.0-18.0 [facility] Comment on above: Performed By: #### B MP #### [facility] [address] [place] [address] Dr. Arti Wu Urea nitrogen/Creatinine [Mass ratio] 16.4 mg/mg Normal [facility] Comment on above: Performed By: #### B MP #### [facility] [address] [place] [address] Dr. Arti Wu URINE MICROSCOPIC ONLYon BACTERIA MODERATE Abnormal NONE SEEN [facility] Comment on above: Performed By: #### Susi HENDRICKSON UMICRO ####[facility] [address] [place] [address]Dr. Arti Wu Bacteria identified Cx Nom (U) INDICATED Normal [facility] Comment on above: Performed By: #### Susi HENDRICKSON UMICRO ####[facility] [address] [place] [address]Dr. Arti Wu CAST NONE SEEN Normal NONE SEEN [facility] Comment on above: Performed By: #### Susi HENDRICKSON UMICRO ####[facility] [address] [place] [address] [address]Dr. Arti Wu Crystals LM Nom (Urine sed) NONE SEEN Normal NONE SEEN [facility] Comment on above: Performed By: #### Susi HENDRICKSON UMICRO ####[facility] [address] [place] [address]Dr. Arti Wu Epithelial cells LM Ql (Urine sed) RARE Normal NONE SEEN /RARE [facility] Comment on above: Performed By: #### Susi HENDRICKSON UMICRO ####[facility] [address] [place] [address]Dr. Arti Wu MUCOUS NONE SEEN Normal NONE SEEN [facility] Comment on above: Performed By: #### Susi HENDRICKSON UMICRO ####[facility] [address] [place] [address]Dr. Arti Wu RBC 75-100 Abnormal 0-2 [facility] Comment on above: Performed By: #### Susi HENDRICKSON UMICRO ####[facility] [address] [place] [address]Dr. Arti Wu WBC 20-50 Abnormal NONE SEEN [facility] Comment on above: Performed By: #### Susi HENDRICKSON UMICRO ####[facility] [address] [place] [address] [address]. Arti Wu CT FOOT LT WO CONon 12-08-19 CT FOOT LT WO CON EXAMINATION: CT [...] by: RADHA RAJPUT Date: 2021-12-07 17:38 Normal [facility] XR FOOT LT MIN 3 VIEWSon [...] vascular arterial disease. Electronically authenticated by: MAILE DANIELS Date: 2021-11-26 16:39 Normal [facility] XR LSPINE 2_3 VIEWSon 2021 XR [...] by: MERCEDEZ VALENZUELA Date: 2021-09-27 11:08 Normal [facility] XR TSPINE 2 VIEWSon 09-28-19 22 [...] by: MERCEDEZ VALENZUELA Date: 2021-09-27 11:08 Normal [facility] Q - CULTURE,URINE,ROUTINEon 01-25-2021 CULTURE, URINE, ROUTINE SEE NOTE Normal [facility] Traffic Analysis Technician Comment on above: Order Comment: [facility] performed at: [facility] [facility], [address] [place] [address], [address] [place] [address], [phone], Heart Nurse: Bryan Kurtz MD [facility] Collection Date/Time: [facility] Results Received Date/Time: [facility] Reported Date/Time: Result Comment: CULT URE, URINE, ROUTINE Micro Number: [id number] Test Status: Final Specimen Source: Urine Specimen Quality: Adequate Result: Growth of mixed brien was isolated, suggesting probable contamination. No further testing will be performed. If clinically indicated, recollection using a method to minimize contamination, with prompt transfer to Urine Culture Transport Tube, is recommended. Performed By: #### 3 020X, %SBCULI, 6304R #### [facility] Default [address] [place] [address] Q - UR CULT [id number] REFLEXIVE URINE CULTURE SEE NOTE Normal [facility] Traffic Analysis Technician Comment on above: Order Comment: [facility] performed at: [facility], [address] [place] [address], [address] [place] [address], [phone], Heart Nurse: Bryan Kurtz MD [facility] Date/Time: [facility] Results Received Date/Time: [facility] Reported Date/Time: Result Comment: CULT URE INDICATED - RESULTS TO FOLLOW Performed By: #### 3 020X, %SBCULI, 6304R #### [facility] [address] [place] [address] Q - URINALYSIS,COMPLETE,WITH REFLEX TO CULTUREon 01-25-2021 Appearance (U) CLOUDY Abnormal CLEAR [facility] Traffic Analysis Technician Comment on above: Order Comment: [facility] performed at: [employer], [address] , [address] [place] [address], [address] [place] [address], Heart Nurse: Bryan Kurtz MD [facility] Date/Time: [facility] Results Received Date/Time: [facility] Reported Date/Time: Performed By: #### 3 020X, %SBCULI, 6304R #### [facility] [address] [place] [address] BACTERIA FEW Abnormal NONE SEEN [facility] Traffic Analysis Technician Comment on above: Order Comment: [facility] performed at: [employer], [facility], [address] [facility], [address] [place] [address], [address] [place] [address], Heart Nurse: Bryan Kurtz MD [facility] Collection Date/Time: [facility] Results Received Date/Time: [facility] Reported Date/Time: Performed By: #### 3 020X, %SBCULI, 6304R #### [facility] [address] [place] [address] Bilirubin Ql (U) Negative Normal NEGATIVE [facility] Traffic Analysis Technician Comment on above: Order Comment: [facility] performed at: [employer], [facility], [address] , [address] [place] [address], [phone], Heart Nurse: Bryan Kurtz MD [facility] Date/Time: [facility] Results Received Date/Time: [facility] Reported Date/Time: Performed By: #### 3 020X, %SBCULI, 6304R #### [facility] [address] [place] [address] CALCIUM OXALATE CRYSTALS MANY Abnormal NONE OR FEW [facility] Traffic Analysis Technician Comment on above: Order Comment: [facility] performed at: [employer], [facility], [address], [address] [place] [address], [phone], Heart Nurse: Bryan Kurtz MD [facility] Date/Time: [facility] Results Received Date/Time: [facility] Reported Date/Time: Performed By: #### 3 020X, %SBCULI, 6304R #### [facility] [address] [place] [address] Color (U) YELLOW Normal YELLOW [facility] Traffic Analysis Technician Comment on above: Order Comment: [facility] performed at: [employer], [facility], [address] [facility], [address] [place] [address], [address] [place] [address], Heart Nurse: Bryan Kurtz MD [facility] Date/Time: [facility] Results Received Date/Time: [facility] Reported Date/Time: Performed By: #### 3 020X, %SBCULI, 6304R #### [facility] [address] [place] [address] Glucose Ql (U) Negative Normal NEGATIVE [facility] Traffic Analysis Technician Comment on above: Order Comment: [facility] performed at: [employer], [facility], [address] [facility], [address] [place] [address], [address] [place] [address], Heart Nurse: Bryan Kurtz MD [facility] Date/Time: [facility] Results Received Date/Time: [facility] Reported Date/Time: Performed By: #### 3 020X, %SBCULI, 6304R #### [facility] [address] [place] [address] HYALINE CAST NONE SEEN Normal NONE SEEN [facility] Traffic Analysis Technician Comment on above: Order Comment: [facility] performed at: [employer], [facility], [address] [facility], [address] [place] [address], [address] [place] [address], Heart Nurse: Bryan Kurtz MD [facility] Date/Time: [facility] Results Received Date/Time: [facility] Reported Date/Time: [id number] Performed By: #### 3 020X, %SBCULI, 6304R #### [facility] [address] [place] [address] Ketones Ql (U) Negative Normal NEGATIVE [facility] Traffic Analysis Technician Comment on above: Order Comment: [facility] performed at: [employer], [facility], [address] , [address] [place] [address], [address] [place] [address], Heart Nurse: Bryan Kurtz MD [facility] Date/Time: [facility] Results Received Date/Time: [facility] Reported Date/Time: Performed By: #### 3 020X, %SBCULI, 6304R #### [facility] [address] [place] [address] Leukocyte esterase Test strip Ql (U) 1+ Abnormal NEGATIVE [facility] Traffic Analysis Technician Comment on above: Order Comment: [facility] performed at: [facility], [address] [facility], [address] [place] [address], [address] [place] [address], Heart Nurse: Bryan Kurtz MD [facility] Date/Time: [facility] Results Received Date/Time: [facility] Reported Date/Time: Performed By: #### 3 020X, %SBCULI, 6304R #### [facility] [address] [place] [address] Nitrite Ql (U) Negative Normal NEGATIVE [facility] Traffic Analysis Technician Comment on above: Order Comment: [facility] performed at: [facility], [address] , [address] [place] [address], [address] [place] [address], Heart Nurse: Bryan Kurtz MD [facility] Date/Time: [facility] Results Received Date/Time: [facility] Reported Date/Time: Performed By: #### 3 020X, %SBCULI, 6304R #### [facility] Default [address] [place] [address] OCCULT BLOOD Negative Normal NEGATIVE [facility] Traffic Analysis Technician Comment on above: Order Comment: [facility] performed at: [facility], [address] , [address] [place] [address], [address] [place] [address], Heart Nurse: Bryan Kurtz MD [facility] Date/Time: [facility] Results Received Date/Time: [facility] Reported Date/Time: Performed By: #### 3 020X, %SBCULI, 6304R #### [facility] [address] [place] [address] pH (U) 5.5 [pH] Normal 5.0-8.0 [facility] Traffic Analysis Technician Comment on above: Order Comment: [facility] performed at: [employer], [facility], [address] [place] [address], [address] [place] [address], [address] [place] [address], Heart Nurse: Bryan Kurtz MD [facility] Date/Time: [facility] Results Received Date/Time: [facility] Reported Date/Time: Performed By: #### 3 020X, %SBCULI, 6304R #### [facility] Default [address] [place] [address] Protein Ql (U) Negative Normal NEGATIVE [facility] Traffic Analysis Technician Comment on above: Order Comment: [facility] performed at: [employer], [facility], [address] [facility], [address] [place] [address], [address] [place] [address], Heart Nurse: Bryan Kurtz MD [facility] Date/Time: [facility] Results Received Date/Time: [facility] Reported Date/Time: Performed By: #### 3 020X, %SBCULI, 6304R #### [facility] Default [address] [place] [address] RBC 0-2 Normal < OR = 2 [facility] Traffic Analysis Technician Comment on above: Order Comment: [facility] performed at: [employer], [facility], [address] , [address] [place] [address], [address] [place] [address], Heart Nurse: Bryan Kurtz MD [facility] Date/Time: [facility] Results Received Date/Time: [facility] Reported Date/Time: Performed By: #### 3 020X, %SBCULI, 6304R #### [facility] Default [address] [place] [address] Specific gravity (U) [Rel density] 1.018 Normal 1.001-1.035 [facility] Traffic Analysis Technician Comment on above: Order Comment: [facility] performed at: [employer], [facility], [address] [facility], [address] [place] [address], [address] [place] [address], Heart Nurse: Bryan Kurtz MD [facility] Collection Date/Time: [facility] Results Received Date/Time: [facility] Reported Date/Time: Performed By: #### 3 020X, %SBCULI, 6304R #### [facility] [address] [place] [address] SQUAMOUS EPITHELIAL CELLS 20-40 Abnormal < OR = 5 [facility] Traffic Analysis Technician Comment on above: Order Comment: [facility] performed at: [employer], [facility], [address] [facility], [address] [place] [address], [address] [place] [address], Heart Nurse: Bryan Kurtz MD [facility] Collection Date/Time: [facility] Results Received Date/Time: [facility] Reported Date/Time: Performed By: #### 3 020X, %SBCULI, 6304R #### [facility] Default [address] [place] [address] WBC 6-10 Abnormal < OR = 5 [facility] Specialist Comment on above: Order Comment: [facility] performed at: [employer], [facility], [address] [facility], [address] [place] [address], [address] [place] [address], Heart Nurse: Bryan Kurtz MD [facility] Collection Date/Time: [facility] Results Received Date/Time: [facility] Reported Date/Time: Performed By: #### 3 020X, %SBCULI, 6304R #### [facility] Default [address] [place] [address] Cardiovascular Lab Reporton 10-08-2017 Cardiovascular Lab Report [facility] Patient Name: Susan Douglass [facility] MR #: [id number] Physician: Noble De La Rosa M.D. Medicine Service Date: 10/07/2017 Division of Birthdate: 1940 Cardiology Room #: [id number] Adult Cardiovascular Services [facility] [address] [facility]. [place] [address] Cardiovascular Laboratory Report The patient is a patient of mine from [place]. She has chronic atrial fibrillation. She has a dual-chamber pacemaker that is set VVI. She has had very bhddfbllp-pd-bxahbqk atrial fibrillation despite high doses of beta-moises [...] The right groin was anesthetized with lidocaine. 8-Kazakh and 6-Kazakh introducer sheaths were placed in the right [...] Montgomery M.D. Date Trans: 10/08/2017 04:44 A/panda [id number] cc: Eliud Otero D.O. [address] [place] [address] [facility] Vital Signs Date Time Vital Sign Value Performing Clinician Faci lity 02-26-2024 13:11-0500 Body height 157.5 cm Mercedez Leo DO [facility] 02-26-2024 13:11-0500 Body mass index (BMI) [Ratio] 18.11 kg/m2 Mercedez Leo DO [facility] 02-26-2024 13:11-0500 Body weight 44.91 kg Mercedez Leo DO [facility] 01-15-2024 14:55-0500 Body height 157.5 cm Mercedez Leo DO [facility] 01-15-2024 14:55-0500 Body mass index (BMI) [Ratio] 18.11 kg/m2 Mercedez Leo DO [facility] 01-15-2024 14:55-0500 Body weight 44.91 kg Mercedez Leo DO [facility] 01-15-2024 14:55-0500 Diastolic blood pressure 67 mm[Hg] Mercedez Leo DO [facility] 01-15-2024 14:55-0500 Heart rate 78 /min Mercedez Leo DO [facility] 01-15-2024 14:55-0500 Systolic blood pressure 130 mm[Hg] Mercedez Leo DO Work Phone: [facility] 07-25-2023 14:38-0400 Body height 157.5 cm Olivia Neito MAINTENANCE SERVICE SUPERVISOR[employer] Work Phone: [facility] 07-25-2023 14:38-0400 Body mass index (BMI) [Ratio] 19.83 kg/m2 Olivia Nieto MAINTENANCE SERVICE SUPERVISOR[employer] Work Phone: [facility] 07-25-2023 14:38-0400 Body weight 49.17 kg Olivia Nieto MAINTENANCE SERVICE SUPERVISOR[employer] Work Phone: [facility] 07-25-2023 14:38-0400 Diastolic blood pressure 69 mm[Hg] Olivia Nieto MAINTENANCE SERVICE SUPERVISOR[employer] Work Phone: [facility] 07-25-2023 14:38-0400 Heart rate 72 /min Olivia Nieto MAINTENANCE SERVICE SUPERVISOR[employer] Work Phone: [facility] 07-25-2023 14:38-0400 Systolic blood pressure 128 mm[Hg] Olivia Nieto MAINTENANCE SERVICE SUPERVISOR[employer] Work Phone: [facility] 07-17-2023 13:20-0400 Body height 157.5 cm Mercedez Leo DO Work Phone: [facility] 07-17-2023 13:20-0400 Body mass index (BMI) [Ratio] 20.05 kg/m2 Mercedez Leo DO Work Phone: [facility] 07-17-2023 13:20-0400 Body weight 49.71 kg Mercedez Leo DO Work Phone: [facility] 07-17-2023 13:20-0400 Diastolic blood pressure 97 mm[Hg] Mercedez Leo DO Work Phone: [facility] 07-17-2023 13:20-0400 Heart rate 75 /min Mercedez Leo DO Work Phone: [facility] 07-17-2023 13:20-0400 Systolic blood pressure 179 mm[Hg] Mercedez Leo DO Work Phone: [facility] 06-28-2023 10:51-0400 Body mass index (BMI) [Ratio] 20.3 kg/m2 Olivia Nieto MAINTENANCE SERVICE SUPER[employer]OR[employer] Work Phone: [facility] 06-28-2023 10:51-0400 Body weight 50.35 kg Olivia Nieto MAINTENANCE SERVICE SUPERVISOR[employer] Work Phone: [facility] 06-28-2023 10:51-0400 Diastolic blood pressure 82 mm[Hg] Olivia Nieto MAINTENANCE SERVICE SUPERVISOR[employer] [facility] 06-28-2023 10:51-0400 Heart rate 74 /min Oliviarobert Nieto MAINTENANCE SERVICE SUPER[employer]OR[employer] Work Phone: [facility] 06-28-2023 10:51-0400 Systolic blood pressure 151 mm[Hg] Olivia Nieto MAINTENANCE SERVICE SUPER[employer]OR[employer] Work Phone: [facility] Encounters Encounter Date Encounter Type Care Provider Facility Start: 04-14-2024 End: 04-14-2024 ambulatory [facility] Start: 02-26-2024 End: 02-26-2024 Office outpatient visit 15 minutes Mercedez Leo DO Work Phone: [facility] Comment on above: Elevated liver enzym es (Primary Dx); Calculus of gallbladder with cholecystitis of other acuity without obstruction Start: 02-26-2024 End: 02-26-2024 ambulatory MERCEDEZ Susi LEO [facility] Start: 02-03-2024 End: 02-03-2024 ambulatory HAYWARD Susi BRIANNA [facility] Start: 01-29-2024 End: 01-29-2024 Telephone encounter Jeanna Espinoza CMA [facility] Start: 01-28-2024 End: 01-28-2024 Orders Only Not In System Ref Prov [facility] Start: 01-27-2024 End: 01-27-2024 Orders Only Concha Amado RMA [facility] Comment on above: Elevated LFTs (Prima ry Dx) Start: 01-23-2024 End: 01-23-2024 ambulatory Eliud Joecamilla Facility:[facility] Start: 01-22-2024 End: 01-23-2024 Orders Only Traci Mathew CMA [facility] Comment on above: Elevated LFTs (Prima ry Dx) Hematemesis, unspeci fied whether nausea present (Primary Dx); Melena Start: 01-21-2024 End: 01-24-2024 Orders Only Mercedez Leo DO [facility] Comment on above: Calculus of gallblad johnny with cholecystitis of other acuity without obstruction (Primary Dx); Elevated liver enzymes Start: 01-20-2024 End: 01-21-2024 Orders Only Not In System Ref Prov [facility] Start: 01-15-2024 End: 01-15-2024 Office outpatient visit 25 minutes Mercedez Leo DO Work Phone: [facility] Comment on above: Melena (Primary Dx); Hematemesis, unspecified whether nausea present; Calculus of gallbladder without cholecystitis without obstruction; Calculus of gallbladder with cholecystitis of other acuity without obstruction; Hematemesis with nausea Start: 01-15-2024 End: 01-15-2024 ambulatory MERCEDEZ LEO [facility] Start: 01-07-2024 ambulatory [facility] Facility :[facility] Start: 12-30-2023 End: 01-03-2024 Emergency department patient visit ELIUD Cassandra OTERO [facility] Start: 12-29-2023 End: 12-29-2023 Emergency department patient visit ELIUD Cassandra OTERO [facility] Start: 12-17-2023 End: 12-19-2023 Telephone encounter Mercedez Leo DO Work Phone: [facility] General Surgery Start: 12-13-2023 ambulatory [facility] Facility :[facility] Start: 10-23-2023 End: 10-23-2023 Bamboo flowsheet Yenifer B Apling MEDICAL FACILITIES SECTION DIRECTOR Work Phone: [facility] [place] Start: 10-23-2023 End: 10-23-2023 Bamboo flowsheet Yenifer Wheat Apling MEDICAL FACILITIES SECTION DIRECTOR Work Phone: [facility] Start: 10-23-2023 End: 10-23-2023 Office outpatient visit 15 minutes Yenifer Wheat Apling MEDICAL FACILITIES SECTION DIRECTOR Work Phone: [facility] Comment on above: Closed displaced fra cture of right ischium with routine healing, unspecified fracture morphology, subsequent encounter (Primary Dx) Start: 10-23-2023 End: 10-23-2023 ambulatory YENIFER Wheat APLING Not Available Start: 10-01-2023 End: 10-01-2023 ambulatory [facility] Start: 09-25-2023 End: 09-25-2023 ambulatory YENIFER Wheat APLING Not Available Start: 09-04-2023 End: 09-04-2023 ambulatory FRANKIE [facility] Start: 08-28-2023 End: 08-28-2023 ambulatory YENIFER Wheat APLING Not Available Start: 08-24-2023 End: 08-25-2023 Emergency department patient visit [place] [facility] Start: 08-24-2023 End: 08-25-2023 Emergency department patient visit [place] [facility] Start: 07-25-2023 End: 07-25-2023 Postop follow up visit related to original px Olivia Nieto MAINTENANCE SERVICE SUPERVISOR-WORM GROWER Work Phone: [facility] Comment on above: Skin lesion of left arm (Primary Dx) Start: 07-25-2023 End: 07-25-2023 ambulatory OLIVIA Wilfrido NIETO [facility] Start: 07-17-2023 End: 07-17-2023 ambulatory MERCEDEZ LEO [facility] Start: 07-17-2023 End: 07-17-2023 Patient encounter procedure Mercedez Leo DO Work Phone: [facility] Comment on above: Skin lesion of left arm (Primary Dx) Start: 07-17-2023 End: 07-17-2023 ambulatory MERCEDEZ LEO [facility] Start: 06-28-2023 End: 06-28-2023 Office outpatient visit 15 minutes Olivia Nieto MAINTENANCE SERVICE SUPERVISOR-WORM GROWER Work Phone: [facility] Comment on above: Skin lesion of left arm (Primary Dx) Start: 06-28-2023 End: 06-28-2023 ambulatory OLIVIA NIETO [facility] Start: 06-13-2023 End: 06-13-2023 ambulatory DHARA HART Not Available Start: 06-06-2023 End: 06-06-2023 ambulatory ROSANNA SHEPHERDROSHAN Not Available Start: 05-28-2023 End: 05-28-2023 ambulatory ROSANNA WEBBERTERSALL Not Available Start: 05-23-2023 End: 05-23-2023 ambulatory ROSANNA SHEPHERDALL Not Available Start: 05-20-2023 End: 05-20-2023 ambulatory ADRIA NAILS Not Available Start: 05-08-2023 Telephone encounter Suzanne Zamorano [facility] Start: 05-08-2023 End: 05-20-2023 ambulatory PALAK Rosaura GARCIAEY [facility] Start: 04-25-2023 End: 04-25-2023 Emergency department patient visit Hardy Leon Facility:[facility] Start: 06-01-2022 End: 06-02-2022 ambulatory SOHA JEFFERSON Facility:[facility] Start: 05-08-2022 End: 05-09-2022 ambulatory CHARLY ESPINO Facility:[facility] Start: 03-12-2022 End: 03-24-[address] ELIUD OTERO Facility:[facility] Start: 02-08-2022 End: 02-09-[address] ELIUD OTERO Facility:[facility] Start: 01-23-2022 End: 01-23-[address] ELIUD OTERO Facility:[facility] Start: 01-02-2022 End: 01-03-[address] ELIUD OTERO Facility:[facility] Start: 12-07-2021 End: 12-08-[address] ELIUD OTERO Facility:[facility] Start: 11-26-2021 End: 11-26-[address] ELIUD OTERO Facility:[facility] Start: 09-27-2021 End: 09-27-[address] ELIUD OTERO Facility:[facility] Start: 07-26-2021 ambulatory SOHA JEFFERSON Facility:[facility] Start: 10-07-2017 End: 10-08-2017 Patient encounter procedure NOBLE Sincere MON[place]OM[place] Facility:[facility] Procedures Date Procedure Procedure Detail Performing Clinician Start: 02-26-2024 Follow-up visit Follow-up MERCEDEZ LEO Start: 01-23-2024 MULTIPLE LABS Not In Sy stem Ref Prov Start: 01-09-2024 MULTIPLE LABS Not In Sy stem Ref Prov Start: 10-23-2023 Radiologic examinati on pelvis 1/2 views Yenfier Ruelas NP Work Phone: Start: 09-04-2023 Follow-up visit Follow-up FRANKIEFIORELLA CODY Start: 09-21-2021 Colonoscopy Suzanne Medrano Plan of Treatment Date Care Activity Detail Author Start: 09-28-2031 DTaP,Tdap and Td Vaccines (2 - Tdap) DTaP,Tdap and Td Vaccines (2 - Tdap) [facility] Start: 09-21-2026 Screening for malign ant neoplasm of colon Colonoscopy [facility] Start: 02-25-2025 Tobacco Screening Tobacco Screening [facility] Start: 01-14-2025 Tobacco Screening Tobacco Screening [facility] Start: 08-23-2024 Adult BMI Screening Adult BMI Screen ing [facility] Start: 08-23-2024 Tobacco Screening Tobacco Screening [facility] Start: 07-24-2024 Adult BMI Screening Adult BMI Screen ing [facility] Start: 07-24-2024 Tobacco Screening Tobacco Screening [facility] Start: 07-16-2024 Adult BMI Screening Adult BMI Screen ing [facility] Start: 07-16-2024 Tobacco Screening Tobacco Screening [facility] Start: 07-02-2024 Tobacco Screening Tobacco Screening [facility] Start: 06-27-2024 Adult BMI Screening Adult BMI Screen ing [facility] Start: 03-19-2024 End: 03-19-2024 Patient encounter procedure 03/19/2024 1:15 PM EST Appointment [facility] [address] [place] [id number] Mercedez Leo, DO [address] [place], [place] [id number] [facility] Start: 02-03-2024 End: 02-03-2024 Patient encounter procedure [facility] Start: 02-03-2024 Subsequent hospital visit by physician 02/03/2024 7:00 AM EST Hospital Encounter [facility] [address] [place] [address] Mercedez Leo, DO [address] [place] [address] [facility] Start: 01-21-2024 End: 01-20-2025 MRCP Abdomen WO and W contrast IV MRCP with MRI abdomen with and without contrast Imaging STAT Calculus of gallbladder with cholecystitis of other acuity without obstruction Elevated liver enzymes Expected: 01/21/2024, Expires: 01/20/2025 [facility] Work Phone: Comment on above: Expected: 01/21/2024 , Expires: 01/20/2025 Start: 01-15-2024 End: 01-14-2025 NM Biliary ducts and Gallbladder Views for patency of biliary structures and ejection fraction W sincalide and W radionuclide IV NM hepatobiliary system imaging with pharmacologic agent Imaging Routine Calculus of gallbladder without cholecystitis without obstruction Expected: 01/15/2024, Expires: 01/14/2025 Ante Up Comment on above: Expected: 01/15/2024 , Expires: 01/14/2025 Start: 01-15-2024 End: 01-14-2025 US Abdomen limited Ultrasound abdomen limited Imaging Routine Calculus of gallbladder without cholecystitis without obstruction Expected: 01/15/2024, Expires: 01/14/2025 Ante Up Comment on above: Expected: 01/15/2024 , Expires: 01/14/2025 Start: 12-25-2023 End: 12-25-2023 Patient encounter procedure 12/25/2023 2:15 PM EST Office Visit [facility] [address] [place] [phone] Mercedez Leo DO [address] [facility], [place] [phone] [facility] Start: 12-04-2023 End: 12-04-2023 Patient encounter procedure 12/04/2023 9:30 AM EDT Office Visit [facility] [address] [facility] [address] [place] [address] Yenifer Ruelas MEDICAL FACILITIES SECTION DIRECTOR [address] [facility] [address] [place] [address] [facility] Start: 10-23-2023 End: 10-23-2023 Patient encounter procedure 10/23/2023 9:30 AM EDT Office Visit [facility] [address] [place] [address] [place] [address] Yenifer Ruelas, MEDICAL FACILITIES SECTION DIRECTOR [address] [facility] [address] [place] [address] Closed displaced fracture of right ischium with routine healing, unspecified fracture morphology, subsequent encounter (Primary Dx) [facility] Comment on above: Closed displaced fra cture of right ischium with routine healing, unspecified fracture morphology, subsequent encounter (Primary Dx) Start: 10-20-2023 Influenza vaccination Influenza Vacc ine [facility] Start: 07-25-2023 End: 07-25-2023 Patient encounter procedure 07/25/2023 2:45 PM EDT Office Visit [facility] [address] [place] [phone] Olivia Nieto, MAINTENANCE SERVICE SUPERVISOR-WORM GROWER [address] [place] [place], [place] [phone] [facility] Start: 07-17-2023 End: 07-17-2023 Patient encounter procedure 07/17/2023 1:30 PM EDT Office Visit [facility] [address] [place] [phone] Mercedez Leo DO [address] [place] [address] [facility] Start: 06-23-2023 Adult BMI Screening Adult BMI Screen ing [facility] Start: 06-23-2023 Tobacco Screening Tobacco Screening [facility] Start: 10-19-2022 Influenza vaccination Influenza Vacc ine [facility] Start: 08-04-2003 Fall Risk Screening Fall Risk Screen ing [facility] Start: 1988 Administration of varicella zoster vaccine Zoster (Shingles) Vaccine (1 of 2) [facility] Start: 1950 Depression Screening Depression Scre ening [facility] Start: 1938 Medicare Annual Well ness Visit Medicare Annual Wellness Visit [facility] End: 01-14-2025 EGD / Colonoscopy EGD / Colonoscopy GI Routine Melena Hematemesis, unspecified whether nausea present 1 Occurrences starting 01/15/2024 until 01/14/2025 [facility] Work Phone: Comment on above: 1 Occurrences starti ng 01/15/2024 until 01/14/2025 End: 07-16-2024 Surgical Pathology Surgical Pathology Pathology and Cytology Routine Skin lesion of left arm 1 Occurrences starting 07/17/2023 until 07/16/2024 [facility] Work Phone: Comment on above: 1 Occurrences starti ng 07/17/2023 until 07/16/2024 End: 07-02-2024 Unlisted Procedure / Surgery Unlisted Procedure / Surgery Procedures Routine Skin lesion of left arm 1 Occurrences starting 07/03/2023 until 07/02/2024 [facility] Work Phone: Comment on above: 1 Occurrences starti ng 07/03/2023 until 07/02/2024 Immunizations Immunization Date Immunization Notes Care Provider Fa cility 12-12-2016 influenza virus vacc ine, unspecified formulation Suzanne Jaun [facility] Payers Date Payer Category Payer Medicare HMO [facility] [id number] 2023 [facility] [id number] 2021 Medicare [id number] 1959 Medicare [id number] 1959 Self-pay 1938 Unknown [id number] 2.16.840.1.969204.3.579.2. 647 1938 Unknown [id number] 2.16.840.1.221763.3.579.2. 593 1938 Unknown [id number] 2.16.840.1.741415.3.579.2. 593 1938 Unknown [id number] 2.16.840.1.530483.3.579.2. 593 1938 Unknown [id number] 2.16.840.1.096262.3.579.2. 593 1938 Unknown [id number] 2.16.840.1.339529.3.579.2. 593 1938 Unknown [id number] 2.16.840.1.942911.3.579.2. 593 1938 Unknown [id number] 2.16.840.1.964026.3.579.2. 593 1938 Unknown [id number] 2.16.840.1.991402.3.579.2. 593 1938 Unknown [id number] 2.16.840.1.644123.3.579.2. 593 1938 Unknown [id number] 2.16.840.1.745276.3.579.2. 59 1938 Unknown [id number] 2.16.840.1.235245.3.579.2. 593 1938 Unknown [id number] 2..840.1.204876.3.579.2. 125 1938 Unknown [id number] 2..840.1.023810.3.579.2. 125 1938 Unknown [id number] 2.840.1.552796.3.579.2. 125 1938 Unknown [id number] 2..840.1.727137.3.579.2. 125 1938 Unknown [id number] 2.840.1.720747.3.579.2. 125 1938 Unknown [id number] 2..840.1.235762.3.579.2. 125 1938 Unknown [id number] 2..840.1.401954.3.579.2. 125 1938 Unknown [id number] 2.16.840.1.490716.3.579.2. 125 1938 Unknown [id number] 2.16.840.1.453905.3.579.2. 125 1938 Unknown [id number] 2.16.840.1.609428.3.579.2. 125 1938 Unknown [id number] 2.16.840.1.861874.3.579.2. 727 1938 Unknown [id number] 2..840.1.256651.3.579.2. 1285 1938 Unknown [id number] 2..840.1.984573.3.579.2. 1285 1938 Unknown [id number] 2..840.1.798285.3.579.2. 1285 1938 Unknown [id number] 2.840.1.671970.3.579.2. 1285 1938 Unknown [id number] 2.840.1.505954.3.579.2. 1285 1938 Unknown [id number] 2.840.1.223427.3.579.2. 1285 1938 Unknown [id number] 2.840.1.349281.3.579.2. 1285 1938 Unknown [id number] 2.840.1.917105.3.579.2. 1285 1938 Unknown [id number] 2.840.1.128203.3.579.2. 1285 1938 Unknown [id number] 2.840.1.125093.3.579.2. 1285 1938 Unknown [id number] 2.840.1.660161.3.579.2. 1285 1938 Unknown [id number] 2.840.1.644762.3.579.2. 1285 1938 Unknown [id number] 2.840.1.967813.3.579.2. 1285 1938 Unknown [id number] 2.840.1.271035.3.579.2. 1285 1938 Unknown [id number] 2.840.1.568123.3.579.2. 1285 1938 Unknown [id number] 2.16.840.1.964147.3.579.2. 1286 1938 Unknown [id number] 2.16.840.1.627150.3.579.2. 1286 Unknown [id number] 2.16.840.1.230100.3.579.2. 531 Unknown [id number] 2.16.840.1.121617.3.579.2. 531 Social History Date Type Detail Facility Start: 06-28-2023 End: 08-28-2023 Tobacco smoking status NHIS Ex-smoker [facility] Start: 02-19-1952 End: 02-18-1989 History of tobacco use Current smoker [facility] Start: 02-19-1952 End: 02-18-1989 History of tobacco use Cigarette Smoker [facility] Start: 06-28-2023 End: 08-28-2023 Tobacco use and exposure Smokeless tobacco non-user [facility] Start: 10-23-2023 End: 01-15-2024 Alcoholic beverage intake Ex-drinker (finding) [facility] Start: 03-31-2020 End: 10-23-2023 History of Social function [facility] Start: 03-31-2020 End: 10-23-2023 Tobacco use panel [facility] Start: 1940 Sex assigned at Not on file [facility] Unknown [facility] Start: 05-28-2022 Alcohol Comment SOCIALLY [facility] Start: 09-23-2014 Sex Female (finding) [facility] Start: 06-22-2022 Alcohol intake Current drinke r of alcohol (finding) [facility] Medical Equipment Procedure Code Equipment Code Equipment Origin al Text Equipment Identifier Dates Hd Fem 32mm -3.5 mm 01/31 Vrsy Rpl [id number] + [id number] - [id number]/$ $[id number], [id number] FDA Start: 07-17-2017 Shl Actb 48mm Hi p Prm Mdlr Ch Rpl [id number] - Sna - [id number] Start: 07-17-2017 Linr Actb 48mm 32mm Std Ntrl Rpl [id number] - Sna - [id number]/$ $[id number]/S NA, 124090_[facility] FDA Start: 07-17-2017 Stm Fem 137d 5 39mm 12/14 B - Sna - [id number] +[id number]/$$ [id number]/SNA , 124091_[facility] FDA Start: 07-17-2017 Shl Actb 50mm Hi p Prm Mdlr Ch Rpl [id number] - Sna - [id number] Start: 06-25-2018 Linr Actb 50/52/54mm 36mm Std Rpl [id number] - Sna - [id number] Start: 06-25-2018 Stm Fem 137d 8 40.88mm 12/14 B - Sna - [id number] Start: 06-25-2018 Hd Fem 36mm +0mm 14 Vrsy Rpl [id number] - Sna - [id number] 198747_[facility] Start: 06-25-[address]r [address]n Hip [address] 25mm 6.5mm Rpl [id number] + [id number] + [id number] - [id number]/$ $[id number], 124084_[facility] FDA Start: 07-17-[address] Hip [address] 25mm 6.5mm Rpl [id number] + [id number] + [id number] - [id number] +[id number]/$ $[id number], 124085_[facility] FDA Start: 07-17-2017 Scr Bn Anshul 20mm 6.5mm Hip St Rpl [id number] + [id number] + [id number] - Sna - [id number] 198742_[facility] Start: 06-25-2018 Scr Bn Anshul 20mm 6.5mm Hip St Rpl [id number] + [id number] + [id number] - Sna - [id number] 198643_[facility] Start: 06-25-2018 Pacemaker- 17 113685_[facility] Start: 12-05-2016 Comment on above: Description: info in media Clinical Notes 01-02-2022 to 02-26-2024 Mercedez Leo, DO - 02/26/2024 1:15 PM ESTTelephone Encounter - Jeanna Espinoza [facility] - 01/29/2024 12:02 PM ESTTelephone Encounter - Jeanna Espinoza, [facility] - 01/29/2024 12:02 PM EST Note Date & Type Note Facility 02-26-2024 History of Present illness Narrative Images from the original note were not included. [facility] GENER[facility] SURG[facility] [address] Progress NOTE CHIEF COMPLAINT Chief Complaint Patient presents with Follow-up FOLLOW UP FROM HIDA AND ULTRASOUND PERFORMED 02/03/24 Susan Douglass is a 83 y.o. female presents for reexamination after she had abnormal HIDA scan results showing a 27% ejection fraction and ultrasound showing gallbladder polyps and gallbladder wall thickening. Patient is accompanied by her daughter Shayna Banks today. She has gained 14 lb since last being seen. Her appetite is good. She is undergoing physical therapy currently. She denies any abdominal pain nausea vomiting. She states that after she saw me she was jaundiced according to her daughter and it that is spontaneously resolved after a few days of Flagyl given to her by her PCP. Reason for Exam Cholelithiasis Dx: Calculus of gallbladder without cholecystitis without obstruction [K80.20 (ICD-10-CM)] PACS Images Show images for NM hepatobiliary system imaging with pharmacologic agent NM hepatobiliary system imaging with pharmacologic agent Order: [id number] Status: Final result Visible to patient: No (in[facility]) Next appt: None Dx: Calculus of gallbladder without colton... 0 Result Notes Details Reading Physician Reading Date Result Priority Korey Whitlock DO [phone] 02/03/2024 Routine Mercedez Leblanc MD [phone] 02/03/2024 Dawson Davenport MD [phone] 02/03/2024 Narrative & Impression NM HEPATOBILIARY SYS IMAGING W PHARMACOLOGIC AGENT HISTORY: Cholelithiasis COMPARISON: Abdominal ultrasound 02/03/2024 TECHNIQUE: Hepatobiliary scan performed after intravenous administration of 5 mCi Tc-99m mebrofenin. 0.9 mcg of sincalide administered intravenously after 45 minutes. Static and dynamic images obtained. Ejection fraction calculated based on generated time/activity curve. FINDINGS: Prompt homogenous uptake seen in the liver with appropriate clearance on subsequent images. No enterogastric reflux. Visualization of radiotracer activity: Gallbladder: 20 minutes Small bowel: 15 minutes Gallbladder ejection fraction: 27% IMPRESSION: * Gallbladder ejection fraction: 27%. This is suggestive of, but not specific for, chronic cholecystitis or biliary dyskinesia. Approved by Resident Korey Whitlock DO on 02/03/2024 9:41 AM I, Dawson Davenport MD have personally reviewed the image(s) and agree with and/or edited the report Finalized by Dawson Davenport MD on 02/03/2024 12:12 PM Exam Ended: 02/03/24 09:10 EST Last Resulted: 02/03/24 12:12 EST Reason for Exam Cholelithiasis rule out acute cholecystitis Dx: Calculus of gallbladder without cholecystitis without obstruction [K80.20 (ICD-10-CM)] PACS Images Show images for Ultrasound abdomen limited Ultrasound abdomen limited Order: [id number] Status: Final result Visible to patient: No (inaccessible in [facility] My[facility]) Next appt: None Dx: Calculus of gallbladder without colton... 1 Result Note 1 Follow-up Encounter Details Reading Physician Reading Date Result Priority Reid Gonzalez MD [phone] 02/04/2024 Routine Narrative & Impression US ABDOMEN LMTD: 02/03/2024 6:56 AM Clinical: Right upper quadrant pain. Procedure: Real-time sonography liver and gallbladder performed. Comparison: None Findings: Liver measures 12.9 cm in length without focal lesions. Mildly distended gallbladder with irregularly thickened wall measuring up to 4.6 mm. No shadowing stones are seen. Some gallbladder sludge is noted. There are a few hypoechoic foci along the gallbladder wall measuring up to 4 mm, likely small polyps. Common duct dilated to 6.8 mm. Technologist reports negative sonographic Cottrell sign. No right upper quadrant fluid collections. Normal directional flow in main portal vein. Impression: * Distended gallbladder with polyps and nonspecific irregular wall thickening. No shadowing stones. * Sonographically unremarkable liver. Finalized by Reid Gonzalez MD on 02/04/2024 8:32 AM Exam Ended: 02/03/24 07:26 EST Last Resulted: 02/04/24 08:32 EST MEDICATION Current Outpatient Medications: acetaminophen (TYLENOL EXTRA STRENGTH) 500 mg tablet, Take 1 tablet (500 mg total) by mouth every 6 (six) hours as needed for pain., Disp: 30 tablet, Rfl: 0 apixaban (ELIQUIS) 2.5 mg tablet, Take by mouth 2 (two) times a day., Disp: , Rfl: C,E,zinc,copper 11/twjmv2o/lut (OCUVITE ADULT 50 PLUS ORAL), Take 1 tablet by mouth daily. , Disp: , Rfl: carvediloL (COREG) 12.5 mg tablet, Take 1 tablet (12.5 mg total) by mouth in the morning and 1 tablet (12.5 mg total) in the evening. Take with meals., Disp: , Rfl: cholecalciferol, vitamin D3, 5,000 units tablet, Take 1 tablet (5,000 Units total) by mouth in the morning., Disp: , Rfl: colesevelam (WELCHOL) 625 mg tablet, Take 3 tablets (1,875 mg total) by mouth in the morning., Disp: , Rfl: memantine (NAMENDA) 10 mg tablet, Take 1 tablet (10 mg total) by mouth in the morning., Disp: , Rfl: montelukast (SINGULAIR) 10 mg tablet, Take 1 tablet (10 mg total) by mouth nightly., Disp: , Rfl: gvjiloaj-bxks-SK-calcium &mins (THERAGRAN-M) 9 mg iron-400 mcg tablet, Take 1 tablet by mouth in the morning and 1 tablet before bedtime., Disp: , Rfl: omeprazole (PriLOSEC) 20 mg capsule, Take 1 capsule (20 mg total) by mouth in the morning., Disp: , Rfl: sod sulf-pot chloride-mag sulf 1.479-0.188- 0.225 gram tablet, PLEASE FOLLOW INSTRUCTIONS FROM SURGEONS OFFICE, Disp: 24 tablet, Rfl: 0 ALLERGY No Known Allergies MEDICAL HISTORY Past Medical History: Diagnosis Date Arthritis Atrial fibrillation (CMS-HCC) Dental disease upper dentures Frequent falls GERD (gastroesophageal reflux disease) Hyperlipidemia Hypertension Pacemaker 2005 replaced 2016 PONV (postoperative nausea and vomiting) Prolonged emergence from general anesthesia severe confusion, hallucincations Visual impairment glasses SURGICAL HISTORY Past Surgical History: Procedure Laterality Date APPENDECTOMY CARDIAC PACEMAKER PLACEMENT 2005 replaced 2016 CATARACT EXTRACTION Bilateral SECTION COLONOSCOPY N/A 09/21/2021 Performed by Mercedez Leo DO at [facility] DILATION AND CURETTAGE OF UTERUS ESOPHAGOGASTRODUODENOSCOPY N/A 09/21/2021 Performed by Mercedez Leo DO at [facility] EXAM UNDER ANESTHESIA/ DILATION AND CURETTAGE N/A 08/10/2019 Performed by Reji Shaikh MD at [facility] NOSE SURGERY REPLACEMENT TOTAL JOINT HIP Left 06/25/2018 Performed by Korey Perry DO at [facility] REPLACEMENT TOTAL JOINT HIP Right 07/17/2017 Performed by Korey Perry DO at [facility] SKIN LESION EXCISION 07/17/2023 excision of lesion on left arm performed in office WRIST SURGERY left X2 SOCIAL HISTORY Social History Socioeconomic History Marital status: Spouse name: Not on file Number of children: Not on file Years of education: Not on file Highest education level: Not on file Occupational History Not on file Tobacco Use Smoking status: Former Current packs/day: 0.00 Average packs/day: 1 pack/day for 37.0 years (37.0 ttl pk-yrs) Types: Cigarettes Start date: 1954 Quit date: 1989 Years since quittin.0 Smokeless tobacco: Never Vaping Use Vaping status: Never Used Substance and Sexual Activity Alcohol use: Not Currently Alcohol/week: 3.0 standard drinks of alcohol Types: 3 Cans of beer per week Comment: SOCIALLY Drug use: No Sexual activity: Not Currently Other Topics Concern Not on file Social History Narrative Not on file Social Drivers of Health Financial Resource Strain: Not on file Food Insecurity: No Food Insecurity (12/29/2023) Hunger Screening Food Insecurity - Worry: Never True Food Insecurity - Inability: Never True Transportation Needs: Not on file Physical Activity: Not on file Stress: Not on file Social Connections: Not on file Interpersonal Safety: Unknown (04/11/2023) Received from [facility] Safety & Environment Fear of Current or Ex-Partner: Not on file Emotionally Abused: Not on file Physically Abused: Not on file Sexually Abused: Not on file Physically or Sexually Abused: Not on file Housing Instability: Not on file FAMILY HISTORY Family History Problem Relation Age of Onset Heart disease Mother Colon cancer Father No Known Problems Sister No Known Problems Sister No Known Problems Brother Kidney cancer Daughter Uterine cancer Daughter Kidney cancer Son Hearing loss Son Breast cancer Paternal Grandmother mid 70s Derek Breast Cancer Neg Hx REVIEW OF SYSTEMS: Constitutional: Denies fevers, denies recent illnesses. She is unsteady on her feet and has to use a walker to get around. She loses her balance quite easily. Otherwise the rest review of systems negative except as above. PHYSICAL EXAM Constitutional: She is oriented to person, place, and time. Vital signs are normal. She appears well-developed and well-nourished. Heart: Regular rate and rhythm without murmur Abdomen: Soft nontender with no guarding or rebound negative Cottrell sign as last exam Neurological: She is alert and oriented to person, place, and time. Skin: Skin is warm, dry and intact. Psychiatric: She has a normal mood and affect. Her speech is normal and behavior is normal. Cognition and memory are normal. IMPRESSION 1. Probable chronic cholecystitis with cholelithiasis even though ultrasound only shows polyps and she probably most likely passed a common bile duct stone closed liver enzymes dramatically improved after several days and after they were rechecked by her PCP. ASSESSMENT & PLAN Observation is in order due to the frailty of this 83-year-old patient. She would be at increased risk of pancreatitis or another common bile duct stone but at this point she is 100% better and does not need anything done at this time. She and her daughter understood all the above. She may follow up p.r.n.. Evaluation included: Preparing to see the patient (e.g., review of tests) Obtaining and/or reviewing separately obtained history Performing a medically appropriate examination and/or evaluation Counseling and educating the patient/family/caregiver Referring and communicating with other health rn long term care No primary diagnosis found. Mercedez Leo DO This note was created with the assistance of a speech recognition program. While intending to generate a timely document that accurately reflects the content of the visit, no guarantee can be provided that every grammatical or spelling mistake has been or will be identified or corrected. Thank you for your understanding. documented in this encounter [facility] 01-29-2024 Miscellaneous Notes ----- Message from Dr. Mercedez Leo, sent at 01/29/2024 8:44 AM EST ----- Please call patient and see how she is doing. Her primary care physician says she is doing better and her labs have improved after I review them. He wants me to cancel her ultrasound and HIDA scan and EGD and colonoscopy. See if she is okay with all that. Those can be canceled if she is doing better. Thanks, Dr. Rios Spoke with patient's daughter regarding Dr. Leo's message as she is an approved contact for [employer]. Patient's daughter Shayna stated patient is doing somewhat better but that she would like her to have the ultrasound and HIDA on Saturday. However, she did ask what the bowel prep was for. I saw in patient's chart that my office manage Concha was working on this. Informed Shayna that I would check with Concha regarding the EGD/Colonoscopy and get back with her. documented in this encounter [facility] 01-29-2024 Telephone encounter Note ----- Message from Dr. Mercedez Leo DO sent at 01/29/2024 8:44 AM EST ----- Please call patient and see how she is doing. Her primary care physician says she is doing better and her labs have improved after I review them. He wants me to cancel her ultrasound and HIDA scan and EGD and colonoscopy. See if she is okay with all that. Those can be canceled if she is doing better. Thanks, [facility] Telephone encounter Note Spoke with patient's daughter regarding Dr. Leo's message as she is an approved contact for PHI. Patient's daughter Shayna stated patient is doing somewhat better but that she would like her to have the ultrasound and HIDA on Saturday. However, she did ask what the bowel prep was for. I saw in patient's chart that my office manage Concha was working on this. Informed Shayna that I would check with Concha regarding the EGD/Colonoscopy and get back with her. [facility] 01-22-2024 Miscellaneous Notes Called daughter to inform her of the correct bowel prep being sent to patients pharmacy. [email or web address] Daughter Shayna was called and informed. Shayna verbalized understanding. documented in this encounter [facility] 01-22-2024 Telephone encounter Note Called daughter to inform her of the correct bowel prep being sent to patients pharmacy. [email or web address]. Daughter Shayna was called and informed. Shayna verbalized understanding. [facility] 01-21-2024 Miscellaneous Notes ----- Message from Dr. Mercedez Leo DO sent at 01/20/2024 3:04 PM EST ----- This patient needs to go to GI for ERCP ANGELICA. Please see if you can get her in this week. Let me know. Thanks LFTs are abnormally elevated. I called the patient once this morning, & once this afternoon. Both times I got no answer & it says that her VM is NOT set up. Tomorrow, I'll call her EC. The patients daughter finally answered. I gave her the message from Dr Leo. They would like to go to GI in [place]. I will check with Dr Leo about putting in the referral for that. I will also check with him & see if he wants to order the ERCP as well, or if he just wants to let GI do that. I called GI in [place] to see how long their wait to get an appointment is, I had to leave them a message. Called patient daughter Shayna to inform her that we sent everything over to [facility] and to be expecting a call from them to schedule. Patient is scheduled to have HIDA scan and US on 02/03/24 and MRCP is scheduled for 03/19/23. Dr. Leo wanted patient to go to to see if they can get the MRCP and ERCP done before February. Shayna verbalized understanding. My recreation officer has completely taken over this lady's case. documented in this encounter [facility] 01-21-2024 Telephone encounter Note ----- Message from Dr. Mercedez Leo DO sent at 01/20/2024 3:04 PM EST ----- This patient needs to go to for ERCP ANGELICA. Please see if you can get her in this week. Let me know. Thanks LFTs are abnormally elevated. [facility] 01-21-2024 Telephone encounter Note I called the patient once this morning, & once this afternoon. Both times I got no answer & it says that her VM is NOT set up. Tomorrow, I'll call her EC. [facility] 01-21-[facility]24 Telephone encounter Note The patients daughter finally answered. I gave her the message from Dr Leo. They would like to go to GI in [place]. I will check with Dr Leo about putting in the referral for that. I will also check with him & see if he wants to order the ERCP as well, or if he just wants to let GI do that. I called GI in [place] to see how long their wait to get an appointment is, I had to leave them a message. [facility] 01-21-2024 Telephone encounter Note Called patient daughter Shayna to inform her that we sent everything over to [facility] and to be expecting a call from them to schedule. Patient is scheduled to have HIDA scan and US on 02/03/24 and MRCP is scheduled for 03/19/23. Dr. Leo wanted patient to go to to see if they can get the MRCP and ERCP done before February. Shayna verbalized understanding. [facility] 01-21-2024 Telephone encounter Note My recreation officer has completely taken over this lady's case. [facility] 01-15-2024 History of Present illness Narrative Images from the original note were not included. [facility] [address] [id number] CONSULT NOTE CHIEF COMPLAINT Chief Complaint Patient presents with Other Acute cholecystitis, referred by Dr. Branden Anna Evonne is a 83 y.o. female who presents along with her daughters Dena Banks and Bridgett Phelan with complaints of cholelithiasis and cholecystitis. She went to the [facility] emergency room a few weeks ago and was hospitalized and Dr. Umana a general surgeon saw her at that time and we discussed her case and I recommended that she have a cholecystostomy but nothing was done. She was confused at that time according to her daughters. Her daughter Shayna stated that she had hematemesis and black emesis as well as melena and she takes Eliquis for atrial fibrillation. She denies any fevers or chills but the daughter stated that she was jaundiced about a week ago and saw her PCP who ordered liver profile but we tried calling the office today and could not reach them to obtain results. Her previous liver profile done at the [facility] a few weeks ago was normal. She had a prior colonoscopy by me in September of 2021 and had tubular adenomas which were removed as well as diverticular disease. She also has Barretts esophagus on EGD and gastritis. She complains of sharp pains in the right upper abdomen all day. She does not appear acutely ill. MEDICATION Current Outpatient Medications: acetaminophen (TYLENOL EXTRA STRENGTH) 500 mg tablet, Take 1 tablet (500 mg total) by mouth every 6 (six) hours as needed for pain., Disp: 30 tablet, Rfl: 0 apixaban (ELIQUIS) 2.5 mg tablet, Take by mouth 2 (two) times a day., Disp: , Rfl: C,E,zinc,copper 11/yblss7q/lut (OCUVITE ADULT 50 PLUS ORAL), Take 1 tablet by mouth daily. , Disp: , Rfl: carvediloL (COREG) 12.5 mg tablet, Take 1 tablet (12.5 mg total) by mouth in the morning and 1 tablet (12.5 mg total) in the evening. Take with meals., Disp: , Rfl: cholecalciferol, vitamin D3, 5,000 units tablet, Take 1 tablet (5,000 Units total) by mouth in the morning., Disp: , Rfl: colesevelam (WELCHOL) 625 mg tablet, Take 3 tablets (1,875 mg total) by mouth in the morning., Disp: , Rfl: memantine (NAMENDA) 10 mg tablet, Take 1 tablet (10 mg total) by mouth in the morning., Disp: , Rfl: montelukast (SINGULAIR) 10 mg tablet, Take 1 tablet (10 mg total) by mouth nightly., Disp: , Rfl: ynljgcmy-esao-DM-calcium &mins (THERAGRAN-M) 9 mg iron-400 mcg tablet, Take 1 tablet by mouth in the morning and 1 tablet before bedtime., Disp: , Rfl: omeprazole (PriLOSEC) 20 mg capsule, Take 1 capsule (20 mg total) by mouth in the morning., Disp: , Rfl: peg 3350-sod sulf,aqrk-qnz-jrx 178.7-7.3-0.5 gram recon soln, Take 1 kit by mouth in the morning for 1 dose. Please see instructional sheet given by Physicians office., Disp: 1 each, Rfl: 0 ALLERGY No Known Allergies MEDICAL HISTORY Past Medical History: Diagnosis Date Arthritis Atrial fibrillation ([facility]) Dental disease upper dentures Frequent falls GERD (gastroesophageal reflux disease) Hyperlipidemia Hypertension Pacemaker 2005 replaced 2016 PONV (postoperative nausea and vomiting) Prolonged emergence from general anesthesia severe confusion, hallucincations Visual impairment glasses SURGICAL HISTORY Past Surgical History: Procedure Laterality Date APPENDECTOMY CARDIAC PACEMAKER PLACEMENT 2005 replaced 2016 CATARACT EXTRACTION Bilateral SECTION COLONOSCOPY N/A 09/21/2021 Performed by Mercedez Leo DO at [facility] DILATION AND CURETTAGE OF UTERUS ESOPHAGOGASTRODUODENOSCOPY N/A 09/21/2021 Performed by Mercedez Leo DO at [facility] EXAM UNDER ANESTHESIA/ DILATION AND CURETTAGE N/A 08/10/2019 Performed by Reji Shaikh MD at [facility] NOSE SURGERY REPLACEMENT TOTAL JOINT HIP Left 06/25/2018 Performed by Korey Perry DO at [facility] REPLACEMENT TOTAL JOINT HIP Right 07/17/2017 Performed by Korey Perry DO at [facility] SKIN LESION EXCISION 07/17/2023 excision of lesion on left arm performed in office WRIST SURGERY left X2 SOCIAL HISTORY Social History Socioeconomic History Marital status: Spouse name: Not on file Number of children: Not on file Years of education: Not on file Highest education level: Not on file Occupational History Not on file Tobacco Use Smoking status: Former Current packs/day: 0.00 Average packs/day: 1 pack/day for 37.0 years (37.0 ttl pk-yrs) Types: Cigarettes Start date: 1954 Quit date: 1989 Years since quittin.9 Smokeless tobacco: Never Vaping Use Vaping status: Never Used Substance and Sexual Activity Alcohol use: Not Currently Alcohol/week: 3.0 standard drinks of alcohol Types: 3 Cans of beer per week Comment: SOCIALLY Drug use: No Sexual activity: Not Currently Other Topics Concern Not on file Social History Narrative Not on file Social Drivers of Health Financial Resource Strain: Not on file Food Insecurity: No Food Insecurity (12/29/2023) Hunger Screening Food Insecurity - Worry: Never True Food Insecurity - Inability: Never True Transportation Needs: Not on file Physical Activity: Not on file Stress: Not on file Social Connections: Not on file Interpersonal Safety: Unknown (04/11/2023) [facility] from [facility] Safety & Environment Fear of Current or Ex-Partner: Not on file Emotionally Abused: Not on file Physically Abused: Not on file Sexually Abused: Not on file Physically or Sexually Abused: Not on file Housing Instability: Not on file FAMILY HISTORY Family History Problem Relation Age of Onset Heart disease Mother Colon cancer Father No Known Problems Sister No Known Problems Sister No Known Problems Brother Kidney cancer Daughter Uterine cancer Daughter Kidney cancer Son Hearing loss Son Breast cancer Paternal Grandmother mid 70s Derek Breast Cancer Neg Hx REVIEW OF SYSTEMS: Constitutional: Denies fevers, denies recent illnesses. Eyes: Denies any vision changes. ENT: Denies any throat pain. Neck: Denies any neck pain. Cardiovascular denies chest pain. Denies palpitations. Respiratory: Denies shortness of breath, denies cough, denies history of asthma or any other pulmonary illnesses. Gastrointestinal: See chief complaint Genitourinary negative for dysuria hematuria urinary frequency or urgency. Musculoskeletal: Pause for extremity pains or joint discomfort. Neurologic: No change in sensation or paresthesias or history of seizure disorder skin: No rashes. Hematologic: No anemia. No purpura. No petechiae and no prolonged or excessive bleeding Allergic and immunologic: No pruritus. No swelling. Endocrine: No unexplained weight loss. No polydipsia. No polyuria. No polyphagia. PHYSICAL EXAM Constitutional: She is oriented to person, place, and time. Vital signs are normal. She appears well-developed and well-nourished. HEENT: Head: Normocephalic and atraumatic. Eyes: Conjunctivae, EOM and lids are normal. Neck: Trachea normal. Neck supple. No thyroid mass present. Cardiovascular: Irregular rate rhythm without murmur Pulmonary/Chest: Effort normal and breath sounds normal. Abdominal: Soft. Normal appearance. Positive tenderness in right upper quadrant with guarding positive Cottrell sign Musculoskeletal: Limited range of motion. Neurological: She is alert and oriented to person, place, and time. Skin: Skin is warm, dry and intact. Psychiatric: She has a normal mood and affect. Her speech is normal and behavior is normal. Cognition and memory are normal. IMPRESSION 1. Melena/hematemesis rule out ulcer disease colon cancer due to weight loss 2. Cholelithiasis by ultrasound without evidence of acute cholecystitis; ultrasound done in PCPs office 3. COPD by history past tobacco use, atrial fibrillation, pacemaker, ASSESSMENT & PLAN 1. EGD and Colonoscopy with possible biopsy or polypectomy to rule out ulcer disease due to melena hematemesis. I discussed the risks, benefits, alternatives to the above which may include perforation or bleeding or risks of anesthesia. They understood all the above and wished to proceed. 2. Current ultrasound of gallbladder since ultrasound previously showed no evidence of acute cholecystitis and only showed cholelithiasis 3. [facility]CK HIDA scan Evaluation included: Preparing to see the patient (e.g., review of tests) Obtaining and/or reviewing separately obtained history Performing a medically appropriate examination and/or evaluation Counseling and educating the patient/family/caregiver Referring and communicating with other health rn long term care Patricia [K92.1] Mercedez Leo DO This note was created with the assistance of a speech recognition program. While intending to generate a timely document that accurately reflects the content of the visit, no guarantee can be provided that every grammatical or spelling mistake has been or will be identified or corrected. Thank you for your understanding. documented in this encounter [facility] 12-17-2023 Miscellaneous Notes Called Jacqueline regarding the acute cholecystitis referral that our office received from Dr Otero on her mother/Judr, I left a message for her to call the office back to schedule an appointment. Arlene called the office back and we scheduled her an appointment on 12/25/2023. documented in this encounter [facility] 12-17-2023 Telephone encounter Note Called Jacqueline regarding the acute cholecystitis referral that our office received from Dr Otero on her mother/Yasminer, I left a message for her to call the office back to schedule an appointment. [facility] 12-17-2023 Telephone encounter Note Arlene called the office back and we scheduled her an appointment on 12/25/2023. [facility] 10-23-2023 History of Present illness Narrative Subjective Patient ID: Susan Douglass is a 83 y.o. female. 8 weeks and 5 days s/p ischium fracture, DOI 08/23/23, notes she has had 4-5 falls since February 2023. Presents with walker. 6 years s/p RT LOLY (DOS 07/17/2017). Pt c/o right hip pain and mid thoracic back pain the back pain has resolved. She lives with her daughter. 8 weeks 5 days ago they were walking together in the house when she stepped on one of her slippers causing her to fall to the right, she fell to the floor and landed on her right hip. She was able to get up without assistance. She is on Eliquis for afib. Hx of bilateral hip replacements by Dr. Perry in the past. Denies pain at rest. Pain at worst 8/10 with prolonged standing. Notes her legs feel heavy . Pain in the RT groin and tailbone, mainly with WB, but states she will get pain while sitting occas as well. Pain occas radiates to the RT buttock. Pain mid back which comes and goes. Notes she also gets pain on her tailbone occas. Notes one of the falls she had this year she landed on her butt and felt a pop in her tailbone a few minutes after. Admits TYL prn. Denies ice, heat or creams. Denies N/T. Admits occas giving out sensation. Denies cracking/popping. Denies waking at night. Here with daughter Shayna and grandson [place]: [facility] ER/XR/CT 08/24/23, TYL, XR NOMS 09/25/23, XR NOMS 10/23/23 Objective Ortho Exam Hip Musculoskeletal Exam Gait Assistive device: walker Palpation Right Tenderness: none Range of Motion Right Active ROM: no pain. Range of motion additional comments: No pain with rom of the hip, negative straight leg raise bilaterally XR pelvis 1 or 2 views Imaging Result: October 23, 2023 x-rays AP pelvis demonstrate Press-Fit hip replacements bilaterally. No signs of loosening fracture or failure. Osteopenic appearing bone. Nondisplaced fracture of the right pubic rami Impression: Stable appearing hip replacements and healing fracture of the pubic rami Umang Perry D.O. Assessment/Plan Encounter Diagnoses: ICD-10-CM 1. Closed displaced fracture of right ischium with routine healing, unspecified fracture morphology, subsequent encounter S32.601D XR pelvis 1 or 2 views Discussed fracture care and treatment. Answered all questions. Also discussed risks for non union. She may WBAT, f/U in 4- 6 weeks with xrays of the pelvis documented in this encounter [facility] 09-04-2023 Note AL Electrophysiology Progress Note Reason for visit: s/p [...] following prior hip surgeries. Test Echocardiogram at [facility] on 09/09/2017 shows EF of 65% with [...] headaches Psychiatric Ps (more content not included)... [facility] 07-25-2023 History of Present illness Narrative Subjective Susan Douglass is a 82 y.o. female status post excision of suspicious skin lesion of left forearm on 07/17/2023. She is doing well and has no concerns. The area is itchy. She denies fever or chills or drainage from the incision. Objective Vitals: 07/25/23 1438 BP: 128/69 Pulse: 72 Physical Exam Skin: General: Skin is warm and dry. Comments: Left forearm incision clean, dry and intact. Minimal swelling. No signs of infection. Sutures removed in office today. Assessment Susan Douglass is a 82 y.o.female postop excision of left forearm skin lesion. Plan Office will call patient with final pathology when it is back. Referral to Dermatology for routine skin checks. Skin lesion of left arm [L98.9] BRYCE CURTIS [facility] [place] This note was created with the assistance of a speech recognition program. While intending to generate a timely document that accurately reflects the content of the visit, no guarantee can be provided that every grammatical or spelling mistake has been or will be identified or corrected. Thank you for your understanding. BRYCE Curtis 07/25/23 1456 documented in this encounter [facility] 07-17-2023 History of Present illness Narrative Images from the original note were not included. [facility] [address] [place] [id number] CONSULT NOTE CHIEF COMPLAINT Chief Complaint Patient presents with Suspicious Skin Lesion Excision of left arm skin lesion, last seen by Olivia 06/28/23, referred by Dr. Otero Susan Douglass is a 82 y.o. female who presents referred by my nurse practitioner due to an abnormal skin lesion on the left upper extremity. She has had prior skin cancers removed by me. Her daughter Shayna accompanies her. The lesion itches and bleeds. MEDICATION Current Outpatient Medications: acetaminophen (TYLENOL EXTRA STRENGTH) 500 mg tablet, Take 1 tablet (500 mg total) by mouth every 6 (six) hours as needed for pain., Disp: 30 tablet, Rfl: 0 C,E,zinc,copper 11/maadb5n/lut (OCUVITE ADULT 50 PLUS ORAL), Take 1 tablet by mouth daily. , Disp: , Rfl: carvediloL (COREG) 12.5 mg tablet, Take 1 tablet (12.5 mg total) by mouth in the morning and 1 tablet (12.5 mg total) in the evening. Take with meals., Disp: , Rfl: cholecalciferol, vitamin D3, 5,000 units tablet, Take 1 tablet (5,000 Units total) by mouth in the morning., Disp: , Rfl: colesevelam (WELCHOL) 625 mg tablet, Take 3 tablets (1,875 mg total) by mouth in the morning., Disp: , Rfl: memantine (NAMENDA) 10 mg tablet, Take 1 tablet (10 mg total) by mouth in the morning., Disp: , Rfl: montelukast (SINGULAIR) 10 mg tablet, Take 1 tablet (10 mg total) by mouth nightly., Disp: , Rfl: jkixzavt-snew-WP-calcium &mins (THERAGRAN-M) 9 mg iron-400 mcg tablet, Take 1 tablet by mouth in the morning and 1 tablet before bedtime., Disp: , Rfl: omeprazole (PriLOSEC) 20 mg capsule, Take 1 capsule (20 mg total) by mouth in the morning., Disp: , Rfl: apixaban (ELIQUIS) 2.5 mg tablet, Take by mouth 2 (two) times a day. 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 PONV (postoperative nausea and vomiting) Prolonged emergence from general anesthesia severe confusion, hallucincations Visual impairment glasses SURGICAL HISTORY Past Surgical History: Procedure Laterality Date APPENDECTOMY CARDIAC PACEMAKER PLACEMENT 2005 replaced 2017 CATARACT EXTRACTION Bilateral SECTION COLONOSCOPY N/A 09/21/2021 Performed by Mercedez Leo DO at [facility] DILATION AND CURETTAGE OF UTERUS ESOPHAGOGASTRODUODENOSCOPY N/A 09/21/2021 Performed by Mercedez Leo DO at [facility] EXAM UNDER ANESTHESIA/ DILATION AND CURETTAGE N/A 08/10/2019 Performed by Reji Shaikh MD at [facility] NOSE SURGERY REPLACEMENT TOTAL JOINT HIP Left 06/25/2018 Performed by Korey Perry DO at [facility] REPLACEMENT TOTAL JOINT HIP Right 07/17/2017 Performed by Korey Perry DO at [facility] WRIST SURGERY left X2 SOCIAL HISTORY Social History Socioeconomic History Marital status: Spouse name: Not on file Number of children: Not on file Years of education: Not on file Highest education level: Not on file Occupational History Not on file Tobacco Use Smoking status: Former Current packs/day: 0.00 Average packs/day: 1 pack/day for 37.0 years (37.0 ttl pk-yrs) Types: Cigarettes Start date: 1954 Quit date: 1989 Years since quittin.4 Smokeless tobacco: Never Vaping Use Vaping status: Never Used Substance and Sexual Activity Alcohol use: Not Currently Alcohol/week: 3.0 standard drinks of alcohol Types: 3 Cans of beer per week Comment: SOCIALLY Drug use: No Sexual activity: Not Currently Other Topics Concern Not on file Social History Narrative Not on file Social Determinants of Health Financial Resource Strain: Not on file Food Insecurity: Unknown (07/17/2023) Hunger Screening Food Insecurity - Worry: Never True Food Insecurity - Inability: Not on file Transportation Needs: Not on file Physical Activity: Not on file Stress: Not on file Social Connections: Not on file Interpersonal Safety: Unknown (04/11/2023) Received from [facility] Safety & Environment Fear of Current or Ex-Partner: Not on file Emotionally Abused: Not on file Physically Abused: Not on file Sexually Abused: Not on file Physically or Sexually Abused: Not on file Housing Instability: Not on file FAMILY HISTORY Family History Problem Relation Age of Onset Heart disease Mother Colon cancer Father No Known Problems Sister No Known Problems Sister No Known Problems Brother Kidney cancer Daughter Uterine cancer Daughter Kidney cancer Son Hearing loss Son Breast cancer Paternal Grandmother mid 70s Derek Breast Cancer Neg Hx REVIEW OF SYSTEMS: Constitutional: Denies fevers, denies recent illnesses. Rest of ROS negative except as above. PHYSICAL EXAM Constitutional: She is oriented to person, place, and time. Vital signs are normal. She appears well-developed and well-nourished. Neurological: She is alert and oriented to person, place, and time. Skin: Skin is warm, dry and intact. 2.5 cm protruding hard sclerotic lesion rule out basal cell squamous cell carcinoma or actinic keratosis Psychiatric: She has a normal mood and affect. Her speech is normal and behavior is normal. Cognition and memory are normal. IMPRESSION Skin lesion left forearm ASSESSMENT & PLAN Procedure: The area was prepped and draped usual sterile fashion and 1% xylocaine with epinephrine 15 cc used anesthetize the area locally. Informed consent was obtained from the patient and daughter preoperatively. The area was widely excised and excision size was 5.5 cm. The wound was closed after hemostasis maintained with cautery with 3-0 Vicryl suture in interrupted fashion and then 3-0 nylon suture in interrupted fashion. Sterile pressure dressing was placed. Specimen went to pathology. Routine wound care precautions were given. Tylenol or ice p.r.n. pain. Follow up in the office in 10 days for suture removal. Specimen went to pathology. Evaluation included: Preparing to see the patient (e.g., review of tests) Obtaining and/or reviewing separately obtained history Performing a medically appropriate examination and/or evaluation Counseling and educating the patient/family/caregiver Referring and communicating with other health rn long term care Skin lesion of left arm [L98.9] Mercedez Leo DO This note was created with the assistance of a speech recognition program. While intending to generate a timely document that accurately reflects the content of the visit, no guarantee can be provided that every grammatical or spelling mistake has been or will be identified or corrected. Thank you for your understanding. documented in this encounter [facility] 06-28-2023 History of Present illness Narrative Images from the original note were not included. Chief Complaint: Left forearm lesion History of Present Illness Susan Douglass is a 82 y.o. female who presents to the office for left forearm mass. She fell in April and had a large left forearm skin tear. Her daughter helped her heal this. Afterwards, she was left with a firm lump on the scar line. It has gotten larger. The area itches and justice. It does not drain or bleed. She denies fever and chills. Of note, Dr. Leo removed hyperplastic actinic keratosis from her distal left forearm in June 2022. It was recommended she see [facility] at that time, she did not follow through with this. Review of Systems Constitutional: Negative for fever and unexpected weight change. HENT: Negative for trouble swallowing. Respiratory: Negative for shortness of breath. Cardiovascular: Negative for chest pain. Gastrointestinal: Negative for nausea, vomiting, abdominal pain, diarrhea, constipation and blood in stool. Genitourinary: Negative for dysuria and difficulty urinating. Musculoskeletal: Negative for gait problem. Skin: Negative for rash and wound. Left forearm lesion Neurological: Negative for dizziness, weakness and light-headedness. Hematological: Does not bruise/bleed easily. Psychiatric/Behavioral: Negative for confusion. 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 PONV (postoperative nausea and vomiting) Prolonged emergence from general anesthesia severe confusion, hallucincations Visual impairment glasses Past Surgical History: Procedure Laterality Date APPENDECTOMY CARDIAC PACEMAKER PLACEMENT 2005 replaced 2016 CATARACT EXTRACTION Bilateral SECTION COLONOSCOPY N/A 09/21/2021 Performed by Mercedez Leo DO at [facility] DILATION AND CURETTAGE OF UTERUS ESOPHAGOGASTRODUODENOSCOPY N/A 09/21/2021 Performed by Mercedez Leo DO at [facility] EXAM UNDER ANESTHESIA/ DILATION AND CURETTAGE N/A 08/10/2019 Performed by Reji Shaikh MD at [facility] NOSE SURGERY REPLACEMENT TOTAL JOINT HIP Left 06/25/2018 Performed by Korey Perry DO at [facility] REPLACEMENT TOTAL JOINT HIP Right 07/17/2017 Performed by Korey Perry DO at [facility] WRIST SURGERY left X2 No Known Allergies Current Outpatient Medications: acetaminophen (TYLENOL EXTRA STRENGTH) 500 mg tablet, Take 1 tablet (500 mg total) by mouth every 6 (six) hours as needed for pain., Disp: 30 tablet, Rfl: 0 apixaban (ELIQUIS) 2.5 mg tablet, Take by mouth 2 (two) times a day., Disp: , Rfl: C,E,zinc,copper 11/kpenn6g/lut (OCUVITE ADULT 50 PLUS ORAL), Take 1 tablet by mouth daily. , Disp: , Rfl: carvediloL (COREG) 12.5 mg tablet, Take 1 tablet (12.5 mg total) by mouth in the morning and 1 tablet (12.5 mg total) in the evening. Take with meals., Disp: , Rfl: cholecalciferol, vitamin D3, 5,000 units tablet, Take 1 tablet (5,000 Units total) by mouth in the morning., Disp: , Rfl: colesevelam (WELCHOL) 625 mg tablet, Take 3 tablets (1,875 mg total) by mouth in the morning., Disp: , Rfl: memantine (NAMENDA) 10 mg tablet, Take 1 tablet (10 mg total) by mouth in the morning., Disp: , Rfl: montelukast (SINGULAIR) 10 mg tablet, Take 1 tablet (10 mg total) by mouth nightly., Disp: , Rfl: cjzauwil-hwoi-VN-calcium &mins (THERAGRAN-M) 9 mg iron-400 mcg tablet, Take 1 tablet by mouth in the morning and 1 tablet before bedtime., Disp: , Rfl: omeprazole (PriLOSEC) 20 mg capsule, Take 1 capsule (20 mg total) by mouth in the morning., Disp: , Rfl: UNABLE TO FIND, Take 1 tablet by mouth nightly. Unisom- sleep aid, Disp: , Rfl: Social History Socioeconomic History Marital status: Spouse name: Not on file Number of children: Not on file Years of education: Not on file Highest education level: Not on file Occupational History Not on file Tobacco Use Smoking status: Former Current packs/day: 0.00 Average packs/day: 1 pack/day for 37.0 years (37.0 ttl pk-yrs) Types: Cigarettes Start date: 1954 Quit date: 1989 Years since quittin.3 Smokeless tobacco: Never Vaping Use Vaping status: Never Used Substance and Sexual Activity Alcohol use: Not Currently Alcohol/week: 3.0 standard drinks of alcohol Types: 3 Cans of beer per week Comment: SOCIALLY Drug use: No Sexual activity: Not Currently Other Topics Concern Not on file Social History Narrative Not on file Social Determinants of Health Financial Resource Strain: Not on file Food Insecurity: Unknown (06/28/2023) Hunger Screening Food Insecurity - Worry: Never True Food Insecurity - Inability: Not on file Transportation Needs: Not on file Physical Activity: Not on file Stress: Not on file Social Connections: Not on file Interpersonal Safety: Unknown (04/11/2023) Received from [facility] Safety & Environment Fear of Current or Ex-Partner: Not on file Emotionally Abused: Not on file Physically Abused: Not on file Sexually Abused: Not on file Physically or Sexually Abused: Not on file Housing Instability: Not on file Family History Problem Relation Age of Onset Heart disease Mother Colon cancer Father Kidney cancer Daughter Uterine cancer Daughter Breast cancer Paternal Grandmother mid 70s Derek Breast Cancer Neg Hx Objective Physical Exam Constitutional: General: She is not in acute distress. Appearance: Normal appearance. She is not ill-appearing. HENT: Head: Normocephalic and atraumatic. Mouth/Throat: Mouth: Mucous membranes are moist. Eyes: Pupils: Pupils are equal, round, and reactive to light. Cardiovascular: Rate and Rhythm: Normal rate. Pulmonary: Effort: Pulmonary effort is normal. No respiratory distress. Abdominal: General: There is no distension. Palpations: Abdomen is soft. Musculoskeletal: General: Normal range of motion. Skin: General: Skin is warm and dry. Findings: Lesion present. Comments: Left medial forearm 1.5 cm raised firm, mobile lesion beside scar. Slightly tender to touch. No increased warmth. No drainage. Neurological: Mental Status: She is alert and oriented to person, place, and time. Mental status is at baseline. Vital Signs: Blood pressure 151/82, pulse 74, weight 50.3 kg (111 lb). Respiratory Source: No data recorded Admission Weight: Weight: 50.3 kg (111 lb) Labs Lab Results Component Value Date WBC 9.3 06/27/2018 HGB 12.3 06/27/2018 HCT 37.8 06/27/2018 MCV 101 06/27/2018 PLT 176 06/27/2018 Lab Results Component Value Date GLU 96 2019 CALCIUM 9.8 2019 K 4.2 2019 CO2 25 2019 CL 104 2019 BUN 19 2019 CREATININE 0.96 2019 No results found for: AMYLASE No results found for: LIPASE Lab Results Component Value Date ALT 18 07/19/2017 AST 22 07/19/2017 ALKPHOS 121 07/19/2017 Lab Results Component Value Date INR 1.3 (H) 07/19/2017 INR 1.1 07/18/2017 INR 1.0 07/17/2017 PROTIME 15.2 (H) 07/19/2017 PROTIME 12.7 (H) 07/18/2017 PROTIME 11.7 07/17/2017 Assessment Susan Douglass is a 82 y.o.female with suspicious skin lesion of left forearm. Plan In office excision of left forearm skin lesion with local anesthesia. Risks including bleeding, infection, recurrence, scar, etc. discussed. Patient verbalizes understanding and wishes to proceed. She was instructed to hold her Eliquis 2 days prior. Evaluation included: Preparing to see the patient (e.g., review of tests) Obtaining and/or reviewing separately obtained history Performing a medically appropriate examination and/or evaluation Counseling and educating the patient/family/caregiver Referring and communicating with other health rn long term care Skin lesion of left arm [L98.9] BRYCE CURTIS [facility] [place] This note was created with the assistance of a speech recognition program. While intending to generate a timely document that accurately reflects the content of the visit, no guarantee can be provided that every grammatical or spelling mistake has been or will be identified or corrected. Thank you for your understanding. BRYCE Curtis 07/03/23 1239 documented in this encounter [facility] 05-08-2023 Miscellaneous Notes Ed Manager called preferred patient number in chart and one stated it was out of service and the other one said that the voicemail box was not set up. documented in this encounter [facility] 05-08-2023 Telephone encounter Note Ed Manager called preferred patient number in chart and one stated it was out of service and the other one said that the voicemail box was not set up. [facility] 05-08-2022 Note PROCEDURE: XR FOOT L [...] authenticated by: RADHA RAJPUT Date: 2022-05-08 14:40 [facility] 02-09-2022 Note PROCEDURE: XR FOOT L [...] authenticated by: CRUZITO BRIDGES Date: 2022-02-09 10:42 [facility] 01-02-2022 Note PROCEDURE: XR FOOT L [...] by: RADHA RAJPUT Date: 2022-01-02 15:52 [facility] Evaluation note Diagnosis Closed displaced fracture of right ischium with routine healing, unspecified fracture morphology, subsequent encounter- Primary [facility] Diagnosis Elevated liver enzymes- Primary Other nonspecific abnormal serum enzyme levels Calculus of gallbladder with cholecystitis of other acuity without obstruction [facility] Diagnosis Skin lesion of left arm- Primary Unspecified disorder of skin and subcutaneous tissue [facility] Diagnosis Skin lesion of left arm- Primary Unspecified disorder of skin and subcutaneous tissue [facility] Diagnosis Skin lesion of left arm- Primary Unspecified disorder of skin and subcutaneous tissue [facility] Diagnosis Melena- Primary Blood in stool Hematemesis, unspecified whether nausea present Calculus of gallbladder without cholecystitis without obstruction Calculus of gallbladder with cholecystitis of other acuity without obstruction [facility] Diagnosis Calculus of gallbladder with cholecystitis of other acuity without obstruction- Primary Elevated liver enzymes Other nonspecific abnormal serum enzyme levels [facility] Diagnosis Elevated LFTs- Primary Other abnormal blood chemistry [facility]* Diagnosis Hematemesis, unspecified whether nausea present- Primary Melena Blood in stool [facility] Diagnosis Elevated LFTs- Primary Other abnormal blood chemistry [facility] filedocumented in this encounter [facility] filedocumented in this encounter [facility] filedocumented in this encounter [facility] on filedocumented in this [facility] filedocumented in this encounter [facility] filedocumented in this encounter [facility] on filedocumented in this encounter [facility] (narrative)* Consultation (Routine) - Pending Review Specialty Diagnoses / Procedures Referred By Geraldine encinas Referred To Contact Dermatology Diagnoses Skin lesion of left arm Olivia Nieto, MAINTENANCE SERVICE SUPERVISOR-[employer] [address] [place] [address] Darlyn Worley MD [address] [facility] [address] [place] [address] Referral ID Status Reason Start Date Expiration Date Visits Requested Visits Authorized [id number] Pending Review Specialty Services Required 07/25/2023 07/24/2024 1 1 [facility] Summary Purpose Family History No Family History Records FoundNo Family History Records FoundNo Family History Records FoundNo Family History Records FoundNo Family History Records FoundNo Family History Records FoundNo Family History Records FoundNo Family History Records FoundNo Family History Records Found Advance Directives No Advanced Directives Records Found Date Activated Date Inactivated Comments 06/25/2018 2:42 PM 06/27/2018 3:14 PM Date Activated Date Inactivated Comments 07/17/2017 10:46 AM 07/19/2017 7:43 PM Date Activated Date Inactivated Comments 06/25/2018 2:42 PM 06/27/2018 3:14 PM Date Activated Date Inactivated Comments 07/17/2017 10:46 AM 07/19/2017 7:43 PM Latest Code Status on File Code Status Date Activated Date Inactivated Comments Full Code 06/25/2018 2:42 PM 06/27/2018 3:14 PM Code Status History Code Status Date Activated Date Inactivated Comments Full Code 07/17/2017 10:46 AM 07/19/2017 7:43 PM Reason for Referral Specialty Diagnoses / Procedures Referred By Geraldine encinas Referred To Contact Diagnoses Skin lesion of left arm Procedures Unlisted Procedure / Surgery Olivia Nieto, KENDRICKWORM GROWER [address] [place] [address] Referral ID Status Reason Start Date Expiration Date V isits Requested Visits Authorized [id number] Pending Review 07/03/2023 07/02/2024 1 1 Additional Source Comments INFORMATION SOURCE (unrecogn ized section and content) DATE CREATED AUTHOR 10/04/2018 [facility] DATE CREATED AUTHOR AUTHOR'S ORGANIZ ATION 01/28/2021 [facility] dical Specialist DATE CREATED AUTHOR AUTHOR'S ORGANIZ ATION 06/02/2022 [facility] DATE CREATED AUTHOR AUTHOR'S ORGANIZ ATION 10/28/2023 [facility] dical Specialists EPIC DATE CREATED AUTHOR AUTHOR'S ORGANIZ ATION 12/14/2023 [facility] DATE CREATED AUTHOR AUTHOR'S ORGANIZ ATION 02/02/2024 [facility] DATE CREATED AUTHOR AUTHOR'S ORGANIZ ATION 02/21/2024 [facility] DATE CREATED AUTHOR AUTHOR'S ORGANIZ ATION 03/03/2024 [facility] DATE CREATED AUTHOR AUTHOR'S ORGANIZ ATION 04/15/2024 [facility] Reason for Visit (unrecogniz ed section and content) Reason Comments Fracture Reason Comments Follow-up FOLLOW UP FROM HIDA AND ULTRASOUND PERFORMED 02/03/24 Reason Comments Post-op Post op excision of left arm lesion performed 07/17/23 in office, suture removal Reason Comments Suspicious Skin Lesion Left arm mass/cys t, referred by Dr. Otero Reason Comments Suspicious Skin Lesion Excision of left arm skin lesion, last seen by Olivia 06/28/23, referred by Dr. Otero Reason Comments Other Acute cholecystitis, referred by Dr. Otero Care Teams (unrecognized sec tion and content) Starter Mechanic Relationship Specialty Start Date End Date Eliud Otero MD [address] [place] [id number] PCP - General Internal Medicine 08/28/23 Starter Mechanic Relationship Specialty Start Date End Date Eliud Otero MD [address] [place] [address] [phone] PCP - General Internal Medicine 08/28/23 Starter Mechanic Relationship Specialty Start Date End Date Eliud Otero Jr., DO [address] [place] [address] [id number] PCP - General Internal Medicine 03/28/17 Starter Mechanic Relationship Specialty Start Date End Date Eliud Otero Jr., DO [address] [place] [address] [id number] PCP - General Internal Medicine 03/28/17 Starter Mechanic Relationship Specialty Start Date End Date Eliud Otero Jr., DO [address] [place] [address] [id number] PCP - General Internal Medicine 03/28/17 Starter Mechanic Relationship Specialty Start Date End Date Eliud Otero Jr., DO [address] [place] [address] [id number] PCP - General Internal Medicine 03/28/17 Starter Mechanic Relationship Specialty Start Date End Date Eliud Otero Jr., DO [address] [place] [address] [id number] PCP - General Internal Medicine 03/28/17 Starter Mechanic Relationship Specialty Start Date End Date Eliud Otero Jr., DO [address] [place] [address] [id number] PCP - General Internal Medicine 03/28/17 Starter Mechanic Relationship Specialty Start Date End Date Eliud Otero Jr., DO [address] [place] [address] [id number] PCP - General Internal Medicine 03/28/17 Starter Mechanic Relationship Specialty Start Date End Date Eliud Otero Jr., DO [address] [place] [address] [id number] PCP - General Internal Medicine 03/28/17 Starter Mechanic Relationship Specialty Start Date End Date Eliud Otero Jr., DO [address] [place] [address] [id number] PCP - General Internal Medicine 03/28/17 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 [employer] [facility]. provides no warranty or guarantee of the accuracy or completeness of information in this document.
--- NOTE | 2024-04-21 10:30 | NM_ITS ---
Patient Name: ALAN SANCHEZ MR#: [id number] : 1940 Exam Date: 04/21/2024 Ordering Doctor: FRANKIE CODY CNP RADIOLOGY REPORT PROCEDURE: NM JOE PERF SPECT REST STR COMPARISON: None. INDICATIONS: CORONARY ARTERY DISEASE, ABNORMAL ECHOCARDIOGRAM, WEAK TECHNIQUE: Exam Description: Stress/Rest one day protocol gated SPECT Rest Imagin.9 mCi Tc-99m Cardiolite IV on 04/21/2024 Stress Imaging 30.3 mCi Tc-99m Cardiolite IV on 04/21/2024 Exercise Protocol: 0.4 mg Lexiscan given IV Heart Rate (bpm): Rest: 70 Max: 81 PMHR: 60 Blood Pressure: Rest: 151/95 Max: 151/95 Symptoms: Rest and peak stress ECG findings were pending and the exercise portion of the study was pending per attending physician Dr. RODRIGUEZ . For more details, please see separate cardiac stress test report. FINDINGS: QUALITY OF STUDY: Good PERFUSION DEFECT: LOCATION: Apical SIZE: Moderate SEVERITY: Moderate TYPE: Fixed; likely represents physiological apical thinning WALL MOTION: Normal wall motion LV SIZE: 53 mL. TID / TCD: 0.9 LVEF: Calculated EF 77%. SUMMARY: Myocardial perfusion imaging study is normal CONCLUSION: 1. Myocardial perfusion is normal with soft tissue attenuation 2. Normal global left ventricular systolic function 3. No evidence of transient ischemic dilation Dictated by: Man Hernandez M.D. on 04/21/2024 at 14:50 Approved by: Man Hernandez M.D. on 04/21/2024 at 14:53
[2024-04-21] MEDS: REGADENOSON 0.4 MG/5 ML SYRINGE IV (12:01)
== END 2024-04-21 09:56 | disposition home or self-care (01) ==
LOC: NM 09:57
PROVIDERS: PCP Internal Medicine; Visit Provider Nurse Practitioner Family
DX: I25.10 Atherosclerotic heart disease of native coronary artery without angina pectoris (principal); R93.1 Abnormal findings on diagnostic imaging of heart and coronary circulation
CPT/HCPCS: 78452; 93017; A9500; J2785

== ENCOUNTER 2025-01-05 03:20 | Emergency (ER) | payer MEDICARE, SELFPAY ==
--- NOTE | 2025-01-05 03:30 | ECG_ITS ---
The [facility] Test Date: 2025-01-05 Pat Name: ALAN SANCHEZ Department: Room: - Gender: Female [employer] Att[employer]: : 1940 Requested By: [id number] Order Number: [id number] Reading MD: JUAN MANUEL AMOS M.D. Measurements Intervals [place] Rate: 70 P: -[id number] ND: -[id number] QRS: 50 QRSD: 140 T: 102 QT: 442 QTc: 462 Interpretive Statements VENTRICULAR-PACED RHYTHM [id number] abnormal ECG Compared to ECG 12/29/2023 21:41:52 No significant changes Electronically Signed On 01-05-2025 21:31:37 EST by JUAN MANUEL AMOS M.D.
[2025-01-05 03:38] VITALS: BP 168/80; PULSE 70; TEMP 36.4; O2SAT 97; BMI 19.9
--- NOTE | 2025-01-05 03:55 | ED.BACK1 ---
HPI HPI - Back Pain/Injury General Chief Complaint: Back Pain/Injury Stated Complaint: UPPER LEFT SIDED BACK PAIN Time Seen by Provider: 01/05/25 03:46 Source: patient Mode of arrival: Wheelchair Limitations: no limitations History of Present Illness HPI Narrative: presents complaining of pain of her left back. States she has had similar pain in the past. Denies injury or dyspnea. no nausea or vomiting. Does not feel short of breath. Believes her rib is out of place. No fever Related Data Home Medications ?Medication ?Instructions ?Recorded ?Confirmed apixaban 2.5 mg tablet (Eliquis) 2.5 mg PO Q12H 10/11/22 01/05/25 memantine 10 mg tablet 10 mg PO BID 10/11/22 01/05/25 montelukast 10 mg tablet 10 mg PO DAILY 10/11/22 01/05/25 acetaminophen 500 mg tablet 500 mg PO Q6H PRN fever or pain 12/30/23 12/30/23 (Tylenol Extra Strength) atorvastatin 40 mg tablet 40 mg PO .qd@17 12/30/23 01/05/25 cholecalciferol (vitamin D3) 125 5,000 unit PO DAILY 12/30/23 01/05/25 mcg (5,000 unit) capsule colesevelam 625 mg tablet (WelChol) 1,875 mg PO DAILY 12/30/23 01/05/25 famotidine 40 mg tablet 40 mg PO .QHS 12/30/23 01/05/25 omeprazole 20 mg capsule,delayed 40 mg PO Q8H 01/05/25 01/05/25 release Allergies Allergy/AdvReac Type Severity Reaction Status Date / Time No Known Drug Allergies Allergy Verified 01/05/25 03:48 Opioid HPI Opioid Management Most Recent Opioid Data: Last Pain Scale 8 Today, 04:21 Last Pain Intensity 5 12/30/23, 14:33 Last ORT Total Score 7 12/30/23, 10:07 Last ORT Risk Category Moderate Risk 12/30/23, 10:07 Ur Phencyclidine Scrn, (NEGATIVE) Negative 12/29/23, 22:05 Review of Systems ROS Status of ROS 10 or more systems reviewed and unremarkable except as noted in history and below [facility] Medical History (Updated 01/05/25 @ 05:16 by Jason Hendricks MD) Enterovirus enteritis ?A08.39 - Other viral enteritis (ICD-10) Altered mental status ?R41.82 - Altered mental status, unspecified (ICD-10) Closed head injury ?S09.90XA - Unspecified injury of head, initial encounter (ICD-10) Congestive heart failure ?I50.9 - Heart failure, unspecified (ICD-10) Cholelithiasis ?K80.20 - Calculus of gallbladder without cholecystitis without obstruction (ICD-10) Dementia ?F03.90 - Unspecified dementia, unspecified severity, without behavioral disturbance, psychotic disturbance, mood disturbance, and anxiety (ICD-10) Constipation ?K59.00 - Constipation, unspecified (ICD-10) Hypertension ?I10 - Essential (primary) hypertension (ICD-10) Gastric reflux ?K21.9 - Gastro-esophageal reflux disease without esophagitis (ICD-10) Pacemaker ?Z95.0 - Presence of cardiac pacemaker (ICD-10) Surgical History (Updated 12/30/23 @ 10:33 by Tiffanie Cline) S/P placement of cardiac pacemaker ?Z95.0 - Presence of cardiac pacemaker (ICD-10) Hx of appendectomy ?Z90.49 - Acquired absence of other specified parts of digestive tract (ICD-10) H/O left wrist surgery ?Z98.890 - Other specified postprocedural states (ICD-10) Family History (Updated 12/30/23 @ 10:35 by Tiffanie Cline) Son Family history of CHF (congestive heart failure) Family history of cancer Family history of hypertension Family history of myocardial infarction Father Family history of CHF (congestive heart failure) Family history of cancer Daughter Family history of COPD (chronic obstructive pulmonary disease) Family history of cancer Family history of hypertension Family history of myocardial infarction Social History (Updated 12/30/23 @ 10:36 by Tiffanie Cline) Within the past year, how often did you have a drink containing alcohol: never Within the past year, how often did you have six or more drinks on one occasion: never Score interpretation: A score less than 3 is consistent with normal alcohol consumption. Smoking status: Former smoker Non-prescribed substance use: denies use Previous occupational history: retired Highest level of school completed/degree received: high school graduate Are you now , , , , never or living with a partner: In a typical week, how many times do you talk on the telephone with family, friends, or neighbors: 3 or more times per week How often do you get together with friends or relatives: 3 or more times per week How often do you attend mandaeism or religion services: never Little interest or pleasure in doing things: not at all Feeling down, depressed, or hopeless: not at all Feel stressed/tense/nervous/anxious/difficulty sleeping: to some extent Do you think of yourself as: straight/heterosexual Gender Identity: female Exam Constitutional Vital Signs, click to edit/add: Last Vital Signs Temp 97.6 F 01/05/25 03:38 Pulse 70 01/05/25 03:38 Resp 18 01/05/25 03:38 BP 168/80 H 01/05/25 03:38 Pulse Ox 97 01/05/25 03:38 O2 Del Method Room Air 01/05/25 03:38 Common normals: no apparent distress, average body habitus, oriented x3, no limitations, healthy appearing, alert and well nourished [facility] Common normals: normocephalic and head/scalp atraumatic Eye Common normals: EOMs intact bilaterally and conjunctivae normal Chest Common normals: inspection of chest normal and palpation of chest normal Respiratory Common normals: normal respiratory effort, no retractions, no use of accessory muscles and clear to auscultation bilaterally Cardio Common normals: regular rate, regular rhythm, S1 normal heart sound and S2 normal heart sound GI Common normals: Normal to inspection, nondistended, normoactive bowel sounds present, soft to palpation and non-tender Extremity Common normals: normal to inspection and full ROM Neuro Common normals: oriented x3, CN's II-XII intact bilaterally and moves all extremities Psych Appearance: grossly normal Course Vital Signs Vital signs: Vital Signs Temperature 97.6 F 01/05/25 03:38 Pulse Rate 70 01/05/25 03:38 Respiratory Rate 18 01/05/25 03:38 Blood Pressure 168/80 H 01/05/25 03:38 Pulse Oximetry 97 01/05/25 03:38 Oxygen Delivery Method Room Air 01/05/25 03:38 Temperature 97.6 F 01/05/25 03:38 Pulse Rate 70 01/05/25 03:38 Respiratory Rate 18 01/05/25 03:38 Blood Pressure 168/80 H 01/05/25 03:38 Pulse Oximetry 97 01/05/25 03:38 Oxygen Delivery Method Room Air 01/05/25 03:38 MDM - Back Pain/Injury MDM Narrative Medical decision making narrative: presents with complaint of pain left posterior rib cage. States similar pain in the past that is usually treated via injection by her doctor. Has an appointment to see her doctor later today. States she did not feel right and brought in by her grand daughter. No fever or flank pain and not short of breath. Chest clear. cxray per my preliminary review is neg. Patient medicated with solumedrol and magnesium and her chest feels better. UA is positive. Given dose of macrobid and discharged to follow up with her doctor Lab Data Labs: Lab Results 01/05/25 01/05/25 Range/Units 04:08 04:17 WBC 7.0 (4.0-11.0) 10^3/uL RBC 4.77 (4.20-5.40) 10^6/uL Hgb 14.6 (12.0-16.0) g/dL Hct 44.3 (36.0-48.0) % MCV 92.9 (81.0-99.0) fL MCH 30.6 (26.7-34.0) pg MCHC 33.0 (29.9-35.2) g/dL RDW 14.3 (11.0-15.0) % Plt Count 235 (150-450) 10^3/uL MPV 9.9 (9.5-13.5) fL Neut % (Auto) 63.9 (43.0-75.0) % Lymph % (Auto) 21.9 (20.5-60.0) % [place] % (Auto) 10.5 (1.7-12.0) % Eos % (Auto) 2.8 (0.9-7.0) % Baso % (Auto) 0.6 (0.2-2.0) % Neut # (Auto) 4.5 (1.4-6.5) 10^3/uL Lymph # (Auto) 1.5 (1.2-3.8) 10^3/uL [place] # (Auto) 0.7 (0.3-0.8) 10^3/uL Eos # (Auto) 0.2 (0.0-0.7) 10^3/uL Baso # (Auto) 0.0 (0.0-0.1) 10^3/uL Abs Immat Gran (auto) 0.02 (0.00-0.03) 10^3/uL Imm/Tot Granulo (auto) 0.3 (0.0-0.5) % Sodium 142 (136-145) mmol/L Potassium 3.9 (3.5-5.1) mmol/L Chloride 107 (98-107) mmol/L Carbon Dioxide 28.1 (21.0-32.0) mmol/L Anion Gap 10.8 BUN 12.0 (7.0-18.0) mg/dL Creatinine 0.90 (0.55-1.02) mg/dL Est GFR ( Amer) >60 (>=60 mL/min/1.73m^2) Est GFR (Non-Af Amer) 59 L (>=60 mL/min/1.73m^2) BUN/Creatinine Ratio 13.3 Glucose 109 H (74-106) mg/dL Lactate 1.8 (0.4-2.0) mmol/L Calcium 8.9 (8.5-10.1) mg/dL Troponin I High Sens 9.3 (4.0-51.3) pg/mL Urine Color Lt. yellow (YELLOW) Urine Clarity Clear (CLEAR) Urine pH 6.5 (5.0-9.0) Ur Specific [place] 1.010 (1.005-1.025) Urine Protein Trace (NEG/TRACE) mg/dL Urine Glucose (UA) Negative (NEGATIVE) mg/dL Urine Ketones Negative (NEGATIVE) mg/dL Urine Occult Blood Large A (NEGATIVE) Urine Nitrite Negative (NEGATIVE) Urine Bilirubin Negative (NEGATIVE) Urine Urobilinogen 0.2 (0.2-1.0) EU/dL Ur Leukocyte Esterase Large A (NEGATIVE) Urine RBC 10-20 A (0-2) #/HPF Urine WBC 5-10 A (NONE SEEN) #/HPF Ur Squamous Epith Cells Few A (NONE/RARE) #/LPF Ur Transition Epith Cell Rare A (NONE SEEN) #/LPF Urine Crystals None seen (None Seen) #/HPF Urine Bacteria None seen (NONE SEEN) #/HPF Urine Casts None seen (NONE SEEN) #/LPF Urine Mucus None seen (NONE SEEN) Urine Yeast Seen A (NONE SEEN) Ur Culture Indicated? [place] [place] Discharge Chief Complaint: Back Pain/Injury Clinical Impression: Acute UTI, Rib pain on left side Patient Disposition: Home, Self-Care Prescriptions / Home Meds: No Action atorvastatin 40 mg tablet 40 mg PO .qd@17 famotidine 40 mg tablet 40 mg PO .QHS cholecalciferol (vitamin D3) 125 mcg (5,000 unit) capsule 5,000 unit PO DAILY colesevelam [WelChol] 625 mg tablet 1,875 mg PO DAILY acetaminophen [Tylenol Extra Strength] 500 mg tablet 500 mg PO Q6H PRN (Reason: fever or pain) montelukast 10 mg tablet 10 mg PO DAILY memantine 10 mg tablet 10 mg PO BID Eliquis 2.5 mg tablet 2.5 mg PO Q12H omeprazole 20 mg capsule,delayed release(DR/EC) 40 mg PO Q8H Print Language: Swedish Instructions: Thoracic Pain (ED), Urinary Tract Infection in Older Adults (ED) Additional Instructions: follow up with your doctor later today for recheck Referrals: LYDIA OTERO DO [Primary Care Provider, Family Practice] - 1 week
--- NOTE | 2025-01-05 03:58 | XR_ITS ---
The [address] [address] Patient Name: ALAN SANCHEZ MRN: [id number] date: 1940 Sex: F Assigned Patient Location: ER Current Patient Location: Accession/Order Number: [id number] Exam Date: 01/05/2025 04:25 Report Date: 01/05/2025 07:45 At the request of: COLEEN CRAFT MD Procedure: XR chest 2V PA AND LATERAL CHEST: CLINICAL HISTORY: left upper back/ rib pain. No reported injury. COMPARISON: 12/29/2023 A left-sided pacemaker is again visualized. Granulomatous change is seen. There is no focal parenchymal consolidation, effusion or pneumothorax. The cardiac, hilar and mediastinal silhouettes are similar. There is no vascular congestion. The visualized bony structures are osteopenic. There are degenerative changes of both shoulders. There is endplate spurring at the spine. Minor chronic appearing wedge deformities are also seen. XR/XR chest 2V IMPRESSION: NO ACUTE CARDIOPULMONARY ABNORMALITY. Impression dictated by: Brittany Garcia M.D. 01/05/2025 7:45 AM Dictation Location: [place] [address] Electronically authenticated by: [id number] Y Date: 01/05/2025 07:45
--- OUTSIDE RECORDS SUMMARY | 2025-01-05 04:26 | XMS_ITS | CCD ---
Author Organization [facility] Care Team Providers Care Associate Programmer Name Role Phone NOBLE MONTGOMERY Admitting Unavailable NOBLE MONTGOMERY Attending Unavailable ELIUD OTERO Referring Unavailable VALONE, ELIUD Primary Care Unavailable VALONE, DR FREEMAN Primary Care Unavailable SOHA JEFFERSON Attending Unavailable SOHA JEFFERSON Admitting Unavailable VALONE, DR FREEMAN Primary [...] JEFFERSON Attending Unavailable SOHA JEFFERSON Admitting Unavailable SOHA JEFFERSON Consulting Unavailable VALONE, DR FREEMAN Primary Care Unavailable CHARLY ESPINO Attending Unavailable CHARLY ESPINO Admitting Unavailable WEST, DR RADHA Rader Consulting Unavailable VALONE, DR FREEMAN Primary Care Unavailable CHARLY ESPINO Consulting Unavailable VALELLIS, DR FREEMAN Primary Care Unavailable CHARLY ESPINO [...] ESPINO Consulting Unavailable SOHA JEFFERSON Admitting Unavailable SOHA JEFFERSON Consulting Unavailable SOHA JEFFERSON Attending Unavailable VALONE, DR FREEMAN Primary Care Unavailable VALONE, DR FREEMAN Attending Unavailable VALONE, DR FREEMAN Admitting Unavailable VALONE, DR FREEMAN Primary Care Unavailable VALONE, DR FREEMAN Primary Care Unavailable ROMMEL ., REMI Admitting Unavailable ROMMEL ., REMI Attending Unavailable Maile Daniels Unavailable ROMMEL Saeed, REMI Consulting Unavailable ADRIA NAILS Attending Unavailable VALONE, ELIUD L Referring Unavailable TATTERSALLROSANNA Attending Unavailable VALONE, ELIUD L Referring Unavailable TATTERSALL, ROSANNA Attending Unavailable VALONE, ELIUD L Referring Unavailable TATTERSALLROSANNA Attending Unavailable VALONE, ELIUD Suzette Referring Unavailable DHARA HART Attending Unavailable VALONE, ELIUD Suzette Referring Unavailable APLING, YENIFER Wheat Attending Unavailable APLING, YENIFER Wheat Attending Unavailable APLING, YENIFER Wheat Referring Unavailable APLING, YENIFER Wheat Attending Unavailable APLING, YENIFER Wheat Referring Unavailable VALONE, ELIUD Referring Unavailable NILLMercedez Attending Unavailable Hardy Leon Admitting Unavailable Hardy Leon Attending Unavailable Valone, Eliud Suzette Primary Care Unavailable Valone, Eliud Suzette Admitting Unavailable Valone, Eliud Suzette Attending Unavailable Valone Eliud TEJEDA Primary Care [...] JR, ELIUD L Primary Care Unavailable Valone Jr., Eliud MARTINEZ Primary Care Provider OLIVIA NIETO Attending Unavailable VALONE JR, ELIUD L Referring Unavailable VALONE JR, ELIUD L Primary Care Unavailable MERCEDEZ LEO Attending Unavailable VALONE JR, ELIUD L Referring Unavailable VALONE JR, ELIUD L Primary Care Unavailable OLIVIA NIETO Attending Unavailable ELIUD OTERO JR Referring Unavailable JOEELIUD CORRAL JR Primary Care Unavailable ELIUD OTERO JR Primary Care Unavailable CHELSEA, EHAD Consulting Unavailable MERCEDEZ LEO Attending Unavailable ELIUD OTERO JR Referring Unavailable BRANDEN ELIUD REARDON Primary Care Unavailable MERCEDEZ LEO Attending Unavailable ELIUD OTERO JR Referring Unavailable BRANDEN ELIUD REARDON Primary Care Unavailable Branden Milian, Eliud MARTINEZ Primary Care Provider SOHA JEFFERSON Referring Unavailable SOHA JEFFERSON Referring Unavailable SOHA JEFFERSON Referring Unavailable SOHA JEFFERSON Referring Unavailable JUAN MANUEL GREGG Attending Unavailable LI, SOHA Referring Unavailable REJI ROSEN Attending Unavailable Medications Current Medications MedicationDrug Class(es)DatesSig (Normalized)Sig (Original)acetaminophen 500 mg oral tablet (17 sources)Start: 99-21-0728pqac 1 tablet by mouth every six hours as needed for painacetaminophen (TYLENOL EXTRA STRENGTH) 500 mg tablet Take 1 tablet (500 mg total) by mouth every 6 (six) hours as needed for pain. 30 tablet 08/10/2019 Activeapixaban 2.5 mg oral tablet (20 sources)Factor Xa Inhibitorapixaban (ELIQUIS) 2.5 mg tablet Take by mouth 2 (two) times a day. Activetake 1 tablet by mouth every twelve hoursEliquis 2.5 MG tablet Take 2.5 mg by mouth every 12 (twelve) hours Activeatorvastatin 40 mg oral tablet (6 sources)HMG-CoA Reductase InhibitorStart: 20-22-4773bdyv 1 tablet by mouth at bedtimeatorvastatin (Lipitor) 40 MG tablet Take 40 mg by mouth at bedtime 08/16/2023 ActiveC,E,zinc,copper 11/rogte6b/lut (OCUVITE ADULT 50 PLUS ORAL) (17 sources)take 1 tablet by mouth once dailyC,E,zinc,copper 11/fiili4p/lut (OCUVITE ADULT 50 PLUS ORAL) Take 1 tablet by mouth daily. Activetake 1 tablet by mouth once dailyC,E,zinc,copper 11/lcpmb7g/lut (OCUVITE ADULT 50 PLUS ORAL) Take 1 tablet by mouth daily. 0 Activecarvedilol 12.5 mg oral tablet (20 sources)alpha-Adrenergic Moises, beta-Adrenergic BlockerStart: 06-30-2023 take 1 tablet by mouth twice dailycarvedilol (Coreg) 12.5 MG tablet TAKE 1 TABLET BY MOUTH TWICE DAILY (HOLD IF BP IS LESS THAN 110) 06/30/2023 Activetake 0.5 tablet by mouth twice dailycarvedilol (Coreg) 25 MG tablet Take 0.5 tablets twice a day by oral route for 90 days. Activecholecalciferol 0.125 mg oral tablet (20 sources)Vitamin Dtake 1 tablet by mouth in the morningcholecalciferol, vitamin D3, 5,000 units tablet Take 1 tablet (5,000 Units total) by mouth in the morning. Activecholecalciferol (Vitamin D-3) 125 MCG (5000 UT) tablet 1 (one) time each day at the same time Activecolesevelam hydrochloride 625 mg oral tablet (17 sources)Bile Acid Sequestranttake 3 tablets by mouth in the morning colesevelam (WELCHOL) 625 mg tablet Take 3 tablets (1,875 mg total) by mouth in the morning. Rjvobu70 hr dilTIAZem hydrochloride 120 mg extended release oral capsule (6 sources)Calcium Channel BlockerStart: 23-65-4844zqar 1 capsule by mouth once daily in the morningdilTIAZem CD (Cardizem CD) 120 MG 24 hr capsule TAKE 1 CAPSULE BY MOUTH ONCE DAILY IN THE MORNING 08/08/2023 Activefamotidine 40 mg oral tablet (9 sources)Histamine-2 Receptor AntagonistStart: 72-14-4706uedk 1 tablet by mouth at bedtimefamotidine (Pepcid) 40 MG tablet Take 40 mg by mouth at bedtime 08/12/2023 Activefamotidine (Pepcid) 20 MG tablet Take by mouth twice a day Activeferrous sulfate (3 sources)take 1 tablet by mouth in the morningFerrous Sulfate (IRON PO) Take 1 tablet by mouth in the morning and 1 tablet in the evening. Activelatanoprost 0.05 mg/ml ophthalmic solution (3 sources)Prostaglandin AnalogStart: 19-42-3127zkpr 1 drop(s) into the eye(s) at bedtimelatanoprost (Xalatan) 0.005 % ophthalmic solution INSTILL 1 DROP INTO EACH EYE AT BEDTIME 08/07/2023 Activememantine hydrochloride 10 mg oral tablet (20 sources)T-dssgre-R-aspartate Receptor AntagonistStart: 21-03-3149jikw 1 tablet by mouth in the morningmemantine (Namenda) 10 MG tablet Take 10 mg by mouth in the morning and 10 mg before bedtime. 08/11/2023 Activemontelukast 10 mg oral tablet (20 sources)Leukotriene Receptor AntagonistStart: 98-27-5265qltb 1 tablet by mouth once dailymontelukast (Singulair) 10 MG tablet Take 10 mg by mouth Daily 06/23/2023 Vfasyakqovldno-dxyn-HZ-calcium &mins (THERAGRAN-M) 9 mg iron-400 mcg tablet (17 sources)take 1 tablet by mouth once in the zcdbaajredmqttk-xzwj-DT-calcium &mins (THERAGRAN-M) 9 mg iron-400 mcg tablet Take 1 tablet by mouth inthe morning and 1 tablet before bedtime. Activetake 1 tablet by mouth once in the azbrfxyjizkgvxt-adat-RK-calcium &mins (THERAGRAN-M) 9 mg iron-400 mcg tablet Take 1 tablet by mouth inthe morning and 1 tablet before bedtime. 0 Active omeprazole 20 mg delayed release oral capsule (20 sources)Proton Pump Inhibitortake 1 capsule by mouth in the morning omeprazole (PriLOSEC) 20 mg capsule Take 1 capsule (20 mg total) by mouth in the morning. Activepeg 3350-sod sulf,vaez-uvr-fhy 178.7-7.3-0.5 gram recon soln (1 source)Start: 01-15-2024 End: 90-46-4327dyh 3350-sod sulf,hhem-wvn-yqt 178.7-7.3-0.5 gram recon soln Take 1 kit by mouth in the morning for1 dose. Please see instructional sheet given by Physicians office. 1 each 01/15/2024 01/16/2024 Activesod sulf-pot chloride-mag sulf 1.479-0.188- 0.225 gram tablet (6 sources)Start: 15-37-6951wuh sulf-pot chloride-mag sulf 1.479-0.188- 0.225 gram tablet Indications: Melena , Hematemesis, unspecified whether nausea present PLEASE FOLLOW INSTRUCTIONS FROM SURGEONS OFFICE 24 tablet 01/22/2024 Active Completed/Discontinued Medications MedicationDrug Class(es)DatesSig (Normalized)Sig (Original)UNABLE TO FIND (3 sources) End: 54-42-0806ufbc 1 tablet by mouth once dailyUNABLE TO FIND Take 1 tablet by mouth nightly. Unisom- sleep aid 07/17/2023 Discontinuedtake 1 tablet by mouth once dailyUNABLE TO FIND Take 1 tablet by mouth nightly. Unisom- sleep aid Activetake 1 tablet by mouth once dailyUNABLE TO FIND Take 1 tablet by mouth nightly. Unisom- sleep aid 0 Active Problems Active Problems Problem ClassificationProblemDateDocumented DateEpisodic/ChronicBiliary tract disease (10 sources)Calculus of gallbladder without cholecystitis without obstruction; Translations: [Biliary calculus]Onset: 645959-43-3153TuimdnwqEhtuxispu and vision defects (17 sources)Visual impairment; Translations: [Unspecified visual loss]Onset: 238545-89-7936UadoljvDddgdwo dysrhythmias (18 sources)Unspecified atrial fibrillation; Translations: [Atrial fibrillation] Onset: 221945-93-7075CequvtkVeukjafoyj disorders (20 sources)Presence of cardiac pacemaker; Translations: [Cardiac pacemaker in situ]Onset: 148618-97-0226MpagmgiCeirusxgpd heart failure; nonhypertensive (2 sources)Chronic diastolic (congestive) heart failure; Translations: [Chronic diastolic (congestive) heart failure]Onset: 43-47-7065QyaxxdhJelrmqor atherosclerosis and other heart disease (2 sources)Atherosclerotic heart disease of [place] coronary artery without angina pectoris; Translations: [Atherosclerotic heart disease of [place] coronary artery without angina pectoris]Onset: 52-78-4917TgpouuoBkdijirlv of lipid metabolism (17 sources)Hyperlipidemia; Translations: [Hyperlipidemia, unspecified]Onset: 503852-50-1140JeapgswW Codes: Fall (2 sources)FallOnset: 13-14-9434Yfrxdmcyaw disorders (17 sources)Gastroesophageal reflux disease; Translations: [Gastro-esophageal reflux disease without esophagitis]Onset: 125337-43-2387XiwaqxwLuytctire hypertension (18 sources)Essential (primary) hypertension; Translations: [Hypertensive disorder]Onset: 273830-33-5501YgantluQvkbvoed of lower limb (11 sources)Fracture of unspecified metatarsal bone(s), left foot, initial encounter for closed fracture; Translations: [Fracture of unspecified metatarsal bone(s), left foot, subsequent encounter for fracture with routine healing] Onset: 56-42-7973GurazvloEmygilpqcwezdhqj hemorrhage (8 sources)Melena; Translations: [Hematemesis]Onset: 857659-18-7112 EpisodicHeart valve disorders (2 sources)Nonrheumatic tricuspid (valve) insufficiency; Translations: [Nonrheumatic tricuspid (valve) insufficiency]Onset: 18-75-2856KxaddsgHhwifqk and fatigue (1 source)Other fatigue; Translations: [Other fatigue]Onset: 27-72-1661Qehnyxxw Osteoarthritis (20 sources)Osteoarthritis of right hip joint; Translations: [Unilateral primary osteoarthritis, right hip]Onset: 798947-59-3512EkwcqydYvqgg connective tissue disease (1 source)Presence of artificial hip joint, bilateral; Translations: [PRESENCE ARTIFICIAL HIP JOINT BILAT]Onset: 31-06-0445CzehawlOvlya liver diseases (4 sources)Elevated liver enzymes level; Translations: [Abnormal levels of other serum enzymes]19-84-1274MwpazrmyCbkkg liver diseases (1 source)Abnormal levels of other serum enzymes; Translations: [Abnormal levels of other serum enzymes]Onset: 53-26-8279DeicaqvfXuwvr nervous system disorders (4 sources)Ataxia, unspecified; Translations: [ATAXIA UNSPECIFIED]Onset: 86-28-3124LnecpsbtVtqmc screening for suspected conditions (not mental disorders or infectious disease) (2 sources)Other specified abnormal findings of blood chemistry; Translations: [Other abnormal blood chemistry]07-66-8743BpkaiatbAdmdnvj and strains (1 source)Strain of muscle, fascia and tendon of lower back, initial encounter; Translations: [Strain of muscle, fascia and tendon of lower back, initial encounter]Onset: 81-81-5679CzlllghqDzwffojeeylj (1 source)LOW BACK PAIN, UNSPECIFIED; Translations: [LOW BACK PAIN, UNSPECIFIED] Onset: 51-40-1689Qcrifemdbvgq (1 source)Acute cough; Translations: [Acute cough]Onset: 19-86-2936Asekbtlcvwlk (1 source)Cold Like SymptomsOnset: 99-94-4676Evkyejpvjvnh (1 source)Groin PainOnset: 25-81-6373Lcznuwzacphj (1 source)Tele [facility]y [facility] HospitalOnset: 66-25-7587Aytkzmrsbjjx (1 source)Post-opOnset: 51-61-0596Uwrbwnutjyfn (1 source)Suspicious Skin LesionOnset: 15-09-4822Mplqhultnsna (2 sources)Permanent atrial fibrillation; Translations: [Permanent atrial fibrillation]Onset: 02-27-2023 Past or Other Problems Problem ClassificationProblemDateDocumented DateEpisodic/ChronicComplications of surgical procedures or medical care (17 sources)Delayed recovery from general anesthesia; Translations: [Other complications of anesthesia, initialencounter]Onset: 104235-03-7541 EpisodicDisorders of teeth and jaw (17 sources)Tooth disorder; Translations: [Disorder of teeth and supporting structures, unspecified]Onset: 791919-76-0919ArewikjeD Codes: Fall (2 sources)Unspecified fall, initial encounter; Translations: [Other fall on same level, initial encounter]Onset: 53-11-7703GrqvrwdyLvzkurej of neck of femur (hip) (1 source)Fracture of unspecified part of neck of right femur, initial encounter for closed fracture; Translations: [FX UNS PRT NCK RT FEM INIT CLOS]Onset: 82-17-0914RiirzhbfXeltstkarpkgg symptoms and ill-defined conditions (1 source)Hematuria, unspecified; Translations: [HEMATURIA UNSPECIFIED]Onset: 96-52-3265DezsnihaCbptcdpatvngw and screening for infectious disease (1 source)Encounter for immunization; Translations: [ENCOUNTER FOR IMMUNIZATION] Onset: 37-91-1121ThfwxywgFjjdug and vomiting (17 sources)Postoperative nausea and vomiting; Translations: [Nausea with vomiting, unspecified]Onset: 385716-15-2228IzpngssqTsft wounds of extremities (4 sources)Laceration without foreign body of left forearm, initial encounter; Translations: [LACERATION W/O FB LT FOREARM INIT]Onset: 03-30-9644SkgbiyukAavtb aftercare (1 source)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; Translations: [[facility] CURRENT USE OF ASPIRIN]Onset: 94-88-2756HkszvihrNmheu aftercare (1 source)Other parts counterman (current) drug therapy; Translations: [OTH REPOSSESSION AGENT CURRENT DRUG THERAPY]Onset: 87-91-7325ZwyiffnpAzxpn aftercare (1 source)detention (current) use of anticoagulants; Translations: [REPOSSESSION AGENT CURRNT USE ANTICOAGULANTS]Onset: 49-40-1970DypipbplFkxmm connective tissue disease (3 sources)Pain in left foot; Translations: [PAIN IN LEFT FOOT]Onset: 11-26-2021 EpisodicOther connective tissue disease (17 sources)Recurrent falls ; Translations: [Repeated falls]Onset: 06-22-2022 55-15-1670NvpycuamRwjrw connective tissue disease (2 sources)Repeated falls; Translations: [Repeated falls]Onset: 05-15-2024 EpisodicOther fractures (2 sources)Closed fracture of ischium; Translations: [Unspecified fracture of right ischium, subsequent encounter for fracture with routine healing]10-21-2023 EpisodicOther fractures (1 source)Unspecified fracture of right ischium, initial encounter for closed fracture; Translations: [Unspecified fracture of right ischium, initial encounter for closed fracture]Onset: 91-10-6185MiosiuntLipor non-traumatic joint disorders (3 sources)Pain in right hip; Translations: [PAIN IN RIGHT HIP]Onset: 01-23-2022 EpisodicOther skin disorders (1 source)Localized swelling, mass and lump, right upper limb; Translations: [LOC SWELL MASS LUMP RT UPPER LIMB]Onset: 14-18-2420WdgbjihlQsico skin disorders (2 sources)Disorder of the skin and subcutaneous tissue, unspecified; Translations: [Disorder of the skin and subcutaneous tissue, unspecified]Onset: 32-00-9319TyrnfwrzAftvj skin disorders (3 sources)Disorder of skin of upper limb; Translations: [Disorder of the skin and subcutaneous tissue, unspecified]99-11-4194AlycvynfTsjxvipr codes; unclassified (2 sources)Other specified postprocedural states; Translations: [Other specified postprocedural states]Onset: 30-33-7590RqlrxiibBlarnlggx and history of mental health and substance abuse codes (1 source)Personal history of nicotine dependence; Translations: [PERSONAL HISTORY OF NICOTINE DEPEND]Onset: 34-39-4346CwdfptciUovhqttjoox; intervertebral disc disorders; other back problems (3 sources)Muscle spasm of back; Translations: [Pain in thoracic spine]Onset: 54-18-3564TnivjjbtPyeeqljeexeu (2 sources)Elevated XGDb96-16-0604Ubfjpxh tract infections (1 source)Urinary tract infection, site not specified; Translations: [UTI SITE NOT SPECIFIED]Onset: 95-86-5070Vcoxlref Results Test NameValueInterpretationReference RangeFacilityOffice Visiton 10-23-2024 Follow-up [id number] Susan Douglass 1940 F Date Provider Department Center 10/23/2024 REJI GALLOWAY LESLY [facility] Family History Family Status - Relation Status Age at Mother Father Level of Service:40089 MT OFFICE/OUTPATIENT ESTABLISHED MOD MDM 30 MIN Reason for Visit and Comments: Follow-up [919299] - 6 month Atrial Fibrillation [80] Coronary Artery Disease [187] Hypertension [219131] Congestive Heart Failure [127] Hyperlipidemia [182] Atherosclerosis of aorta [Other]NormalUnCleveland Clinic Union HospitalOrders Onlyon 17-78-1329Jxvvsy [id number] Susan Douglass 1940 F Date Provider Department Center 10/09/2024 SOHA [facility] No family history on fileNormalUniverspremier health [facility] CenterOrders Onlyon 29-48-4539Tulbyq [id number] Susan Douglass 1940 F Date Provider Department Center 07/13/2024 SOHA [facility] No family history on fileNormalUniversCommunity Memorial HospitalOffice Visiton 09-13-3209Hnbigt-up [id number] Susan Douglass 1940 F Date Provider Department Center 05/15/2024 JUAN MANUEL SUNG CARD [facility] No family history on file Level of Service:71481 MT OFFICE/OUTPATIENT ESTABLISHED MOD MDM 30 [facility] LMTDon 43-02-3470IG ABDOMEN LMTDUS ABDOMEN LMTD US ABDOMEN LMTD: 02/03/2024 6:56 [...] by Reid Gonzalez MD on 02/04/2024 8:32 AMNormalProMedica Salinas Surgery CenterNM HEPATOBILIARY SYS IMAGING W PHARMACOLOGIC AGENTon 52-71-6920VP HEPATOBILIARY SYS IMAGING W PHARMACOLOGIC AGENTNM HEPATOBILIARY SYS IMAGING W PHARMACOLOGIC AGENT NM [...] by Dawson Davenport MD on 02/03/2024 12:12 PMNormalProMedica Salinas Surgery Center36on 48-44-954814Zwde, thanks. Please have her scheduled for a follow-up with next year. Thanks![facility]36Tried to contact patient again and she has no VM. FYINormalUniversCommunity Memorial HospitalBlood Urea Nitrogenon 27-71-7950Lpxh nitrogen [Mass/Vol]17 mg/dLNormal7-25The [facility] Physician GroupComment on above:Performed By: #### CMP, PTT, CK, PT, SCAN CBC, HS TROP #### [place] [address] USACreatinineon 37-07-7799Bdqaubqmgx [Mass/Vol]0.66 mg/dL Normal0.60-1.20The [facility] Physician GroupComment on above:Performed By: #### CMP, PTT, CK, PT, SCAN CBC, HS TROP #### [place] [address] USAGFR/1.73 sq M.predicted MDRD (S/P/Bld) [Vol rate/Area] mL/min/{1.73_m2}NormalThe [facility] Physician [facility] HospitalComment on above:Result Comment: PERFORMED BY: [place] [address] PATHOLOGIST OUTSIDE OPERATOR MARKO HAYES M.D.Performed By: #### CMP, PTT, CK, PT, SCAN CBC, HS TROP #### [place] [address] USAElectrolyteson 75-53-6865Hqqbw gap [Moles/Vol]14.1 mmol/L Normal6.0-15.0The [facility] Physician [facility] HospitalComment on above:Performed By: #### CMP, PTT, CK, PT, SCAN CBC, HS TROP #### [place] [address] USAChloride [Moles/Vol]97 mmol/SGol71-336Mbm [facility] Physician [facility] HospitalComment on above:Performed By: #### CMP, PTT, CK, PT, SCAN CBC, HS TROP #### [place] [address] USACO2 [Moles/Vol]30.4 mmol/QHxlwmd74.0-31.0The [facility] Physician GroupComment on above:Performed By: #### CMP, PTT, CK, PT, SCAN CBC, HS TROP #### [place] [address] USAPotassium [Moles/Vol]4.5 mmol/LNormal3.5-5.1The [facility] Physician GroupComment on above:Performed By: #### CMP, PTT, CK, PT, SCAN CBC, HS TROP #### [place] [address] USASodium [Moles/Vol]137 mmol/WSsvebp148-667Bfa [facility] Physician GroupComment on above:Performed By: #### CMP, PTT, CK, PT, SCAN CBC, HS TROP #### [address]Erythrocyte Sedimentation Rateon 20-46-3114QJK (Bld) [Velocity]92 mm/hHigh0-29The [facility] Physician [facility] HospitalComment on above:Result Comment: PERFORMED BY: [place] [address] PATHOLOGIST OUTSIDE OPERATOR MARKO HAYES M.D.Performed By: #### CMP, PTT, CK, PT, SCAN CBC, HS TROP #### [address]Hepatic Panelon 46-36-2318Pyttjgb [Mass/Vol]3.2 g/dLLow 3.5-5.7The [facility] Physician GroupComment on above:Performed By: #### BUN, LYTES, CREAT, SCAN CBC, HEPATIC, ESR #### [address] #### NT-PROBNP #### [facility] ,Albumin/Globulin [Mass ratio]0.8 {ratio}NormalThe [facility] Physician Group Comment on above:Performed By: #### BUN, LYTES, CREAT, SCAN CBC, HEPATIC, ESR #### [facility] [address] [place] [address] #### NT-PROBNP #### [facility] ,ALP [Catalytic activity/Vol]130 U/FJqhf24-346Wcb [facility] Physician Group Comment on above:Performed By: #### BUN, LYTES, CREAT, SCAN CBC, HEPATIC, ESR #### [facility] [address] [place] [address] [place] #### NT-PROBNP #### [facility] ,ALT [Catalytic activity/Vol]21 U/LNormal7-52The [facility] Physician Group Comment on above:Performed By: #### BUN, LYTES, CREAT, SCAN CBC, HEPATIC, ESR #### [address] #### NT-PROBNP #### [facility] ,AST [Catalytic activity/Vol]22 U/VIrzcsi46-65Eeq [facility] Physician [facility] Comment on above:Performed By: #### BUN, LYTES, CREAT, SCAN CBC, HEPATIC, ESR #### [facility] [address] [place] [address] #### NT-PROBNP #### [facility] ,Bilirubin [Mass/Vol]0.8 mg/dLNormal0.3-1.0The [facility] Physician GroupComment on above:Performed By: #### BUN, LYTES, CREAT, SCAN CBC, HEPATIC, ESR #### [place] [address] [place] #### NT-PROBNP #### [facility] ,Bilirubin,Indirect0.6 mg/dLNormalThe [facility] Physician GroupComment on above: Performed By: #### BUN, LYTES, CREAT, SCAN CBC, HEPATIC, ESR #### [facility] [address] [place] [address] [place] #### NT-PROBNP #### [facility] ,Bilirubin.indirect [Mass/Vol]0.20 mg/dLHigh0.03-0.18The [facility] Physician GroupComment on above:Performed By: #### BUN, LYTES, CREAT, SCAN CBC, HEPATIC, ESR #### [facility] [address] [place] [address] #### NT-PROBNP #### [facility] ,Globulin (S) [Mass/Vol]3.9 g/dLNormalThe [facility] Physician GroupComment on above:Performed By: #### BUN, LYTES, CREAT, SCAN CBC, HEPATIC, ESR #### [facility] [address] [place] [address] [place] #### NT-PROBNP #### [facility] ,Protein [Mass/Vol]7.1 g/dLNormal6.4-8.9The [facility] Physician GroupComment on above:Performed By: #### BUN, LYTES, CREAT, SCAN CBC, HEPATIC, ESR #### [facility] [address] [place] [address] [place] #### NT-PROBNP #### [facility] ,Multiple labsOrdered By: Concha Amado on 02-16-5253YoiKsaqdnMiami Valley Hospital NT-proBNPon 10-88-7688Fpgvjtyxyou peptide B (Bld) [Mass/Vol]1383 pg/mLHigh0-738 The [facility] Physician GroupComment on above:Result Comment: The following cut- points have been suggested for the use of proBNP for the diagnostic evaluation of heart failure (HF) in patients with acute dyspnea: Modality Age Optimal Cut (years) Point Diagnosis (rule in HF) <50 450 pg/mL 50 - 75 900 pg/mL >75 1800 pg/mL Exclusion (rule out HF) Age independent 300 pg/mL Performed at: [address] [id number] Cardiac Catheterization Technologist: Orion Negro PhD, Phone: [phone] PERFORMED BY: [place] [address] PATHOLOGIST OUTSIDE OPERATOR MARKO HAYES M.D.Performed By: #### CMP, PTT, CK, PT, SCAN CBC, HS TROP #### [place] [address] USAScan and CBCon 82-22-8064Qqsxtuvzm (Bld) [#/Vol]0.1 10*3/uLNormal0.0-0.2The [facility] Physician GroupComment on above:Performed By: #### CMP, PTT, CK, PT, SCAN CBC, HS TROP #### [place] [address] USABasophils/100 WBC (Bld)1.3 %Normal.The [facility] Physician GroupComment on above:Performed By: #### CMP, PTT, CK, PT, SCAN CBC, HS TROP #### [place] [address] USAEosinophils (Bld) [#/Vol]0.1 10*3/uLNormal0.0-0.45The [facility] Physician GroupComment on above:Performed By: #### CMP, PTT, CK, PT, SCAN CBC, HS TROP #### [place] [address] USAEosinophils/100 WBC (Bld)1.2 %Normal.The [facility] Physician GroupComment on above:Performed By: #### CMP, PTT, CK, PT, SCAN CBC, HS TROP #### [place] [address] USAErythrocyte distribution width (RBC) [Ratio]16.1 %High 11.9-15.3The [facility] Physician GroupComment on above:Performed By: #### CMP, PTT, CK, PT, SCAN CBC, HS TROP #### [place] [address] USAHematocrit (Bld) [Volume fraction]39.6 %Vtzqsw80.0-46.4The [facility] Physician GroupComment on above:Performed By: #### CMP, PTT, CK, PT, SCAN CBC, HS TROP #### [place] [address] USAHemoglobin (Bld) [Mass/Vol]13.2 g/oDBvfcgb88.8-15.4The [facility] Physician GroupComment on above:Performed By: #### CMP, PTT, CK, PT, SCAN CBC, HS TROP #### [place] [address] USALymphocytes (Bld) [#/Vol]0.9 10*3/uLLow1.00-4.8The [facility] Physician GroupComment on above:Performed By: #### CMP, PTT, CK, PT, SCAN CBC, HS TROP #### [place] [address] USALymphocytes/100 WBC (Bld)9.4 %Normal.The [facility] Physician GroupComment on above:Performed By: #### CMP, PTT, CK, PT, SCAN CBC, HS TROP #### [address] (RBC) [Entitic mass]29.8 znDyvuae13.7-34.3The [facility] Physician GroupComment on above:Performed By: #### CMP, PTT, CK, PT, SCAN CBC, HS TROP #### [address] (RBC) [Entitic vol]89.3 iXSfbjxa94-046Pmt [facility] Physician GroupComment on above:Performed By: #### CMP, PTT, CK, PT, SCAN CBC, HS TROP #### [place] [address] USAMean Corpuscular HGB Conc33.4 g/uDSorscy95.0-35.0The [facility] Physician GroupComment on above:Performed By: #### CMP, PTT, CK, PT, SCAN CBC, HS TROP #### [place] [address] USAMonocytes (Bld) [#/Vol]0.8 10*3/uLNormal0.0-0.8The [facility] Physician GroupComment on above:Performed By: #### CMP, PTT, CK, PT, SCAN CBC, HS TROP #### [place] [address] USAMonocytes/100 WBC (Bld)8.3 %Normal.The [facility] Physician GroupComment on above:Performed By: #### CMP, PTT, CK, PT, SCAN CBC, HS TROP #### [place] [address] USANeutrophils (Bld) [#/Vol]7.7 10*3/uLNormal1.8-7.7The [facility] Physician GroupComment on above:Performed By: #### CMP, PTT, CK, PT, SCAN CBC, HS TROP #### [place] [address] USANeutrophils/100 WBC (Bld)79.8 %Normal.The [facility] Physician GroupComment on above:Performed By: #### CMP, PTT, CK, PT, SCAN CBC, HS TROP #### [place] [address] USANRBC%0.1 /100{WBC}Normal0-0.5The [facility] Physician Group Comment on above:Performed By: #### CMP, PTT, CK, PT, SCAN CBC, HS TROP #### [place] [address] USAOvalocytesSDuke University Hospital Physician GroupComment on above:Performed By: #### CMP, PTT, CK, PT, SCAN CBC, HS TROP #### [place] [address] USAPlatelet EstimateIncreasedMatheny Medical and Educational Center Physician GroupComment on above:Performed By: #### CMP, PTT, CK, PT, SCAN CBC, HS TROP #### [place] [address] USAPlatelet mean volume (Bld) [Entitic vol]8.7 fLNormal 6.3-10.7The [facility] Physician GroupComment on above:Performed By: #### CMP, PTT, CK, PT, SCAN CBC, HS TROP #### [place] [address] USAPlatelet MorphologyNormalNormalNormHCA Florida Memorial Hospital Physician GroupComment on above:Performed By: #### CMP, PTT, CK, PT, SCAN CBC, HS TROP #### [place] [address] USAPlatelets (Bld) [#/Vol]512 10*3/bVKava063-047Nrf [facility] Physician GroupComment on above:Performed By: #### CMP, PTT, CK, PT, SCAN CBC, HS TROP #### [place] [address] USAPoikilocytosisSlightNormHCA Florida Memorial Hospital Physician Group Comment on above:Performed By: #### CMP, PTT, CK, PT, SCAN CBC, HS TROP #### [place] [address] USARBC (Bld) [#/Vol]4.43 10*6/uLNormal3.60-5.00The [facility] Physician GroupComment on above:Performed By: #### CMP, PTT, CK, PT, SCAN CBC, HS TROP #### [place] [address] USAWBC (Bld) [#/Vol]9.7 10*3/uLNormal3.8-11.6The [facility] Physician GroupComment on above:Performed By: #### CMP, PTT, CK, PT, SCAN CBC, HS TROP #### [place] [address] USAMultiple labsOrdered By: Concha Amado on 01-09-2024 [facility] AND AUTO DIFFon 29-94-0360PRBSPOMC BASOPHIL0.1 X10E9/LNormal0.0-0.2PSelect Medical [facility] Hospital, BeachwoodComment on above:Performed By: #### CBCA, 89337-7, CMP, 3040-3 #### [facility] ([id number]) [address] [place] [address]POAUOAUY NEUTROPHIL7.8 X10E9/LHigh1.5-6.6Aultman HospitalComment on above:Performed By: #### LUIS, 89323-0, CMP, 3040-3 #### [facility] ([id number]) [address] [place] [address] 50869Cikllrvaz/100 WBC (Bld)0.5 %[facility] Comment on above:Performed By: #### LUIS, 23044-0, CMP, 3040-3 #### [facility] ([id number]) [address] [place] [address] 79954Uyosfghocjt (Bld) [#/Vol]0.1 10*3/uLNormal0.0-0.4[facility]ultman HospitalComment on above:Performed By: #### LUIS, 26306-1, CMP, 3040-3 #### [facility] ([id number]) [address] [place] [address] 48054Dezvuqgxbct/100 WBC (Bld)1.1 %NormalAultman Hospital Comment on above:Performed By: #### LUIS, 35720-4, CMP, 3040-3 #### [facility] ([id number]) [address] [place] [address] 64107Eezvudprlib distribution width (RBC) [Ratio]16.5 %High11.5-15.0 [facility]ultman HospitalComment on above:Performed By: #### LUIS, 05866-2, CMP, 3040-3 #### [facility] ([id number]) [address] [place] [address] 34329Exidmxyrar (Bld) [Volume fraction]39.3 %Vfrnhc96-24QcgEvblztTexas Children'S Hospital The WoodlandsComment on above:Performed By: #### CBCWilfrido, 78220-8, CMP, 3040-3 #### [facility] ([id number]) [address] [place] [address] 03625Vkapxuxalo (Bld) [Mass/Vol]13.0 g/kAHmoudz67.7-15.5PSelect Medical [facility] Clinic Rehabilitation Hospital, BeachwoodComment on above:Performed By: #### CBCA, 90507-8, CMP, 3040-3 #### [facility] ([id number]) [address] [place] [address] 90176Pzeavelorod (Bld) [#/Vol]1.0 10*3/uLNormal1.0-3.5PSelect Medical [facility] Clinic Rehabilitation Hospital, BeachwoodComment on above:Performed By: #### CBCWilfrido, 54466-4, CMP, 3040-3 #### [facility] ([id number]) [address] [place] [address] 53419Syaeqwbilhw/100 WBC (Bld)9.7 %NormalAultman Hospital Comment on above:Performed By: #### CBCWilfrido, 32334-0, CMP, 3040-3 #### [facility] ([id number]) [address] [place] [address] 33253EMN (RBC) [Entitic mass]30.4 imYqomwi64-09CsbDtvphmTexas Children'S Hospital The WoodlandsComment on above:Performed By: #### CBCA, 96420-0, CMP, 3040-3 #### [facility] ([id number]) [address] [place] [address] 24647SHFK (RBC) [Mass/Vol]33.2 g/bCSxhsip44-20CmtCqcqheTexas Children'S Hospital The WoodlandsComment on above:Performed By: #### CBCA, 58841-0, CMP, 3040-3 #### [facility] ([id number]) [address] [place] [address] 90620DBD (RBC) [Entitic vol]92 gIOapagc34-619LxuSaivplAultman HospitalComment on above:Performed By: #### CBCWilfrido, 36494-0, CMP, 3040-3 #### [facility] ([id number]) [address] [place] [address] 93138Ucntrmijw (Bld) [#/Vol]1.3 10*3/uLHigh0-0.9Aultman HospitalComment on above:Performed By: #### CBCWilfrido, 69000-7, CMP, 3040-3 #### [facility] ([id number]) [address] [place] [address] 83854Dippnjdsv/100 WBC (Bld)12.6 %NormalAultman Hospital Comment on above:Performed By: #### CBCWilfrido, 10328-5, CMP, 3040-3 #### [facility] ([id number]) [address] [place] [address] 88596Kdqbqqxumxt/100 WBC (Bld)76.1 %[facility] Comment on above:Performed By: #### CBCWilfrido, 60237-3, CMP, 3040-3 #### [facility] ([id number]) [address] [place] [address] 82910Qgotqsrc mean volume (Bld) [Entitic vol]7.7 fLNormal7-12 Aultman HospitalComment on above:Performed By: #### CBCA, 71193-7, CMP, 3040-3 #### [facility] ([id number]) [address] [place] [address] 14283Amddbneee (Bld) [#/Vol]284 10*3/oXVtkdne375-068PpoXawwfp Fremont HospitalComment on above:Performed By: #### CBCA, 93093-5, CMP, 3040-3 #### [facility] ([id number]) [address] [place] [address], [place] [address]LMA COUNT4.28 X10E12/LNormal3.80-5.20[facility] Comment on above:Performed By: #### LUIS, 25541-7, CMP, 3040-3 #### [facility] ([id number]) [address] [place] [address] 62069XUI (Bld) [#/Vol]10.2 10*3/uLNormal4.0-11.0ProTexas Children'S Hospital The WoodlandsComment on above:Performed By: #### LUIS, 48656-7, CMP, 3040-3 #### [facility] ([id number]) [address] [place] [address] 47675FGNGMPHRNMDCB METABOLIC PANELon 77-26-9194Tlnnimt [Mass/Vol]3.5 g/dLNormal3.2-5.3PSelect Medical Cleveland Clinic Rehabilitation Hospital, BeachwoodComment on above:Performed By: #### LUIS, 76350-2, CMP, 3040-3 #### [facility] ([id number]) [address] [place] [address] 33964IFM [Catalytic activity/Vol]120 U/RMpzxxl35-077OjzOqcjfoTexas Children'S Hospital The WoodlandsComment on above:Performed By: #### LUIS, 08348-4, CMP, 3040-3 #### [facility] ([id number]) [address] [place] [address], [place] [address]FFV [Catalytic activity/Vol]16 U/LNormal0-31PSelect Medical [facility] Clinic Rehabilitation Hospital, BeachwoodComment on above:Performed By: #### LUIS, 45102-8, CMP, 3040-3 #### [facility] ([id number]) [address] [place] [address], [place] [address]Prtpe gap [Moles/Vol]10 mmol/LNormal5-15ProMedica Scio HospitalComment on above:Performed By: #### LUIS, 16510-0, CMP, 3040-3 #### [facility] ([id number]) [address] [place] [address], [place] [address]RON [Catalytic activity/Vol]16 U/LNormal0-41ProTexas Children'S Hospital The WoodlandsComment on above:Performed By: #### LUIS, 42571-7, CMP, 3040-3 #### [facility] ([id number]) [address] [place] [address], [place] [address]Zgpmdvvvz [Mass/Vol]0.8 mg/dLNormal0.3-1.2PSelect Medical Cleveland Clinic Rehabilitation Hospital, BeachwoodComment on above:Performed By: #### LUIS, 93763-3, CMP, 3040-3 #### [facility] ([id number]) [address] [place] [address], [place] [address]Xxljkyn [Mass/Vol]8.8 mg/dLNormal8.5-10.5PSelect Medical Cleveland Clinic Rehabilitation Hospital, BeachwoodComment on above:Performed By: #### LUIS, 68915-3, CMP, 3040-3 #### [facility] ([id number]) [address] [place] [address], [place] [address]Sxvxsgao [Moles/Vol]104 mmol/BCguarn12-538LlhHewvvwTexas Children'S Hospital The WoodlandsComment on above:Performed By: #### LUIS, 01027-4, CMP, 3040-3 #### [facility] ([id number]) [address] [place] [address], [place] [address]TZ0 [Moles/Vol]23 mmol/LZejimr16-13DqsWsvtkqSelect Medical [facility], [place] Comment on above:Performed By: #### LUIS, 95032-1, CMP, 3040-3 #### [facility] ([id number]) [address] [place] [address], [place] [address]Yjxthtrxrf [Mass/Vol]0.75 mg/dLNormal0.40-1.00ProTexas Children'S Hospital The WoodlandsComment on above:Result Comment: METHOD TRACEABLE TO IDMS STANDARD Performed By: #### LUIS, 08027-1, ROXANNE, 3040-3 #### [facility] ([id number]) [address] [place] [address] 48397JCD/1.73 sq M.predicted among non-blacks MDRD (S/P/Bld) [Vol rate/Area]78 mL/min/{1.73_m2}Normal>59ProTexas Children'S Hospital The WoodlandsComment on above:Result Comment: Reported eGFR is based on the CKD-EPI 2020 equation that does not use a race coefficient.Performed By: #### LUIS, 40942-0, ROXANNE, 3040-3 #### [facility] ([id number]) [address] [place] [address] 59806Fkhvdwm [Mass/Vol]107 mg/eWVblh08-64VmaYcwjycAultman Hospital Comment on above:Performed By: #### LUIS, 79134-4, ROXANNE, 3040-3 #### [facility] ([id number]) [address] [place] [address] 48488Rmosrerqm [Moles/Vol]3.8 mmol/LNormal3.5-5.0Aultman HospitalComment on above:Performed By: #### LUIS, 05886-0, ROXANNE, 3040-3 #### [facility] ([id number]) [address] [place] [address] 56208Nuujsjr [Mass/Vol]6.6 g/dLNormal6.0-8.0ProTexas Children'S Hospital The WoodlandsComment on above:Performed By: #### LUIS, 38524-3, ROXANNE, 3040-3 #### [facility] ([id number]) [address] [place] [address] 63789Wqbsad [Moles/Vol]137 mmol/OCzpnct259-834WjxEjjjke Fremont HospitalComment on above:Performed By: #### LUIS, 37108-4, CMP, 3040-3 #### [facility] ([id number]) [address] [place] [address] 88350Golk nitrogen [Mass/Vol]13 mg/dLNormal5-27ProTexas Children'S Hospital The WoodlandsComment on above:Performed By: #### LUIS, 99606-5, CMP, 3040-3 #### [facility] ([id number]) [address] [place] [address] 869[address]Wtpjuk D-dimer DDU (PPP) [Mass/Vol]on 4D GKBMJ947 ng/mL DDUNormal<255ProTexas Children'S Hospital The WoodlandsComment on above:Result Comment: Results <255 ng/mL DDU: The presence of a VTE can safely be excluded with a negative D-Dimer result and Wells score. A negative result doesn't exclude the possibility of DIC. The test be repeated along with other diagnostic tests if the patient's symptoms persist or worsen. [email or web address] By: #### LUIS, 47376-8, CMP, 3040-3 #### [facility] ([id number]) [address] [place] [address] 54653ANPQVFyh 53-38-7073Ruhnbf [Catalytic activity/Vol]34 U/LNormal 17-40ProTexas Children'S Hospital The WoodlandsComment on above:Performed By: #### LUIS, 14730- 5, CMP, 3040-3 #### [facility] ([id number]) [address] [place] [address] 38121WE CHEST 2 VWSon 11-08-8652ER CHEST 2 VWSXR CHEST 2 VWS XR CHEST 2 VWS Chest 2 views History: cough and back pain Comparison: April 26, 2019 Impression: * No focal consolidation or pleural fluid. Grossly I cannot identify any mediastinal or hilar mass.No acute findings. Cardiomegaly and pacing leads stable Finalized by Haresh Lóepz MD on 12/29/2023 9:11 AMNormalBarney Children's Medical Centerca [facility]36on 47-23-848344Dtgjoq follow-up if patient had stress test done. Thanks!NormalOhioHealth Arthur G.H. Bing, MD, Cancer CenterTelephoneon 46-66-2722Lqxtokvtl [id number] Susan Douglass 1940 F Date Provider Department Center 10/28/2023 Joe-FRANKIE CODY CARD Riddhi Hos No family history on fileNormalUniversCommunity Memorial HospitalXR Pelvis 1 or 2 Viewson 67-94-4053Qgzqiri Result: October 23, 2023 x-rays AP pelvis demonstrate Press-Fit hip replacements bilaterally. No signs of loosening fracture or failure. Osteopenic appearing bone. Nondisplaced fracture of the right pubic rami Impression: Stable appearing hip replacements and healing fracture of the pubic rami Umang Perry D.O.[facility] HospitalXR Pelvis 1 or 2 ViewsOrdered By: Korey Perry on 50-88-1965CGHVGeneral Leonard Wood Army Community Hospital Work Phone: XR Pelvis 1 or 2 Viewson 43-86-1546Kydkuccey Study observation (narrative)[facility] HealthcareCT BRAIN WO CONTon 47-12-8694NL BRAIN WO CONTCT BRAIN WO CONT STUDY: CT BRAIN WO [...] and cisterns are otherwise unremarkable. A few non- specific hypodense foci in the periventricular and subcortical white matter are non-specific but may represent chronic microangiopathic changes. Bilateral pseudophakia. Soft tissues are unremarkable. Intracranial atherosclerosis. Paranasal sinuses are broadly clear. Mastoid air cells are broadly clear. No evidence of acute fracture. IMPRESSION: * No acute intracranial abnormality, by CT. Finalized by Rinku León on 08/24/2023 1:24 [facility]CT C[facility] SPINE WO CONTon 87-80-8714GM CERVICAL SPINE WO CONTCT CERVICAL SPINE WO CONT STUDY: CT CERVICAL [...] FINDINGS: No acute fracture or traumatic malalignment. Lgqi-xn-dbvsampv degenerative spondylotic changes, notsignificantly disproportionate for age. There is left greater than right bony neuroforaminal narrowing. No high-grade bony spinal canal narrowing. Prevertebral, epidural and paraspinal soft tissues are unremarkable. IMPRESSION: * No evidence of acute fracture or traumatic malalignment. Finalized by Rinku León on 08/24/2023 1:29 [facility]CT HIP RT WO CONTon 05-52-3448XD HIP RT WO CONTCT HIP RT WO CONT History: [History of trauma. Fracture suspected. Negative x-ray. Needs CT. ] Procedure: Standard CT of the [hip without contrast] was performed. Automatic exposure control was utilized for dosage reduction technique. Appropriate two-dimensional reconstructions were obtained. All CT scans at this facility use dose modulation, iterative reconstruction, and/or weight based dosing when pita ropriate to reduce radiation dose to as low as reasonably achievable.All CT scans at this facility use dose modulation, iterative reconstruction, and/or weight based dosing when appropriate to reduceradiation dose to as low as reasonably achievable. Findings: [The patient has bilateral hip prostheses. The dense metal greatly limits evaluation of the bony structures, especially of the proximal femur and acetabulum. Nevertheless, there appears to be a fracture of the ischio with a few millimeter offset of the cortex and associated intramuscular hematoma.]There is minimal cortical irregularity of the right pubic bone and significant degenerative changesat the symphysis pubis. A minimally displaced fracture of this bone cannot be excluded. The acetabulum and proximal femur appear unremarkable. Heterotopic bone is again noted superior to the greater t rochanter. Impression: [Minimally displaced fracture of osteopenic right ischium as described above. Minimal fracture of the right pubis cannot be excluded. Extensive artifact from the bilateral hip prostheses and osteopenia limit evaluation of the bones of the pelvis.] Finalized by Gerard Ken MD on 08/24/2023 3:26 [facility] XR HIP RT 2-3 VIEWS W OR WO PELVISon 70-33-0983HG HIP RT 2-3 VIEWS W OR WO PELVISXR HIP RT 2-3 VIEWS W OR WO [...] by Mercedez Leblanc MD on 08/24/2023 1:42 [facility]XR SPINE THORACIC 3 VWSon 17-03-4097YK SPINE THORACIC 3 VWSXR SPINE THORACIC 3 VWS History: [Fall. Back pain] [Thoracic radiographs demonstrate pacemaker. The heart mediastinum cordelia are unremarkable other thanfor possible cardiomegaly. The thoracic vertebra are osteopenic. [...] by Gerard Ken MD on 08/24/2023 1:30 [facility] Surgical Pathologyon 95-82-6337Jcjyijdg PathologyNormalAultman HospitalComment on above:Result Comment: [facility] [address] [place] [address] Surgical Pathology Consultation Patient Name:SUSAN DOUGLASS:1940 (Age: 82)Gender:FTaken:07/17/2023eported:07/26/2023hysician(s):Mercedez Leo D.O. ([phone])Copy To: Rec. #:[id number]: #[id number] Final Pathologic Diagnosis Left forearm: Invasive well-differentiated squamous cell carcinoma, keratoacanthoma-type and adjacent scar. The deep and lateral margins appear free of involvement in the plane of sections examined. NOTE: The above diagnosis is from [facility]. The slides on this case were not reviewed by the signing pathologist. Please see the complete text of the report in the patient???s electronic medical record. Report Electronically Signed Out clf/07/26/2023Gene MD Albino Interpretation performed at [facility], [address] [place] [address], License number: [id number]. Clinical History Skin lesion of left arm [...] sequentially submitted in cassettes B-G. (7, ns, [id number],m1) DM. dm/07/18/2023EAK Specimen(s) Received Left forearm Fee Codes(s): 1; 43876LW cervical spine wo conon 46-81-7622RJ cervical spine wo [facility] [place] [address] [place] [address] CT Scan Report Signed Patient: Susan Douglass MR#: [id number] : 1940 Acct:[id number] Age/Sex: 82 / F ADM Date: 04/25/23 Loc: ER Room: Type: [facility] ER Attending Dr: Copies to: Hardy Leon PA-C Ordering Provider: Hardy Leon PA-C Date of Service: 04/25/23 CT/CT cervical spine wo con: Fall ([id number]) CT/CT head/brain wo con: Fall on blood [...] Brittany Garcia M.D.04/25/2023 4:23 PM Dictation Location: [place] [address] Transcribed By: [facility] 04/25/23 1623 Dictated By: Brittany Garcia MD 04/25/23 1615 Signed By: 04/25/23 1623NormalThSaint Alphonsus Regional [facility] Physician [facility] HospitalComprehensive Metabolic Panelon 32-42-3561Aglgebr [Mass/Vol]4.4 g/dLNormal3.5-5.7The [facility] Physician [facility] Comment on above:Performed By: #### CMP, PTT, CK, PT, SCAN CBC, HS TROP #### [facility] [address] [place] [address] USAAlbumin/Globulin [Mass ratio]1.5 {ratio}NormalThe [facility] Physician GroupComment on above:Performed By: #### CMP, PTT, CK, PT, SCAN CBC, HS TROP #### [facility] [address] [place] [id number] USAALP [Catalytic activity/Vol]84 U/JCscpnb59-335Wny [facility] Physician GroupComment on above:Performed By: #### CMP, PTT, CK, PT, SCAN CBC, HS TROP #### [facility] [address] [place] [address] USAALT [Catalytic activity/Vol]22 U/LNormal7-52The [facility] Physician GroupComment on above:Performed By: #### CMP, PTT, CK, PT, SCAN CBC, HS TROP #### [facility] [address] [place] [address] USAAnion gap [Moles/Vol]12.0 mmol/LNormal6.0-15.0The [facility] Physician GroupComment on above:Performed By: #### CMP, PTT, CK, PT, SCAN CBC, HS TROP #### [facility] [address] [place] [address] USAAST [Catalytic activity/Vol]23 U/ONqhspw49-06Ekp [facility] Physician GroupComment on above:Performed By: #### CMP, PTT, CK, PT, SCAN CBC, HS TROP #### [facility] [address] [place] [address] USABilirubin [Mass/Vol]0.9 mg/dLNormal0.3-1.0The [facility] Physician GroupComment on above:Performed By: #### CMP, PTT, CK, PT, SCAN CBC, HS TROP #### [facility] [address] [place] [address] USACalcium [Mass/Vol]9.1 mg/dLNormal8.6-10.3The [facility] Physician GroupComment on above:Performed By: #### CMP, PTT, CK, PT, SCAN CBC, HS TROP #### [facility] [address] [place] [address] USAChloride [Moles/Vol]104 mmol/LSlhkpb48-138Jez [facility] Physician GroupComment on above:Performed By: #### CMP, PTT, CK, PT, SCAN CBC, HS TROP #### [place] [address] USACO2 [Moles/Vol]24.8 mmol/QRkmcbw14.0-31.0The [facility] Physician GroupComment on above:Performed By: #### CMP, PTT, CK, PT, SCAN CBC, HS TROP #### [facility] [address] [place] [address] USACreatinine [Mass/Vol]0.79 mg/dLNormal0.60-1.20The [facility] Physician GroupComment on above:Performed By: #### CMP, PTT, CK, PT, SCAN CBC, HS TROP #### [facility] [address] [place] [address] USACreatinine Clr Calc Htvtxxmn98.40NormalThe [facility] Physician GroupComment on above:Result Comment: PERFORMED BY: [place] [address] PATHOLOGIST OUTSIDE OPERATOR LOLLY MCDONNELL M.D.Performed By: #### CMP, PTT, CK, PT, SCAN CBC, HS TROP #### [facility] [address] [place] [address] USAGFR/1.73 sq M.predicted MDRD (S/P/Bld) [Vol rate/Area] mL/min/{1.73_m2}NormalThe [facility] Physician GroupComment on above:Performed By: #### CMP, PTT, CK, PT, SCAN CBC, HS TROP #### [facility] [address] [place] [address] USAGlobulin (S) [Mass/Vol]3.0 g/dLNormalThe [facility] Physician GroupComment on above:Performed By: #### CMP, PTT, CK, PT, SCAN CBC, HS TROP #### [facility] [address] [place] [address] USAGlucose [Mass/Vol]104 mg/qITajn05-107Jip [facility] Physician GroupComment on above:Result Comment: Random Glucose Reference Range is dependent on time and content of last meal. Glucose of more than 200 mg/dL in a nonstressed, ambulatory subject supports the diagnosis of Diabetes Mellitus. ADA recommended reference rangePerformed By: #### CMP, PTT, CK, PT, SCAN CBC, HS TROP #### [place] [address] USAPotassium [Moles/Vol]3.8 mmol/LNormal3.5-5.1The [facility] Physician GroupComment on above:Performed By: #### CMP, PTT, CK, PT, SCAN CBC, HS TROP #### [place] [address] USAProtein [Mass/Vol]7.4 g/dLNormal6.4-8.9The [facility] Physician GroupComment on above:Performed By: #### CMP, PTT, CK, PT, SCAN CBC, HS TROP #### [place] [address] USASodium [Moles/Vol]137 mmol/ZQhcvmw860-354Cpl [facility] Physician GroupComment on above:Performed By: #### CMP, PTT, CK, PT, SCAN CBC, HS TROP #### [place] [address] USAUrea nitrogen [Mass/Vol]14 mg/dLNormal7-25The [facility] Physician GroupComment on above:Performed By: #### CMP, PTT, CK, PT, SCAN CBC, HS TROP #### [place] [address] USACreatine Kinaseon 43-09-8706FQ [Catalytic activity/Vol]135 U/AOirvnt02-454Uok [place] Physician [facility] Watkins [facility] HospitalComment on above:Performed By: #### CMP, PTT, CK, PT, SCAN CBC, HS TROP #### [place] [address] USADipstick and Microscopicon 30-46-9173Qsxtvdctpf (U)Clear NormalClearThSaint Alph[facility] Physician GroupComment on above:Order Comment: Name Collection Type:: Clean-Voided MidstreamPerformed By: #### CMP, PTT, CK, PT, SCAN CBC, HS TROP #### [place] [address] USABacteria,Urine1+HighNone SeenThe [facility] Physician Group Comment on above:Order Comment: Name Collection Type:: Clean-Voided Midstream Performed By: #### CMP, PTT, CK, PT, SCAN CBC, HS TROP #### [place] [address] USABilirubin,UrineNegativeNormalNegativePhysicians [facility] Physician [facility] Watkins Memorial HospitalComment on above:Order Comment: Name Collection Type:: Clean- Voided MidstreamPerformed By: #### CMP, PTT, CK, PT, SCAN CBC, HS TROP #### [place] [id number] USAColor (U)YellowNormalYellowPhysicians Regional [facility] Physician Group Comment on above:Order Comment: Name Collection Type:: Clean-Voided Midstream Performed By: #### CMP, PTT, CK, PT, SCAN CBC, HS TROP #### [place] [address] USAGlucose Ql (U)NormalNormalNormalThe [facility] Physician [facility] HospitalComment on above:Order Comment: Name Collection Type:: Clean-Voided MidstreamPerformed By: #### CMP, PTT, CK, PT, SCAN CBC, HS TROP #### [facility] [address] [place] [address] USAHyaline Casts,Oyyvx7-8Xeeorv7-9Ntr [facility] Physician GroupComment on above:Order Comment: Name Collection Type:: Clean-Voided MidstreamResult Comment: PERFORMED BY: [place] [address] PATHOLOGIST OUTSIDE OPERATOR LOLLY MCDONNELL M.D.Performed By: #### CMP, PTT, CK, PT, SCAN CBC, HS TROP #### [place] [address] USAKetones Ql (U)NegativeNormalNegativeThe [facility] Physician GroupComment on above:Order Comment: Name Collection Type:: Clean- Voided MidstreamPerformed By: #### CMP, PTT, CK, PT, SCAN CBC, HS TROP #### [place] [address] USALeukocyte esterase Test strip Ql (U)3+HighNegativeThe [facility] Physician GroupComment on above:Order Comment: Name Collection Type:: Clean-Voided MidstreamPerformed By: #### CMP, PTT, CK, PT, SCAN CBC, HS TROP #### [place] [address] USANitrite,UrineNegativeNormalNegativeThe [facility] Physician GroupComment on above:Order Comment: Name Collection Type:: Clean-Voided MidstreamPerformed By: #### CMP, PTT, CK, PT, SCAN CBC, HS TROP #### [place] [id number] USAOccult Blood,UrineNegativeNormalNegativeThe [facility] Physician GroupComment on above:Order Comment: Name Collection Type:: Clean- Voided MidstreamResult Comment: PERFORMED BY: [place] [address] PATHOLOGIST OUTSIDE OPERATOR LOLLY MCDONNELL M.D.Performed By: #### CMP, PTT, CK, PT, SCAN CBC, HS TROP #### [place] [address] USApH (U)5.5 [pH]Normal5.0-9.0The [facility] Physician Group Comment on above:Order Comment: Name Collection Type:: Clean-Voided Midstream Performed By: #### CMP, PTT, CK, PT, SCAN CBC, HS TROP #### [place] [address] USAProtein,UrineTraceHighNegativeThe [facility] Physician GroupComment on above:Order Comment: Name Collection Type:: Clean-Voided MidstreamPerformed By: #### CMP, PTT, CK, PT, SCAN CBC, HS TROP #### [place] [address] USARBC,Dlazv0-2Qwsqwf6-5Cmt [facility] Physician GroupComment on above:Order Comment: Name Collection Type:: Clean-Voided MidstreamPerformed By: #### CMP, PTT, CK, PT, SCAN CBC, HS TROP #### [place] [address] USASpecificy [place],Urine1.076Zwoyue3.001-1.030The [facility] Physician GroupComment on above:Order Comment: Name Collection Type:: Clean- Voided MidstreamPerformed By: #### CMP, PTT, CK, PT, SCAN CBC, HS TROP #### [place] [address] USASquamous Epithelial Cell,Ppoju6-7Ptdhbp8-6Sjj [facility] Physician GroupComment on above:Order Comment: Name Collection Type:: Clean- Voided MidstreamPerformed By: #### CMP, PTT, CK, PT, SCAN CBC, HS TROP #### [place] [address] USAUrobilinogen,UrineNormalNormalNormalThe [facility] Physician GroupComment on above:Order Comment: Name Collection Type:: Clean- Voided MidstreamPerformed By: #### CMP, PTT, CK, PT, SCAN CBC, HS TROP #### [place] [address] USAWBC,Qarez60-290Uoor8-0Zjx [facility] Physician GroupComment on above:Order Comment: Name Collection Type:: Clean-Voided MidstreamPerformed By: #### CMP, PTT, CK, PT, SCAN CBC, HS TROP #### [place] [id number] USAECG 12 lead ECGon [id number] 12 lead ECGOH[facility] [place] [address] [place] [address] Electrocardiograph Report Signed Patient: Susan Douglass MR#: [id number] 231 : 1940 Acct:[id number] Age/Sex: 82 / F ADM Date: 04/25/23 Loc: ER Room: Type: [facility] ER Attending Dr: Ordering Provider: [...] ECGs available Confirmed by MOISES DAWKINS DO ([id number]) on 04/25/2023 8:08:43 PM Referred By: Electronically Signed By:MOISES DAWKINS DO Transcribed By: MUS Signed By Moises Dawkins DO 04/24 2008NormHCA [facility] Memorial Hospital Physician GroupPartial Thromboplastin Timeon [id number] Coag (Bld) [Time]19.6 sLow25.1-36.5The [facility] Physician Group Comment on above:Result Comment: A hematocrit value greater than 55% may lead to inaccurate results in coagulation testing. Patients having hematocrit values >55% require a special collection tube for coagulation studies. Please contact the laboratory at [phone] for redraw instructions. PERFORMED BY: [place] [address] PATHOLOGIST OUTSIDE OPERATOR LOLLY MCDONNELL M.D.Performed By: #### CMP, PTT, CK, PT, SCAN CBC, HS TROP #### [facility] [address] [place] [address] USAProthrombin Time INRon 51-36-1303VHB Coag (PPP) [Relative time]1.0 {INR}NormalThe [facility] Physician GroupComment on above:Result Comment: INR Therapeutic Range A) Pre- and [...] patients with mechanical heart valves: 3 - 4.5Performed By: #### CMP, PTT, CK, PT, SCAN CBC, HS TROP #### [facility] [address] [place] [address] USAPT Coag (PPP) [Time]11.6 sNormal9.0-12.9The [facility] Physician GroupComment on above:Result Comment: A hematocrit value greater than 55% may lead to inaccurate results in coagulation testing. Patients having hematocrit values >55% require a special collection tube for coagulation studies. Please contact the laboratory at [phone] for redraw instructions.Performed By: #### CMP, PTT, CK, PT, SCAN CBC, HS TROP #### [facility] [address] [place] [address] USAScan and CBCon 25-02-9858Zcstlrzal (Bld) [#/Vol]0.0 10*3/uLNormal0.0-0.2The [facility] Physician GroupComment on above:Performed By: #### CMP, PTT, CK, PT, SCAN CBC, HS TROP #### [facility] [address] [place] [address] USABasophils/100 WBC (Bld)0.3 %Normal.The [facility] Physician GroupComment on above:Performed By: #### CMP, PTT, CK, PT, SCAN CBC, HS TROP #### [facility] [address] [place] [address] USAEosinophils (Bld) [#/Vol]0.0 10*3/uLNormal0.0-0.45The [facility] Physician GroupComment on above:Performed By: #### CMP, PTT, CK, PT, SCAN CBC, HS TROP #### [place] [address] USAEosinophils/100 WBC (Bld)0.2 %Normal.The [facility] Physician GroupComment on above:Performed By: #### CMP, PTT, CK, PT, SCAN CBC, HS TROP #### [place] [address] USAErythrocyte distribution width (RBC) [Ratio]13.9 %Normal 11.9-15.3The [facility] Physician GroupComment on above:Performed By: #### CMP, PTT, CK, PT, SCAN CBC, HS TROP #### [place] [address] USAHematocrit (Bld) [Volume fraction]53.1 %High34.0-46.4The [facility] Physician GroupComment on above:Performed By: #### CMP, PTT, CK, PT, SCAN CBC, HS TROP #### [place] [address] USAHemoglobin (Bld) [Mass/Vol]17.9 g/cGZwpt09.8-15.4The [facility] Physician GroupComment on above:Performed By: #### CMP, PTT, CK, PT, SCAN CBC, HS TROP #### [place] [address] USALymphocytes (Bld) [#/Vol]1.1 10*3/uLNormal1.00-4.8The [facility] Physician GroupComment on above:Performed By: #### CMP, PTT, CK, PT, SCAN CBC, HS TROP #### [place] [address] USALymphocytes/100 WBC (Bld)9.4 %Normal.The [facility] Physician GroupComment on above:Performed By: #### CMP, PTT, CK, PT, SCAN CBC, HS TROP #### [place] [address] USAMCH (RBC) [Entitic mass]33.1 vxZjpaop52.7-34.3The [facility] Physician GroupComment on above:Performed By: #### CMP, PTT, CK, PT, SCAN CBC, HS TROP #### [address] (RBC) [Entitic vol]98.3 yPKdvrwi20-201Wgl [facility] Physician GroupComment on above:Performed By: #### CMP, PTT, CK, PT, SCAN CBC, HS TROP #### [place] [address] USAMean Corpuscular HGB Conc33.7 g/lVIaqucc81.0-35.0The [facility] Physician GroupComment on above:Performed By: #### CMP, PTT, CK, PT, SCAN CBC, HS TROP #### [place] [address] USAMonocytes (Bld) [#/Vol]1.5 10*3/uLHigh0.0-0.8The [facility] Physician GroupComment on above:Performed By: #### CMP, PTT, CK, PT, SCAN CBC, HS TROP #### [place] [address] USAMonocytes/100 WBC (Bld)18.90 %Normal0.00-20.00The [facility] Physician GroupComment on above:Performed By: #### CMP, PTT, CK, PT, SCAN CBC, HS TROP #### [place] [address] USAMonocytes/100 WBC (Bld)12.0 %Normal.The [facility] Physician GroupComment on above:Performed By: #### CMP, PTT, CK, PT, SCAN CBC, HS TROP #### [place] [address] USANeutrophils (Bld) [#/Vol]9.5 10*3/uLHigh1.8-7.7The [facility] Physician GroupComment on above:Performed By: #### CMP, PTT, CK, PT, SCAN CBC, HS TROP #### [facility] [address] [place] [address] USANeutrophils/100 WBC (Bld)78.1 %Normal.The [facility] Physician GroupComment on above:Performed By: #### CMP, PTT, CK, PT, SCAN CBC, HS TROP #### [facility] [address] [place] [address] USANRBC%0.2 /100{WBC}Normal0-0.5The [facility] Physician Group Comment on above:Performed By: #### CMP, PTT, CK, PT, SCAN CBC, HS TROP #### [place] [address] USAPlatelet EstimateNormalNormalNormHCA Florida Memorial Hospital Physician GroupComment on above:Performed By: #### CMP, PTT, CK, PT, SCAN CBC, HS TROP #### [place] [address] USAPlatelet mean volume (Bld) [Entitic vol]9.2 fLNormal 6.3-10.7The [facility] Physician GroupComment on above:Performed By: #### CMP, PTT, CK, PT, SCAN CBC, HS TROP #### [place] [address] USAPlatelet MorphologyNormalNormalNoYadkin Valley Community Hospital Physician GroupComment on above:Result Comment: PERFORMED BY: [place] [address] PATHOLOGIST OUTSIDE OPERATOR LOLLY MCDONNELL M.D.Performed By: #### CMP, PTT, CK, PT, SCAN CBC, HS TROP #### [place] [address] USAPlatelets (Bld) [#/Vol]248 10*3/aTPipcgf039-059Mdb [facility] Physician GroupComment on above:Performed By: #### CMP, PTT, CK, PT, SCAN CBC, HS TROP #### [place] [address] USARBC (Bld) [#/Vol]5.40 10*6/uLHigh3.60-5.00The [facility] Physician GroupComment on above:Performed By: #### CMP, PTT, CK, PT, SCAN CBC, HS TROP #### [place] [address] USARBC morphology finding Nom (Bld)NormalNormalNormalThe [facility] Physician GroupComment on above:Performed By: #### CMP, PTT, CK, PT, SCAN CBC, HS TROP #### [place] [address] USAWBC (Bld) [#/Vol]12.1 10*3/uLHigh3.8-11.6The [facility] Physician GroupComment on above:Performed By: #### CMP, PTT, CK, PT, SCAN CBC, HS TROP #### [place] [address] USATroponin I High Sensitivityon [id number] I High Sensitivity9.1 pg/mLNormal0.0-15.0The [facility] Physician GroupComment on above: Result Comment: PERFORMED BY: [place] [address] PATHOLOGIST OUTSIDE OPERATOR LOLLY MCDONNELL M.D.Performed By: #### CMP, PTT, CK, PT, SCAN CBC, HS TROP #### [place] [address] USAUrine Cultureon [id number] identified Cx Nom (U) ORGANISM: Staphylococcus lugdunensis (O:STALUG) [place] Count >100,000 Organism Comments Pure Growth Aerobic CONNIE Charge (PCMIC38) SUSCEPTIBILITY ORGANISM: O:STALUG ANTIBIOTIC INTERPRETATION CONNIE Ciprofloxacin S <1 Daptomycin S <0.5 Levofloxacin S <1 Linezolid S <1 Nitrofurantoin S <32 Oxacillin S 0.5 Penicillin JACKY >2 Tetracycline S <4 Trimethoprim/Sulfamethoxazole S <0.5 Vancomycin S 1 S = [...] RESISTANT TO ALL B-LACTAM DRUGS. PERFORMED BY: [place] [address] PATHOLOGIST OUTSIDE OPERATOR LOLLY MCDONNELL M.D.[facility] Physician GroupComment on above:Performed By: #### CMP, PTT, CK, PT, SCAN CBC, HS TROP #### [place] [address] USAXR lumbar spine 2-3V*on [id number] lumbar spine 2-3V* [facility] [place] [address] [place] [address] XRay Report Signed Patient: Susan Douglass MR#: [id number] 231 : 1940 Acct:[id number] Age/Sex: 82 / F ADM Date: 04/25/23 Loc: ER Room: Type: [facility] ER Attending Dr: Copies to: Hardy Leon PA-C Ordering Provider: Hardy Leon PA-C Date of Service: 04/25/23 XR/XR chest 2V*: Fall ([id number]) XR/XR lumbar spine 2-3V*: Fall CLINICAL DATA: [...] Brittany Garcia M.D.04/25/2023 5:59 PM Dictation Location: [place] [address] Transcribed By: [facility] 04/25/231758 Dictated By: Brittany Garcia MD 04/25/231751 Signed By: 04/25/23 [facility] Physician GroupECHOCARDIO M/2D COMPLETEon [id number] M/2D COMPLETEPatient: SUSAN DOUGLASS Exam Date: 06/01/2022 : 1940 Gender:F Ordering : SOHA JEFFERSON Admission #: [id number] Family : DR ELIUD OTERO D.O. Order #: [id number] CLICK HERE TO VIEW EXAM ECHOCARDIOGRAM REPORT [...] mm[Hg], 3.20 mm[Hg] Right Atrium Dictated by: Juan Manuel Gregg M.D. on 06/01/2022 at 19:56 Approved by: Juan Manuel Gregg M.D. on 06/01/2022 at 20:03[facility] AUTO DIFFon [id number] #0.0 103/ulNormal0.0-0.1The [facility] HospitalComment on above:Performed By: #### CBC ####[facility] [address] [place], [place] [address]Dr.Arti ChangBasophils/100 WBC (Bld)0.4 %Normal0.2-2.0The [facility] on above:Performed By: #### CBC ####[facility] [address] [place], [place] [address]Dr.Yilan ChangEO #0.1 103/ulNormal0.0-0.7The [facility] HospitalComment on above:Performed By: #### CBC ####[facility] F[address] [place], [place] [address]Dr.Arti ChangEosinophils/100 WBC (Bld)0.9 %Normal 0.9-7.0The [facility] on above:Performed By: #### CBC ####[facility] Z[address] [place], [place] [address]Dr.Arti Wu Erythrocyte distribution width (RBC) [Ratio]13.4 %Degvyj33.0-15.0The [facility] HospitalComment on above:Performed By: #### CBC ####[facility] Q[address] [place], [place] [address]Dr.Arti ChangHematocrit (Bld) [Volume fraction]41.8 %Iuqzxy07.0-48.0The [facility] HospitalComment on above:Performed By: #### CBC ####[facility] N[address] [place], [place] [address]Dr.Arti ChangHemoglobin (Bld) [Mass/Vol]14.4 g/dL Jljiny64.0-16.0The [facility] HospitalComment on above:Performed By: #### CBC ####[facility] [address] [place] [address]Dr. Arti WuIG #0.05 10e3/ulCritically high0.00-0.03The [facility] HospitalComment on above:Performed By: #### CBC ####[facility] [address] [place] [address]Dr.Slimejacinto BryceIG %0.5 %Normal0.0-0.5The [facility] HospitalComment on above:Performed By: #### CBC ####[facility] X[address] [place] [address]Dr.Slimejacinto BryceLYMPH #0.7 103/ulCritically low1.2-3.8The [facility] HospitalComment on above:Performed By: #### CBC ####[facility] V[address]bzfsism[address] [place], [place] [address]Dr.Arti Espinozahocytes/100 WBC (Bld)6.6 %Critically low20.5-60.0The [facility] HospitalComment on above:Performed By: #### CBC ####[facility] J[address]trfb[address] [place], [place] [address]Dr.Arti WuMANUAL DIFF REQ NONormalThe [facility] HospitalComment on above:Performed By: #### CBC ####[facility] [address]fqmmn[address] [place] [address]Dr. Arti WuMETROPOLITAN [facility] (RBC) [Entitic mass]33.2 ufPyiebm18.7-34.0The [facility] Comment on above:Performed By: #### CBC ####[facility] J[address]qyopj[address] [place], [place] [address]Dr.Arti WuHC (RBC) [Mass/Vol]34.4 g/dL Isjqcm65.9-35.2The [facility] HospitalComment on above:Performed By: #### CBC ####[facility] N[address]gx[address] [place], [place] [address]Dr. Arti WuV (RBC) [Entitic vol]96.3 lJAoqfaq99.0-99.0The [facility] Comment on above:Performed By: #### CBC ####[facility] Ngbbblyoln[address] [place], [place] [address]Dr.Arti WuMONO #1.0 103/ulCritically high0.3-0.8The [facility] HospitalComment on above:Performed By: #### CBC ####[facility] Wudxdupddl[address] [place], [place] [address]Dr. Arti ChangMonocytes/100 WBC (Bld)9.8 %Normal1.7-12.0The [facility] Comment on above:Performed By: #### CBC ####[facility] Bwfdlhpx[address] [place], [place] [address]Dr.Arti DiazUT #8.7 103/ulCritically high1.4-6.5The [facility] HospitalComment on above:Performed By: #### CBC ####[facility] Nwfe[address] [place], [place] [address]Dr. Arti WuNeutrophils/100 WBC (Bld)81.8 %Critically high43.0-75.0The [facility] HospitalComment on above:Performed By: #### CBC ####[facility] [address] [place], [place] [address]Dr.Arti WuPlatelet mean volume (Bld) [Entitic vol]9.5 fLNormal9.5-13.5The [facility] HospitalComment on above:Performed By: #### CBC ####[facility] [address] [place], [place] [address]Dr.Arti WuPLT219 103/xdVlbmlm685-099Toh [facility]ott HospitalComment on above:Performed By: #### CBC ####[facility] G[address]wmed[address] [place], [place] [address]Dr.Arti WuRBC4.34 106/ul Normal4.20-5.40The [facility] HospitalComment on above:Performed By: #### CBC ####[facility] F[address]unuv[address] [place], [place] [address]Dr. Yilan LvzkiZWK91.6 103/ulNormal4.0-11.0The [facility] HospitalComment on above: Performed By: #### CBC ####[facility] [address] [place], [place] [address]UxDr.Yilan WuCT HIP RT WO CONon 05-12-5660ZV HIP RT WO CONEXAMINATION: CT HIP RT WO CON HISTORY: PAIN [...] Electronically authenticated by: CRUZITO BRIDGES Date: 2022-01-23 13:34[facility] HospitalCULTURE URINEon [id number] URINECulture Observations: MODERATE GROWTH OF MIXED GENITAL BRIEN. NO POTENTIAL PATHOGENS SEEN.NormalSelect Medical Trihealth Rehabilitation HospitalComment on above:Performed By: #### URCX #### [facility] [address] [place], [place] [address] Dr. Arti Thrasher URINE PROFILEon [id number] Ql (U)SMALLAbnormal NEGATIVESelect Medical Trihealth Rehabilitation HospitalComment on above:Performed By: #### DELMY MIRANDA ####[facility] Ynhjbynbzj[address] [place], [place]DrChristophe Vergara (U)SL CLOUDYAbnormalCLEARThUpper Valley Medical CenterComment on above:Performed By: #### HONG MIRANDARO ####[facility] Panpqspbnn3510 [place], [place]Dr. Arti Keith (U)YELLOWNormalYELLOWSelect Medical Trihealth Rehabilitation HospitalComment on above:Performed By: #### RUTH UMICRO ####[facility] [address] [place] [address]Dr. Arti Castro A micrscopic examination will be performed if indicated.NormalSelect Medical Trihealth Rehabilitation HospitalComment on above:Performed By: #### RUTH UMICRO ####[facility] Ijkxaphyav[address] [place] [address]Dr. Yilan ChangGlucose Ql (U) NegativeNormalNEGATIVESelect Medical Trihealth Rehabilitation HospitalComment on above:Performed By: #### RUTH UMICRO ####[facility] Tpzmumhwnh[address] [place] [address]Dr. Yilan ChangHemoglobin Ql (U)LARGEAbnormalNEGATIVESelect Medical [facility] Comment on above:Performed By: #### RUTH UMICRO ####[facility] Mqqnrxrpt[address] [place], [place] [address]Dr. Yilan ChangKetones Ql (U) NegativeNormalNEGATIVESelect Medical Tri[facility] Rehabilitation HospitalComment on above:Performed By: #### RUTH UMICRO ####[facility] Kccdphxmxn[address] [place], [place] [address]Dr. Yilan ChangLEUKOCYTESMODERATEAbnormalNEGKettering Health Washington Township Comment on above:Performed By: #### RUTH UMICRO ####[facility] Xtntexnksa[address] [place], [place] [address]Dr. Yilan ChangNitrite Ql (U) PositiveAbnormalNEGATIVESelect Medical Trihealth Rehabilitation HospitalComment on above:Performed By: #### RUTH UMICRO ####[facility] Vuvxjzpgnc[address] [place], [place] [address]Dr. Yilan ChangpH (U)6.5 [pH]Normal5-9Select Medical [facility] Rehabilitation HospitalComment on above:Performed By: #### RUTH, UMICRO ####[facility] Jkwqzxncvo[address] [place] [address]Dr. Yilan ChangProtein (U) [Mass/Vol]100 mg/dL AbnormalNEGATIVE/ TRACEThe [facility] HospitalComment on above:Performed By: #### RUTH UMICRO ####[facility] Ymtxosivkh[address] [place] [address]Dr. Arti WuSPEC GRAVITY1.469Lniqfd4.005-<=1.025The [facility] Comment on above:Performed By: #### RUTH UMICRO ####[facility] Zlsoszygif45[address] [place] [address]Dr. Arti WuUR MICRO IND INDICATEDNormalThe [facility] HospitalComment on above:Performed By: #### SULEMA MIRANDAICRO ####[facility] Mzvxkqctpn[address] [place] [address]Dr. Arti WuUrobilinogen Qn (U)1.0 {Uriel'U}/dLNormal0.2 - 1.0Select Medical [facility] Rehabilitation HospitalComment on above:Performed By: #### HONG MIRADNARO ####[facility] Kyjzcdbpsk[address] [place] [address]Dr. Arti WuPROF CHEM 8 (BAS METB)on 27-85-9756Igzju gap [Moles/Vol]11.7 mmol/LNormalSelect Medical Trihealth Rehabilitation HospitalComment on above:Performed By: #### BMP #### [facility] Laboratory [address] [address] [address] Arti WuCalcium [Mass/Vol]9.2 mg/dLNormal8.5-10.1[facility] Comment on above:Performed By: #### BMP #### [facility] Laboratory [address] [address] [address] Arti WuChloride [Moles/Vol]103 mmol/IQyolsv12-284UftSelect Medical [facility] Comment on above:Performed By: #### BMP #### [facility] Laboratory [address] [address] [address] Arti WuCO2 [Moles/Vol]28.1 mmol/PQsjiuh65.0-32.0[facility] Comment on above:Performed By: #### BMP #### [facility] Laboratory [address] [address] [address] Arti WuCreatinine [Mass/Vol]0.73 mg/dLNormal0.55-1.02The [facility] HospitalComment on above:Performed By: #### BMP #### [facility] Laboratory [address] [place] [address] Dr. Chi ChangEGFR-AF BURUNDIAN>60Normal>=60The [facility] HospitalComment on above:Performed By: #### BMP #### [facility] Laboratory [address] [place] [address] Dr. Arti PetersonGFR-NON AF BURUNDIAN>60Normal>=60The [facility] HospitalComment on above:Performed By: #### BMP #### [facility] Laboratory [address] [place] [address] Dr. Arti WuGlucose [Mass/Vol]111 mg/dLCritically djoi34-655Crz [facility] HospitalComment on above:Performed By: #### BMP #### [facility] Laboratory [address] [place] [address] Dr. Arti WuPotassium [Moles/Vol]3.8 mmol/LNormal3.5-5.1The [facility] Comment on above:Performed By: #### BMP #### [facility] Laboratory [address] [place] [address] Dr. Arti WuSodium [Moles/Vol]139 mmol/RRixttr801-900Nia [facility] Comment on above:Performed By: #### BMP #### [facility] Laboratory [address] [place] [address] Dr. Arti WuUrea nitrogen [Mass/Vol]12.0 mg/dLNormal7.0-18.0The [facility] HospitalComment on above:Performed By: #### BMP #### [facility] Laboratory [address] [place] [address] Dr. Arti Serrato nitrogen/Creatinine [Mass ratio]16.4 mg/mgNormalThe [facility] HospitalComment on above:Performed By: #### BMP #### [facility] Laboratory [address] [place] [address] Dr. Yilan ChangURINE MICROSCOPIC ONLYon 55-51-3798EVQIBKQBRTFTPCYLBvvhsyjcUYCT SEENSelect Medical Trihealth Rehabilitation HospitalComment on above:Performed By: #### DELMY MIRANDA ####[facility] Btqvjxwaas[address] [place] [address]Dr. Arti WuBacteria identified Cx Nom (U)INDICATEDBarney Children's Medical Center Comment on above:Performed By: #### HONG MIRANDARO ####[facility] Emzwolirhu16[address] [place] [address]Dr. Arti ChangCASTNONE SEEN NormalNONE SEENSelect Medical Trihealth Rehabilitation HospitalCommackinac straits hospital on above:Performed By: #### HONG MIRANDARO ####[facility] Htwgjluqcg[address] [place], [place] [address]Dr. Arti WuCrystals LM Nom (Urine sed)NONE SEENNormalNONE SEENSelect Medical Trihealth Rehabilitation HospitalCommackinac straits hospital on above:Performed By: #### DELMY MIRANDA ####[facility] Xposilcblj[address] [place], [place] [address]r. Arti Wu Epithelial cells LM Ql (Urine sed)RAREPhelps HealthalNONE SEEN /RARESelect Medical [facility] Comment on above:Performed By: #### DELMY MIRANDA ####[facility] Xvpocjdozr[address] [place], [place] [address]r. Arti WuMUCOUSNONE SEEN NormalNONE SEENSelect Medical Trihealth Rehabilitation HospitalCommackinac straits hospital on above:Performed By: #### HONG MIRANDARO ####[facility] Kopwiarlyt[address] [place], [place] [address]Dr. Arti WuYnejkZRC40-837Mkgwphhx6-7Rhn [facility] HospitalComment on above: Performed By: #### HONG MIRANDARO ####[facility] Tylmimhank[address] [place], [place] [address]r. Arti WuWeynfOTK39-52SkokqjpfFOTP SEENSelect Medical Trihealth Rehabilitation HospitalComment on above:Performed By: #### DELMY MIRANDA ####[facility] Goenucfmrn[address] [place], [place] [address]r. Arti WuCT FOOT LT WO CONon 92-39-2828OG FOOT LT WO CONEXAMINATION: CT FOOT LT WO CON HISTORY: Closed [...] Electronically authenticated by: RADHA RAJPUT Date: 2021-12-07 17:38[facility] CenterXR FOOT LT MIN 3 VIEWSon 20-72-4056UX FOOT LT MIN 3 VIEWSEXAM: XR FOOT LT MIN 3 VIEWS 11/26/2021. [...] Electronically authenticated by: MAILE DANIELS Date: 2021-11-26 16:39[facility] Medical CenterXR LSPINE 2_3 VIEWSon 41-47-8383RV LSPINE 2_3 VIEWSEXAM: L-spine HISTORY: Acute back pain from a fall this morning. Comparison studies: None TECHNIQUE: 2 views of the lumbar spine were obtained. FINDINGS: There is no evidence of acute fracture or subluxation. No suspicious bone lesions are seen. Moderate degenerative changes are seen. The rest of the visualized structures are unremarkable. IMPRESSION: No acute findings. Electronically authenticated by: MERCEDEZ URBINAOWS Date: 2021-09-27 11:[facility] CenterXR TSPINE 2 VIEWSon 27-23-0910BJ TSPINE 2 VIEWSEXAM: C-spine HISTORY: [Pain from a fall this [...] No acute findings. Electronically authenticated by: MERCEDEZ URBINAOWS Date: 2021-09-27 11:[facility] Medical CenterQ - CULTURE,URINE,ROUTINEon 36-01-5515UOTDRSB, URINE, ROUTINE SEE NOTENormalNortnorthwest medical centern St[facility] SpecialistComment on above:Order Comment: [facility] performed at: [facility], [address] [place] [address], [address] [place] [address], [address], Pump Attendant: Bryan Kurtz MD [facility] Collection Date/Time: [id number] [facility] Results Received Date/Time: [facility] Reported Date/Time: [id number] Comment: CULTURE, URINE, ROUTINE Micro Number: [id number] Test Status: Final Specimen Source: Urine Specimen Quality: Adequate Result: Growth of mixed brien was isolated, suggesting probable contamination. No further testing will be performed. If clinically indicated, recollection using a method to minimize contamination, with prompt transfer to Urine Culture Transport Tube, is recommended.Performed By: #### 3020X, %SBCULI, 6304R #### [facility] Default [address] [place], [place] [address]M - UR CULT JWZBRP8az 41-12-6777LEOCIAWAI URINE CULTURESEE NOTE NormalNortHolzer Health System SpecialistComment on above:Order Comment: [facility] performed at: [facility], [address] [facility], [address] [place] [address], [address], Pump Attendant: Bryan Kurtz MD [facility] Collection Date/Time: [facility] Results Received Date/Time: [facility] Reported Date/Time: [id number] Comment: CULTURE INDICATED - RESULTS TO FOLLOWPerformed By: #### 3020X, %SBCULI, 6304R #### [facility] Default [address] [place], [place] [address]Q - URINALYSIS,COMPLETE,WITH REFLEX TO CULTUREon 01-25-2021 Appearance (U)CLOUDYAbnormalCLEARSelect Medical [facility]ty [facility] SpecialistComment on above:Order Comment: [facility] performed at: [facility], [facility], [address] [place] [address], [address] [place] [address], [address] [place] [address], Pump Attendant: Bryan Kurtz MD [facility] Collection Date/Time: [facility] Results Received Date/Time: [facility] Reported Date/Time: [id number] By: #### 3020X, %SBCULI, 6304R #### [facility] Default [address] [place], [place] [address]EEWKMRGDQNIPakntubsJTSY SEENSelect Medical [facility] Specialist Comment on above:Order Comment: [facility] performed at: [facility], [facility], [address] [facility], [address] [place] [address], [address] [place] [address], Pump Attendant: Bryan Kurtz MD [facility] Collection Date/Time: [facility] Results Received Date/Time: [facility] Reported Date/Time: [id number] By: #### 3020X, %SBCULI, 6304R #### [facility] Default [address] [place], [place] [address]Yaqyfjupc Ql (U)NegativeNormalNEGATIVESelect Medical [facility] SpecialistComment on above:Order Comment: [facility] performed at: [facility], [facility], [address] , [address] [place] [address], [address] [place] [address], Pump Attendant: Bryan Kurtz MD [facility] Collection Date/Time: [facility] Results Received Date/Time: [facility] Reported Date/Time: [id number] By: #### 3020X, %SBCULI, 6304R #### [facility] Default [address] [place], [place] [address]DUTCYDE OXALATE CRYSTALSMANYAbnormalNONE OR FEWNorthern [place] Medical SpecialistComment on above:Order Comment: [facility] performed at: [facility], [facility], [address] , [address] [place] [address], [address] [place] [address], Pump Attendant: Bryan Kurtz MD [facility] Collection Date/Time: [facility] Results Received Date/Time: [facility] Reported Date/Time: [id number] By: #### 3020X, %SBCULI, 6304R #### [facility] Default [address] [place], [place] [address]Gmxxy (U)YELLOWNormalYELLOWNoSutter Solano [facility] Center Ophthalmology Technician Comment on above:Order Comment: [facility] performed at: [facility], [facility], [address] , [address] [place] [address], [address] [place] [address], Pump Attendant: Bryan Kurtz MD [facility] Collection Date/Time: [facility] Results Received Date/Time: [facility] Reported Date/Time: [id number] By: #### 3020X, %SBCULI, 6304R #### [facility] Default [address] [place], [place] [address]Belhika Ql (U)NegativeNormalNEGATIVESeton Medical Center Medical SpecialistComment on above:Order Comment: [facility] performed at: [facility], [facility], [address] , [address] [place] [address], [address] [place] [address], Pump Attendant: Bryan Kurtz MD [facility] Collection Date/Time: [facility] Results Received Date/Time: [facility] Reported Date/Time: [id number] By: #### 3020X, %SBCULI, 6304R #### [facility] Default [address] [place], [place] [address]YGYXWCW CASTNONE SEENNormalNONE SEENNortHolzer Health System SpecialistComment on above:Order Comment: [facility] performed at: [facility], [facility], [address] [place] [address], [address] [place] [address], [address] [place] [address], Pump Attendant: Bryan Kurtz MD [facility] Collection Date/Time: [facility] Results Received Date/Time: [facility] Reported Date/Time: [id number] By: #### 3020X, %SBCULI, 6304R #### [facility] Default [address] [place], [place] [address]Qhzhakv Ql (U)NegativeNormalNEGATIVESelect Medical [facility] SpecialistComment on above:Order Comment: [facility] performed at: [facility], [facility], [address] [place] [address], [address] [place] [address], [address] [place] [address], Pump Attendant: Bryan Kurtz MD [facility] Collection Date/Time: [facility] Results Received Date/Time: [facility] Reported Date/Time: [id number] By: #### 3020X, %SBCULI, 6304R #### [facility] Default [address] [place], [place] [address]Ifdmliftt esterase Test strip Ql (U)1+AbnormalNEGATIVESelect Medical [facility] SpecialistComment on above:Order Comment: [facility] performed at: [facility], [address] [place] [address], [address] [place] [address], [address] [place] [address], Pump Attendant: Bryan Kurtz MD [facility] Collection Date/Time: [facility] Results Received Date/Time: [facility] Reported Date/Time: [id number] By: #### 3020X, %SBCULI, 6304R #### [facility] Default [address] [place], [place] [address]Ijzmyqu Ql (U)NegativeNormalNEGATIVENortnorthwest medical centern St[facility] SpecialistComment on above:Order Comment: [facility] performed at: [facility], [facility], [address] , [address] [place] [address], [address], Pump Attendant: Bryan Kurtz MD [facility] Collection Date/Time: [facility] Results Received Date/Time: [facility] Reported Date/Time: [id number] By: #### 3020X, %SBCULI, 6304R #### [facility] Default [address] [place], [place] [address]KOXGOF BLOODNegativeNormalNEGATIVENoSamaritan North Health Center SpecialistComment on above:Order Comment: [facility] performed at: [facility], [facility], [address] , [address] [place] [address], [address] [place] [address], Pump Attendant: Bryan Kurtz MD [facility] Collection Date/Time: [facility] Results Received Date/Time: [facility] Reported Date/Time: [id number] By: #### 3020X, %SBCULI, 6304R #### [facility] Default [address] [place], [place] [address]xQ (U)5.5 [pH]Normal5.0-8.0NoSutter [facility] Center Ophthalmology Technician Comment on above:Order Comment: [facility] performed at: [facility], [facility], [address] , [address] [place] [address], [address], Pump Attendant: Bryan Kurtz MD [facility] Collection Date/Time: [facility] Results Received Date/Time: [facility] Reported Date/Time: [id number] By: #### 3020X, %SBCULI, 6304R #### [facility] Default [address] [place], [place] [address]Bjyscba Ql (U)NegativeNormalNEGATIVENoSamaritan North Health Center SpecialistComment on above:Order Comment: [facility] performed at: [employer], [facility], [address] , [address] [place] [address], [address], Pump Attendant: Bryan Kurtz MD [facility] Collection Date/Time: [facility] Results Received Date/Time: [facility] Reported Date/Time: [id number] By: #### 3020X, %SBCULI, 6304R #### [facility] Default [address] [place], [place] [address]TWR9-6Rbbxvy< OR = 2NortherThe Jewish Hospital SpecialistComment on above:Order Comment: [facility] performed at: [facility], [facility], [address] [place] [address], [address] [place] [address], [address] [place] [address], Pump Attendant: Bryan Kurtz MD [facility] Collection Date/Time: [facility] Results Received Date/Time: [facility] Reported Date/Time: [id number] By: #### 3020X, %SBCULI, 6304R #### [facility] Default [address] [place], [place] [address]Gtzgljjd gravity (U) [Rel density]1.019Zfbpev2.001-1.035NoSamaritan North Health Center SpecialistComment on above:Order Comment: [facility] performed at: [facility], [facility], [address] [place] [address], [address] [place] [address], [address] [place] [address], Pump Attendant: Bryan Kurtz MD [facility] Collection Date/Time: [facility] Results Received Date/Time: [facility] Reported Date/Time: [id number] By: #### 3020X, %SBCULI, 6304R #### [facility] Default [address] [place], [place] [address]KQUDMQKY EPITHELIAL HJMND70-05Zlwrbaqh< OR = 5NortHolzer Health System SpecialistComment on above:Order Comment: [facility] performed at: [facility], [facility], [address] [place] [address], [address] [place] [address], [address] [place] [address], Pump Attendant: Bryan Kurtz MD [facility] Collection Date/Time: [facility] Results Received Date/Time: [facility] Reported Date/Time: [id number] By: #### 3020X, %SBCULI, 6304R #### [facility] Default [address] [place] [address]TMK1-86Fqeqegcb< OR = 5[place] [facility] SpecialistComment on above:Order Comment: [facility] performed at: [facility], [facility], [address], [address] [facility], [place], [address], Pump Attendant: Bryan Kurtz MD [facility] Collection Date/Time: [id number] [facility] Results Received Date/Time: [id number] [facility] Reported Date/Time: [id number] By: #### 3020X, %SBCULI, 6304R #### [facility] Default [address] [place] [address]Vzdsgpptcoxtfz Lab Reporton 98-38-5495Ojlckdtkyqqjkd Lab Report [facility] Patient Name: Susan Douglass [facility] MR #: [id number] Physician: Noble Balbuena Department of Andreea Montgomery Medicine Service Date: 10/07/2017 Division of Birthdate: 1940 Cardiology Room #: [id number] Adult Cardiovascular Services [place] [address] Cardiovascular Laboratory Report The patient is a patient of mine from [place]. She has chronic atrial fibrillation. She has a dual-chamber pacemaker that is set VVI. She has had very jwlmgoufc-jq-ymjqveu atrial fibrillation despite high doses of beta-moises [...] The right groin was anesthetized with lidocaine. 8-Mozambican and 6-Mozambican introducer sheaths were placed in the right [...] Montgomery M.D. Date Trans: 10/08/2017 04:44 A/panda DN_JN:[id number] cc: Eliud Otero D.O. [address] [place] [address]KyhpwtBkaGenesis Hospital Vital Signs Date TimeVital SignValuePerforming MnxhdxvsuUmvuvygn48-52-4935 13:11-0500Body hnayrg731.5 cmMicmadison health [employer] DO Work Phone: [facility]01-08-2025 13:11-0500Body mass index (BMI) [Ratio]18.11 kg/l7Yrwchfy Grillis DO Work Phone: [facility]01-08-2025 13:11-0500Body qakakz20.91 kgMicmadison health [employer] Work Phone: [facility]11-27-2024 14:55-0500Body xoayrg238.5 cmMicmarleni Leo DO Work Phone: [facility]11-27-2024 14:55-0500Body mass index (BMI) [Ratio]18.11 kg/q9DbgbyojMercedez Leo DO Work Phone: [facility]11-27-2024 14:55-0500Body djbikr57.91 kgMicmarleni Leo DO Work Phone: [facility]11-27-2024 14:55-0500Diastolic blood ossywtgw84 mm[Hg]Mercedez Leo DO Work Phone: [facility]11-27-2024 14:55-0500Heart rate 78 /minMicmarleni Leo DO Work Phone: [facility]11-27-2024 14:55-0500Systolic blood bdcwekir366 mm[Hg]Mercedez Leo DO Work Phone: [facility]06-06-2024 14:38-0400Body mwyjzg991.5 cmOlivia Nieto [employer] 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 Work Phone: [facility]06-06-2024 14:38-0400Body mass index (BMI) [Ratio]19.83 kg/f9Mugrtqe Nieto [employer] 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 Work Phone: [facility]06-06-2024 14:38-0400Body jyaipj51.17 kgRosanarobert Nieto [employer] 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 Work Phone: [facility]06-06-2024 14:38-0400Diastolic blood smgyotmo07 mm[Hg]Olivia Nieto [employer] 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 Work Phone: [facility]06-06-2024 14:38-0400Heart rate 72 /minRosanarobert Nieto [employer] 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 Work Phone: [facility]06-06-2024 14:38-0400Systolic blood yvjiftcj681 mm[Hg]Olivia Nieto [employer] 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 Work Phone: [facility]05-29-2024 13:20-0400Body lkdfuj509.5 cmMercedez Santanas DO Work Phone: [facility]05-29-2024 13:20-0400Body mass index (BMI) [Ratio]20.05 kg/j2XblaadsMercedez Resendizillis DO Work Phone: [facility]05-29-2024 13:20-0400Body ilrkjj16.71 kgMicmarleni Santanas DO Work Phone: [facility]05-29-2024 13:20-0400Diastolic blood mm[Hg]Mercedez Leo DO Work Phone: [facility]05-29-2024 13:20-0400Heart rate 75 /minMicmarleni Santanas DO Work Phone: [facility]05-29-2024 13:20-0400Systolic blood krmiztav978 mm[Hg]Mercedez Leo DO Work Phone: [facility]05-10-2024 10:51-0400Body mass index (BMI) [Ratio]20.3 kg/r8NfeojzqOlivia Nieto [employer] 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 Work Phone: [facility]05-10-2024 10:51-0400Body ukqrjl60.35 kgOlivia Nieto [employer] 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 Work Phone: [facility]05-10-2024 10:51-0400Diastolic blood mm[Hg]Olivia Gerson [employer] 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 Work Phone: [facility]05-10-2024 10:51-0400Heart rate 74 /minRosanarobert Nieto [employer] 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 Work Phone: [facility]05-10-2024 10:51-0400Systolic blood jicuhxjr814 mm[Hg]Olivia Gerson [employer] 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 Work Phone: [facility] Encounters Encounter DateEncounter Type[facility] ProviderFacilityStart: 10-23-2024 End: 71-76-5920beqqlpjjrmOLZA [facility] Hospitaltart: 14-41-6773fuaozyiagoWNDVWVUMedicine Harrison Community Hospitaltart: 08-25-2024 End: 23-43-1998tpcuywlkfyUXAOWVUMedicine Harrison Community Hospitaltart: 46-18-1788vvedkqvwznXINFWVUMedicine Harrison Community Hospitaltart: 02-68-7374znrimkxeubUOTZWVUMedicine Harrison Community Hospitaltart: 05-15-2024 End: 33-82-8150hftsrooessNTMSFG [facility] Start: 04-14-2024 End: 22-89-8152lshakghojgGRGUSelect Medical Specialty Hospital - Southeast Ohiotart: 02-26-2024 End: 96-62-0442Imbbcj outpatient visit 15 miriamMadison Community Hospitalsuzette Goldman scott DO Work Phone: [facility] Physicians General SurgeryComment on above: Elevated liver enzymes (Primary Dx); Calculus of gallbladder with cholecystitis of other acuity without obstruction Start: 02-26-2024 End: 41-93-9858hfyrekgrowBWOVDHWArbor Health [facility] Start: 02-03-2024 End: 55-97-2543jtqtnkgbtnTBHDCWGLucile [facility] Stanfordtart: 01-29-2024 End: 12-95-5175Kutvveimg encounterLauren Alexis CMAProMedica Physicians General SurgeryStart: 01-28-2024 End: 12-06-9950Zskloj OnlyNot In System Ref ProvProMedica Physicians General SurgeryStart: 01-27-2024 End: 01-62-1996Zwceja OnlyConcha Amado RMAProMedica Physicians General SurgeryComment on above:Elevated LFTs (Primary Dx)Start: 01-23-2024 End: 40-04-3906gbtmbpljtxQbmdcqh L ValoneFacility:[facility] Rehabilitationtart: 01-22-2024 End: 69-52-1290Wvgzpo OnlyErin Priyanka CMAOhioHealth Hardin Memorial Hospital Physicians General Surgery Comment on above:Elevated LFTs (Primary Dx)Hematemesis, unspecified whether nausea present (Primary Dx); MelenaStart: 01-21-2024 End: 70-97-9938Dpkjzy OnlyMichael E Grillis DO Work Phone: [facility] Surgeons Sign InComment on above:Calculus of gallbladder with cholecystitis of other acuity without obstruction (Primary Dx); Elevated liver enzymesStart: 01-20-2024 End: 52-89-2438Jfeyhu OnlyNot In System Ref ProvOhioHealth Hardin Memorial Hospital Physicians General SurgeryStart: 01-15-2024 End: 87-36-2905Pspfgy outpatient visit 25 minutesMichael E Grillis DO Work Phone: ProWvumedicine Harrison Community Hospital General SurgeryComment on above: Melena (Primary Dx); Hematemesis, unspecified whether nausea present; Calculus of gallbladder without cholecystitis without obstruction; Calculus of gallbladder with cholecystitis of other acuity without obstruction; Hematemesis with nauseaStart: 01-15-2024 End: 99-25-3938knrkdimdgfNVRRTILGundersen [facility] Start: 25-58-2308ejsaevjdugILDIDDQ VALONEFacility:[facility] CenterueStart: 12-30-2023 End: 05-22-9926Lcogizkxs department patient visitCHARThe Hospitals of [facility] PPGStart: 12-29-2023 End: 70-81-5846Dgwptxvyz department patient visitCHARLES St. [facility] HospitalStart: 12-17-2023 End: 61-69-3812Itiebtbkr encounterMichael E Grillis DO Work Phone: [facility] SurgeryStart: 12-13-2023 ambulatoryCHARJEFFERSON REGIONAL [facility] VALONEFacility:[facility] CenterueStart: 10-23-2023 End: 35-37-2284Vefmgj Keshawn Ruelas DRUG ROOM OPERATOR Work Phone: [facility]ICSStart: 10-23-2023 End: 80-40-8248Cansio flowsheetEdwigeia Jarret Apling DRUG ROOM OPERATOR Work Phone: [facility] ORTHOPAEDICSStart: 10-23-2023 End: 34-10-2594Cqoumj outpatient visit 15 minutesEdwigeia Jarret Indraing DRUG ROOM OPERATOR Work Phone: [facility] CI ORTHOPAEDICSComment on above:Closed displaced fracture of right ischium with routine healing, unspecified fracture morphology, subsequent encounter (Primary Dx)Start: 10-23-2023 End: 11-70-5897kozbsseihsIYHOG B APLINGNot AvailableStart: 09-25-2023 End: 70-61-2812gypzbjbqtuODOQE B APLINGNot AvailableStart: 08-28-2023 End: 87-57-7166tqoqafbxsuNLPIJ B APLINGNot AvailableStart: 08-24-2023 End: 81-43-0705Ucasuyklf department patient visitRACHEL D [facility] Rehabilitationtart: 08-24-2023 End: 29-68-3673Jvkfjxxka department patient visitRACHEL D [facility] HospitalStart: 07-25-2023 End: 31-46-8413Lfwxiu follow up visit related to original Syed Nieto APRN-TUBE BUILDER Work Phone: [facility] Physicians General SurgeryComment on above: Skin lesion of left arm (Primary Dx)Start: 07-25-2023 End: 57-49-4213qheciiequxTIACCNP A AGATERANULFOSamaritan Hospital Ambulatory PPG Start: 07-17-2023 End: 79-13-7945sddmbyuesnELGLIQEKnox Community Hospitaltart: 07-17-2023 End: 17-80-9467Glfcgrm encounter procedureMichael E Grillis DO Work Phone: [facility] Physicians General SurgeryComment on above: Skin lesion of left arm (Primary Dx)Start: 07-17-2023 End: 89-52-4834heihrpncmsTWFEIDWGundersen Boscobel [facility] Start: 06-28-2023 End: 17-62-5402Gkcdik outpatient visit 15 minutesOlivia Nieto [employer] 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 Work Phone: [facility] Physicians General SurgeryComment on above: Skin lesion of left arm (Primary Dx)Start: 06-28-2023 End: 00-73-6629xqmaqtylgoWHKEBJW A CARROLLSamaritan Hospital [facility] Start: 06-13-2023 End: 73-83-1761zlalbjshnhREKFEBU LAWRENCENot AvailableStart: 06-06-2023 End: 23-18-7730ayzdjgxqztFSZDFF TATTERSALLNot AvailableStart: 05-28-2023 End: 02-27-1910grgcftimhaNRBTED TATTERSALLNot AvailableStart: 05-23-2023 End: 34-97-3661xyqxqedoplEXDTLW TATTERSALLNot AvailableStart: 05-20-2023 End: 10-69-3660vxinynwwgoGRDTXPOZC SCHNEIDERNot AvailableStart: 05-08-2023 Telephone encounterSuzanne [facility] ClinicStart: 05-08-2023 End: 60-14-8235remmowgjfuBLBC [facility] Southwoodstart: 04-25-2023 End: 41-18-1900Uessvoppx department patient visitHardy Leon Facility:[facility] Rehabilitationtart: 06-01-2022 End: 88-67-7021iapjgikxonCZFU CHACKOFacility:L7Huulh: 05-08-2022 End: 69-35-9979vkpggwgpqoOZJRQTTP CULLENFacility:R2Qbqgv: 03-12-2022 End: 45-98-0515sjxkxthtlpSH ELIUD VALONEFacility:Q4Zfdjh: 02-08-2022 End: 84-84-7003irmhccmfspTI ELIUD VALONEFacility:U3Popqy: 01-23-2022 End: 54-88-1760zmjekbykykJB ELIUD VALONEFacility:I3Hrdyt: 01-02-2022 End: 77-36-0905bxixotcpluRZ ELIUD VALONEFacility:U0Svrmn: 12-07-2021 End: 02-38-4110kwscctsdmiCP ELIUD VALONEFacility:A4Yettr: 11-26-2021 End: 08-87-9195ksqgntbuubAK ELIUD DIAZONEFacility:R8Hhxyk: 09-27-2021 End: 47-99-5853gsyvkbeonrIX ELIUD OTEROFacility:Z3Yvsgt: 79-11-5318smqykfytoj SOHA PETERSONOFacility:U9Cxmoj: 10-07-2017 End: 88-19-2443Dyxuxlh encounter procedureDANILELO MONTGOMERYFacility:[facility] Procedures DateProcedureProcedure DetailPerforming ClinicianStart: 39-14-9108Otwmdd-up visitFollow-upMICHAEL E GRILLISStart: 28-89-1275VVGAGTGM LABSNot In System Ref ProvStart: 61-44-4271LMRCHCOJ LABSNot In System Ref ProvStart: 10-23-2023 Radiologic examination pelvis 1/2 Mayo Ruelas NP Work Phone: Start: 74-65-3906SoclqfetsfeSbzuzbm [place] Plan of Treatment DateCare ActivityDetailAuthorStart: 80-52-2970XDxS,Tdap and Td Vaccines (2 - Tdap)DTaP,Tdap and Td Vaccines (2 - Tdap)[facility] SystemStart: 78-56-1505Nbdzjrpcv for malignant neoplasm of colonColonoscopyProMedica Health SystemStart: 13-15-7189Bxfnqkg ScreeningTobacco ScreeningProMedica Health System Start: 06-03-2381Jzkzojj ScreeningTobacco ScreeningProMedica Health SystemStart: 72-90-6035Ltigfvqem vaccinationInfluenza VaccineProMedica Health SystemStart: 34-35-0353Fxyfc BMI ScreeningAdult BMI ScreeningProMedica Health SystemStart: 11-62-0695Kphzrpz ScreeningTobacco ScreeningProMedica Health SystemStart: 84-60-8613Tsvok BMI ScreeningAdult BMI ScreeningProMedica Health SystemStart: 40-05-6984Sldcrwb ScreeningTobacco ScreeningProMedica Health SystemStart: 01-40-2197Vnmnb BMI ScreeningAdult BMI ScreeningProMedica Health SystemStart: 37-09-9035Miarsfq ScreeningTobacco ScreeningProMedica Health SystemStart: 99-02-0214Ynxoaud ScreeningTobacco ScreeningBerger Hospital SystemStart: 25-95-2155Pfrfc BMI ScreeningAdult BMI ScreeningNovant Health / NHRMCtart: 03-19-2024 End: 73-86-6886Fykqkhc encounter retsvqmxw38/30/2025 1:15 PM EST Appointment [facility] [address] [place] [address] [place] [address] [place] [address] [id number] [facility] - MRI ImagingStart: 02-03-2024 End: 68-25-7384Fiedxrk encounter procedureLancaster [facility] - Nuclear MedIcineStart: 93-01-9995Cydbqmloqj hospital visit by physician 02/03/2024 7:00 AM EST Hospital Encounter [facility] MedIcine [address] [place] [address] [place] [address] [place] [id number] [facility] - Nuclear MedIcineStart: 01-21-2024 End: 96-56-2652AMYL Abdomen WO and W contrast IVMRCP with MRI abdomen with and without contrast Imaging STAT Calculus of gallbladder with cholecystitis of other acuity without obstruction Elevated liver enzymes Expected: 01/21/2024, Expires: 01/20/2025[facility] Work Phone: Comment on above:Expected: 01/21/2024, Expires: 01/20/2025Start: 01-15-2024 End: 44-60-2857KQ Biliary ducts and Gallbladder Views for patency of biliary structures and ejection fraction W sincalide and W radionuclide IVNM hepatobiliary system imaging with pharmacologic agent Imaging Routine Calculus of gallbladder without cholecystitis without obstruction Expected: 01/15/2024, Expires: 01/14/2025Pro[facility] Health SystemComment on above:Expected: 01/15/2024, Expires: 01/14/2025Start: 01-15-2024 End: 06-41-0681XH Abdomen limitedUltrasound abdomen limited Imaging Routine Calculus of gallbladder without cholecystitis without obstruction Expected: 01/15/2024, Expires: 01/14/2025ProDoctors Hospital SystemComment on above:Expected: 01/15/2024, Expires: 01/14/2025Start: 12-25-2023 End: 31-10-4756Tuhdpso encounter nfgquwjcw10/06/2024 2:15 PM EST Office Visit [facility] [address] [facility], [id number] Mercedez Leo DO [address] [facility], [place] [id number] [facility] General SurgeryStart: 12-04-2023 End: 33-37-4111Tpbznri encounter uuznsyoki23/16/2024 9:30 AM EDT Office Visit [facility] [address] [facility] [address] [place] [address] Yenifer Ruelas, DRUG ROOM OPERATOR [address] [facility] [address] [place] [address] [facility]ICSStart: 10-23-2023 End: 83-75-4944Wcrtgsj encounter nfgohgpgr53/04/2024 9:30 AM EDT Office Visit [facility] [address] [facility] [address] [place] [address] Yenifer Ruelas, DRUG ROOM OPERATOR [address] [facility] [address] [place] [address] Closed displaced fracture of right ischium with routine healing, unspecified fracture morphology, subsequent encounter (Primary Dx)[facility] ORTHOPAEDICSComment on above:Closed displaced fracture of right ischium with routine healing, unspecified fracture morphology, subsequent encounter (Primary Dx)Start: 39-59-6650Iurtyzwow vaccination Influenza VaccineProMercy Health Tiffin Hospitaltart: 07-25-2023 End: 75-72-0607Kkzaxqa encounter /06/2024 2:45 PM EDT Office Visit [facility] [address] [facility] [id number] Olivia Nieto, [employer] 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 [address] [place] [address] [facility] General SurgeryStart: 07-17-2023 End: 10-33-9779Jyqvkng encounter /29/2024 1:30 PM EDT Office Visit [facility] [address] [facility], [id number] Mercedez Leo, [address] [place], [place] [id number] [facility] SurgeryStart: 12-75-3992Vhzio BMI ScreeningAdult BMI ScreeningProDoctors Hospital SystemStart: 79-06-2992Mdqyxrf ScreeningTobacco ScreeningProDoctors Hospital SystemStart: 19-27-3002Tngxxpuva vaccinationInfluenza VaccineProDoctors Hospital SystemStart: 84-52-8793Ciee Risk ScreeningFall Risk ScreeningProMercy Health Tiffin Hospitaltart: 41-20-6586Hobadvghygebbu of varicella zoster vaccineZoster (Shingles) Vaccine (1 of 2)[facility] SystemStart: 97-13-4947Xmgyeaeoek ScreeningDepression ScreeningBerger Hospital SystemStart: 06-16-1939Medicare Annual Wellness Visit Medicare Annual Wellness VisitHolzer Hospital End: 22-31-6116WSD / ColonoscopyEGD / Colonoscopy GI Routine Melena Hematemesis, unspecified whether nausea present 1 Occurrences starting 01/15/2024 until 01/14/2025[facility] Work Phone: Comment on above:1 Occurrences starting 01/15/2024 until 01/14/2025 End: 75-41-3200Uhgrjtzg PathologySurgical Pathology Pathology and Cytology Routine Skin lesion of left arm 1 Occurrences starting 07/17/2023 until 07/16/2024[facility] Work Phone: Comment on above:1 Occurrences starting 07/17/2023 until 07/16/2024 End: 18-05-7389Nvfvhebj Procedure / SurgeryUnlisted Procedure / Surgery Procedures Routine Skin lesion of left arm 1 Occurrences starting 07/03/2023 until 07/02/2024[facility] Work Phone: Comment on above:1 Occurrences starting 07/03/2023 until 07/02/2024 Immunizations Immunization DateImmunizationNotesCare QfqqmcjgGcdrcdbn98-13-9955zrjcbbmaw virus vaccine, unspecified formulationUniversity of [facility] Medical Center Payers DatePayer CategoryPayerPolicy ID2024Medicarecare [employer] MEDICARE [id number] McKinley [facility] [id number] [id number] [id number] 1960Self-[id number] 2.1.921522.3.57[id number] 2.0.1.057832.3.57[id number] 20.1.421702.3.579.2.77777-18-7278Gflnyrg0240786 2..840.1.619982.3.579.[id number] 2.840.1.749001.3.57[id number] 2.840.1.170351.3.579.2.75391-75-0372Ecevyml4204605 2.840.1.501698.3.579.2.83956-50-5042Jpsmbwq8735764 2.840.1.139909.3.579.2.41899-28-6094Eutafps3599571 2.0.1.211318.3.579.2.11242-60-4479Cncfuqv7489400 2.0.1.517757.3.579.2.08763-24-1919Budxnik3828923 2.840.1.036786.3.579.2.67415-32-8982Wgzvulo6547995 2.840.1.130919.3.579.2.29383-93-3124Pwshsvz5477677 2..1.983640.3.579.2.218931-64-4201Xvnduzq5634507 2.840.1.281240.3.579.2.926434-50-9486Aoiwjin4393689 2.840.1.763334.3.579.2.552942-21-0312Sebodsw7341088 2.840.1.543348.3.579.2.638804-43-0354Olcudvv1789422 2.840.1.297561.3.579.2.577579-11-3250Haghwjg5756226 2.840.1.328700.3.579.2.927296-18-2577Pzcfkzz8299015 2.840.1.745760.3.579.2.980624-73-8010Jqbcohb6632032 2.840.1.080465.3.579.2.845755-72-5831Zlltzxf1877940 2.840.1.189046.3.579.2.579307-45-7663Zfpntpr6902041 2.0.1.927798.3.579.2.755263-01-7394Egtcimd31814543 2.840.1.047333.3.579.2.91447-12-0747Lqbltmh416782659 2.0.1.576474.3.579.2.207001-63-3343Hpdccjw37294696 2.840.1.032521.3.579.2.290238-90-7546Slwnnaq94368192 2.840.1.692861.3.579.2.004720-46-1999Tkfjgyf76862865 2.840.1.363729.3.579.2.862567-73-4766Kvzequj45298451 2.0.1.295488.3.579.2.113451-39-1158Yhxcvxw93463931 2.840.1.907027.3.579.2.019195-83-4732Hokpzkp38204962 2.840.1.173767.3.579.2.222010-19-0778Monrber73587320 2.840.1.337915.3.579.2.064789-46-7515Hnvmppa63504953 2.16.840.1.009480.3.579.2.233854-95-4250Ijfubfi31326175 2.16.840.1.777856.3.579.2.589345-23-8195Ncxzgbl51913708 2.16.840.1.372808.3.579.2.641285-90-2313Omgqxcz395639243 2.16.840.1.958226.3.579.2.813069-64-4916Cfvnqul59258514 2.16.840.1.098505.3.579.2.305185-28-3339Ahlmeol59451612 2.16.840.1.467919.3.579.2.924485-86-5417Ryytisd11234960 2.16.840.1.502064.3.579.2.009751-58-9247Uekiupn43613328 2.16.840.1.504488.3.579.2.609164-33-0607Xkwqbnc82225410 2.16.840.1.830355.3.579.2.6240Rklqqbg47767872 2.16.840.1.441357.3.579.2.531 Ogfmsin91943497 2.16.840.1.427086.3.579.2.531 Social History DateTypeDetailFacilityStart: 06-28-2023 End: 91-44-3159Prvqcvd smoking status NHISEx-smokerNovant Health / NHRMCtart: 02-19-1954 End: 41-24-6587Ulwzbgz of tobacco useCurrent smokerNovant Health / NHRMCtart: 02-19-1954 End: 10-50-9044Csiamvt of tobacco useCigarette SmokerHolzer Hospital Start: 06-28-2023 End: 61-08-3873Xllobym use and exposureSmokeless tobacco non-userNovant Health / NHRMCtart: 10-23-2023 End: 59-30-1428Brlyxwmvr beverage intakeEx-drinker (finding)[facility] SystemStart: 03-31-2020 End: 80-39-8093Ttsrblw of Social functionNovant Health / NHRMCtart: 03-31-2020 End: 00-94-7323Wuetfnt use panelNovant Health / NHRMCtart: 79-71-4760Xrc assigned at birthNot on fileHolzer HospitalChildcareUnknowFostoria City Hospital SystemStart: 89-86-0207Awsdrge CommentSOCIALKettering Health – Soin Medical [facility] Start: 43-18-8405VqbVrnwyk (finding)[facility] SystemStart: 06-22-2022 Alcohol intakeCurrent drinker of alcohol (finding)[facility] Medical Equipment Procedure CodeEquipment CodeEquipment Original TextEquipment IdentifierDatesHd Fem 32mm -3.5mm 01/31 Vrsy Rpl [id number] + 254473 - [id number] +[id number]/$$[id number], 124086_imp FDAStart: 41-79-1299Ggs Actb 48mm Hip Prm Mdlr Ch Rpl 829067 - Sna - [id number]_vzxPxvip: 80-74-1032Qodf Actb 48mm 32mm Std Ntrl Rpl 899603 - Sna - [id number] +[id number]/$$[id number]/SNA, 124090_imp FDAStart: 72-77-9488Myk Fem 137d 5 39mm 01/31 B - Sna - [id number]/$$[id number]/SNA, 124091_imp FDAStart: 38-97-3265Gsc Actb 50mm Hip Prm Mdlr Ch Rpl 293969 - Sna - [id number]_plaOextb: 65-10-7897Ujkg Actb 50/52/54mm 36mm Std Rpl 274022 - Sna - [id number]_ghaEntop: 35-89-6751Eoa Fem 137d 8 40.88mm 01/31 B - Sna - [id number]_gyzZmkxi: 18-18-1278Zz Fem 36mm +0mm 01/31 Vrsy Rpl 612209 - Sna - [id number]_gpuDuxro: 22-10-6298Fyy Bn Hip Anshul St 25mm 6.5mm Rpl 9298656 + 046710 + 135126 - [id number]/$$[id number], 124084_imp FDAStart: 58-71-4729Lli Bn Hip Anshul St 25mm 6.5mm Rpl 7204120 + 646666 + 559860 - [id number]/$$[id number], 124085_[facility] FDA Start: 49-53-5719Aqi Bn Anshul 20mm 6.[address] Rpl 162226 + [id number] + [id number] - Sna - [id number]_rgoDcjmj: 60-13-5877Qsr Bn Anshul 20mm 6.[address] St Rpl 707805 + 760463 + [id number] - Sna - [id number]_xebNtbeo: 06-25-2018 Pacemaker-12/05/[id number]_impStart: 47-66-9329Icsooiq on above:Description: info in media Clinical Notes 01-02-2022 to 10-23-2024 Note Date & RgdmFamjQvyykeqc35-81-2710 NoteSUBJECTIVE Reason for Visit: Susan Douglass is a 84 y.o. year old female patient being seen for 6-month follow-up visit. HPI: Susan Douglass is a 84 y.o. year old female with significant medical history of CAD with chronically occluded RCA, HFpEF, permanent A-fib status post AV node ablation, tricuspid valve regurgitation, and recurrent falls. 10/23/2024 office visit: Patient was seen and evaluated in the office today, accompanied by her daughter. She reports doing well overall. She describes feeling clumsy at times and has had occasional falls in the shower. She currently uses a non-slip mat, and her daughter plans to add additional padding in the shower for safety. She denies any recent head trauma. She remains able to perform ADLs without shortness of breath. She otherwise denies palpitations, chest pain, lightheadedness, dizziness, or lower extremity edema. She reports holding her Coreg when her systolic blood pressure is greater than 150, though she also admits to not checking her blood pressure. I advised her to resume taking Coreg consistently and to check her blood pressure prior to each dose. I reinforced the importance of blood pressure control and the risks associated with uncontrolled chronic hypertension. 05/15/2024 office visit (Dr. Gregg): Medical History[1] Surgical History[2] Problem List[3] family history is not on file. Social History[4] OBJECTIVE Visit Vitals OB Status Postmenopausal Smoking Status Never Physical Exam Constitutional: General Appearance: well-developed, appears stated age. Level of Distress: no acute distress. Neck: Jugular Veins: normal jugular venous pressure. Lungs: Auscultation: no rales or rhonchi and normal breath sounds. Cardiovascular: Rate And Rhythm: regular Heart Sounds: normal S1 and s2; Systolic Murmur: not heard. Diastolic Murmur: not heard. Extremities: no edema Peripheral Pulses: Pulses: full and equal in all extremities except if noted. Abdomen: Inspection and Palpation: non distended or tender and soft. Musculoskeletal: Inspection: no joint tenderness or swelling. Neurologic: Gait: normal gait. Psychiatric: Mental Status: alert and normal affect. Skin: Inspection and Palpation: warm and dry. Allergies: Allergies[5] Outpatient Medications: Current Outpatient Medications Medication Instructions apixaban (ELIQUIS) 2.5 mg, oral, 2 times daily atorvastatin (Lipitor) 40 mg tablet 1 tablet, oral, Nightly carvedilol (Coreg) 25 mg tablet Take 0.5 tablets twice a day by oral route for 90 days. cholecalciferol (D3-5) 5,000 Units, oral, Daily RT colesevelam (Welchol) 625 mg tablet 2 tablets, oral, Daily dilTIAZem CD (CARDIZEM CD) 120 mg, Once daily in the morning famotidine (Pepcid) 20 mg tablet oral, 2 times daily furosemide (LASIX) 20 mg, oral, 2 times weekly memantine (Namenda) 10 mg tablet 1 tablet, oral, 2 times daily RT metroNIDAZOLE (Flagyl) 250 mg tablet 1 tablet, oral, 2 times daily montelukast (SINGULAIR) 10 mg, oral, Daily RT omeprazole (PRILOSEC) 20 mg, oral, Daily RT Recent Labs: No visits with results within 6 Month(s) from this visit. Latest known visit with results is: Ancillary Procedure on 04/10/2024 Component Date Value BSA 06/22/2024 1.44 I have personally reviewed and anaylzed the following laboratory results above. These findings have been analyzed in the context of the patient's clinical presentation. Cardiovascular Diagnostic Studies: TTE 12/31/2023: CONCLUSION: 1. The left ventricle is normal in size and exhibits low normal systolic function. LVEF is estimated at 50 to 55%. 2. Right ventricle is severely dilated and exhibits normal systolic function. 3. Severe biatrial dilatation. 4. Severe tricuspid regurgitation. 5. Moderate mitral regurgitation. 6. Mildly elevated right-sided pressures. 12 Lead ECG: No results found for this or any previous visit (from the past 4464 hours). Cardiac device check 10/09/2024 remote: I have personally reviewed and analyzed all available cardiac diagnostic tests and imaging reports. Findings have been analyzed in the context of the patient's clinical status. Assessment and Plan #CAD Denies chest pain CAD with known chronic total occlusion of RCA. No angina. No aspirin given that she is on apixaban - Continue carvedilol 25 mg twice daily - Continue atorvastatin 40 mg daily #HFpEF NYHA II Appears euvolemic Weight today is 110 pounds Most recent TTE 12/31/2023: EF 50-55%, severe biatrial dilation, severe TR, moderate MR, mildly elevated right-sided pressures GDMT: - Continue furosemide 20 mg daily #Permanent A-fib #S/p AV node ablation #Cardiac pacemaker in situ [id number] = at least 5 (age, female, [place], HTN) Not a great candidate for left atrial appendage occlusion ---> discussed with Dr. Gregg at her prior visit. In-clinic device check 08/25/2024 normal function, lead measurements stable. 4 N (more content not included)...[facility]03-28-2025 NoteUT Cardiology - [facility] Subjective Susan Douglass is a 83 y.o. year old female patient being seen for follow up stress test. No cardiac complaints at this time. Patient Active Problem List Diagnosis Longstanding persistent atrial fibrillation (CMS/HCC) Coronary artery disease of [place] artery of [place] heart with stable angina pectoris Benign hypertensive heart disease without congestive heart failure Pacemaker lead malfunction Anxiety state Arthritis Asthmatic pulmonary eosinophilia Atrial fibrillation (CMS/HCC) Closed fracture of distal end of radius Congestive heart failure (CMS/HCC) Dental disease Encounter for long-term (current) use of insulin (CMS/HCC) Frequent falls GERD (gastroesophageal reflux disease) Hyperlipidemia Hypertension Pacemaker PONV (postoperative nausea and vomiting) Prolonged emergence from general anesthesia Visual impairment Unilateral primary osteoarthritis, right hip Atherosclerosis of aorta Constipation Dementia (CMS/HCC) Fracture of unspecified metatarsal bone(s), left foot, initial encounter for closed fracture Cholelithiasis Gall bladder disease Repeated falls Altered mental status Abnormal findings on diagnostic imaging of other specified body structures No family history on file. Social History Tobacco Use Smoking status: Never Smokeless tobacco: Never Substance Use Topics Alcohol use: Not Currently Drug use: Never SARAI Susan is seen in follow-up. This is the first time I am meeting her. She is a 83-year-old woman with history of hypertension, permanent atrial fibrillation status post AV yareli ablation on 10/07/[address] Noble Montgomery. She is status post dual-chamber pacemaker. She has history of coronary artery disease with a chronically occluded RCA. She was evaluated in our office on 09/04/2023. Her echocardiogram showed RV dilatation with reduced function. A stress test was ordered to rule out ischemia. This was performed April 2024 and showed no ischemia. She is very frail and has lost a lot of weight. She is being seen by palliative care at home. She falls a lot and has had recurrent major falls over the past years and months. She has worsening lower extremity edema. No significant shortness of breath at her current level of activity. No chest pain. She does not feel palpitations. No syncope. Review of Systems Constitutional: Positive for malaise/fatigue. Cardiovascular: Positive for leg swelling. Musculoskeletal: Positive for falls. Negative for muscle weakness. Objective Visit Vitals BP 122/72 (BP Location: Left arm, Patient Position: Sitting) Pulse 85 Ht 1.6 m (5' 3 ) Wt 46.7 kg (103 lb) SpO2 94% BMI 18.25 kg/m??? OB Status Postmenopausal Smoking Status Never BSA 1.44 m??? Physical Exam Constitutional: Appearance: She is well-developed. She is not ill-appearing. HENT: Head: Normocephalic and atraumatic. Nose: Nose normal. Eyes: General: No scleral icterus. Pupils: Pupils are equal, round, and reactive to light. Neck: Thyroid: No thyromegaly. Vascular: No JVD. Cardiovascular: Rate and Rhythm: Normal rate and regular rhythm. Pulses: Radial pulses are 2+ on the right side and 2+ on the left side. Heart sounds: Murmur heard. Systolic (LLSB) murmur is present with a grade of 2/6. No friction rub. No gallop. Pulmonary: Effort: Pulmonary effort is normal. No respiratory distress. Breath sounds: Normal breath sounds. No wheezing or rales. Chest: Chest wall: No tenderness. Abdominal: General: Bowel sounds are normal. There is no distension. Palpations: Abdomen is soft. Tenderness: There is no abdominal tenderness. Musculoskeletal: General: No swelling. Cervical back: Neck supple. Right lower le+ Pitting Edema present. Left lower le+ Pitting Edema present. Comments: Uses a cane to assist with ambulation Skin: General: Skin is warm and dry. Neurological: General: No focal deficit present. Mental Status: She is alert and oriented to person, place, and time. Psychiatric: Mood and Affect: Mood normal. Behavior: Behavior is cooperative. Judgment: Judgment normal. Allergies No Known Allergies Medications Current Outpatient Medications: apixaban (Eliquis) 2.5 mg tablet, Take 1 tablet (2.5 mg) by mouth in the morning and at bedtime., Disp: 180 tablet, Rfl: 2 carvedilol (Coreg) 25 mg tablet, Take 0.5 tablets twice a day by oral route for 90 days., Disp: , Rfl: cholecalciferol (D3-5) 5,000 Units tablet, Take 5,000 Units by mouth in the morning., Disp: , Rfl: colesevelam (Welchol) 625 mg tablet, Take 2 tablets by mouth in the morning., Disp: , Rfl: famotidine (Pepcid) 20 mg tablet, Take by mouth in the morning and at bedtime., Disp: , Rfl: memantine (Namenda) 10 mg tablet, Take 1 tablet by mouth in the morning and at bedtime., Disp: , Rfl: metroNIDAZOLE (Flagyl) 250 mg tablet, Take 1 tablet by m (more content not included)...[facility]01-08-2025 History of Present illness Narrative* Mercedez Leo, - 02/26/2024 1:15 PM EST Images from the original note were not included. [facility] GENER[facility] [id number] Progress NOTE CHIEF COMPLAINT Chief Complaint Patient [...] states that after she saw me she wasjaundiced according to her daughter and it that is spontaneously resolved after a few days of Flagyl given to her by her PCP. Reason for Exam Cholelithiasis Dx: Calculus of gallbladder without cholecystitis without obstruction [K80.20 (ICD-10-CM)] PACS Images Show images for NM hepatobiliary system imaging with pharmacologic agent NM hepatobiliary system imaging with pharmacologic agent Order: [id number] Status: Final result Visible to patient: No (inaccessible in [facility]) Next appt: None Dx: Calculus of gallbladder without colton... 0 Result Notes Details Reading Physician Reading Date Result Priority Korey Whitlock DO [phone] 02/03/2024 Routine Mercedez Leblanc MD [phone] 02/03/2024 Dawson Davenport MD [phone] 02/03/2024 Narrative & Impression NM HEPATOBILIARY SYS [...] Ultrasound abdomen limited Ultrasound abdomen limited Order: [id number] Status: Final result Visible to patient: No (inaccessible in [facility] MyChart) Next appt: None Dx: Calculus of gallbladder without colton... 1 Result Note 1 Follow-up Encounter Details Reading Physician Reading Date Result Priority Reid Gonzalez MD [phone] 02/04/2024 Routine Narrative & Impression US ABDOMEN [...] tablet (500 mg total) by mouth every 6(six) hours as needed for pain., Disp: 30 tablet, Rfl: 0 apixaban (ELIQUIS) 2.5 mg tablet, Take by mouth 2 (two) times a day., Disp: , Rfl: C,E,zinc,copper 11/ffnei6z/lut (OCUVITE ADULT 50 PLUS ORAL), Take 1 [...] total) by mouth nightly., Disp: , Rfl: ihzkxtwr-rlou-LV-calcium &mins (THERAGRAN-M) 9 mg iron-400 mcg tablet, Take 1 tablet by mouth in the morning and 1 tablet before bedtime., Disp: , Rfl: omeprazole (PriLOSEC) 20 mg capsule, Take 1 capsule (20 mg total) by mouth in the morning., Disp: ,Rfl: sod sulf-pot chloride-mag sulf 1.479-0.188- 0.225 gram [...] 09/21/2021 Performed by Mercedez Leo DO at [facility] DILATION AND CURETTAGE OF UTERUS ESOPHAGOGASTRODUODENOSCOPY N/A 09/21/2021 Performed by Mercedez Leo DO at [facility] EXAM UNDER ANESTHESIA/ DILATION AND CURETTAGE N/A 08/10/2019 Performed by Reji Shaikh MD at [facility] NOSE SURGERY REPLACEMENT TOTAL JOINT HIP Left 06/25/2018 Performed by Korey Perry DO at [facility] REPLACEMENT TOTAL JOINT HIP Right 07/17/2017 Performed by Korey Perry DO at [facility] SKIN LESION EXCISION 07/17/2023 excision of lesion [...] Interpersonal Safety: Unknown (04/11/2023) Received from [facility] Safety & Environment Fear of Current [...] patient/family/caregiver Referring and communicating with other health tire care manager No primary diagnosis found. Mercedez Leo DO This note was created with the assistance of a speech recognition program. While intending to generate a timely document that accurately reflects the content of the visit, no guarantee can be provided that every grammatical or spelling mistake has been or will be identified or corrected. Thank you for your understanding. documented in [facility]Hol[facility]12-11-2024 Miscellaneous Notes* Telephone Encounter - Jeanna Espinoza CMA - 01/29/2024 12:02 PM EST ----- Message from Dr. Mercedez Leo DO [...] she is doing better. Thanks, Dr. Rios * Telephone Encounter - Jeanna Espinoza CMA - 01/29/2024 12:02 PM EST Spoke with patient's daughter regarding Dr. Leo's message as she is an approved contact for [facility]. Patient's daughter Shayna stated patient is doing [...] get back with her. documented in this encounterHolzer Hospital12-11-2024 Telephone encounter Note* Telephone Encounter - Jeanna Espinoza CMA - 01/29/2024 12:02 PM EST ----- Message from Dr. Mercedez Leo DO [...] be canceled if she is doing better. ThanksDr. Rios [facility] beBetter [id number] Telephone encounter Note* Telephone Encounter - Jeanna Espinoza CMA - 01/29/2024 12:02 PM EST Spoke with patient's daughter regarding Dr. Leo's message as she is an approved contact for [facility]. Patient's daughter Shayna stated patient is doing somewhat better but that she would like her to have the ultrasound and HIDA on Saturday. However, she did ask what the bowel prep was for. I saw in patient's chart that my office manage Concha was working on this. Informed Shayna that I would check with Concha regarding the EGD/Colonoscopy and get back with her. [facility]12-09-2024 Miscellaneous Notes* Telephone Encounter - STEFANI Weems - 01/27/2024 9:45 AM EST Called patients daughter Shayna to inform her that Dr. Leo is referring patient to Dr. Darby for [facility] does not perform ERCP's anymore. Shayna verbalized understanding. Referral will be sent to Dr. Gilmar Darby at [facility]. I called Dr. Darby office and talked with Jorge, she stated they canget the patient in this month to be seen and possibly have procedure before February. documented in this encounterHolzer Hospital12-09-2024 Telephone encounter Note* Telephone Encounter - STEFANI Weems - 01/27/2024 9:45 AM EST Called patients liam Corral to inform her that Dr. Leo is referring patient to Dr. Darby for [facility] does not perform ERCP's anymore. Shayna verbalized understanding. Referral will be sent to Dr. Gilmar Darby at [facility]. I called Dr. Darby office and talked with Jorge, she stated they canget the patient in this month to be seen and possibly have procedure before February. [facility]12-04-2024 Miscellaneous Notes* Telephone Encounter - Concha AmadoUDAYWilfrido - 01/22/2024 4:06 PM EST Called daughter to inform her of the correct bowel prep being sent to patients pharmacy. Rx for Sutab was sent to [facility] pharmacy. Daughter Shayna was called and informed. Shayna verbalized understanding. documented in this encounterHolzer Hospital12-04-2024 Telephone encounter Note* Telephone Encounter - Concha AmadoUDAYWilfrido - 01/22/2024 4:06 PM EST Called daughter to inform her of the correct bowel prep being sent to patients pharmacy. Rx for Sutab was sent to [facility] pharmacy. Daughter Shayna was called and informed. Shayna verbalized understanding. [facility] [id number] Miscellaneous Notes* Telephone Encounter - Traci Mathew CMA - 01/21/2024 4:17 PM EST ----- Message from Dr. Mercedez Leo DO sent at 01/20/2024 3:04 PM EST ----- This patient needs to go to GI for ERCP ANGELICA. Please see if you can get her in this week. Let me know. Thanks LFTs are abnormally elevated. * Telephone Encounter - Traci Mathew CMA - 01/21/2024 4:17 PM EST I called the patient once this morning, & once this afternoon. Both times I got no answer &it says that her VM is NOT set up. Tomorrow, I'll call her EC. * Telephone Encounter - Traci Mathew CMA - 01/21/2024 4:17 PM EST The patients daughter finally answered. I gave her the message from Dr Leo. They would like to go to GI in [place]. I will check with Dr Leo about putting in the referral for that. I will also check with him & see if he wants to order the ERCP as well, or if he just wants to let GI do that. I called GI in [place] to see how long their wait to get an appointment is, I had to leave them a message. * Telephone Encounter - STEFANI Weems - 01/21/2024 4:17 PM EST Called patient daughter Shayna to inform her that we sent everything over to [facility] and to beexpecting a call from them to schedule. Patient is scheduled to have HIDA scan and US on 02/03/24 and MRCP is scheduled for 03/19/23. Dr. Leo wanted patient to go to to see if they can get the MRCP and ERCP done before February. Shayna verbalized understanding. * Telephone Encounter - Traci Mathew CMA - 01/21/2024 4:17 PM EST My custom protection officer has completely taken over this lady's case. documented in this encounterHolzer Hospital12-03-2024 Telephone encounter Note* Telephone Encounter - Traci Mathew CMA - 01/21/2024 4:17 PM EST ----- Message from Dr. Mercedez Leo DO sent at 01/20/2024 3:04 PM EST ----- This patient needs to go to for ERCP ANGELICA. Please see if you can get her in this week. Let me know. Thanks LFTs are abnormally elevated. [facility]12-03-2024 Telephone encounter Note* Telephone Encounter - Traci Mathew CMA - 01/21/2024 4:17 PM EST I called the patient once this morning, & once this afternoon. Both times I got no answer &it says that her VM is NOT set up. Tomorrow, I'll call her EC. [facility]12-03-2024 Telephone encounter Note* Telephone Encounter - Traci Mathew CMA - 01/21/2024 4:17 PM EST The patients daughter finally answered. I gave her the message from Dr Leo. They would like to go to in [place]. I will check with Dr Leo about putting in the referral for that. I will also check with him & see if he wants to order the ERCP as well, or if he just wants to let do that. I called in [place] to see how long their wait to get an appointment is, I had to leave them a message. [facility]12-03-2024 Telephone encounter Note* Telephone Encounter - STEFANI Weems - 01/21/2024 4:17 PM EST Called patient daughter Shayna to inform her that we sent everything over to [facility] and to beexpecting a call from them to schedule. Patient is scheduled to have HIDA scan and US on 02/03/24 and MRCP is scheduled for 03/19/23. Dr. Leo wanted patient to go to to see if they can get the MRCP and ERCP done before February. Shayna verbalized understanding. [facility]12-03-2024 Telephone encounter Note* Telephone Encounter - Traci Mathew CMA - 01/21/2024 4:17 PM EST My custom protection officer has completely taken over this lady's case. [facility]11-27-[facility] History of Present illness Narrative* Mercedez Goldman EstherjenniferDO - 01/15/2024 2:30 PM EST Images from the original note were not included. [facility] SURG[facility] [place] [id number] CONSULT NOTE CHIEF COMPLAINT Chief Complaint Patient presents with Other Acute cholecystitis, referred by Dr. Branden Anna Evonne is a 83 y.o. female who presents along with her daughters Dena Banks and Bridgett Phelan with complaints of cholelithiasis and cholecystitis. She went to the [facility] emergency room a few weeks ago and was hospitalized and Dr. Dong anna general surgeon saw her at that time [...] she was jaundiced about a week ago andsaw her PCP who ordered liver profile but we tried calling the office today and could not reach them to obtain results. Her previous liver profile done at the [facility] a few weeks ago was normal. She had a prior colonoscopy by me in September of 2021 and had tubular adenomas which were removed as well as diverticular disease. She also has Barretts esophagus on EGD and gastritis. She complains ofsharp pains in the right upper abdomen all day. She does not appear acutely ill. MEDICATION Current Outpatient Medications: acetaminophen (TYLENOL EXTRA STRENGTH) 500 mg tablet, Take 1 tablet (500 mg total) by mouth every 6(six) hours as needed for pain., Disp: 30 tablet, Rfl: 0 apixaban (ELIQUIS) 2.5 mg tablet, Take by mouth 2 (two) times a day., Disp: , Rfl: C,E,zinc,copper 11/qkzlw4u/lut (OCUVITE ADULT 50 PLUS ORAL), Take 1 [...] total) by mouth nightly., Disp: , Rfl: xeqafziz-mcbl-BI-calcium &mins (THERAGRAN-M) 9 mg iron-400 mcg tablet, Take 1 tablet by mouth in the morning and 1 tablet before bedtime., Disp: , Rfl: omeprazole (PriLOSEC) 20 mg capsule, Take 1 capsule (20 mg total) by mouth in the morning., Disp: ,Rfl: peg 3350-sod sulf,qhmt-bbs-sem 178.7-7.3-0.5 gram recon soln, Take 1 kit by mouth in the morning for 1 dose. Please see instructional sheet given by Physicians office., Disp: 1 each, Rfl: 0 ALLERGY No Known Allergies MEDICAL HISTORY Past Medical History: Diagnosis Date Arthritis Atrial fibrillation ([facility]) Dental disease upper dentures Frequent falls GERD (gastroesophageal reflux disease) Hyperlipidemia Hypertension Pacemaker 2005 replaced 2016 PONV (postoperative nausea and vomiting) Prolonged emergence from general anesthesia severe confusion, hallucincations Visual impairment glasses SURGICAL HISTORY Past Surgical History: Procedure Laterality Date APPENDECTOMY CARDIAC PACEMAKER PLACEMENT 2005 replaced 2016 CATARACT EXTRACTION Bilateral SECTION COLONOSCOPY N/A 09/21/2021 Performed by Mercedez Leo DO at [facility] DILATION AND CURETTAGE OF UTERUS ESOPHAGOGASTRODUODENOSCOPY N/A 09/21/2021 Performed by Mercedez Leo DO at [facility] EXAM UNDER ANESTHESIA/ DILATION AND CURETTAGE N/A 08/10/2019 Performed by Reji Shaikh MD at [facility] NOSE SURGERY REPLACEMENT TOTAL JOINT HIP Left 06/25/2018 Performed by Korey Perry DO at [facility] REPLACEMENT TOTAL JOINT HIP Right 07/17/2017 Performed by Korey Perry DO at [facility] SKIN LESION EXCISION 07/17/2023 excision of lesion [...] Interpersonal Safety: Unknown (04/11/2023) Received from [facility] [place] Safety & Environment Fear of Current or [...] patient/family/caregiver Referring and communicating with other health tire care manager Patricia [K92.1] Mercedez Leo, This note was created with the assistance of a speech recognition program. While intending to generate a timely document that accurately reflects the content of the visit, no guarantee can be provided that every grammatical or spelling mistake has been or will be identified or corrected. Thank you for your understanding. documented in this [facility]10-29-2024 Miscellaneous Notes* Telephone Encounter - Lashae Jarquin - 12/17/2023 1:45 PM EDT Called Jacqueline regarding the acute cholecystitis referral that our office received from Dr Otero on her mother/Judr, I left a message for her to call the office back to schedule an appointment. * Telephone Encounter - Lashae Jarquin - 12/17/2023 1:45 PM EDT Arlene called the office back and we scheduled her an appointment on 12/25/2023. documented in this encounterHolzer Hospital10-29-2024 Telephone encounter Note* Telephone Encounter - Lashae Jarquin - 12/17/2023 1:45 PM EDT Called Jacqueline regarding the acute cholecystitis referral that our office received from Dr Otero on her mother/Judr, I left a message for her to call the office back to schedule an appointment. [facility]10[facility] Telephone encounter Note* Telephone Encounter - Lashae Jarquin - 12/17/2023 1:45 PM EDT Arlene called the office back and we scheduled her an appointment on 12/25/2023. [facility]09-04-2024 History of Present illness Narrative* Yenifer Ruelas NP - 10/23/2023 9:30 AM EDT Subjective Patient ID: Susan Douglass is a [...] states she will get pain while sitting occasas well. Pain occas radiates to the RT buttock. Pain mid back which comes and goes. Notes she also gets pain on her tailbone occas. Notes one of the falls she had this year she landed on her butt andfelt a pop in her tailbone a few minutes after. Admits TYL prn. Denies ice, heat or creams. Denies N/T. Admits occas giving out sensation. Denies cracking/popping. Denies waking at night. Here with daughter Shayna and grandson [place]: [facility] ER/XR/CT 08/24/23, TYL, XR NOMS 09/25/23, XR [...] healing fracture of the pubic rami Umang Orlando D.O. Assessment/Plan Encounter Diagnoses: ICD-10-CM 1. Closed displaced fracture of right ischium with routine healing, unspecified fracture morphology, subsequent encounter S32.601D XR pelvis 1 or 2 views Discussed fracture care and treatment. Answered all questions. Also discussed risks for non union. She may WBAT, f/U in 4- 6 weeks with xrays of the pelvis documented in this encounterGeneral Leonard Wood Army Community [id number] History of Present illness Narrative* BRYCE Curtis - 07/25/2023 2:45 PM EDT Subjective Susan Douglass is a 82 y.o. [...] lesion of left arm [L98.9] [facility] CURTIS [facility] [place] This note was created with the assistance of a speech recognition program. While intending to generate a timely document that accurately reflects the content of the visit, no guarantee can be provided that every grammatical or spelling mistake has been or will be identified or corrected. Thank you for your understanding. BRYCE Curtis 07/25/23 1456 documented in this encounterHolzer Hospital05-29-2024 History of Present illness Narrative* Mercedez Leo DO - 07/17/2023 1:30 PM EDT Images from the original note were not included. [facility] [address] [place] [address] CONSULT NOTE CHIEF COMPLAINT Chief Complaint Patient presents with Suspicious Skin Lesion Excision of left arm skin lesion, last seen by Olivia 06/28/23, referred by Dr. Branden Anna Evonne is a 82 y.o. female who presents referred by my nurse practitioner due to an abnormal skin lesion on the left upper extremity. She has had prior skin cancers removed by me. Her daughter Shayna accompanies her. The lesion itches and bleeds. MEDICATION Current Outpatient Medications: acetaminophen (TYLENOL EXTRA STRENGTH) 500 mg tablet, Take 1 tablet (500 mg total) by mouth every 6(six) hours as needed for pain., Disp: 30 tablet, Rfl: 0 C,E,zinc,copper 11/jqdfe0u/lut (OCUVITE ADULT 50 PLUS ORAL), Take 1 [...] total) by mouth nightly., Disp: , Rfl: nysicrvf-dinz-FQ-calcium &mins (THERAGRAN-M) 9 mg iron-400 mcg tablet, Take 1 tablet by mouth in the morning and 1 tablet before bedtime., Disp: , Rfl: omeprazole (PriLOSEC) 20 mg capsule, Take 1 capsule (20 mg total) by mouth in the morning., Disp: ,Rfl: apixaban (ELIQUIS) 2.5 mg tablet, Take by mouth 2 (two) times a day. 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 PONV (postoperative nausea and vomiting) Prolonged emergence from general anesthesia severe confusion, hallucincations Visual impairment glasses SURGICAL HISTORY Past Surgical History: Procedure Laterality Date APPENDECTOMY CARDIAC PACEMAKER PLACEMENT 2005 replaced 2016 CATARACT EXTRACTION Bilateral SECTION COLONOSCOPY N/A 09/21/2021 Performed by Mercedez Leo DO at [facility] DILATION AND CURETTAGE OF UTERUS ESOPHAGOGASTRODUODENOSCOPY N/A 09/21/2021 Performed by Mercedez Leo DO at [facility] EXAM UNDER ANESTHESIA/ DILATION AND CURETTAGE N/A 08/10/2019 Performed by Reji Shaikh MD at [facility] NOSE SURGERY REPLACEMENT TOTAL JOINT HIP Left 06/25/2018 Performed by Korey Perry DO at [facility] REPLACEMENT TOTAL JOINT HIP Right 07/17/2017 Performed by Korey Perry DO at [facility] WRIST SURGERY left X2 SOCIAL HISTORY Social [...] Interpersonal Safety: Unknown (04/11/2023) Received from [facility] Safety & Environment Fear of Current [...] consent was obtained from the patient and daughterpreoperatively. The area was widely excised and excision [...] patient/family/caregiver Referring and communicating with other health tire care manager Skin lesion of left arm [L98.9] Mercedez Leo, This note was created with the assistance of a speech recognition program. While intending to generate a timely document that accurately reflects the content of the visit, no guarantee can be provided that every grammatical or spelling mistake has been or will be identified or corrected. Thank you for your understanding. documented in this encounterHolzer [facility]05-10-2024 History of Present illness Narrative* Olivia Nieto, [employer] 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 - 06/28/2023 11:00 AM EDT Images from the original note were not [...] The area itches and justice. It does notdrain or bleed. She denies fever and chills. Of note, Dr. Leo removed hyperplastic actinic keratosis from her distal left forearm in June 2022. It was recommended she see [facility] at that time, she did not [...] Medical History: Diagnosis Date Arthritis Atrial fibrillation ([facility]) Dental disease upper dentures Frequent falls GERD (gastroesophageal reflux disease) Hyperlipidemia Hypertension Pacemaker 2005 replaced 2016 PONV (postoperative nausea and vomiting) Prolonged emergence from general anesthesia severe confusion, hallucincations Visual impairment glasses Past Surgical History: Procedure Laterality Date APPENDECTOMY CARDIAC PACEMAKER PLACEMENT 2005 replaced 2016 CATARACT EXTRACTION Bilateral SECTION COLONOSCOPY N/A 09/21/2021 Performed by Mercedez Leo DO at [facility] DILATION AND CURETTAGE OF UTERUS ESOPHAGOGASTRODUODENOSCOPY N/A 09/21/2021 Performed by Mercedez Leo DO at [facility] EXAM UNDER ANESTHESIA/ DILATION AND CURETTAGE N/A 08/10/2019 Performed by Reji Shaikh MD at [facility] NOSE SURGERY REPLACEMENT TOTAL JOINT HIP Left 06/25/2018 Performed by Korey Perry DO at [facility] REPLACEMENT TOTAL JOINT HIP Right 07/17/2017 Performed by Korey Perry DO at [facility] WRIST SURGERY left X2 No Known Allergies Current Outpatient Medications: acetaminophen (TYLENOL EXTRA STRENGTH) 500 mg tablet, Take 1 tablet (500 mg total) by mouth every 6(six) hours as needed for pain., Disp: 30 tablet, Rfl: 0 apixaban (ELIQUIS) 2.5 mg tablet, Take by mouth 2 (two) times a day., Disp: , Rfl: C,E,zinc,copper 11/gipfp6c/lut (OCUVITE ADULT 50 PLUS ORAL), Take 1 [...] total) by mouth nightly., Disp: , Rfl: scffoird-gtgl-TU-calcium &mins (THERAGRAN-M) 9 mg iron-400 mcg tablet, Take 1 tablet by mouth in the morning and 1 tablet before bedtime., Disp: , Rfl: omeprazole (PriLOSEC) 20 mg capsule, Take 1 capsule (20 mg total) by mouth in the morning., Disp: ,Rfl: UNABLE TO FIND, Take 1 tablet by [...] Interpersonal Safety: Unknown (04/11/2023) Received from [facility] Fear of Current [...] patient/family/caregiver Referring and communicating with other health tire care manager Skin lesion of left arm [L98.9] OLIVIA NIETO, [employer] 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 [facility] [place] This note was created with the assistance of a speech recognition program. While intending to generate a timely document that accurately reflects the content of the visit, no guarantee can be provided that every grammatical or spelling mistake has been or will be identified or corrected. Thank you for your understanding. BRYCE Curtis 07/03/23 1239 [facility] Miscellaneous Notes* Telephone Encounter - Suzanne Jaun - 05/08/2023 2:37 PM EDT [employer] called preferred patient number in chart and one stated it was out of service and the other one said that the voicemail box was not set up. [facility]Hol[facility] Telephone encounter Note* Telephone Encounter - Suzanne Jaun - 05/08/2023 2:37 PM EDT [employer] called preferred patient number in chart and one stated it was out of service and the other one said that the voicemail box was not set up. [facility] NotePROCEDURE: XR FOOT LT MIN 3 VIEWS COMPARISON: 02/08/2022 HISTORY: Pain in left foot FINDINGS: BONES:Stable healing angulated fractures involving the second third and fourth metatarsal head/neck. No new fracture or dislocation. Mild stable degenerative changes SOFT TISSUES:Negative. No visible soft tissue swelling. EFFUSION:None visible. OTHER: Intensive vascular calcifications IMPRESSION: Stable healing fractures of the second third and fourth metatarsals Electronically authenticated by: RADHA RAJPUT Date: 2022-05-08 14:40[facility]12-23-2022 NotePROCEDURE: XR FOOT LT MIN 3 VIEWS HISTORY: Pain in left [...] Electronically authenticated by: CRUZITO BRIDGES Date: 2022-02-09 10:42[facility]11-15-2022 NotePROCEDURE: XR FOOT LT MIN 3 VIEWS COMPARISON: 11/22/2021 HISTORY: Pain in left foot FINDINGS: BONES:Stable healing angulated fractures involving the neck of the second third and fourth metatarsals. Interval callus formation. SOFT TISSUES:Negative. No visible soft tissue swelling. EFFUSION:None visible. OTHER: Negative. IMPRESSION: Stable healing angulated fractures neck of the second, third and fourth metatarsals Electronically authenticated by: RADHA RAJPUT Date: 2022-01-02 15:52[facility] Diagnosis Closed displaced fracture of right ischium with routine healing, unspecified fracture morphology, subsequent encounter- Primary documented in this encounter [facility] HealthcareEvaluation note* Diagnosis Elevated liver enzymes- Primary Other nonspecific abnormal serum enzyme levels Calculus of gallbladder with cholecystitis of other acuity without obstruction [facility] Diagnosis Skin lesion of left arm- Primary Unspecified disorder of skin and subcutaneous tissue [facility] Diagnosis Skin lesion of left arm- Primary Unspecified disorder of skin and subcutaneous tissue [facility] Diagnosis Skin lesion of left arm- Primary Unspecified disorder of skin and subcutaneous tissue [facility]* Diagnosis Melena- Primary Blood in stool Hematemesis, unspecified whether nausea present Calculus of gallbladder without cholecystitis without obstruction Calculus of gallbladder with cholecystitis of other acuity without obstruction [facility] Diagnosis Calculus of gallbladder with cholecystitis of other acuity without obstruction- Primary Elevated liver enzymes Other nonspecific abnormal serum enzyme levels [facility]* Diagnosis Elevated LFTs- Primary Other abnormal blood chemistry documented in this encounter [facility]* Diagnosis Hematemesis, unspecified whether nausea present- Primary Melena Blood in stool documented in [facility] encounter [facility]* Diagnosis Elevated LFTs- Primary Other abnormal blood chemistry documented in this encounter [facility] SystemInstructionsNot on filedocumented in this encounter [facility]ructionsNot on filedocumented in this encounter [facility]ructionsNot on filedocumented in this encounter [facility]ructionsNot on filedocumented in this encounter [facility]ructionsNot on filedocumented in this encounter [facility] SystemInstructionsNot on filedocumented in this encounter [facility] SystemInstructionsNot on filedocumented in this encounter [facility] SystemInstructionsNot on filedocumented in this encounter [facility] SystemReason for referral (narrative)* Consultation (Routine) - Pending ReviewSpecialtyDiagnoses / ProceduresReferred By ContactReferred To ContactDermatology Diagnoses Skin lesion of left arm Olivia Nieto APRN-CNP [address] [address] Darlyn Worley MD [address] [facility] [address] [place] [address] Referral IDStatusReasonStart DateExpiration DateVisits RequestedVisits [id number] Review Specialty Services Required / [facility] Summary Purpose Family History No Family History Records FoundNo Family History Records FoundNo Family History Records FoundNo Family History Records FoundNo Family History Records FoundNo Family History Records FoundNo Family History Records FoundNo Family History Records FoundNo Family History Records Found Advance Directives No Advanced Directives Records Found Date ActivatedDate InactivatedComments06/25/2018 2:42 PM06/27/2018 3:14 PMDate ActivatedDate InactivatedComments07/17/2017 10:46 AM07/19/2017 7:43 PMDate ActivatedDate InactivatedComments06/25/2018 2:42 PM06/27/2018 3:14 PMDate Activated Date InactivatedComments07/17/2017 10:46 AM07/19/2017 7:43 PMCode StatusDate ActivatedDate InactivatedCommentsFull Code06/25/2018 2:42 PM06/27/2018 3:14 PMCode StatusDate ActivatedDate InactivatedCommentsFull Code07/17/2017 10:46 AM07/19/2017 7:43 PM Reason for Referral SpecialtyDiagnoses / ProceduresReferred By ContactReferred To Contact Diagnoses Skin lesion of left arm Procedures Unlisted Procedure / Surgery Olivia Nieto, [employer] 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 [address] [place] [address] Referral IDStatusReasonStart DateExpiration DateVisits RequestedVisits [id number] Review Additional Source Comments INFORMATION SOURCE (unrecogn ized section and content) DATE CREATED AUTHOR 10/04/2018 [facility] DATE CREATED AUTHOR AUTHOR'S ORGANIZ ATION 01/28/2021 [facility] DATE CREATED AUTHOR AUTHOR'S ORGANIZ ATION 06/02/2022 [facility] DATE CREATED AUTHOR AUTHOR'S ORGANIZ ATION 10/28/2023 [facility] DATE CREATED AUTHOR AUTHOR'S ORGANIZ ATION 12/14/2023 [facility] DATE CREATED AUTHOR AUTHOR'S ORGANIZ ATION 02/02/2024 [facility] DATE CREATED AUTHOR AUTHOR'S ORGANIZ ATION 02/21/2024 [facility] DATE CREATED AUTHOR AUTHOR'S ORGANIZ ATION 03/03/2024 [facility] DATE CREATED AUTHOR AUTHOR'S ORGANIZ ATION 10/25/2024 [facility] Reason for Visit (unrecogniz ed section and content) ReasonCommentsFractureReasonCommentsFollow-upFOLLOW UP FROM HIDA AND ULTRASOUND PERFORMED 02/03/24ReasonCommentsPost-opPost op excision of left arm lesion performed 07/17/23 in office, suture removalReasonCommentsSuspicious Skin Lesion Left arm mass/cyst, referred by Dr. DeckerSuspicious Skin Lesion Excision of left arm skin lesion, last seen by Olivia 06/28/23, referred by Dr. DeckerOtherAcute cholecystitis, referred by Dr. Otero Care Teams (unrecognized sec tion and content) Team MemberRelationshipSpecialtyStart DateEnd Date Eliud Otero MD [address] [place] [phone] PCP - GeneralInternal Medicine08/28/23Team MemberRelationshipSpecialtyStart Date End Date Eliud Otero MD [address] [place] [phone] PCP - GeneralInternal Medicine08/28/23Team MemberRelationshipSpecialtyStart Date End Date Eliud Otero Jr., DO [address] [place] [address] [phone] PCP - GeneralInternal Medicine03/28/17Team MemberRelationshipSpecialtyStart Date End Date Eliud Otero Jr., DO [address] [place] [address] [phone] PCP - GeneralInternal Medicine03/28/17Team MemberRelationshipSpecialtyStart Date End Date Eliud Otero Jr., DO [address] [place] [address] [phone] PCP - GeneralInternal Medicine03/28/17Team MemberRelationshipSpecialtyStart Date End Date Eliud Otero Jr., DO [address] [place] [address] [phone] PCP - GeneralInternal Medicine03/28/17Team MemberRelationshipSpecialtyStart Date End Date Eliud Otero Jr., DO [address] [place] [address] [phone] PCP - GeneralInternal Medicine03/28/17Team MemberRelationshipSpecialtyStart Date End Date Eliud Otero Jr., DO [address] [place] [address] [phone] PCP - [facility]03/28/17Te MemberRelationshipSpecialtyStart Date End Date Eliud Otero Jr., DO [address] [place] [phone] PCP - [facility]03/28/17Te MemberRelationshipSpecialtyStart Date End Date Eliud Otero Jr., DO [address] [place] [phone] PCP - [facility]03/28/17Te MemberRelationshipSpecialtyStart Date End Date Eliud Otero JrChristophe, DO [address] [place] [phone] [facility] - [facility]03/28/17Te MemberRelationshipSpecialtyStart Date End Date Eliud Otero Jr., DO [address] [place] [phone] PCP - [facility]03/28/17 FOR RECORDS PERTAINING TO PATIENTS WHO ARE [...] BE BASED ON THE PRIMARY CLINICAL RECORDS. [facility]. provides no warranty or guarantee of the accuracy or completeness of information in this document.
[2025-01-05] MEDS: METHYLPREDNISOLONE SOD SUCC PF 125 MG/2 ML VIAL IVP (04:27)
[2025-01-05] MEDS: MAGNESIUM SULFATE IN WATER 2 GM/50 ML PREMIX IV (04:27)
[2025-01-05 04:30] LABS: Hematocrit 44.3 % (36.0-48.0); Hemoglobin 14.6 g/dL (12.0-16.0); Immature Granulocytes Abs Auto 0.02 10^3/uL (0.00-0.03); Immature Granulocytes Pct Auto 0.3 % (0.0-0.5); Lymphocytes Absolute Auto 1.5 10^3/uL (1.2-3.8); Mean Corpuscular HGB Conc 33.0 g/dL (29.9-35.2); Mean Corpuscular Hemoglobin 30.6 pg (26.7-34.0); Mean Corpuscular Volume 92.9 fL (81.0-99.0); Platelet Count 235 10^3/uL (150-450); Red Blood Count 4.77 10^6/uL (4.20-5.40); White Blood Count 7.0 10^3/uL (4.0-11.0)
[2025-01-05 04:31] LABS: Glucose Urine UA NEGATIVE (NEGATIVE)
[2025-01-05 04:42] LABS: Cast Seen? NONE SEEN #/LPF (NONE SEEN); Crystals Seen? None Seen #/HPF (None Seen); Urine Culture Indicated YES-FRMC
[2025-01-05 04:47] LABS: Lactate/Lactic Acid 1.8 mmol/L (0.4-2.0)
[2025-01-05 04:49] LABS: Anion Gap 10.8; Blood Urea Nitrogen 12.0 mg/dL (7.0-18.0); Calcium 8.9 mg/dL (8.5-10.1); Carbon Dioxide 28.1 mmol/L (21.0-32.0); Chloride 107 mmol/L (98-107); Estimated GFR (African America >60 (>=60 mL/min/1.73m^2); Estimated GFR (Non-African Ame 59 (>=60 mL/min/1.73m^2); Glucose 109 mg/dL (74-106); Potassium 3.9 mmol/L (3.5-5.1); Sodium 142 mmol/L (136-145)
[2025-01-05] MEDS: NITROFURANTOIN MONOHYD/MAC-CRST 100 MG CAPSULE PO (05:29)
== END 2025-01-05 05:30 | disposition home or self-care (01) ==
PROVIDERS: Emergency Provider Internal Medicine; PCP Internal Medicine
DX: N39.0 Urinary tract infection, site not specified (principal); R07.81 Pleurodynia; Z95.0 Presence of cardiac pacemaker; Z87.891 Personal history of nicotine dependence
CPT/HCPCS: 36415; 71046; 80048; 81001; 83605; 84484; 85025; 87086; 93005; 96365; 96375; 99285; J2919; J3475